=== PATIENT | female | born 1965 | race Caucasian/White ===

== ENCOUNTER 2016-03-10 06:50 | Day surgery (SDC) | payer BC, OTHER ==
[2016-03-02 10:46] VITALS: BMI 58.0
--- NOTE | 2016-03-02 11:37 | PAT Medication Instructions ---
Service Date Mar 02, 2016. Current Home Medication List Amoxicillin (Amoxil), 500 MG PO TID Aspirin (Aspirin Ec), 81 MG PO QAM Atorvastatin (Lipitor), 20 MG PO HS Cetirizine (Zyrtec), 10 MG PO QPM Clopidogrel (Plavix), 75 MG PO QAM Furosemide (Lasix), 80 MG PO BID Insulin Glargine (Lantus), 13 UNITS SC QPM Metoprolol Succinate (Toprol Xl), 25 MG PO HS Medication Instructions For Your Scheduled Surgery Amoxicillin (Amoxil), 500 MG PO TID (to be completed prior to surgery) - Check with surgeon/PCP for instructions: Aspirin (Aspirin Ec), 81 MG PO QAM Clopidogrel (Plavix), 75 MG PO QAM - Hold the following medications the morning of surgery: Furosemide (Lasix), 80 MG PO BID - Take the following medications as scheduled the night before surgery: Metoprolol Succinate (Toprol Xl), 25 MG PO HS Insulin Glargine (Lantus), 13 UNITS SC QPM Furosemide (Lasix), 80 MG PO BID Cetirizine (Zyrtec), 10 MG PO QPM Atorvastatin (Lipitor), 20 MG PO HS If you have any questions please call us at [phone] (Lynda Kothari PA-C) or [phone] or [phone]
[2016-03-02 12:46] LABS: BASO % 0.6 %; BASO ABS # 0.09 K/uL (0-0.2); COMPLETE YES; EOS % 3.3 %; HEMATOCRIT 38.7 % (37-47); IG% 1.2 %; LYMPH % 20.9 %; LYMPH ABS # 3.32 K/uL (1.2-3.4); MEAN CELL VOLUME 94.9 fL (80-100); MEAN CORPUSCULAR HEMOGLOBIN 30.4 pg (25-34); MEAN PLATELET VOLUME 11.3 fL (7.4-10.4); MONO % 3.6 %; NEUT % 70.4 %; PLATELET COUNT 308 K/uL (130-400); RED BLOOD COUNT 4.08 M/uL (4.2-5.4)
[2016-03-02 12:56] LABS: PROTHROMBIN TIME (PATIENT) 10.4 SECONDS (9.0-12.0)
[2016-03-02 13:17] LABS: CREATININE 2.9 mg/dl (0.60-1.20)
[2016-03-02 13:18] LABS: BUN/CREATININE RATIO 13.3 (10-20); CALCIUM 9.2 mg/dl (8.5-10.1); POTASSIUM 4.4 mmol/L (3.5-5.1)
[2016-03-02 13:34] LABS: BETA-HYDROXYBUTYRATE 0.96 mg/dL (0.2-2.81)
[~2016-03-10] VITALS: Ht 160 cm; Wt 150.1 kg
--- NOTE | 2016-03-10 06:16 | History and Physical ---
History & Physical CC: End stage renal disease HPI: Mrs. López states that she recently began dialysis due to some worsening of her renal function although her nephrologists are still undecided as to whether she will need it permanently or only on a temporary basis. The patient states that she does have some concerns regarding fistula creation due to the appearance of patient's arms after being on dialysis. She denies any other real complaints at this time including headaches, fevers, chills, dizziness, chest pain, shortness of breath, abdominal pain, nausea, vomiting, diarrhea, constipation, dysuria, hematuria, rest pain, claudication, nonhealing wounds or ulcers or other complaints. ALLERGIES: No known allergies. HOME MEDICATIONS: Reconciled in the chart and include the following: Aspirin, furosemide, lactulose, Lantus, Lipitor, metoprolol succinate, Nephrocaps, NovoLog, FlexPen, and Plavix. IMAGING: The patient had an ultrasound performed prior today's appointment, which demonstrates the usable cephalic vein in her left upper arm. The patient is right-handed. PAST MEDICAL HISTORY: Positive for anxiety, depression, diabetes, end-stage renal disease on dialysis, headaches, hypertension, neuropathy, and peripheral arterial disease. PAST SURGICAL HISTORY: Her surgical history is positive for tumor removal, hysterectomy, cholecystectomy, section, and left leg angiography with stent placement back [place] [address] Oneil Dumont. SOCIAL HISTORY: Positive for a past history of tobacco use. The patient states that she quit in 2016. FAMILY HISTORY: Positive for hypertension, diabetes. REVIEW OF SYSTEMS: Positive for fatigue. Negative for fevers, sweats, abnormal moles or rashes, vision changes or photophobia, ear pain, sinus problems or sore throat, cough, shortness of breath, hemoptysis or wheezing, chest pain, palpitations, syncope. She does have some edema of her bilateral lower extremities which is significantly improved compared to predialysis. The patient denies abdominal pain, nausea, vomiting, diarrhea, constipation, dysuria , hematuria, muscle weakness, headaches, dizziness, or seizures. PHYSICAL EXAMINATION: Her vital signs today are as follows: Blood pressure 120 /84 in the right arm, 138/84 in the left, heart rate 81, oxygen 97% on room air. The patient is 160 cm tall and weighs 148 kilograms. Constitutional: In general, patient is a morbidly obese, chronically ill-appearing middle-aged female in no acute distress. She is ambulatory with a walker. Her head is normocephalic, atraumatic. Eyes are EOMI. Her ENMT exam demonstrates no hearing loss, rhinorrhea or pharyngeal erythema. Her neck is supple, nontender with midline trachea without masses or crepitus. Lung exam demonstrates no dyspnea. They are decreased throughout but clear bilaterally. His cardiovascular exam demonstrates nondisplaced apical impulse with a regular rate and rhythm without murmurs, lifts, heaves, thrills or gallops. Her peripheral pulses are full and equal in all extremities unless otherwise noted, specifically they are normal in her carotid, brachial, radial and femoral pulses. Her bilateral lower extremities distal pulses are +2 in the left and + 1 on the right. She has brisk capillary refill and no sign of distal ischemia. The patient demonstrates no bruits in her carotid, abdominal or femoral area. Abdomen is soft, nontender with normoactive bowel sounds in all 4 quadrants without guarding or rebound. There is no flank or CVA tenderness. I am unable to appreciate any pulsatile masses due to body habitus. Her musculoskeletal exam demonstrates normal tone and strength for age. Bilateral upper extremities demonstrate no cyanosis, edema, clubbing, varicosities or ulcers. Bilateral lower extremities demonstrate +2 edema with dry scaly skin. No overt ulcers are noted. There is no gangrene or cyanosis. Neurologically, patient has grossly intact cranial nerves and grossly intact sensation. ASSESSMENT AND PLAN: End-stage renal disease on hemodialysis. Plan: Patient is admitted for a left antecubital cephalic vein fistula creation. I have discussed the risks options and benefits of the procedure with the patient. The patient understands the risks options and benefits and agrees to the procedure.
[~2016-03-10 06:50] MED LIST: AMOX500C3 PO; ASPI81TA28 PO; ATOR-22 PO; CEFAZOLIN 3000 MG/65 ML D5W IV SCH; CETI10TA84 PO; CLOP1TAB15 PO; FURO80TA63 PO; INSDGI SC; METO25TA3 PO; SODIUM CHLORIDE 0.9% 1000ML 1,000 ML IV SCH
[2016-03-10 07:19] VITALS: BMI 58.0
--- NOTE | 2016-03-10 07:22 | History & Physical Bridge Note ---
H&P Re-Evaluation Bridge Note: I have examined the patient, reviewed the History & Physical and in the interval since the performance of the History & Physical I have noted the following changes of clinical significance: No changes noted
[2016-03-10 07:27] VITALS: BP 150/74; PULSE 85; TEMP 37; O2SAT 98; Ht 160 cm; Wt 150.1 kg
[2016-03-10] MEDS ORDERED: ATROPINE SULFATE 0.1 MG/ML 5ML SYR IV PRN (07:30)
[2016-03-10] MEDS ORDERED: EpHEDrine SULFATE INJ 50 MG/ML AMP IV PRN (07:30)
[2016-03-10] MEDS ORDERED: FENTANYL CITRATE INJ 50 MCG/1 ML 2 ML VIAL IV PRN (07:30)
[2016-03-10] MEDS ORDERED: ONDANSETRON INJ 2 MG/ML 2 ML VIAL IV PRN (07:30)
[2016-03-10] MEDS ORDERED: NovoLIN-R INSULIN PER UNIT CHARGE ONE (07:38)
[2016-03-10] MEDS ORDERED: INSULIN HUMAN REGULAR PER UNIT 10 UNITS in SYRINGE 0 ML IV STA (07:39)
[2016-03-10 08:01] LABS: BUN/CREATININE RATIO 16.4 (10-20); CALCIUM 9.3 mg/dl (8.5-10.1); POTASSIUM 4.8 mmol/L (3.5-5.1)
[2016-03-10] MEDS ORDERED: MIDAZOLAM HCL 1 MG/ML 2ML VIAL ONE ×3 (08:04→09:57)
[2016-03-10] MEDS ORDERED: FENTANYL CITRATE INJ 50 MCG/1 ML 2 ML VIAL ONE ×2 (08:04→10:30)
[2016-03-10] MEDS ORDERED: PROPOFOL IV EMULSION 10 MG/ML 20 ML VIAL IV ONE (08:04)
[2016-03-10 08:17] LABS: BETA-HYDROXYBUTYRATE 1.06 mg/dL (0.2-2.81)
[2016-03-10] MEDS ORDERED: HEPARIN SOD (PORCINE) 1000 UNIT/ML 10 ML VIAL FLUSH ONE (10:36)
[2016-03-10] MEDS ORDERED: MIX: 0.5% BUPIVACAINE W/EPI 1:200,000+1%LIDO 50:50 INJ ONE (10:36)
--- NOTE | 2016-03-10 10:36 | [facility] Post Operative Brief Note ---
Immediate Operative Summary Operative Date Mar 10, 2016. Pre-Operative Diagnosis End-Stage Renal Disease, on Hemodialysis Post-Operative Diagnosis Same as preoperative Procedure(s) Performed Left Antecubital Cephalic Vein Arteriovenous Fistula Creation Surgeon Dr. Michel Autocutter Surgeon(s) Lynne Jensen PA-C Estimated Blood Loss 10ml Findings good thrill Specimens None per surgeon Anesthesia MAC Complication(s) None Disposition Recovery Room / PACU
[2016-03-10] MEDS ORDERED: TRAM-10 PO (10:39)
--- NOTE | 2016-03-10 10:40 | Discharge Instructions ---
Discharge Instructions Visit Reason for Visit: End Stage Renal Disease -No Hemodialysis Discharge Discharge Diagnosis / Problem: End stage renal disease on hemodialysis Discharge Goals Goal(s): Therapeutic intervention Activity Recommendations Activity Limitations: per Instructions/Follow-up section Anesthesia . Post Anesthesia Instructions: If you have had General Anesthesia or IV Sedation: * Do not drive today. * Resume driving when surgeon permits. * Do not make important decisions or sign legal documents today. * Call surgeon for: 1. Temperature elevations greater than 101 degrees F. 2. Uncontrollable pain. 3. Excessive bleeding. 4. Persistent nausea and vomiting. 5. Medication intolerance (nausea, vomiting or rash). * For nausea and vomiting use only clear liquids such as: tea, soda, bouillon until nausea subsides, then gradually increase diet as tolerated. * If you have any concerns or questions, call your surgeon's office. If physician is unavailable and it is an emergency, call 911 or go to the nearest emergency room. . Instructions / Follow-Up Instructions / Follow-Up Call [phone] to schedule a follow up appointment if one not already scheduled. ACTIVITY RECOMMENDATIONS: See Above SPECIAL CARE INSTRUCTIONS: Call your doctor if: * Temperature above 101 degrees * Pain not relieved by pain medicine ordered * There is increased drainage or redness from any incision * You have any unanswered questions or concerns. Diet Recommendations Recommended Home Diet: resume previous diet Procedures Procedures Performed: Left Antecubital Cephalic Vein Arteriovenous Fistula Creation Pending Studies Studies pending at discharge: no Medical Emergencies . Who to Call and When: Medical Emergencies: If at any time you feel your situation is an emergency, please call 911 immediately. . Non-Emergent Contact Non-Emergency issues call your: Surgeon . . "Provider Documentation" section prepared by Giuseppe Michel.
[2016-03-10 11:20] VITALS: BP 146/71; PULSE 79; TEMP 36.4; O2SAT 98
--- NOTE | 2016-03-10 11:29 | Anesthesiology Progress Note ---
Anesthesia Post Op Note Date & Time Mar 10, 2016 at 11:27 Vital Signs Pain Intensity: 0 Vital Signs Past 12 Hours Date Time Temp Pulse Resp B/P Pulse Ox O2 Delivery O2 Flow Rate FiO2 03/10/16 11:16 36.7 80 16 146/76 99 Room Air 03/10/16 11:06 36.7 80 16 148/80 99 Room Air 03/10/16 10:56 36.7 83 16 123/64 98 Room Air 03/10/16 07:27 37 85 20 150/74 98 Room Air Notes Mental Status: alert / awake / arousable, participated in evaluation Pt Amnestic to Procedure: Yes Nausea / Vomiting: adequately controlled Pain: adequately controlled Airway Patency, RR, SpO2: stable & adequate BP & HR: stable & adequate Hydration State: stable & adequate Anesthetic Complications: no major complications apparent
[2016-03-10 11:50] VITALS: BP 142/74; PULSE 80; TEMP 36.7; O2SAT 100
--- NOTE | 2016-03-10 12:08 | OPERATIVE REPORT ---
DATE OF OPERATION: 03/10/2016 PREOPERATIVE DIAGNOSIS: Endstage renal disease. POSTOPERATIVE DIAGNOSIS: Same. PROCEDURE: Left antecubital cephalic vein AV fistula creation. SURGEON: Dr. Michel. DOUGH MOLDER HAND: Lynne Martinez PA-C. ANESTHETIC: MAC. PROCEDURE INDICATIONS: The patient is a 50-year-old female with end-stage renal disease on dialysis. Fistula was recommended. She understood the risks, options and benefits and agreed to have this procedure. OPERATION AND FINDINGS: The patient was taken to the operating room and placed in supine position. After the left arm was prepped and draped in a sterile manner, local anesthetic was administered. A transverse incision was made just below the antecubital crease. This was carried down to where the cephalic vein was identified joining with the median cubital vein. This was isolated. Dissection was carried downward. The bleed of the brachial bifurcation was slightly higher in the artery that we exposed, most likely was the radial. It was a fairly good size to be used for a fistula. It was then clamped proximally and distally. Longitudinal arteriotomy was then made. The median cubital vein was divided after being ligated distally. The side branches of the proximal cephalic vein were ligated and divided also. The cephalic vein was then beveled in the appropriate fashion and end-to-side anastomosis was accomplished using a 7-0 Prolene suture in the usual vascular fashion. Prior to completing the closure, backbleeding and forward bleeding was allowed to occur and final few sutures were placed and securely tied. Clamps were removed, excellent flow was seen in the fistula, there was a palpable thrill in the fistula at the end of the procedure. Adequate hemostasis was then noted of the wound. The wound was then closed in the usual fashion using running 3-0 Vicryl for the subcutaneous layer and a 4-0 subcuticular Vicryl suture for the skin level and Dermabond for a dressing. The patient left the operating room in good condition having tolerated the procedure well. Lynne Martinez assisted due to lack of resident availability. I attest to the content of the Intraoperative Record and any orders documented therein. Any exceptio ns are noted below.
--- NOTE | 2016-03-10 15:33 | Progress Note ---
Progress Note I assisted Dr Michel with Barb López's Left Antecubital Cephalic Vein Arteriovenous Fistula Creation on 03/10/16, d/t lack of resident availability.
[2016-03-11] MEDS ORDERED: CEFAZOLIN 1000MG/55 ML D5W IV SCH (06:00)
[2016-03-11] MEDS ORDERED: CLINDAMYCIN 600 MG/54 ML D5W IV SCH (06:00)
[2016-03-11] MEDS ORDERED: CIPROFLOXACIN / D5W 400 MG IV SCH (06:00)
[2016-03-11] MEDS ORDERED: LEVOFLOXACIN / D5W 500 MG IV SCH (06:00)
[2016-03-11] MEDS ORDERED: CEFAZOLIN 2000 MG/60 ML D5W IV SCH (06:00)
[2016-03-11] MEDS ORDERED: LEVOFLOXACIN / D5W 750 MG IV SCH (06:00)
[2016-03-11] MEDS ORDERED: VANCOMYCIN 1GM/270ML NSS IV SCH (06:00)
[2016-04-23] MEDS ORDERED: AZITTAB PO (11:19)
[2016-04-23] MEDS ORDERED: DOCU100T7 PO (11:20)
[2016-08-10] MEDS ORDERED: lantus SQ (06:38)
== END 2016-03-10 12:15 | disposition home or self-care (01) ==
LOC: C.ACU 06:50
PROVIDERS: ATTEND Surgery Vascular Surgery
DX: N18.6 End stage renal disease (principal); I12.0 Hypertensive chronic kidney disease with stage 5 chronic kidney disease or end stage renal disease; Z99.2 Dependence on renal dialysis; E11.9 Type 2 diabetes mellitus without complications; Z87.891 Personal history of nicotine dependence; F41.9 Anxiety disorder, unspecified; F32.9 Major depressive disorder, single episode, unspecified; I73.9 Peripheral vascular disease, unspecified; Z98.890 Other specified postprocedural states; Z90.710 Acquired absence of both cervix and uterus; Z82.49 Family history of ischemic heart disease and other diseases of the circulatory system; Z83.3 Family history of diabetes mellitus

== ENCOUNTER 2016-05-05 06:33 | Day surgery (SDC) | payer OTHER ==
[2016-04-23 11:31] VITALS: BMI 58.0
[~2016-05-05] VITALS: Ht 160 cm; Wt 150.0 kg
--- NOTE | 2016-05-05 06:16 | History and Physical ---
History & Physical Date of Service May 05, 2016. History & Physical CC: End stage renal disease HPI: Mrs. López states that she recently began dialysis due to some worsening of her renal function. She had a left upper arm cephalic vein fistula created but it is too deep to use. She is here to have it transposed so it can be useable for dialysis. She denies any other real complaints at this time including headaches, fevers, chills, dizziness, chest pain, shortness of breath, abdominal pain, nausea, vomiting, diarrhea, constipation, dysuria, hematuria, rest pain, claudication, nonhealing wounds or ulcers or other complaints. ALLERGIES: No known allergies. HOME MEDICATIONS: Reconciled in the chart and include the following: Aspirin, furosemide, lactulose, Lantus, Lipitor, metoprolol succinate, Nephrocaps, NovoLog, FlexPen, and Plavix. IMAGING: The patient had an ultrasound performed prior today's appointment, which demonstrates the usable cephalic vein in her left upper arm. The patient is right-handed. PAST MEDICAL HISTORY: Positive for anxiety, depression, diabetes, end-stage renal disease on dialysis, headaches, hypertension, neuropathy, and peripheral arterial disease. PAST SURGICAL HISTORY: Her surgical history is positive for tumor removal, hysterectomy, cholecystectomy, section, and left leg angiography with stent placement back in [address] Oneil Dumont. SOCIAL HISTORY: Positive for a past history of tobacco use. The patient states that she quit in 2016. FAMILY HISTORY: Positive for hypertension, diabetes. REVIEW OF SYSTEMS: Positive for fatigue. Negative for fevers, sweats, abnormal moles or rashes, vision changes or photophobia, ear pain, sinus problems or sore throat, cough, shortness of breath, hemoptysis or wheezing, chest pain, palpitations, syncope. She does have some edema of her bilateral lower extremities which is significantly improved compared to predialysis. The patient denies abdominal pain, nausea, vomiting, diarrhea, constipation, dysuria , hematuria, muscle weakness, headaches, dizziness, or seizures. PHYSICAL EXAMINATION: Her vital signs today are as follows: Blood pressure 120 /84 in the right arm, 138/84 in the left, heart rate 81, oxygen 97% on room air. The patient is 160 cm tall and weighs 148 kilograms. Constitutional: In general, patient is a morbidly obese, chronically ill-appearing middle-aged female in no acute distress. She is ambulatory with a walker. Her head is normocephalic, atraumatic. Eyes are EOMI. Her ENMT exam demonstrates no hearing loss, rhinorrhea or pharyngeal erythema. Her neck is supple, nontender with midline trachea without masses or crepitus. Lung exam demonstrates no dyspnea. They are decreased throughout but clear bilaterally. His cardiovascular exam demonstrates nondisplaced apical impulse with a regular rate and rhythm without murmurs, lifts, heaves, thrills or gallops. Her peripheral pulses are full and equal in all extremities unless otherwise noted, specifically they are normal in her carotid, brachial, radial and femoral pulses. Her bilateral lower extremities distal pulses are +2 in the left and + 1 on the right. She has brisk capillary refill and no sign of distal ischemia. The patient demonstrates no bruits in her carotid, abdominal or femoral area. Abdomen is soft, nontender with normoactive bowel sounds in all 4 quadrants without guarding or rebound. There is no flank or CVA tenderness. I am unable to appreciate any pulsatile masses due to body habitus. Her musculoskeletal exam demonstrates normal tone and strength for age. Bilateral upper extremities demonstrate no cyanosis, edema, clubbing, varicosities or ulcers. Bilateral lower extremities demonstrate +2 edema with dry scaly skin. No overt ulcers are noted. There is no gangrene or cyanosis. Neurologically, patient has grossly intact cranial nerves and grossly intact sensation. ASSESSMENT AND PLAN: End-stage renal disease on hemodialysis. Post left upper arm cephalic vein fistula creation. Plan: Patient is admitted for transposition of her left upper arm cephalic vein fistula. I have discussed the risks options and benefits of the procedure with the patient. The patient understands the risks options and benefits and agrees to the procedure.
[~2016-05-05 06:33] MED LIST changes: -AMOX500C3 PO; +AZITTAB PO; +CEFAZOLIN 3000 MG/65 ML D5W 65 ML IV SCH; -CEFAZOLIN 3000 MG/65 ML D5W IV SCH; -CETI10TA84 PO; +DOCU100T7 PO; +NSS 1000ML IV SCH
[2016-05-05] MEDS ORDERED: NVLRB (07:03)
[2016-05-05 07:12] VITALS: BP 187/59; PULSE 65; TEMP 36.7; O2SAT 97; Ht 160 cm; Wt 150.0 kg
[2016-05-05] MEDS ORDERED: NURSING VERBAL MED ORDER ONE (07:30)
[2016-05-05] MEDS ORDERED: INSULIN HUMAN REGULAR SC ONE ×2 (07:30→10:30)
[2016-05-05] MEDS ORDERED: NovoLIN-R INSULIN PER UNIT CHARGE ONE ×2 (07:33→10:17)
[2016-05-05] MEDS ORDERED: PROPOFOL IV EMULSION 10 MG/ML 20 ML VIAL IV ONE (07:46)
[2016-05-05] MEDS ORDERED: ONDANSETRON INJ 2 MG/ML 2 ML VIAL ONE (07:46)
[2016-05-05] MEDS ORDERED: SODIUM CHLORIDE 0.9% INJ 10 ML VIAL ONE (07:46)
[2016-05-05] MEDS ORDERED: MIDAZOLAM HCL 1 MG/ML 2ML VIAL ONE (07:46)
[2016-05-05] MEDS ORDERED: LIDOCAINE HCL 2% 2 ML VIAL (20MG/ML) ONE (07:46)
[2016-05-05] MEDS ORDERED: KETAMINE HCL INJ 50 MG/ML 10 ML VIAL ONE (07:46)
[2016-05-05] MEDS ORDERED: FENTANYL CITRATE INJ 50 MCG/1 ML 2 ML VIAL ONE ×2 (07:46→09:10)
[2016-05-05 07:51] LABS: BUN/CREATININE RATIO 16.2 (10-20); CALCIUM 9.3 mg/dl (8.5-10.1); CREATININE 2.7 mg/dl (0.60-1.20); POTASSIUM 4.2 mmol/L (3.5-5.1)
[2016-05-05] MEDS ORDERED: LIDOCAINE HCL 1% 20 ML VIAL ONE ×2 (07:59→09:08)
[2016-05-05] MEDS ORDERED: BUPIVACAINE/EPINEPHRINE 0.5% MPF 1:200,000 30 ML VIAL ONE ×2 (07:59→09:08)
[2016-05-05] MEDS ORDERED: CEFAZOLIN SOD 1 GM VIAL ONE (08:00)
[2016-05-05] MEDS ORDERED: HEPARIN SOD (PORCINE) 1000 UNIT/ML 10 ML VIAL ONE (08:00)
[2016-05-05 08:01] LABS: BETA-HYDROXYBUTYRATE 1.36 mg/dL (0.2-2.81)
[2016-05-05] MEDS ORDERED: GELATIN SPONGE 12-7MM ONE (08:01)
[2016-05-05] MEDS ORDERED: THROMBIN 5000 UNITS KIT ONE (08:01)
[2016-05-05] MEDS ORDERED: SODIUM CHLORIDE 0.9% 1000ML 1,000 ML IV PRN (08:07)
[2016-05-05] MEDS ORDERED: ONDANSETRON INJ 2 MG/ML 2 ML VIAL IV PRN (08:15)
[2016-05-05] MEDS ORDERED: FENTANYL CITRATE INJ 50 MCG/1 ML 2 ML VIAL IV PRN (08:15)
--- NOTE | 2016-05-05 09:44 | [facility] Post Operative Brief Note ---
Immediate Operative Summary Operative Date May 05, 2016. Pre-Operative Diagnosis End Stage Renal Disease. Post-Operative Diagnosis Same as preoperative. Procedure(s) Performed Left Upper Extremity Cephalic Vein Arterio-venous Transposition Surgeon Thermodynamics Teacher Surgeon(s) Lynne Martinez PA-C Estimated Blood Loss 20ML Findings good thrill Specimens None per surgeon Anesthesia MAC Complication(s) None Disposition Recovery Room / PACU
[2016-05-05] MEDS ORDERED: OXYC-57 PO (09:45)
--- NOTE | 2016-05-05 09:47 | Discharge Instructions ---
Discharge Instructions Visit Reason for Visit: End Stage Renal Disease -On Hemodialysis Discharge Discharge Diagnosis / Problem: Malfunctioning av fistula Discharge Goals Goal(s): Therapeutic intervention Activity Recommendations Activity Limitations: per Instructions/Follow-up section Anesthesia . Post Anesthesia Instructions: If you have had General Anesthesia or IV Sedation: * Do not drive today. * Resume driving when surgeon permits. * Do not make important decisions or sign legal documents today. * Call surgeon for: 1. Temperature elevations greater than 101 degrees F. 2. Uncontrollable pain. 3. Excessive bleeding. 4. Persistent nausea and vomiting. 5. Medication intolerance (nausea, vomiting or rash). * For nausea and vomiting use only clear liquids such as: tea, soda, bouillon until nausea subsides, then gradually increase diet as tolerated. * If you have any concerns or questions, call your surgeon's office. If physician is unavailable and it is an emergency, call 911 or go to the nearest emergency room. . Instructions / Follow-Up Instructions / Follow-Up Call [phone] to schedule a follow up appointment if one not already scheduled. ACTIVITY RECOMMENDATIONS: See Above SPECIAL CARE INSTRUCTIONS: Call your doctor if: * Temperature above 101 degrees * Pain not relieved by pain medicine ordered * There is increased drainage or redness from any incision * You have any unanswered questions or concerns. Diet Recommendations Recommended Home Diet: resume previous diet Procedures Procedures Performed: Left Upper Extremity Cephalic Vein Arterio-venous Transposition Pending Studies Studies pending at discharge: no Medical Emergencies . Who to Call and When: Medical Emergencies: If at any time you feel your situation is an emergency, please call 911 immediately. . Non-Emergent Contact Non-Emergency issues call your: Surgeon . . "Provider Documentation" section prepared by Giuseppe Michel.
[2016-05-05 10:35] VITALS: BP 161/65; PULSE 75; TEMP 36.8; O2SAT 95
--- NOTE | 2016-05-05 10:35 | OPERATIVE REPORT ---
DATE OF OPERATION: 05/05/2016 PREOPERATIVE DIAGNOSIS: Malfunctioning left upper arm cephalic vein AV fistula. POSTOPERATIVE DIAGNOSIS: Same. PROCEDURE: Left upper extremity cephalic vein arteriovenous fistula transposition. SURGEON: Dr. Michel. SWITCHGEAR REPAIRER: Lynne Martinez PA-C. ANESTHETIC: MAC. PROCEDURE INDICATIONS: The patient is a 50-year-old female with left upper arm cephalic vein fistula which is not working well; however, it is too deep to access with the needles due to her body habitus. A transposition was recommended. She understood the risks, options, benefits and agreed to go ahead with this procedure. The patient was taken to the operating room and placed in a supine position. After her left arm was prepped and draped in a sterile manner, local anesthetic was administered. An incision was made over the cephalic vein from its arterial anastomosis at the antecubital fossa up to the shoulder joint. It was unroofed in its entirety. All side branches were divided after being ligated with silk sutures. The vein itself was fairly large and ranged anywhere from 6-8 mm in size. Once the vein was completely freed up, it was brought up closer to the skin. Subcutaneous tissue was sutured beneath it to raise it up closer to the skin surface. It ranged from 5-8 mm from the skin in its entire length until it got up to the upper arm near the shoulder at which point it dove back down into the axillary vein. It could be easily felt throughout. After this was moved up another 3-0 Vicryl was used to close the layer of subcutaneous tissue over the fistula. The skin was then stapled using the stapling device. Sterile dressings were applied to the wound. The patient left the operating room in satisfactory condition and tolerated the procedure well. There was a good thrill in the fistula at the end of the procedure and it was more easily felt at least [address] the arm. Lynne Martinez assisted due to lack of resident availability. I attest to the content of the Intraoperative Record and any orders documented therein. Any exceptio ns are noted below.
--- NOTE | 2016-05-05 10:38 | Anesthesiology Progress Note ---
Anesthesia Post Op Note Date & Time May 05, 2016 at 10:37 Vital Signs Pain Intensity: 0 Vital Signs Past 12 Hours Date Time Temp Pulse Resp B/P Pulse Ox O2 Delivery O2 Flow Rate FiO2 05/05/16 10:26 76 13 94 05/05/16 10:26 36.8 76 13 05/05/16 10:24 129/68 05/05/16 10:21 77 15 05/05/16 10:21 77 15 94 05/05/16 10:19 156/73 05/05/16 10:16 77 15 05/05/16 10:16 77 15 93 05/05/16 10:14 156/73 05/05/16 10:11 74 12 95 05/05/16 10:11 75 12 05/05/16 10:09 156/70 05/05/16 10:06 76 15 05/05/16 10:06 76 15 95 05/05/16 10:04 165/74 05/05/16 10:01 77 11 05/05/16 10:01 77 11 98 05/05/16 09:59 149/81 05/05/16 09:56 77 16 100 05/05/16 09:56 36.4 80 16 168/74 100 Mask 10 05/05/16 09:56 78 16 05/05/16 07:12 36.7 65 20 187/59 97 Room Air Notes Mental Status: alert / awake / arousable, participated in evaluation Pt Amnestic to Procedure: Yes Nausea / Vomiting: adequately controlled Pain: adequately controlled Airway Patency, RR, SpO2: stable & adequate BP & HR: stable & adequate Hydration State: stable & adequate Anesthetic Complications: no major complications apparent Pt looks well. Glucose 435 on arrival. Gave 10 units regular insulin SQ. 412 an hour later immediately pre-op, 377 in PACU. Gave another 10 units SQ, check in an hour, resume normal outpt regimen, f/u w/ PCP.
[2016-05-05 11:15] VITALS: BP 127/43; PULSE 75; O2SAT 95
[2016-05-05] MEDS ORDERED: TRAM-10 PO (11:26)
--- NOTE | 2016-05-05 14:04 | Progress Note ---
Progress Note Date of Service May 05, 2016. Progress Note I assisted Dr Michel with Barb López's Left Upper Extremity Cephalic Vein Arterio-venous Transposition on , d/t lack of resident availability.
[2016-08-10] MEDS ORDERED: lantus SQ (06:38)
== END 2016-05-05 11:35 | disposition home or self-care (01) ==
LOC: C.ACU 06:33
PROVIDERS: ATTEND Surgery Vascular Surgery
DX: T82.898A Other specified complication of vascular prosthetic devices, implants and grafts, initial encounter (principal); Y84.8 Other medical procedures as the cause of abnormal reaction of the patient, or of later complication, without mention of misadventure at the time of the procedure; N18.9 Chronic kidney disease, unspecified; I12.9 Hypertensive chronic kidney disease with stage 1 through stage 4 chronic kidney disease, or unspecified chronic kidney disease; E11.22 Type 2 diabetes mellitus with diabetic chronic kidney disease; I73.9 Peripheral vascular disease, unspecified; G47.33 Obstructive sleep apnea (adult) (pediatric); Z86.73 Personal history of transient ischemic attack (TIA), and cerebral infarction without residual deficits; Z87.891 Personal history of nicotine dependence; Z68.43 Body mass index [BMI] 50.0-59.9, adult; E66.01 Morbid (severe) obesity due to excess calories; Z98.890 Other specified postprocedural states; Z82.49 Family history of ischemic heart disease and other diseases of the circulatory system; Z83.3 Family history of diabetes mellitus

== ENCOUNTER → 2016-08-10 | Day surgery (SDC) | payer OTHER ==
[~2016-08-10] VITALS: Ht 160 cm; Wt 147.8 kg
[~2016-08-10] MED LIST changes: +ARISTA ABSORBABLE HEMOSTAT 3GM TOP ONE; -AZITTAB PO; -CEFAZOLIN 3000 MG/65 ML D5W 65 ML IV SCH; +LIDOCAINE HCL 1% 20 ML VIAL ONE; +LIDOCAINE HCL 1% 20 ML VIAL SQ ONE; -NSS 1000ML IV SCH; +NURSING VERBAL MED ORDER ONE; +NVLRB; +NovoLIN-R INSULIN PER UNIT CHARGE ONE; -SODIUM CHLORIDE 0.9% 1000ML 1,000 ML IV SCH; +TRAM-10 PO; +lantus SQ
[2016-08-10 06:41] VITALS: BP 144/65; PULSE 93; TEMP 37.4; O2SAT 97; Ht 160 cm; Wt 147.8 kg
--- NOTE | 2016-08-10 07:54 | History and Physical ---
History & Physical Date of Service Aug 10, 2016. History & Physical CC: End stage renal disease, functioning fistula HPI: Mrs. López states that she recently began dialysis due to some worsening of her renal function. She had a left upper arm cephalic vein fistula created but it is too deep to use. She then had it transposed so it can be useable for dialysis. the fistula is now working well. She denies any other real complaints at this time including headaches, fevers, chills, dizziness, chest pain, shortness of breath, abdominal pain, nausea, vomiting, diarrhea, constipation, dysuria, hematuria, rest pain, claudication, nonhealing wounds or ulcers or other complaints. ALLERGIES: No known allergies. HOME MEDICATIONS: Reconciled in the chart and include the following: Aspirin, furosemide, lactulose, Lantus, Lipitor, metoprolol succinate, Nephrocaps, NovoLog, FlexPen, and Plavix. IMAGING: The patient had an ultrasound performed prior today's appointment, which demonstrates the usable cephalic vein in her left upper arm. The patient is right-handed. PAST MEDICAL HISTORY: Positive for anxiety, depression, diabetes, end-stage renal disease on dialysis, headaches, hypertension, neuropathy, and peripheral arterial disease. PAST SURGICAL HISTORY: Her surgical history is positive for tumor removal, hysterectomy, cholecystectomy, section, and left leg angiography with stent placement back in [address] Oneil Dumont. SOCIAL HISTORY: Positive for a past history of tobacco use. The patient states that she quit in 2016. FAMILY HISTORY: Positive for hypertension, diabetes. REVIEW OF SYSTEMS: Positive for fatigue. Negative for fevers, sweats, abnormal moles or rashes, vision changes or photophobia, ear pain, sinus problems or sore throat, cough, shortness of breath, hemoptysis or wheezing, chest pain, palpitations, syncope. She does have some edema of her bilateral lower extremities which is significantly improved compared to predialysis. The patient denies abdominal pain, nausea, vomiting, diarrhea, constipation, dysuria , hematuria, muscle weakness, headaches, dizziness, or seizures. PHYSICAL EXAMINATION: Her vital signs today are as follows: Blood pressure 120 /84 in the right arm, 138/84 in the left, heart rate 81, oxygen 97% on room air. The patient is 160 cm tall and weighs 148 kilograms. Constitutional: In general, patient is a morbidly obese, chronically ill-appearing middle-aged female in no acute distress. She is ambulatory with a walker. Her head is normocephalic, atraumatic. Eyes are EOMI. Her ENMT exam demonstrates no hearing loss, rhinorrhea or pharyngeal erythema. Her neck is supple, nontender with midline trachea without masses or crepitus. Lung exam demonstrates no dyspnea. They are decreased throughout but clear bilaterally. His cardiovascular exam demonstrates nondisplaced apical impulse with a regular rate and rhythm without murmurs, lifts, heaves, thrills or gallops. Her peripheral pulses are full and equal in all extremities unless otherwise noted, specifically they are normal in her carotid, brachial, radial and femoral pulses. Her bilateral lower extremities distal pulses are +2 in the left and + 1 on the right. She has brisk capillary refill and no sign of distal ischemia. The patient demonstrates no bruits in her carotid, abdominal or femoral area. Abdomen is soft, nontender with normoactive bowel sounds in all 4 quadrants without guarding or rebound. There is no flank or CVA tenderness. I am unable to appreciate any pulsatile masses due to body habitus. Her musculoskeletal exam demonstrates normal tone and strength for age. Bilateral upper extremities demonstrate no cyanosis, edema, clubbing, varicosities or ulcers. Good thrill in left arm fistula, Bilateral lower extremities demonstrate +2 edema with dry scaly skin. No overt ulcers are noted. There is no gangrene or cyanosis. Neurologically, patient has grossly intact cranial nerves and grossly intact sensation. ASSESSMENT AND PLAN: End-stage renal disease on hemodialysis. functioning left upper arm cephalic vein fistula Plan: Patient is admitted for removal of her permcath. I have discussed the risks options and benefits of the procedure with the patient. The patient understands the risks options and benefits and agrees to the procedure.
--- NOTE | 2016-08-10 08:43 | [facility] Post Operative Brief Note ---
Immediate Operative Summary Operative Date Aug 10, 2016. Pre-Operative Diagnosis Functioning Fistula Post-Operative Diagnosis Same Procedure(s) Performed Removal of Perm Catheter Surgeon Dr. Michel Safety Grooving Machine Operator Surgeon(s) Dr. Maya Wilder Estimated Blood Loss 3 Findings catheter and cuff removed Specimens A: Explant Permcatheter Anesthesia Local Complication(s) None Disposition
--- NOTE | 2016-08-10 08:45 | Discharge Instructions ---
Discharge Instructions Date of Service Aug 10, 2016. Visit Reason for Visit: End Stage Renal Disease, Functioning Fistula Discharge Discharge Diagnosis / Problem: Functioning fistula Discharge Goals Goal(s): Therapeutic intervention Activity Recommendations Activity Limitations: resume your previous activity Shower/Bathe: tomorrow Anesthesia . Post Anesthesia Instructions: If you have had General Anesthesia or IV Sedation: * Do not drive today. * Resume driving when surgeon permits. * Do not make important decisions or sign legal documents today. * Call surgeon for: 1. Temperature elevations greater than 101 degrees F. 2. Uncontrollable pain. 3. Excessive bleeding. 4. Persistent nausea and vomiting. 5. Medication intolerance (nausea, vomiting or rash). * For nausea and vomiting use only clear liquids such as: tea, soda, bouillon until nausea subsides, then gradually increase diet as tolerated. * If you have any concerns or questions, call your surgeon's office. If physician is unavailable and it is an emergency, call 911 or go to the nearest emergency room. . Instructions / Follow-Up Instructions / Follow-Up Call [phone] with any questions or concerns. May shower tomorrow SPECIAL CARE INSTRUCTIONS: Medications: * Continue to take your medications as directed. If you have been given a prescription for Plavix, please fill it immediately and take as directed. Incision Care: * Your puncture site may have some bruising and minor swelling for about one week. * You will have a small dressing covering your puncture site. You may remove the dressing after 24 hours and shower. You may let the warm soapy water run over it, but be sure to dry the puncture site well and keep it dry. * DO NOT IMMERSE THE INCISION IN A TUB/POOL/etc. UNTIL HEALED. * Puncture sites should be kept covered with a band-aid until it begins to heal. Restrictions: * Depending on whether you leg or arm was punctured to access the arteries, you will be required to lay flat, hold your arm still, or both, for about 4 hours after the procedure to prevent bleeding. * Limit your activity for the first 48 hours. You may walk and go up and down steps. Avoid excessive bending or movement at the puncture site. Possible Complications: * Excessive Swelling - after blood flow is improved you may notice increased swelling in the lower legs. This is a normal response. This usually depends on the amount of blockages in the leg, how long they have been there prior to your procedure and how much blood flow was restored. Elevating your legs will help to improve this. Please notify our office ([phone] ) if the swelling does not go away after lying in bed overnight. * Infection/Drainage/Bleeding - Drainage or bleeding from the puncture site should be minimal. If you have excessive bleeding or drainage, call our office ([phone]) right away. * Pain - You may experience some mild pain or soreness at your puncture site. If your pain does not improve, please contact our office ([phone]). Call your doctor and seek emergent treatment if you develop: * Temperature above 101 degrees * Any fever or chills * Any redness or purulent drainage from the puncture site * Any new dusky/blue colored toes or feet with coolness or sharp or aching pain. SKIN IRRITATION: * You may experience some redness and/or swelling in the area where radiation was administered. If any skin irritation occurs, please contact your family physician. FOLLOW UP VISIT: Keep any scheduled doctor appointments. Diet Recommendations Recommended Home Diet: resume previous diet Procedures Procedures Performed: Removal of Perm Catheter Pending Studies Studies pending at discharge: no Medical Emergencies . Who to Call and When: Medical Emergencies: If at any time you feel your situation is an emergency, please call 911 immediately. . Non-Emergent Contact Non-Emergency issues call your: Surgeon . . "Provider Documentation" section prepared by Giuseppe Michel. .
[2016-08-10 09:05] VITALS: BP 133/63; PULSE 82; TEMP 37.2; O2SAT 97
--- NOTE | 2016-08-10 09:34 | DIAGNOSTIC IMAGING REPORT ---
DATE OF PROCEDURE: 08/10/2016 PREOPERATIVE DIAGNOSIS: End-stage renal disease with functioning fistula, no longer requiring right IJ tunneled Perm-A-Cath. POSTOPERATIVE DIAGNOSIS: End-stage renal disease with functioning fistula, no longer requiring right IJ tunneled Perm-A-Cath. PROCEDURE: Removal of right IJ tunneled Perm-A-Cath. SURGEON: Dr. Giuseppe Michel. OVEN UNLOADER: Dr. Maya Wilder. ANESTHESIA: Local. ESTIMATED BLOOD LOSS: 3 mL. CONDITION: Stable. COMPLICATIONS: None. INDICATIONS: Mrs. Barb López is a 50-year-old woman with end-stage renal disease, on hemodialysis through a left arm AV fistula which is functioning well. She had a right tunneled IJ PermCath placed previously and it is no longer required. For this reason, she was recommended to undergo PermCath removal. The risks, benefits and alternatives were discussed with the patient and she consented to the procedure. DESCRIPTION OF PROCEDURE: The patient was taken to the OR and placed in the supine position. Her right neck and chest were prepped and draped in the usual sterile fashion. A safety timeout was performed and the patient and procedure correctly identified. Local anesthesia was used to anesthetize the skin surrounding the catheter tunnel. The previously placed Prolene sutures were removed. Blunt dissection was used to free up the catheter along its tract. The cuff was fairly deep and so a longitudinal incision was made with an 11 blade scalpel along the tract of the tunnel beginning at its skin insertion site and extending approximately 2 cm. Blunt dissection was again used to free up the fibrous connective tissue surrounding the catheter and the cuff was identified. The fibrous sheath surrounding the catheter was incised with a long blade scalpel. The catheter was then removed without difficulty and manual pressure was held for approximately 5 minutes with good hemostasis. Vicryl suture was used to reapproximate the skin incision. A sterile dressing was applied. The patient tolerated the procedure well and there were no immediate complications. Dr. Giuseppe Michel was present for the entire procedure. I, Dr. Michel was present and scrubed for the entire procedure. [facility]
[2016-08-10 09:35] VITALS: BP 150/61; PULSE 87; TEMP 37; O2SAT 99
== END | disposition home or self-care (01) ==
LOC: C.ACU 06:11
PROVIDERS: ATTEND Surgery Vascular Surgery
DX: Z45.2 Encounter for adjustment and management of vascular access device (principal); I12.0 Hypertensive chronic kidney disease with stage 5 chronic kidney disease or end stage renal disease; N18.6 End stage renal disease; E11.9 Type 2 diabetes mellitus without complications; F32.9 Major depressive disorder, single episode, unspecified; Z99.2 Dependence on renal dialysis; Z79.82 Long term (current) use of aspirin; Z87.891 Personal history of nicotine dependence; Z82.49 Family history of ischemic heart disease and other diseases of the circulatory system

== ENCOUNTER 2016-09-22 11:13 | Day surgery (SDC) | payer OTHER ==
[~2016-09-22] VITALS: Ht 160 cm; Wt 136.1 kg
--- NOTE | 2016-09-22 08:41 | History and Physical ---
History & Physical Date of Service Sep 22, 2016. History & Physical CC: End stage renal disease, malfunctioning fistula HPI: Mrs. López states that she recently began dialysis due to some worsening of her renal function. She had a left upper arm cephalic vein fistula created but it is too deep to use. She then had it transposed so it can be useable for dialysis. the fistula was working well. She now has had problems with flows. She denies any other real complaints at this time including headaches, fevers, chills, dizziness, chest pain, shortness of breath , abdominal pain, nausea, vomiting, diarrhea, constipation, dysuria, hematuria, rest pain, claudication, nonhealing wounds or ulcers or other complaints. ALLERGIES: No known allergies. HOME MEDICATIONS: Reconciled in the chart and include the following: Aspirin, furosemide, lactulose, Lantus, Lipitor, metoprolol succinate, Nephrocaps, NovoLog, FlexPen, and Plavix. IMAGING: The patient had an ultrasound performed prior today's appointment, which demonstrates the usable cephalic vein in her left upper arm. The patient is right-handed. PAST MEDICAL HISTORY: Positive for anxiety, depression, diabetes, end-stage renal disease on dialysis, headaches, hypertension, neuropathy, and peripheral arterial disease. PAST SURGICAL HISTORY: Her surgical history is positive for tumor removal, hysterectomy, cholecystectomy, section, and left leg angiography with stent placement back in [address] Oneil Dumont. SOCIAL HISTORY: Positive for a past history of tobacco use. The patient states that she quit in 2016. FAMILY HISTORY: Positive for hypertension, diabetes. REVIEW OF SYSTEMS: Positive for fatigue. Negative for fevers, sweats, abnormal moles or rashes, vision changes or photophobia, ear pain, sinus problems or sore throat, cough, shortness of breath, hemoptysis or wheezing, chest pain, palpitations, syncope. She does have some edema of her bilateral lower extremities which is significantly improved compared to predialysis. The patient denies abdominal pain, nausea, vomiting, diarrhea, constipation, dysuria , hematuria, muscle weakness, headaches, dizziness, or seizures. PHYSICAL EXAMINATION: Her vital signs today are as follows: Blood pressure 120 /84 in the right arm, 138/84 in the left, heart rate 81, oxygen 97% on room air. The patient is 160 cm tall and weighs 148 kilograms. Constitutional: In general, patient is a morbidly obese, chronically ill-appearing middle-aged female in no acute distress. She is ambulatory with a walker. Her head is normocephalic, atraumatic. Eyes are EOMI. Her ENKS exam demonstrates no hearing loss, rhinorrhea or pharyngeal erythema. Her neck is supple, nontender with midline trachea without masses or crepitus. Lung exam demonstrates no dyspnea. They are decreased throughout but clear bilaterally. His cardiovascular exam demonstrates nondisplaced apical impulse with a regular rate and rhythm without murmurs, lifts, heaves, thrills or gallops. Her peripheral pulses are full and equal in all extremities unless otherwise noted, specifically they are normal in her carotid, brachial, radial and femoral pulses. Her bilateral lower extremities distal pulses are +2 in the left and + 1 on the right. She has brisk capillary refill and no sign of distal ischemia. The patient demonstrates no bruits in her carotid, abdominal or femoral area. Abdomen is soft, nontender with normoactive bowel sounds in all 4 quadrants without guarding or rebound. There is no flank or CVA tenderness. I am unable to appreciate any pulsatile masses due to body habitus. Her musculoskeletal exam demonstrates normal tone and strength for age. Bilateral upper extremities demonstrate no cyanosis, edema, clubbing, varicosities or ulcers. Good thrill in left arm fistula, Bilateral lower extremities demonstrate +2 edema with dry scaly skin. No overt ulcers are noted. There is no gangrene or cyanosis. Neurologically, patient has grossly intact cranial nerves and grossly intact sensation. ASSESSMENT AND PLAN: End-stage renal disease on hemodialysis. Malfunctioning left upper arm cephalic vein fistula Plan: Patient is admitted for fistulogram with possible intervention. I have discussed the risks options and benefits of the procedure with the patient. The patient understands the risks options and benefits and agrees to the procedure.
[~2016-09-22 11:13] MED LIST changes: -ARISTA ABSORBABLE HEMOSTAT 3GM TOP ONE; +CEFAZOLIN 1000MG/55 ML D5W IV SCH; +CEFAZOLIN 3000 MG/65 ML D5W 65 ML IV SCH; +D5W AND 1/4NSS 1,000 ML IV SCH; -LIDOCAINE HCL 1% 20 ML VIAL ONE; -LIDOCAINE HCL 1% 20 ML VIAL SQ ONE; -NURSING VERBAL MED ORDER ONE; -NVLRB; -NovoLIN-R INSULIN PER UNIT CHARGE ONE
[2016-09-22 11:42] VITALS: BP 163/66; PULSE 82; TEMP 36.8; O2SAT 97; Ht 160 cm; Wt 136.1 kg
[2016-09-22] MEDS ORDERED: NURSING VERBAL MED ORDER ONE (12:00)
[2016-09-22] MEDS ORDERED: NovoLIN-R INSULIN PER UNIT CHARGE ONE ×2 (12:01→12:07)
--- NOTE | 2016-09-22 13:06 | Procedure Note ---
Pre-Mod Sedation Assessment General Date of Moderate Sedation: Sep 22, 2016. Vital Signs: Vital Signs Past 12 Hours Date Time Temp Pulse Resp B/P (MAP) Pulse Ox O2 Delivery O2 Flow Rate FiO2 09/22/16 11:42 36.8 82 20 163/66 (98) 97 Room Air Pre-Sedation Airway Assessment Oral Cavity: WNL Hx of Sleep Apnea: No Smoking Status: Former Smoker Mallampati Classification: Class II ASA Classification: Class III Notes The planned sedation has been discussed with the patient and consent obtained. I have identified the patient, determined the appropriateness of sedation and have assessed the patient immediately prior to the procedure. All medicine(s) and interventions are by my order.
[2016-09-22] MEDS ORDERED: FENTANYL CITRATE INJ 50 MCG/1 ML 2 ML VIAL ONE (13:11)
[2016-09-22] MEDS ORDERED: MIDAZOLAM HCL 1 MG/ML 2ML VIAL ONE (13:11)
--- NOTE | 2016-09-22 13:47 | Procedure Note ---
Post-Moderate Sedation Plan General Date of Moderate Sedation Sep 22, 2016. Vital Signs: Vital Signs Past 12 Hours Date Time Temp Pulse Resp B/P (MAP) Pulse Ox O2 Delivery O2 Flow Rate FiO2 09/22/16 13:45 73 16 168/85 100 Room Air 09/22/16 11:42 36.8 82 20 163/66 (98) 97 Room Air Review - Discharge Plan Post Moderate Sedation Plan: On clinical assessment, the patient appears to have tolerated the conscious sedation without complications. Patient is recovering as anticipated. Patient will continue to be monitored by nursing and may be discharged when conscious sedation discharge criteria are met.
--- NOTE | 2016-09-22 13:48 | [facility] Post Operative Brief Note ---
Immediate Operative Summary Operative Date Sep 22, 2016. Pre-Operative Diagnosis Malfunctioning Fistula Post-Operative Diagnosis Same Procedure(s) Performed Fistulogram, Percutaneous Transluminal Angioplasty Venous, Moderate Sedation from 1336 - 1344. Surgeon Dr. Michel Well Cleaner Surgeon(s) None Estimated Blood Loss 5 Findings improved thrill Specimens None Anesthesia Local with sedation Complication(s) None Disposition
--- NOTE | 2016-09-22 13:49 | Discharge Instructions ---
Discharge Instructions Date of Service Sep 22, 2016. Visit Reason for Visit: End Stage Renal Disease, Malfunctioning Fistula Discharge Discharge Diagnosis / Problem: Malfunctioning fistula Discharge Goals Goal(s): Therapeutic intervention Activity Recommendations Activity Limitations: resume your previous activity Anesthesia . Post Anesthesia Instructions: If you have had General Anesthesia or IV Sedation: * Do not drive today. * Resume driving when surgeon permits. * Do not make important decisions or sign legal documents today. * Call surgeon for: 1. Temperature elevations greater than 101 degrees F. 2. Uncontrollable pain. 3. Excessive bleeding. 4. Persistent nausea and vomiting. 5. Medication intolerance (nausea, vomiting or rash). * For nausea and vomiting use only clear liquids such as: tea, soda, bouillon until nausea subsides, then gradually increase diet as tolerated. * If you have any concerns or questions, call your surgeon's office. If physician is unavailable and it is an emergency, call 911 or go to the nearest emergency room. . Instructions / Follow-Up Instructions / Follow-Up Call [phone] with any questions or concerns. SPECIAL CARE INSTRUCTIONS: Medications: * Continue to take your medications as directed. If you have been given a prescription for Plavix, please fill it immediately and take as directed. Incision Care: * Your puncture site may have some bruising and minor swelling for about one week. * You will have a small dressing covering your puncture site. You may remove the dressing after 24 hours and shower. You may let the warm soapy water run over it, but be sure to dry the puncture site well and keep it dry. * DO NOT IMMERSE THE INCISION IN A TUB/POOL/etc. UNTIL HEALED. * Puncture sites should be kept covered with a band-aid until it begins to heal. Restrictions: * Depending on whether you leg or arm was punctured to access the arteries, you will be required to lay flat, hold your arm still, or both, for about 4 hours after the procedure to prevent bleeding. * Limit your activity for the first 48 hours. You may walk and go up and down steps. Avoid excessive bending or movement at the puncture site. Possible Complications: * Excessive Swelling - after blood flow is improved you may notice increased swelling in the lower legs. This is a normal response. This usually depends on the amount of blockages in the leg, how long they have been there prior to your procedure and how much blood flow was restored. Elevating your legs will help to improve this. Please notify our office ([phone] ) if the swelling does not go away after lying in bed overnight. * Infection/Drainage/Bleeding - Drainage or bleeding from the puncture site should be minimal. If you have excessive bleeding or drainage, call our office ([phone]) right away. * Pain - You may experience some mild pain or soreness at your puncture site. If your pain does not improve, please contact our office ([phone]). Call your doctor and seek emergent treatment if you develop: * Temperature above 101 degrees * Any fever or chills * Any redness or purulent drainage from the puncture site * Any new dusky/blue colored toes or feet with coolness or sharp or aching pain. SKIN IRRITATION: * You may experience some redness and/or swelling in the area where radiation was administered. If any skin irritation occurs, please contact your family physician. FOLLOW UP VISIT: Keep any scheduled doctor appointments. Diet Recommendations Recommended Home Diet: resume previous diet Procedures Procedures Performed: Fistulogram, Percutaneous Transluminal Angioplasty Venous, Moderate Sedation from 1336 - 1344. Pending Studies Studies pending at discharge: no Medical Emergencies . Who to Call and When: Medical Emergencies: If at any time you feel your situation is an emergency, please call 911 immediately. . Non-Emergent Contact Non-Emergency issues call your: Surgeon . . "Provider Documentation" section prepared by Giuseppe Michel. .
--- NOTE | 2016-09-22 13:59 | [facility] Operative Report ---
Operative Report Operative Date Sep 22, 2016. Pre-Operative Diagnosis Malfunctioning Fistula Post-Operative Diagnosis Same Procedure(s) Performed Fistulogram, Percutaneous Transluminal Angioplasty Venous, Moderate Sedation from 1336 - 1344. Surgeon Dr. Michel Instrument Repairer Helper Surgeon(s) None Estimated Blood Loss 5 Findings improved thrill Specimens None Anesthesia Local with sedation Complication(s) None Disposition Indications This is a 50-year-old female with end-stage renal disease and a left upper arm basilic vein transposition fistula in place. She was having trouble at dialysis with flows. A fistulogram was recommended with possible intervention. She understood the risks options and benefits and agreed to go ahead with this procedure. Description of Procedure Patient was taken to the angiogram suite and placed in the supine position. After the left arm fistula was prepped and draped in a sterile manner local anesthetic was administered. A percutaneous puncture was made of the proximal portion the left upper arm AV fistula using micropuncture technique. The micropuncture wire and sheath were inserted. A fistulogram was then performed which showed the fistula be widely patent except for the mid upper arm where there was a weblike obstruction. There was a narrowing seen at the distal cephalic vein prior to its junction with the axillary vein. It was decided to balloon these areas. The wire was reinserted and the sheath was exchanged to a 6 Italian sheath. The 035 Glidewire was then passed up through the lesions. An 8x 4 balloon was then used and both areas were dilated. The first dilated area was the mid upper arm which had excellent results and no residual stenosis. We then dilated the 2 areas near the cephalic junction. This also went well with no residual stenosis. There was a much better thrill. There is much better flow in the fistula post dilatation. There is a better palpable thrill. At that point it was decided to pull the sheath. The sheath was pulled and pressure was applied, Hemostasis was obtained. Once hemostasis was noted, a sterile dressing was applied to the wound and the patient left the Angio suite in good condition and tolerated the procedure well. I attest to the content of the Intraoperative Record and any orders documented therein. Any exceptions are noted below.
[2016-09-22 14:05] VITALS: BP 128/74; PULSE 79; TEMP 36.5; O2SAT 96
[2016-09-22 14:35] VITALS: BP 131/56; PULSE 79; TEMP 36.5; O2SAT 95
== END 2016-09-22 14:50 | disposition home or self-care (01) ==
LOC: C.ACU 11:13
PROVIDERS: ATTEND Surgery Vascular Surgery
DX: T82.590A Other mechanical complication of surgically created arteriovenous fistula, initial encounter (principal); E11.22 Type 2 diabetes mellitus with diabetic chronic kidney disease; I12.0 Hypertensive chronic kidney disease with stage 5 chronic kidney disease or end stage renal disease; N18.6 End stage renal disease; Z99.2 Dependence on renal dialysis; E11.40 Type 2 diabetes mellitus with diabetic neuropathy, unspecified; E11.51 Type 2 diabetes mellitus with diabetic peripheral angiopathy without gangrene; F32.9 Major depressive disorder, single episode, unspecified; F41.9 Anxiety disorder, unspecified; Z87.891 Personal history of nicotine dependence; Z79.82 Long term (current) use of aspirin; Z79.4 Long term (current) use of insulin; Z79.899 Other long term (current) drug therapy; Z79.02 Long term (current) use of antithrombotics/antiplatelets; X58.XXXA Exposure to other specified factors, initial encounter

== ENCOUNTER 2017-05-23 07:26 | Day surgery (SDC) | payer OTHER ==
[~2017-05-23] VITALS: Ht 160 cm; Wt 148.5 kg
[~2017-05-23 07:26] MED LIST changes: +CEFAZOLIN 1000MG IV PUSH 7.5 ML IV SCH; -CEFAZOLIN 1000MG/55 ML D5W IV SCH; -CEFAZOLIN 3000 MG/65 ML D5W 65 ML IV SCH; +CEFAZOLIN 3000MG IV PUSH 22.5 ML IV SCH; -D5W AND 1/4NSS 1,000 ML IV SCH; -METO25TA3 PO; +METO25TA4 PO; -TRAM-10 PO
--- NOTE | 2017-05-23 07:49 | History and Physical ---
History & Physical Date of Service May 23, 2017. History & Physical CC: End stage renal disease, malfunctioning fistula HPI: Mrs. López states that she recently began dialysis due to some worsening of her renal function. She had a left upper arm cephalic vein fistula created but it is too deep to use. She then had it transposed so it can be useable for dialysis. the fistula was working well. She now has had problems with flows. She denies any other real complaints at this time including headaches, fevers, chills, dizziness, chest pain, shortness of breath , abdominal pain, nausea, vomiting, diarrhea, constipation, dysuria, hematuria, rest pain, claudication, nonhealing wounds or ulcers or other complaints. ALLERGIES: No known allergies. HOME MEDICATIONS: Reconciled in the chart and include the following: Aspirin, furosemide, lactulose, Lantus, Lipitor, metoprolol succinate, Nephrocaps, NovoLog, FlexPen, and Plavix. IMAGING: The patient had an ultrasound performed prior today's appointment, which demonstrates the usable cephalic vein in her left upper arm. The patient is right-handed. PAST MEDICAL HISTORY: Positive for anxiety, depression, diabetes, end-stage renal disease on dialysis, headaches, hypertension, neuropathy, and peripheral arterial disease. PAST SURGICAL HISTORY: Her surgical history is positive for tumor removal, hysterectomy, cholecystectomy, section, and left leg angiography with stent placement back in [address] Oneil Dumont. SOCIAL HISTORY: Positive for a past history of tobacco use. The patient states that she quit in 2016. FAMILY HISTORY: Positive for hypertension, diabetes. REVIEW OF SYSTEMS: Positive for fatigue. Negative for fevers, sweats, abnormal moles or rashes, vision changes or photophobia, ear pain, sinus problems or sore throat, cough, shortness of breath, hemoptysis or wheezing, chest pain, palpitations, syncope. She does have some edema of her bilateral lower extremities which is significantly improved compared to predialysis. The patient denies abdominal pain, nausea, vomiting, diarrhea, constipation, dysuria , hematuria, muscle weakness, headaches, dizziness, or seizures. PHYSICAL EXAMINATION: Her vital signs today are as follows: Blood pressure 120 /84 in the right arm, 138/84 in the left, heart rate 81, oxygen 97% on room air. The patient is 160 cm tall and weighs 148 kilograms. Constitutional: In general, patient is a morbidly obese, chronically ill-appearing middle-aged female in no acute distress. She is ambulatory with a walker. Her head is normocephalic, atraumatic. Eyes are EOMI. Her ENNV exam demonstrates no hearing loss, rhinorrhea or pharyngeal erythema. Her neck is supple, nontender with midline trachea without masses or crepitus. Lung exam demonstrates no dyspnea. They are decreased throughout but clear bilaterally. His cardiovascular exam demonstrates nondisplaced apical impulse with a regular rate and rhythm without murmurs, lifts, heaves, thrills or gallops. Her peripheral pulses are full and equal in all extremities unless otherwise noted, specifically they are normal in her carotid, brachial, radial and femoral pulses. Her bilateral lower extremities distal pulses are +2 in the left and + 1 on the right. She has brisk capillary refill and no sign of distal ischemia. The patient demonstrates no bruits in her carotid, abdominal or femoral area. Abdomen is soft, nontender with normoactive bowel sounds in all 4 quadrants without guarding or rebound. There is no flank or CVA tenderness. I am unable to appreciate any pulsatile masses due to body habitus. Her musculoskeletal exam demonstrates normal tone and strength for age. Bilateral upper extremities demonstrate no cyanosis, edema, clubbing, varicosities or ulcers. Good thrill in left arm fistula, Bilateral lower extremities demonstrate +2 edema with dry scaly skin. No overt ulcers are noted. There is no gangrene or cyanosis. Neurologically, patient has grossly intact cranial nerves and grossly intact sensation. ASSESSMENT AND PLAN: End-stage renal disease on hemodialysis. Malfunctioning left upper arm cephalic vein fistula Plan: Patient is admitted for fistulogram with possible intervention. I have discussed the risks options and benefits of the procedure with the patient. The patient understands the risks options and benefits and agrees to the procedure.
[2017-05-23] MEDS ORDERED: novolog (08:18)
[2017-05-23 08:34] VITALS: BP 144/49; PULSE 81; TEMP 36.8; O2SAT 96; Ht 160 cm; Wt 148.5 kg
[2017-05-23] MEDS ORDERED: NURSING VERBAL MED ORDER ONE (09:15)
[2017-05-23] MEDS ORDERED: NovoLIN-R INSULIN PER UNIT CHARGE ONE (09:18)
[2017-05-23] MEDS ORDERED: FENTANYL CITRATE INJ 50 MCG/1 ML 2 ML VIAL ONE (09:35)
[2017-05-23] MEDS ORDERED: MIDAZOLAM HCL 1 MG/ML 2ML VIAL ONE (09:35)
--- NOTE | 2017-05-23 09:57 | Pre Sedation Assessment ---
Pre Sedation Assessment General Date of Sedation: May 23, 2017. Vital Signs Past 12 Hours Date Time Temp Pulse Resp B/P (MAP) Pulse Ox O2 Delivery O2 Flow Rate FiO2 05/23/17 08:34 36.8 81 18 144/49 (80) 96 Room Air Review Cardiovascular: regular rate, rhythm Lungs: lungs clear Pre-Sedation Airway Assessment Smoking Status: Former Smoker Hx of Sleep Apnea: No Short Thick Neck: Yes Thyro-mental Distance: > 3 Finger Breadths Oral Cavity: WNL Mallampati Classification: Class III ASA Classification: Class III NPO Status Date of Last Intake of Fluids: May 22, 2017 Time of Last Intake of Fluids: 1999 Date of Last Intake of Solids: May 22, 2017 Time of Last Intake of Solids: 1999 Procedure Planning Contraindications for Sedation: None Current Medications Reviewed: Yes Notes The planned sedation has been discussed with the patient. Informed Consent was obtained. I have identified the patient, determined the appropriateness of sedation and have assessed the patient immediately prior to the procedure. All medicine(s) and interventions are by my order.
[2017-05-23] MEDS ORDERED: LIDOCAINE HCL 1% 20 ML VIAL INJ ONE (10:23)
[2017-05-23] MEDS ORDERED: MIDAZOLAM HCL 1 MG/ML 2ML VIAL IV ONE (10:23)
[2017-05-23] MEDS ORDERED: FENTANYL CITRATE INJ 50 MCG/1 ML 2 ML VIAL IV ONE (10:23)
[2017-05-23] MEDS ORDERED: OPTIRAY 300 IV ONE (10:49)
--- NOTE | 2017-05-23 10:50 | [facility] Post Operative Brief Note ---
Immediate Operative Summary Operative Date May 23, 2017. Pre-Operative Diagnosis malfunctioning fistula Post-Operative Diagnosis malfunctioning fistula Procedure(s) Performed Fistulogram Left Arm, Percutaneous Transluminal Angioplasty Peripheral Axillary Vein, Moderate Concious Sedation [address] Michel Technical Stenographer Surgeon(s) Rosalina Mccrary MD Estimated Blood Loss 5 ml Findings Consistent with Post-Op Diagnosis Specimens none Drains None Anesthesia Type IV Sedat Cons RN Only Complication(s) none Disposition Accompanied Pt To Recover: no Disposition:
--- NOTE | 2017-05-23 10:51 | Discharge Instructions ---
Discharge Instructions Date of Service May 23, 2017. Visit Reason for Visit: End Stage Renal Disease Discharge Discharge Diagnosis / Problem: Venous stenosis of fistula Discharge Goals Goal(s): Therapeutic intervention Activity Recommendations Activity Limitations: per Instructions/Follow-up section Anesthesia . Post Anesthesia Instructions: If you have had General Anesthesia or IV Sedation: * Do not drive today. * Resume driving when surgeon permits. * Do not make important decisions or sign legal documents today. * Call surgeon for: 1. Temperature elevations greater than 101 degrees F. 2. Uncontrollable pain. 3. Excessive bleeding. 4. Persistent nausea and vomiting. 5. Medication intolerance (nausea, vomiting or rash). * For nausea and vomiting use only clear liquids such as: tea, soda, bouillon until nausea subsides, then gradually increase diet as tolerated. * If you have any concerns or questions, call your surgeon's office. If physician is unavailable and it is an emergency, call 911 or go to the nearest emergency room. . Instructions / Follow-Up Instructions / Follow-Up Call [phone] with any questions or concerns. SPECIAL CARE INSTRUCTIONS: Medications: * Continue to take your medications as directed. If you have been given a prescription for Plavix, please fill it immediately and take as directed. Incision Care: * Your puncture site may have some bruising and minor swelling for about one week. * You will have a small dressing covering your puncture site. You may remove the dressing after 24 hours and shower. You may let the warm soapy water run over it, but be sure to dry the puncture site well and keep it dry. * DO NOT IMMERSE THE INCISION IN A TUB/POOL/etc. UNTIL HEALED. * Puncture sites should be kept covered with a band-aid until it begins to heal. Restrictions: * Depending on whether you leg or arm was punctured to access the arteries, you will be required to lay flat, hold your arm still, or both, for about 4 hours after the procedure to prevent bleeding. * Limit your activity for the first 48 hours. You may walk and go up and down steps. Avoid excessive bending or movement at the puncture site. Possible Complications: * Excessive Swelling - after blood flow is improved you may notice increased swelling in the lower legs. This is a normal response. This usually depends on the amount of blockages in the leg, how long they have been there prior to your procedure and how much blood flow was restored. Elevating your legs will help to improve this. Please notify our office ([phone] ) if the swelling does not go away after lying in bed overnight. * Infection/Drainage/Bleeding - Drainage or bleeding from the puncture site should be minimal. If you have excessive bleeding or drainage, call our office ([phone]) right away. * Pain - You may experience some mild pain or soreness at your puncture site. If your pain does not improve, please contact our office ([phone]). Call your doctor and seek emergent treatment if you develop: * Temperature above 101 degrees * Any fever or chills * Any redness or purulent drainage from the puncture site * Any new dusky/blue colored toes or feet with coolness or sharp or aching pain. SKIN IRRITATION: * You may experience some redness and/or swelling in the area where radiation was administered. If any skin irritation occurs, please contact your family physician. FOLLOW UP VISIT: Keep any scheduled doctor appointments. Diet Recommendations Recommended Home Diet: resume previous diet Procedures Procedures Performed: Fistulogram Left Arm, Percutaneous Transluminal Angioplasty Peripheral Axillary Vein, Moderate Concious Sedation 1023 to Pending Studies Studies pending at discharge: no Medical Emergencies . Who to Call and When: Medical Emergencies: If at any time you feel your situation is an emergency, please call 911 immediately. . Non-Emergent Contact Non-Emergency issues call your: Surgeon . . "Provider Documentation" section prepared by Giuseppe Michel. .
--- NOTE | 2017-05-23 10:55 | Post Sedation Assessment ---
Post Sedation Assessment General Date of Sedation May 23, 2017. Vital Signs: Vital Signs Past 12 Hours Date Time Temp Pulse Resp B/P (MAP) Pulse Ox O2 Delivery O2 Flow Rate FiO2 05/23/17 10:45 18 137/58 99 Nasal Cannula 4 05/23/17 10:40 Nasal Cannula 4 05/23/17 10:35 Nasal Cannula 4 05/23/17 10:30 Nasal Cannula 4 05/23/17 10:25 Nasal Cannula 4 05/23/17 10:20 Nasal Cannula 4 05/23/17 10:15 Nasal Cannula 4 05/23/17 08:34 36.8 81 18 144/49 (80) 96 Room Air Post Procedure Recovery Score Activity: (2) Moves 4 extremities * Respiration: (2) Deep breath/cough Circulation: (2) +/-20% PreAnes Value Consciousness: (2) Fully Awake Oxygen Saturation: (1) O2 needed for >90% Post Anesthesia Score: 9 Discharge Sedation Level of Care: Fast Track Phase II Post Sedation Plan On clinical assessment, the patient appears to have tolerated the sedation without complications. Patient is recovering as anticipated. Patient will continue to be monitored by nursing and may be discharged when sedation discharge criteria are met per below protocol. Upon Completions of procedure and additional 15 minutes continue every 5 minute vital signs and the P.A.R. score; then discharge to a Phase I or Fast Track to Phase II per the following guidelines: * Discharge Patient to appropriate Phase II area if PAR is 8 or greater or return to pre- procedure baseline. The post - procedure orders will be as directed. * If PAR score is less than 8 or not return to pre-procedure baseline then patient will follow Phase I monitoring till PAR is reached for Phase II. The Phase I may be done in procedure room or may call to secure a Phase I area. * If naloxone or flumazenil are used for reversal, hold in Phase I for an additional 60 -120 minutes before discharge to Phase II. Please call the Sedation Physician to re-evaluate and complete post-note for discharge to Phase II area. Do NOT discharge from procedure sedation or Phase 1 until post- sedation evaluation note is complete by procedure /sedation MD Sedation Discharge Instructions to be given to the patient at discharge to home.
[2017-05-23 11:00] VITALS: BP 138/59; PULSE 81; TEMP 36.8; O2SAT 95
--- NOTE | 2017-05-23 11:07 | DIAGNOSTIC IMAGING REPORT ---
DATE OF PROCEDURE: 05/23/2017 PREOPERATIVE DIAGNOSIS: Malfunctioning left brachiocephalic fistula. POSTOPERATIVE DIAGNOSIS: Same. PROCEDURE: 1. Left brachiocephalic fistulogram. 2. Angioplasty of the distal cephalic arch and subclavian vein with an 8 x 60 mm balloon and an 8 x 40 Conquest high pressure balloon. SURGEON: Dr. Giuseppe Michel. CONVEYOR LINE BAKERY WORKER: Cheryl Mccrary M.D. ESTIMATED BLOOD LOSS: 5. ANESTHESIA: Local plus conscious sedation. URINE OUTPUT: Not recorded. COMPLICATIONS: None apparent. CONDITION: Stable to PACU. INDICATIONS: Ms. López is a 51-year-old female with end-stage renal disease on hemodialysis who has a left brachiocephalic fistula who previously had an 8 mm Viabahn stent placed in her distal cephalic arch. She returned to the office after having a prolonged bleeding high pressures on hemodialysis, was found to have a stenosis ____ She was advised of the risks and benefits of undergoing a fistulogram and agreed to undergo this procedure. DESCRIPTION OF PROCEDURE: The patient was brought into the operative suite. She was prepped and draped in usual fashion. Timeout occurred. Local was instilled over her fistula and a micropuncture needle was used to gain access to her proximal fistula. A micropuncture needle was then passed through and a micropuncture sheath was placed. A fistulogram was obtained to this which showed stenosis just distal to the previously placed cephalic arch stent, just as it led into the subclavian vein. The sheath was then upsized to a 6-Nepali sheath. An angled Glidewire was passed into the fistula and into the subclavian vein. An 8 x 60 mm balloon was then used to angioplasty the distal stent, both going antegrade into the subclavian vein and a retrograde going into the axillary vein. There was still some residual stenosis, so this was exchanged for an 8 x 40 mm Conquest high pressure balloon. After completion of this, there was resolution of stenosis and resolution of back flow and collaterals. There was good thrill in the fistula. Retrograde shot was obtained which is ____ proximal stenosis. At this point, the procedure was terminated and all sheaths and wires were removed. Pressure was held and hemostasis was obtained. The patient was then transferred to the PACU in stable condition. Dr. Giuseppe Michel was present for the entirety of this case.
[2017-05-23 11:30] VITALS: BP 138/63; PULSE 79; TEMP 36.6; O2SAT 98
== END 2017-05-23 11:50 | disposition home or self-care (01) ==
LOC: C.ACU 07:26
PROVIDERS: ATTEND Surgery Vascular Surgery
DX: T82.858A Stenosis of other vascular prosthetic devices, implants and grafts, initial encounter (principal); Y83.2 Surgical operation with anastomosis, bypass or graft as the cause of abnormal reaction of the patient, or of later complication, without mention of misadventure at the time of the procedure; N18.6 End stage renal disease; E11.22 Type 2 diabetes mellitus with diabetic chronic kidney disease; Z99.2 Dependence on renal dialysis; E11.40 Type 2 diabetes mellitus with diabetic neuropathy, unspecified; E11.51 Type 2 diabetes mellitus with diabetic peripheral angiopathy without gangrene; F32.9 Major depressive disorder, single episode, unspecified; F41.9 Anxiety disorder, unspecified; Z87.891 Personal history of nicotine dependence; Z79.82 Long term (current) use of aspirin; Z79.4 Long term (current) use of insulin; Z79.899 Other long term (current) drug therapy; Z79.02 Long term (current) use of antithrombotics/antiplatelets; Z98.890 Other specified postprocedural states; Z90.710 Acquired absence of both cervix and uterus; Z95.5 Presence of coronary angioplasty implant and graft

== ENCOUNTER 2018-11-14 08:11 | Inpatient (IN) ==
--- NOTE | 2018-11-13 10:15 | Anesthesiology Consultation ---
Date of Service November 13, 2018 Assessment & Plan Chart Review Chart Review: Acceptable Risk for Surgery (Pending CXR which is planned for day of surgery.) Consults Requested none History Surgery Operation Date: 11/14/18 13:40 Proposed Procedures p Left Upper Arm Fistulogram with Percutaneous Transluminal Angioplasty and Stent Placement; Open Thrombectomy - Giuseppe Michel MD Height/Weight Height: 5 ft 3 in Weight: 133.81 kg Allergies Allergy/AdvReac Type Severity Reaction Status Date / Time No Known Allergies Allergy Verified 11/13/18 09:33 Medications Home Medications Medication Instructions Recorded Confirmed Last Taken Lantus U-100 Insulin 20 - 40 units SUBCUT BID 06/05/18 11/13/18 06/06/18 05:15 Novolog U-100 Insulin aspart 12 unit SUBCUT TID 06/05/18 11/13/18 06/06/18 05:15 aspirin 81 mg PO DAILY 06/05/18 11/13/18 06/06/18 05:15 atorvastatin [Lipitor] 20 mg PO HS 06/05/18 11/13/18 06/05/18 20:30 clopidogrel [Plavix] 75 mg PO DAILY 06/05/18 11/13/18 06/06/18 05:15 docusate sodium 100 mg PO BID 06/05/18 11/13/18 06/05/18 20:30 furosemide [Lasix] 80 mg PO BID 06/05/18 11/13/18 06/05/18 20:30 metoprolol succinate 25 mg PO HS 06/05/18 11/13/18 06/06/18 05:15 Social History Smoking Status: Former smoker tobacco type: cigarettes Do You Dip or Chew Tobacco: No Smoking End Date: JULY 2015 Hx Alcohol Use: No Hx Substance Use: No substance use type: does not use Testing Laboratory Results 11/06/18: WBC 17.4 Hgb 11.9 Plts 342 Na 140 K 4.4 BUN 41 Cr 3.29 Electrocardiogram Date: 01/17/18 Findings: + NSR @ (83/min)
--- NOTE | 2018-11-13 16:30 | History & Physical Report ---
Date of Service November 13, 2018 Assessment & Plan (1) Hemodialysis AV fistula thrombosis: Patient is admitted for a thrombectomy of her left arm av fistula with possible intervention of the fistula circuit. I have discussed the risks options and benefits of the procedure with the patient. The patient understands the risks options and benefits and agrees to the procedure. History of Present Illness Chief Complaint: Thrombosed left arm fistula Primary Care Provider: Vishal Baptiste DO Mrs. López is a 52 yo female who has problems with flows during dialysis. She was scheduled for a fistulogram later this week. She was seen in dialysis today with no thrill or bruit in her fistula. She denies any other real complaints at this time including headaches, fevers, chills, dizziness, chest pain, shortness of breath, abdominal pain, nausea, vomiting, diarrhea, constipation, dysuria, hematuria, rest pain, claudication, nonhealing wounds or ulcers or other complaints. Allergies Allergy/AdvReac Type Severity Reaction Status Date / Time No Known Allergies Allergy Verified 11/13/18 09:33 Home Medications Home Medications Medication Instructions Recorded Confirmed Type Lantus U-100 Insulin 20 - 40 units SUBCUT BID 06/05/18 11/13/18 History Novolog U-100 Insulin aspart 12 unit SUBCUT TID 06/05/18 11/13/18 History aspirin 81 mg PO DAILY 06/05/18 11/13/18 History atorvastatin [Lipitor] 20 mg PO HS 06/05/18 11/13/18 History clopidogrel [Plavix] 75 mg PO DAILY 06/05/18 11/13/18 History docusate sodium 100 mg PO BID 06/05/18 11/13/18 History furosemide [Lasix] 80 mg PO BID 06/05/18 11/13/18 History metoprolol succinate 25 mg PO HS 06/05/18 11/13/18 History Past Med/Surg History Medical History Congestive heart failure (Acute) Diabetes mellitus, type 2 (Acute) Hemodialysis patient (Acute) MON[place]YS AND FRIDA[facility] AT [facility] IN [place] Hyperlipidemia (Acute) Hypertension (Acute) Transient ischemic attack (TIA) (Acute) X 14 (LAST EVENT 2015) AV fistula LEFT ARM Difficult intravenous access Surgical History History of appendectomy (Acute) History of section (Acute) X1 History of cholecystectomy (Acute) History of colonoscopy (Acute) History of hysterectomy (Acute) History of cardiac cath X 2 (NO STENTS) History of dilatation and curettage X 3 History of surgery HX OF LEFT UPPER ARM FISTULOGRAM (CLOT IN AV FISTULA) X 9 TIMES History of tooth extraction Family History Other No significant family history Social History Preferred Language: Ukrainian Communication Ability: Effective Mail Clerk Bills Required: No Beliefs That Will Affect Care: None Current Living Situation: Spouse Other Information That Helps Us Care for You: No Feels Safe at Home: Yes Safety Concerns: Feels Safe At This Time Smoking Status: Former smoker Tobacco Type: cigarettes ; Do You Dip or Chew Tobacco: No ; Smoking End Date: JULY 2015 ; Second Hand Exposure: Yes ("SOMETIMES ") ; Tobacco Cessation Education Requested by Patient: No Hx Alcohol Use: No Hx Substance Use: No Review of Systems All systems reviewed & are unremarkable except as noted in HPI & below Physical Exam Physical Exam: Constitutional: In general, patient is a morbidly obese, chronically ill-appearing middle-aged female in no acute distress. She is ambulatory with a walker. Her head is normocephalic, atraumatic. Eyes are EOMI. Her ENMT exam demonstrates no hearing loss, rhinorrhea or pharyngeal erythema. Her neck is supple, nontender with midline trachea without masses or crepitus. Lung exam demonstrates no dyspnea. They are decreased throughout but clear bilaterally. His cardiovascular exam demonstrates nondisplaced apical impulse with a regular rate and rhythm without murmurs, lifts, heaves, thrills or gallops. Her peripheral pulses are full and equal in all extremities unless otherwise noted, specifically they are normal in her carotid, brachial, radial and femoral pulses. Her bilateral lower extremities distal pulses are +2 in the left and +1 on the right. She has brisk capillary refill and no sign of distal ischemia. The patient demonstrates no bruits in her carotid, abdominal or femoral area. Abdomen is soft, nontender with normoactive bowel sounds in all 4 quadrants without guarding or rebound. There is no flank or CVA tenderne ss. I am unable to appreciate any pulsatile masses due to body habitus. Her musculoskeletal exam demonstrates normal tone and strength for age. Bilateral upper extremities demonstrate no cyanosis, edema, clubbing, varicosities or ulcers. There is no thrill in left arm fistula, Bilateral lower extremities demonstrate +2 edema with dry scaly skin. No overt ulcers are noted. There is no gangrene or cyanosis. Neurologically, patient has grossly intact cranial nerves and grossly intact sensation.
[~2018-11-14 08:11] MED LIST changes: -ASPI81TA28 PO; -ATOR-22 PO; -CEFAZOLIN 1000MG IV PUSH 7.5 ML IV SCH; -CEFAZOLIN 3000MG IV PUSH 22.5 ML IV SCH; +CLINDAMYCIN 600 MG/54 ML BAG IV SCH; -CLOP1TAB15 PO; +D5W AND 1/4NSS 1,000 ML IV SCH; -DOCU100T7 PO; -FURO80TA63 PO; -INSDGI SC; -METO25TA4 PO; -lantus SQ
--- NOTE | 2018-11-14 08:42 | XRay Report ---
TWO VIEW CHEST CLINICAL HISTORY: Preoperative examination.. FINDINGS: PA and lateral chest radiographs are obtained. No prior studies are available for compariso n at the time of dictation. The heart is enlarged and there is atherosclerotic calcification of the thoracic aorta. The pulmonary vasculature is noncongested. There is diffuse nonspecific interstitial thickening. No airspace consolidation or pleural effusion is identified. There are small calcified g ranulomas. There is no pneumothorax. The skeletal structures are osteopenic. The bony thorax appears intact. A vascular stent is noted in the left axilla. IMPRESSION: Cardiomegaly with no acute cardiopulmonary abnormality. Electronically signed by: Dmitriy Carter M.D. 11/14/2018 8:41 AM
[2018-11-14] MEDS ORDERED: ONDANSETRON INJ 2 MG/ML 2 ML VIAL IV PRN ×2 (10:33→16:49)
[2018-11-14] MEDS ORDERED: ePHEDrine sulfate 50 MG/ML AMP IV PRN (10:33)
[2018-11-14] MEDS ORDERED: ATROPINE SULFATE 0.1 MG/ML 10ML SYR IV PRN (10:33)
[2018-11-14] MEDS ORDERED: HEPARIN (PORCINE) 1000 UNIT/ML 10 ML (CATH LAB USE ONLY) ONE ×2 (11:50→12:37)
[2018-11-14] MEDS ORDERED: THROMBIN FOR SOLN 20000 UNIT KIT ONE (11:51)
[2018-11-14] MEDS ORDERED: GELATIN SPONGE 12-7MM ONE (11:51)
[2018-11-14] MEDS ORDERED: LIDOCAINE HCL 1% 20 ML VIAL ONE (11:51)
[2018-11-14] MEDS ORDERED: BUPIVACAINE/EPINEPHRINE 0.5% MPF 1:200,000 30 ML VIAL ONE (11:51)
--- NOTE | 2018-11-14 11:56 | History & Physical Bridge Note ---
Date of Service November 14, 2018 History & Physical Bridge Note I have examined the patient, reviewed the History & Physical and in the interval since the performance of the History & Physical I have noted the following changes of clinical significance: no changes noted
[2018-11-14] MEDS ORDERED: PROPOFOL IV EMULSION 10 MG/ML 20 ML VIAL IV ONE ×2 (12:02→14:46)
[2018-11-14] MEDS ORDERED: fentaNYL citrate 100 MCG/2 ML VIAL ONE ×4 (12:02→17:04)
[2018-11-14] MEDS ORDERED: LIDOCAINE HCL 2% 2 ML VIAL/AMP(20MG/ML) INFIL ONE (12:02)
[2018-11-14] MEDS ORDERED: MIDAZOLAM HCL 1 MG/ML 2ML VIAL ONE ×2 (12:02)
[2018-11-14] MEDS ORDERED: GELATIN SPONGE SZ 100 ONE (12:11)
[2018-11-14] MEDS ORDERED: HEPARIN SOD (PORCINE) 5,000 UNITS/ML VIAL ONE (12:57)
[2018-11-14] MEDS ORDERED: IODIXANOL (VISIPAQUE) 270 MG/ML 50ML ONE (13:01)
[2018-11-14] MEDS ORDERED: HEPARIN SOD (PORCINE) 1000 UNIT/ML 10 ML VIAL ONE ×2 (14:46→14:53)
[2018-11-14] MEDS ORDERED: SUCCINYLCHOLINE CHLORIDE 20 MG/ML 10 ML VIAL ONE (14:46)
[2018-11-14 16:03] LABS: Basophils # (auto) 0.04 K/uL (0-0.2); Basophils % (auto) 0.2 %; Eosinophils # (auto) 0.31 K/uL (0-0.5); Eosinophils % (auto) 1.5 %; Hematocrit (blood only) 34.5 % (37-47); Immature Granulocytes # (auto) 0.34 K/uL (0.00-0.02); Immature Granulocytes % (auto) 1.7 %; Lymphocytes # (auto) 2.72 K/uL (1.2-3.4); Lymphocytes % (auto) 13.4 %; Mean Platelet Volume 10.5 fL (7.4-10.4); Monocytes # (auto) 1.23 K/uL (0.11-0.59); Neutrophils # (auto) 15.72 K/uL (1.4-6.5); Neutrophils % (auto) 77.2 %; Platelet Count 301 K/uL (130-400); RDW Coefficient of Variation 14.8 % (11.5-14.5); Red Blood Count 3.71 M/uL (4.2-5.4); White Blood Count 20.36 K/uL (4.8-10.8)
[2018-11-14 16:36] LABS: Mean Corpuscular Hgb Conc 31.9 g/dL (32-36)
--- NOTE | 2018-11-14 16:47 | Post Operative Brief Note ---
Immediate Post Op Note v1 Date of Surgery November 14, 2018 Pre & Post Diagnosis Operation Date: 11/14/18 10:20 Pre-Op Diagnosis: Thrombosed left arm fistula Post-Op Diagnosis: Thrombosed left arm fistula Procedure Operation Date: 11/14/18 10:20 Actual Procedures p Left Upper Arm Fistulogram with Balloon Angioplasty Peripheral Venous and Mechanical Thrombectomy of Left AV Fistula; Open Thrombectomy with revison fistula, Percutaneous transluminal angioplasty and stenting peripheral vein.(Left) - Giuseppe Michel MD Surgeon Giuseppe Michel MD Spar Cap Beveler MD Stepan Estimated Blood Loss 200 Findings Consistent with Post-Op Diagnosis Anesthesia Type General Complications none Disposition Accompanied Patient To Recovery: No Disposition: Recovery Room
--- NOTE | 2018-11-14 16:48 | Procedure Note ---
Angiogram Post Procedure Fluoroscopy Time (minutes): 37.1 Radiation (mGy): 481 Contrast: 130 Post Operative Report Pre & Post Diagnosis Operation Date: 11/14/18 10:20 Pre-Op Diagnosis: Thrombosed left arm fistula Post-Op Diagnosis: Thrombosed left arm fistula Procedure Operation Date: 11/14/18 10:20 Actual Procedures p Left Upper Arm Fistulogram with Balloon Angioplasty Peripheral Venous and Mechanical Thrombectomy of Left AV Fistula; Open Thrombectomy, revison fistula, Percutaneous transluminal angioplasty stenting peripheral vein.(Left) - Giuseppe Michel MD Surgeon Giuseppe Michel MD Wire Bender Hand Jose Mccann MD Estimated Blood Loss 200 Findings Consistent with Post-Op Diagnosis Specimens None Disposition Disposition: Recovery Room Indications Barb López is a 52-year-old woman with end-stage renal disease he was to stop and he had a left brachiocephalic fistula. There is undergone multiple interventions in the past and recently was noted to have low flows on duplex ultrasound, she was scheduled for elective fistulogram. However prior to presenting for this her fistula clotted off now requires thrombectomy. The risks and benefits of this procedure were presented to the patient, she agreed to proceed with concerns for the operation. Prior to proceeding to the operating room the left side was marked. Description of Procedure The patient was brought to the angiogram suite and positioned supine on the table with her left arm out. Patient was prepped and draped in the standard fashion leaving her left brachium to antecubital fossa exposed. Sedation was initiated with 2 cc of local anesthetic was used anesthetize the skin over the puncture site. The patient was identified and a timeout performed. The micropuncture needle was used to access the fistula and the micropuncture sheath was inserted in Seldinger technique. A 0.035 guidewire was then advanced under fluoroscopy to the level of the previously placed stent. Sheath was upsized to a 5 Lithuanian sheath and a single catheter was advanced over the wire and used to assist in placing her guidewire across the prior stent. We then shot a fistulogram through the catheter which demonstrated narrowing of the previously placed stent along with clot throughout the fistula cephalic vein. This time we elected to use the [employer] AngioJet to perform a thrombectomy. We then upsized our sheath to a 6 Lithuanian size and placed the AngioJet Proxi over the wire to just proximal to level of the previously placed stent. We then activated the AngioJet slowly withdrew it is slow rate. Once we reached the level of our sheath the AngioJet was withdrawn we performed a fistulogram. This demonstrated residual clot, and we elected to perform another pass with the AngioJet. Following this the fistulogram was performed which demonstrated decrease clot burden but continued poor flows in the distal fistula. We next placed a 8 x 60mm Brookneal balloon over a wire and perform serial balloon angioplasty down the length of cephalic vein. 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 The posterior procedure and allowed our anesthesia colleagues to induce general anesthesia and perform endotracheal intubation. Next a 10 cm incision was carefully created overlying the distal distal AV fistula. Dissection was used to isolate and expose the venous aneurysm. Was isolated proximally distally with Vessel loops. Two angled DeBakey vascular clamps were then used to obtain and proximal distal control. A venotomy was created using #11 scalpel and extended proximally and distally with angled Eduardo scissors. A large clot completely filling the lumen of the aneurysm was evacuated. Next a #3 Amanda catheter was passed proximally with return of a small amount of thrombus. There was still no adequate backbleeding present and placed the 6 Lithuanian sheath into the venotomy. A 0.035 was then advanced under fluoroscopy to level beyond the proximal cephalic stent. A [id number] Amanda was then passed and slowly withdrawn and the venotomy. This did obtain a large amount of thrombus, however after replacing her sheath for subsequent fistulogram continue to show poor flows. The 0.35 guidewire was readvanced under fluoroscopy however we did encounter some difficulty in the mid cephalic vein during which appeared the wire became extraluminal. This was confirmed by fistulogram which showed a area of contrast extravasation in the mid cephalic vein which appeared to be from previous needle punctures where the graft had infiltrated. We were able to pass a guidewire over this area and into the SVC. We positioned a [facility] Viabahn 10 x 50 mm covered stent across the area of extravasation and successfully deployed it. Following this was continued extravasation on the fistulogram. An Icast 9 x 59 mm covered stent was selected and deployed across the distal aspect of extravasation so that it arrived to the previously placed Viabahn stent. On the next fistulogram there was a decreased amount of extravasation, but it continue to show leak from the proximal landing zone of the first stent. To address this we selected a 10 x 100mm [facility] Viabahn covered stent point this across the proximal area of extravasation distally with the previously placed stents. There is still small amount of contrast extravasation present proximally after this. We then used a Protege 12 x 40mm covered stent, which was deployed to overlap with the proximal portion of the Viabahn 10x 100mm stent. A Brookneal 10 x 60 mm balloon to fully expand the stented area. On the next fistulogram on there was no evidence of contrast extravasation. We then turned our attention to the proximal cephalic vein where there was evidence of stenosis distal to the previously placed stent. We then passed a 0.035 guidewire centrally into the SVC. Over this we position the Absolute Pro 9 x 40 mm stent so that it overlapped with the distal aspect of the previously placed stent. There remained a small unstented portion of the cephalic vein between her stented sections with trivial flow suggestive of residual thrombus. We then elected to bridge the stented area with a 10 x 40mm Absolute Pro covered stent. A fistulogram was performed showed widely patent cephalic vein from our venotomy to the most proximal stented area. There remains some element of stenosis present just proximal to the stented region. A Conquest 40 8 x 40 mm balloon was positioned over a wire across this narrowing and inflated to 40mmHg. We then proceeded to serially balloon angioplasty the proximal cephalic vein with the Conquest balloon. Some residual narrowing remained and we deployed a Absolute Pro 9 x 30mm covered stent over this area in the proximal cephalic vein. After removing our wire we preformed a fistulogram. At this point he cephalic vein was widely patent from our venotomy to the subclavian vein. We re moved our sheath from the the venotomy and flushed the vein with heparinized saline. After a final pass with a #3 Amanda catheter there was excellent backbleeding. We clamped proximally and then removed our distal clamp, there were brisk arterial bleeding and a small amount of clot was removed. After reclamping the vein we proceeded to close the venotomy with 5-0 Prolene longitudinally in a running fashion. We then obtained hemostasis with judicious use of electrocautery. The subcutaneous tissue were then closed over the fistula using 3-0 Vicryl in a running fashion. The skin was closed with 4-0 Vicryl in a running subcuticular layer. Dermabond was then applied. At the end of the procedure there was a excellent thrill in the fistula. The patient was awoken from general anesthesia and safely extubated. The patient left the operation room in satisfactory condition and tolerated the procedure well. All needle and sponge counts were correct at the end of the procedure. Dr. Michel was present and scrubbed for the duration of the procedure. I attest to the content of the Intraoperative Record and any orders documented therein. Any exceptions are noted below.
[2018-11-14 16:57] LABS: BUN Creatinine Ratio 18.4 (10-20); Calcium 8.4 mg/dl (8.5-10.1); Creatinine Clr Calc Pharmacy 25.9 ml/min; Est GFR (Non-African American) 14.6
[2018-11-14] MEDS ORDERED: SODIUM CHLORIDE 0.9% 500 ML IV SCH (17:00)
[2018-11-14] MEDS: fentaNYL citrate 100 MCG/2 ML VIAL IV PRN ×4 (17:06→17:21)
[2018-11-14] MEDS ORDERED: ONDANSETRON INJ 2 MG/ML 2 ML VIAL ONE (17:10)
[2018-11-14] MEDS ORDERED: PHENYLEPHRINE HCL 10 MG/ML VIAL ONE (17:10)
[2018-11-14 17:39] LABS: Potassium 3.8 mmol/L (3.5-5.1)
--- NOTE | 2018-11-14 17:58 | Anesthesiology Progress Note ---
Date of Service November 14, 2018 Anesthesia Post Procedure Vital Signs Vital Signs: Temp Pulse Pulse Resp BP Pulse Ox 11/14/18 17:30 36.9 C 97 H 18 158/84 H 100 11/14/18 17:20 98 H 18 150/82 H 100 11/14/18 17:10 100 H 18 100 11/14/18 17:00 96 H 18 100 11/14/18 16:54 37.4 C 93 H 18 154/69 H 99 11/14/18 08:50 37.3 C 88 20 162/74 H 99 Transfer of Care Handoff Completed per policy Notes Mental Status: alert / awake / arousable and participated in evaluation Patient Amnestic to Procedure: Yes Nausea / Vomiting: adequately controlled Pain: adequately controlled Airway Patency, RR, SpO2: stable & adequate BP & HR: stable & adequate Hydration State: stable & adequate Anesthetic Complications: no major complications apparent
[2018-11-14] MEDS ORDERED: GLUCOSE 40% GEL 15 GM TUBE PO PRN (18:00)
[2018-11-14] MEDS ORDERED: GLUCOSE 10 TABS/TUBE PO PRN (18:00)
[2018-11-14] MEDS ORDERED: CARBOHYDRATES FOR HYPOGLYCEMIA PO PRN (18:00)
[2018-11-14] MEDS ORDERED: GLUCAGON FOR INJ 1 MG VIAL IM PRN (18:00)
[2018-11-14] MEDS ORDERED: DEXTROSE 50% 50 ML SYRINGE IV PRN (18:00)
[2018-11-14] MEDS: INSULIN ASPART 100 UNITS/ML 3 ML PEN SQ SCH (19:23)
[2018-11-14] MEDS ORDERED: ATORVASTATIN 20 MG TAB PO SCH (21:00)
[2018-11-14] MEDS ORDERED: METOPROLOL SUCC 25MG EXT REL TAB PO SCH (21:00)
[2018-11-14] MEDS: OXYCODONE/ACETAMINOPHEN 5mg/325mg TAB PO PRN (21:08)
[2018-11-14] MEDS: DOCUSATE SODIUM 100 MG CAP PO SCH (21:09)
[2018-11-14] MEDS: FUROSEMIDE 80 MG TAB PO SCH (21:10)
[2018-11-14] MEDS: INSULIN GLARGINE SOLOSTAR 100 UNITS/ML 3 ML PEN SQ SCH (21:33)
[2018-11-15] MEDS: OXYCODONE/ACETAMINOPHEN 5mg/325mg TAB PO PRN ×2 (02:40→12:22)
[2018-11-15 06:59] LABS: Basophils # (auto) 0.05 K/uL (0-0.2); Basophils % (auto) 0.2 %; Eosinophils # (auto) 0.23 K/uL (0-0.5); Hematocrit (blood only) 32.3 % (37-47); Immature Granulocytes # (auto) 0.43 K/uL (0.00-0.02); Immature Granulocytes % (auto) 1.9 %; Lymphocytes # (auto) 2.53 K/uL (1.2-3.4); Mean Corpuscular Volume 95.3 fL (80-100); Mean Platelet Volume 10.1 fL (7.4-10.4); Monocytes # (auto) 1.95 K/uL (0.11-0.59); Monocytes % (auto) 8.5 %; Neutrophils # (auto) 17.71 K/uL (1.4-6.5); Neutrophils % (auto) 77.4 %; Platelet Count 289 K/uL (130-400); RDW Coefficient of Variation 15.2 % (11.5-14.5); RDW Standard Deviation 52.7 fL (36.4-46.3); Red Blood Count 3.39 M/uL (4.2-5.4)
[2018-11-15 07:33] LABS: BUN Creatinine Ratio 17.2 (10-20); Calcium 8.2 mg/dl (8.5-10.1); Creatinine Clr Calc Pharmacy 22.1 ml/min; Est GFR (Non-African American) 12.1; Potassium 4.2 mmol/L (3.5-5.1)
[2018-11-15] MEDS: DOCUSATE SODIUM 100 MG CAP PO SCH (08:37)
[2018-11-15] MEDS: INSULIN ASPART 100 UNITS/ML 3 ML PEN SQ SCH ×2 (08:40→12:51)
[2018-11-15] MEDS: INSULIN GLARGINE SOLOSTAR 100 UNITS/ML 3 ML PEN SQ SCH (08:41)
[2018-11-15] MEDS ORDERED: LACTOBACILLUS ACIDOPHILUS (FLORANEX) TAB PO SCH (09:00)
[2018-11-15] MEDS ORDERED: CLOPIDOGREL BISULFATE 75 MG TAB PO SCH (09:00)
[2018-11-15] MEDS ORDERED: ASPIRIN 81 MG ECTAB PO SCH (09:00)
[2018-11-15] MEDS ORDERED: SODIUM CHLORIDE 0.9% 1000ML 1,000 ML IV PRN (09:24)
--- NOTE | 2018-11-15 09:56 | Nephrology Consultation ---
Date of Consultation November 15, 2018 Assessment & Plan (1) ESRD (end stage renal disease) on dialysis: Orders for HD today have been entered into the EMR and communicated to the HD nurse. Will provide 3.5 HR treatment with Qb as tolerated (goal 300 ml/min). UF goal 2-3 L as tolerated. 3K. Electrolytes are acceptable. Medications are appropriate for kidney function. BP is acceptable. (2) Hemodialysis AV fistula thrombosis: POD # 1 s/p fistulogram open thrombectomy with of revision fistula and angioplasty stenting peripheral vein History of Present Illness Attending Physician: Giuseppe Michel MD History of Present Illness Mrs. Barb López is a 52-year-old female with ESRD. The patient is POD #1 s/p left BC AVF fistulogram with balloon angioplasty and open thrombectomy with revision fistula and stenting peripheral vein. Barb has been on HD since 2017. She dialyzes on Mondays and Fridays at [facility] in [place] under the care of Dr. Sheth. Medical history is notable for obesity, DMII, hypertension, hypothyroidism, PAD, and a history of TIA. AVF infiltrated on Tuesday. She describes significant clotting during hemodialysis. Treatment was not completed. She missed her scheduled treatment on Tuesday. She is >3 kg above EDW. Barb reports some pain following her procedure but states that she otherwise feels well. She hopes to be discharged home today. Allergies Allergy/AdvReac Type Severity Reaction Status Date / Time No Known Allergies Allergy Verified 11/14/18 08:47 Home Medications Home Medications Medication Instructions Recorded Confirmed Type Lantus U-100 Insulin 20 - 40 units SUBCUT BID 06/05/18 11/14/18 History Novolog U-100 Insulin aspart 12 unit SUBCUT TID 06/05/18 11/14/18 History aspirin 81 mg PO DAILY 06/05/18 11/14/18 History atorvastatin [Lipitor] 20 mg PO HS 06/05/18 11/14/18 History clopidogrel [Plavix] 75 mg PO DAILY 06/05/18 11/14/18 History docusate sodium 100 mg PO BID 06/05/18 11/14/18 History furosemide [Lasix] 80 mg PO BID 06/05/18 11/14/18 History metoprolol succinate 25 mg PO HS 04/01/19 09/10/19 History Lactobacillus rhamnosus GG 1 cap PO DAILY 11/14/18 11/14/18 History [Culturelle] Patient History Medical History AV fistula LEFT ARM Difficult intravenous access Congestive heart failure (Acute) Diabetes mellitus, type 2 (Acute) Hemodialysis patient (Acute) MONDAYS AND FRIDAYS AT [facility] IN [place] Hyperlipidemia (Acute) Hypertension (Acute) Transient ischemic attack (TIA) (Acute) X 14 (LAST EVENT 2015) Surgical History History of cardiac cath X 2 (NO STENTS) History of dilatation and curettage X 3 History of surgery HX OF LEFT UPPER ARM FISTULOGRAM (CLOT IN AV FISTULA) X 9 TIMES History of tooth extraction History of appendectomy (Acute) History of section (Acute) X1 History of cholecystectomy (Acute) History of colonoscopy (Acute) History of hysterectomy (Acute) Family History Other No significant family history Social History Preferred Language: Senegalese Communication Ability: Effective Technical Administrator Required: No Beliefs That Will Affect Care: None Current Living Situation: Spouse Other Information That Helps Us Care for You: No Feels Safe at Home: Yes Safety Concerns: Feels Safe At This Time Smoking Status: Former smoker Tobacco Type: cigarettes ; Do You Dip or Chew Tobacco: No ; Smoking End Date: JULY 2015 ; Second Hand Exposure: Yes ("SOMETIMES") ; Tobacco Cessation Education Requested by Patient: No Hx Alcohol Use: No Hx Substance Use: No Review of Systems Review of Systems: All systems reviewed & are unremarkable except as noted in HPI & below Physical Exam Constitutional: well developed; no acute distress Eyes: no scleral abnormality and no corneal abnormality ENMT: Mouth: no oral mucosal abnormality and oral mucous membranes not dry Neck: normal visual inspection and trachea midline Respiratory: normal respiratory effort Auscultation: lungs clear to auscultation bilaterally and + rales (few basilar) Cardiovascular: Rate/Rhythm: regular rate and regular rhythm Heart Sounds: normal S1, normal S2 and + murmur Vessels: no JVD Extremities: + edema and + AV fistula (incision CDI, good thrill and bruit) Gastrointestinal (Abdomen): Percussion/Palpation: abdomen soft; abdomen nontender Musculoskeletal: Extremities: no cyanosis and no clubbing Skin: normal turgor; no rashes Neurologic: Motor/Sensory: no tremor and no asterixis Psychiatric: Orientation: alert and oriented x 3 Results & Data Vital Signs (Past 12 Hours) Vital Signs Temp Pulse Pulse Resp BP Pulse Ox 11/15/18 08:01 36.7 C 80 18 128/56 L 94 11/15/18 02:57 36.5 C 96 H 17 133/67 95 11/14/18 23:53 37 C 105 H 20 139/77 95 Laboratory Results Laboratory Results - last 24 hr 11/14/18 11/14/18 11/14/18 08:52 15:40 15:40 WBC 20.36 H RBC 3.71 L Hgb 11.0 L Hct 34.5 L MCV 93.0 MCH 29.6 MCHC 31.9 L RDW Std Deviation 50.0 H RDW Coeff of Maria D 14.8 H Plt Count 301 MPV 10.5 H Immature Gran % (Auto) 1.7 Neut % (Auto) 77.2 Lymph % (Auto) 13.4 Scott % (Auto) 6.0 Eos % (Auto) 1.5 Baso % (Auto) 0.2 Immature Gran # (Auto) 0.34 H Neut # (Auto) 15.72 H Lymph # (Auto) 2.72 Scott # (Auto) 1.23 H Eos # (Auto) 0.31 Baso # (Auto) 0.04 Sodium 138 Potassium Chloride 107 Carbon Dioxide 20 L Anion Gap 11.0 BUN 62 H Creatinine 3.38 H Est Cr Clr Drug Dosing 25.9 Est GFR ( Amer) 17.0 Est GFR (Non-Af Amer) 14.6 BUN/Creatinine Ratio 18.4 Glucose 139 H POC Glucose 168 H Calcium 8.4 L Specimen Hemolysis Nasal Screen MRSA (PCR) 11/14/18 11/14/18 11/14/18 16:55 17:07 18:23 WBC RBC Hgb Hct MCV MCH MCHC RDW Std Deviation RDW Coeff of Maria D Plt Count MPV Immature Gran % (Auto) Neut % (Auto) Lymph % (Auto) Scott % (Auto) Eos % (Auto) Baso % (Auto) Immature Gran # (Auto) Neut # (Auto) Lymph # (Auto) Scott # (Auto) Eos # (Auto) Baso # (Auto) Sodium Potassium 3.8 Chloride Carbon Dioxide Anion Gap BUN Creatinine Est Cr Clr Drug Dosing Est GFR ( Amer) Est GFR (Non-Af Amer) BUN/Creatinine Ratio Glucose POC Glucose 125 H 175 H Calcium Specimen Hemolysis Nasal Screen MRSA (PCR) 11/14/18 11/14/18 11/15/18 20:36 21:40 06:42 WBC 22.90 H RBC 3.39 L Hgb 10.0 L Hct 32.3 L MCV 95.3 MCH 29.5 MCHC 31.0 L RDW Std Deviation 52.7 H RDW Coeff of Maria D 15.2 H Plt Count 289 MPV 10.1 Immature Gran % (Auto) 1.9 Neut % (Auto) 77.4 Lymph % (Auto) 11.0 Scott % (Auto) 8.5 Eos % (Auto) 1.0 Baso % (Auto) 0.2 Immature Gran # (Auto) 0.43 H Neut # (Auto) 17.71 H Lymph # (Auto) 2.53 Scott # (Auto) 1.95 H Eos # (Auto) 0.23 Baso # (Auto) 0.05 Sodium Potassium Chloride Carbon Dioxide Anion Gap BUN Creatinine Est Cr Clr Drug Dosing Est GFR ( Amer) Est GFR (Non-Af Amer) BUN/Creatinine Ratio Glucose POC Glucose 247 H Calcium Specimen Hemolysis Nasal Screen MRSA (PCR) Negative 11/15/18 11/15/18 06:42 08:02 WBC RBC Hgb Hct MCV MCH MCHC RDW Std Deviation RDW Coeff of Maria D Plt Count MPV Immature Gran % (Auto) Neut % (Auto) Lymph % (Auto) Scott % (Auto) Eos % (Auto) Baso % (Auto) Immature Gran # (Auto) Neut # (Auto) Lymph # (Auto) Scott # (Auto) Eos # (Auto) Baso # (Auto) Sodium 136 Potassium 4.2 Chloride 105 Carbon Dioxide 21 Anion Gap 10.0 BUN 68 H Creatinine 3.96 H D Est Cr Clr Drug Dosing 22.1 Est GFR ( Amer) 14.0 Est GFR (Non-Af Amer) 12.1 BUN/Creatinine Ratio 17.2 Glucose 186 H POC Glucose 190 H Calcium 8.2 L Specimen Hemolysis Nasal Screen MRSA (PCR) PG Care Time/CCT Total # of Minutes Spent Total Time Spent with Patient: Total time spent is greater than 50% in coordination of care (as documented) at patient's floor/unit and/or counseling patient:
[2018-11-15] MEDS: FUROSEMIDE 80 MG TAB PO SCH (10:10)
--- NOTE | 2018-11-15 12:38 | Anesthesiology Progress Note ---
Date of Service November 15, 2018 Anesthesia Post Procedure Vital Signs Vital Signs: Temp Pulse Pulse Resp BP Pulse Ox 11/15/18 12:00 36.4 C L 84 18 128/78 97 11/15/18 08:01 36.7 C 80 18 128/56 L 94 11/15/18 02:57 36.5 C 96 H 17 133/67 95 11/14/18 23:53 37 C 105 H 20 139/77 95 11/14/18 20:45 37.4 C 106 H 16 128/54 L 91 11/14/18 19:43 37.4 C 104 H 18 147/78 H 95 11/14/18 18:27 36.9 C 99 H 18 145/70 H 92 11/14/18 17:30 36.9 C 97 H 18 158/84 H 100 11/14/18 17:20 98 H 18 150/82 H 100 11/14/18 17:10 100 H 18 100 11/14/18 17:00 96 H 18 100 11/14/18 16:54 37.4 C 93 H 18 154/69 H 99 11/14/18 15:50 37.5 C 99 H 20 121/64 98 Notes Mental Status: alert / awake / arousable and participated in evaluation Nausea / Vomiting: adequately controlled Pain: adequately controlled Airway Patency, RR, SpO2: stable & adequate BP & HR: stable & adequate Hydration State: stable & adequate
--- NOTE | 2018-11-15 14:36 | Surgery Progress Note ---
Date of Service November 15, 2018 Assessment & Plan (1) ESRD (end stage renal disease) on dialysis: Pt now s/p LUE AVF revision with YARD MANAGER/stents. Doing well. Labs acceptable. Pt planning on outpt HD tomorrow morning. Ok with nephrology. Discussed with Dr Michel, pt ok for d/c home today. Present on Admission?: Yes Subjective 52 yo f with multiple medical problems, POD #1 after revision of LUE AVF and YARD MANAGER/stenting of venous, seenin f/u today. Pt admits burning pain in LUE at incision. Admits tenderness and edema as well. Denies pain, numbness, weakness, discoloration of L hand or fingers. Denies any other new complaints. Review of Systems Review of Systems: All systems reviewed & are unremarkable except as noted in HPI & below Physical Exam Constitutional: WD/WN, vitals as above + morbidly obese Respiratory: normal respiratory effort, lungs clear to auscultation Cardiovascular: RRR, no murmur, no edema Extremities: + AV fistula (LUE with + thrill/bruit throughout. + local tenderness/edema.incisionC/D/I) Gastrointestinal (Abdomen): normal bowel sounds, soft, nontender, no hepatosplenomegaly Neurologic: moves all extremities; no focal motor deficits Psychiatric: A+Ox3, euthymic affect Results & Data Vital Signs (Past 12 Hours) Vital Signs Temp Pulse Pulse Resp BP Pulse Ox 11/15/18 12:00 36.4 C L 84 18 128/78 97 11/15/18 08:01 36.7 C 80 18 128/56 L 94 11/15/18 02:57 36.5 C 96 H 17 133/67 95
--- NOTE | 2018-11-15 15:25 | Discharge Summary ---
Date of Service November 15, 2018 Admission HPI Per Admitting Provider Mrs. López is a 52 yo female who has problems with flows during dialysis. She was scheduled for a fistulogram later this week. She was seen in dialysis today with no thrill or bruit in her fistula. She denies any other real complaints at this time including headaches, fevers, chills, dizziness, chest pain, shortness of breath, abdominal pain, nausea, vomiting, diarrhea, constipation, dysuria, hematuria, rest pain, claudication, nonhealing wounds or ulcers or other complaints. She was admitted for thrombectomy of LUE AVF. Admission Exam Per Admitting Provider Physical Exam: Constitutional: In general, patient is a morbidly obese, chronically ill-appearing middle-aged female in no acute distress. She is ambulatory with a walker. Her head is normocephalic, atraumatic. Eyes are EOMI. Her ENMT exam demonstrates no hearing loss, rhinorrhea or pharyngeal erythema. Her neck is supple, nontender with midline trachea without masses or crepitus. Lung exam demonstrates no dyspnea. They are decreased throughout but clear bilaterally. His cardiovascular exam demonstrates nondisplaced apical impulse with a regular rate and rhythm without murmurs, lifts, heaves, thrills or gallops. Her peripheral pulses are full and equal in all extremities unless otherwise noted, specifically they are normal in her carotid, brachial, radial and femoral pulses. Her bilateral lower extremities distal pulses are +2 in the left and +1 on the right. She has brisk capillary refill and no sign of distal ischemia. The patient demonstrates no bruits in her carotid, abdominal or femoral area. Abdomen is soft, nontender with normoactive bowel sounds in all 4 quadrants without guarding or rebound. There is no flank or CVA ten derness. I am unable to appreciate any pulsatile masses due to body habitus. Her musculoskeletal exam demonstrates normal tone and strength for age. Bilateral upper extremities demonstrate no cyanosis, edema, clubbing, varicosities or ulcers. There is no thrill in left arm fistula, Bilateral lower extremities demonstrate +2 edema with dry scaly skin. No overt ulcers are noted. There is no gangrene or cyanosis. Neurologically, patient has grossly intact cranial nerves and grossly intact sensation. Principal Diagnosis 1. s/p LUE AVF thrombectomy, revision, and fistulagram with [employer] SK[employer] TE[employer]ER/stenting 2. Thrombosed LUE AVF 3. ESRD on HD Discharge Exam Constitutional WD/WN, vitals as above + morbidly obese Respiratory normal respiratory effort, lungs clear to auscultation Cardiovascular RRR, no murmur, no edema Extremities: + AV fistula (LUE with + thrill/bruit throughout. + local tenderness/edema.incisionC/D/I) Gastrointestinal (Abdomen) normal bowel sounds, soft, nontender, no hepatosplenomegaly Neurologic moves all extremities; no focal motor deficits Psychiatric A+Ox3, euthymic affect Discharge Data Allergies Allergy/AdvReac Type Severity Reaction Status Date / Time No Known Allergies Allergy Verified 11/14/18 08:47 Consultations 11/14/18 17:54 Consult Nephrology Routine Procedures Performed Operation Date: 11/14/18 10:20 Actual Procedures p Left Upper Arm Fistulogram with Balloon Angioplasty Peripheral Venous and Mechanical Thrombectomy of Left AV Fistula; Open Thrombectomy, revison fistula, Percutaneous transluminal angioplasty stenting peripheral vein.(Left) - Giuseppe Michel MD Ordered Studies 11/14/18 12:08 EV angio arteriovenous shunt Routine Hospital Course (1) ESRD (end stage renal disease) on dialysis: Pt now s/p LUE AVF thrombectomy and revision with [employer] SK[employer] TE[employer]ER/stents. Doing well. Labs acceptable. Pt planning on outpt HD tomorrow morning. Ok with nephrology. Discussed with Dr Michel, pt ok for d/c home today. Total Time Total Time Spent Total Time Spent (In Minutes): 10 minutes Total Time Includes: Examination of the Patient, Discharge Planning, Medication Reconciliation and Communication With Other Providers Discharge Plan Discharge Items Patient Disposition: Home - Self-Care Reason For Visit: Stenosis Venous Outflow Discharge Diagnosis: 1. s/p LUE AV fistula revision with venorrhaphy, fistulagram with [employer] TE[employer]ER/stent peripheral venous 2. LUE AVF stenosis 3. ESRD on Hemodialysis Condition on Discharge: Good Activity: Per Instructions section Non-emergency contact: Primary Care Provider and Surgeon Call non-emergency contact if: you have any medication questions, your pain is worsening, your temperature is above 101, your wound has increased redness and your wound has increased drainage Follow-up/Referrals: Lynne Martinez PA-C [Physician Gaming Cage Worker] - (Needs follow up appt with Dr Michel or Lynne Martinez PA-C, in 2 weeks. ) Oliva,Vishal A., DO [Primary Care Provider] - Diet: Carb Consistent or DM2, Dialysis Renal and Heart Healthy Addtl Attending Provider Instructions: 1. May shower and dry surgical area gently. NO SOAKING IN WATER 2. No lifting more than 5 lbs x 2 weeks 3. May use LUE AVF for HD above incision. 4. DO NOT USE TOURNIQUET WHEN ACCESSING AVF. Pending Studies at Discharge: No Stand-Alone Forms: My [facility] [address] Medications and DC Order Prescriptions: New oxycodone-acetaminophen [Percocet] 5-325 mg Tablet 1 - 2 tab PO Q4H PRN (Reason: Pain) Qty: 30 RF: 0 Continued atorvastatin [Lipitor] 20 mg Tablet 20 mg PO HS RF: 0 Lantus U-100 Insulin 100 unit/mL Solution 20 - 40 units subcut BID RF: 0 clopidogrel [Plavix] 75 mg Tablet 75 mg PO DAILY RF: 0 furosemide [Lasix] 80 mg Tablet 80 mg PO BID RF: 0 Novolog U-100 Insulin aspart 100 unit/mL Solution 12 unit SUBCUT TID RF: 0 docusate sodium 100 mg Capsule 100 mg PO BID RF: 0 aspirin 81 mg Tablet,Chewable 81 mg PO DAILY RF: 0 metoprolol succinate 25 mg Capsule,Sprinkle,Er 24hr 25 mg PO HS RF: 0 Culturelle 10 billion cell Capsule 1 cap PO DAILY RF: 0 Discharge Orders: Discharge Order (Routine); Ordered 11/15/18 Ordered By: Lynne Almaguer/Other Patient Handouts: Dialysis Arteriovenous Fistula, Pain Management Admission Data Admit Date/Time: 11/14/18 16:49 Attending Provider: Giuseppe Michel Admit Provider: Giuseppe Michel Primary Care Provider: Vishal Baptiste Other Providers: Travis Garcia ; Rah Castellanos ; Gladys Bhatti ; Lakia Henderson ; Denis Chicas Other Interventions: Discharge Summary Assessment (RN) Last Done: 11/15/18 15:05
== END 2018-11-15 15:28 | disposition home or self-care (01) | DRG 252 ==
LOC: ASU 08:11 → 3W 16:49

== ENCOUNTER 2021-01-27 12:12 | Inpatient (IN) ==
--- NOTE | 2021-01-27 12:42 | Emergency Department Note ---
Impression & Plan GI bleed, ESRD (end stage renal disease) on dialysis ED Provider Note NAME: AKUA DOMINGUEZ AGE: 55 SEX: F : 1965 ARRIVES VIA: Walk-In INFORMANT: Patient, ED PROVIDER(S): Bienvenido De Oliveira MD Chief Complaint: Rectal bleeding, low hemoglobin HPI: Patient was seen due to concern for rectal bleeding and low hemoglobin with a reported hemoglobin less than 7 today. The patient was recently seen due to concern for stump issues. Patient did return to [facility] but noticed some bloody stools within the last 48 hours. The patient does have a known history of bleeding hemorrhoid. The patient denies any prior history of colon cancer or IBD. No family history of colon cancer. Patient denies any fevers or chills. The patient states she is actively being treated for UTI. Patient did have her [id number] amputation completed in early December. Patient denies any bleeding from the wound. The bleeding has been persistent with no remitting or exacerbating factors. The patient does take aspirin and Plavix but does not take any other anticoagulant medications. ROS: See HPI for pertinent positives and negatives. A total of 10 systems were reviewed and otherwise negative. Past medical history: See below Surgical history: See below Social history: See below Physical Exam: GENERAL: NAD, wearing a mask, non-toxic. EYE EXAM: Normal conjunctiva. PERRL, no anisocoria and EOM's grossly intact w/o pain. NECK: Supple, no nuchal rigidity, no adenopathy, non-tender. No signs of meningismus. Chest: Right chest permacath. LUNGS: Clear to auscultation. Normal chest wall mechanics. HEART: NSR, no MRG. ABDOMEN: Abdomen soft, non-tender, normo-active bowel sounds, no masses, no rebound or guarding. BACK: No CVA TTP. SKIN: No rashes and no bruising. UPPER EXTREMITIES: Upper extremities are grossly normal. LOWER EXTREMITIES: Left lower extremity with bandage on the posterior portion of the right stump, AKA noted, pain noted to the end of the stump but without any obvious bleeding bruising crepitus or redness. No fluctuance or active drainage. NEURO EXAM: A&O x3, cranial nerves II-XII grossly intact, normal speech, moves all 4 extremities on command w/o issue. Differential diagnoses: Diverticulosis, AVM, coagulopathy, colitis, inflammatory bowel disease, malignancy, Bronwyn-Soni tear, esophagitis, peptic ulcer disease, variceal bleed, gastritis, epistaxis, fissure, hemorrhoids, as well as other pathologies. Course: Patient was seen and evaluated the bedside. Full history physical exam was performed. EKG interpreted by me Normal sinus rhythm, rate of 84, normal intervals, normal axis, T inversion in V2. Imaging Studies: See Below Cardiac monitoring: An order was placed for continuous cardiac monitoring. The monitor shows a rate of 88 with sinus rhythm. MDM: The patient did have blood work completed which showed a white count 12 with a hemoglobin of 6. Platelet count of 406. The patient's kidney function is at virtual baseline the patient does receive dialysis Tuesday last receiving dialysis yesterday. Covid negative. The patient was consented for blood and 2 units were ordered. Patient was started on Protonix. I did speak the on-call hospitalist Charlotte Mayers and patient was admitted by Dr. Almendarez. Critical Care: I have personally spent 55 minutes of critical care time in direct management of this patient. This includes bedside care, interpretation of diagnostic studies, and testing, discussion with consultants, patient, and family members, and other require inpatient management activities. This 55 minutes is in excess of all separately billable procedures. Past Med/Surg History Medical History AV fistula LEFT ARM Congestive heart failure Diabetes mellitus, type 2 Difficult intravenous access Hemodialysis patient MONDAYS AND [place] AT [facility] [place] Hyperlipidemia Hypertension Morbid obesity Obstructive sleep apnea Peripheral vascular disease Right heart failure Transient ischemic attack (TIA) X 14 (LAST EVENT 2015) Surgical History History of appendectomy History of cardiac cath X 2 (NO STENTS) History of section X1 History of cholecystectomy History of colonoscopy History of dilatation and curettage X 3 History of hysterectomy History of surgery HX OF LEFT UPPER ARM FISTULOGRAM (CLOT IN AV FISTULA) X 9 TIMES History of tooth extraction Family History Other No significant family history Social History Smoking Status: Former smoker Tobacco Type: Cigarettes Second Hand Exposure: No; Hx Alcohol Use: No Hx Substance Use: No Preferred Language: Hungarian Communication Ability: Effective Chicken Stuffer Required: No Beliefs That Will Affect Care: None Current Living Situation: Family Other Information That Helps Us Care for You: No Feels Safe at Home: Yes Assistive Devices: Wheelchair Allergies Allergies Allergy/AdvReac Type Severity Reaction Status Date / Time No Known Allergies Allergy Verified 01/24/21 20:53 Home Meds Home Medications Medication Instructions Recorded Confirmed atorvastatin 20 mg tablet (Lipitor) 20 mg PO DAILY 06/05/18 01/27/21 clopidogrel 75 mg tablet (Plavix) 75 mg PO DAILY 06/05/18 01/27/21 docusate sodium 100 mg capsule 100 mg PO BID 06/05/18 01/27/21 insulin glargine 100 unit/mL 10 units SUBCUT HS 06/05/18 01/27/21 subcutaneous solution (Lantus U-100 Insulin) Saccharomyces boulardii 250 mg 250 mg PO BIDM 01/24/21 01/27/21 capsule acetaminophen 325 mg tablet 650 mg PO Q4 PRN 01/24/21 01/27/21 aspirin 81 mg tablet,delayed 81 mg PO DAILY 01/24/21 01/27/21 release (Aspirin Low Dose) bisacodyl 10 mg rectal suppository 10 mg NC DAILY PRN 01/24/21 01/27/21 cholecalciferol (vitamin D3) 125 125 mcg PO DAILY 01/24/21 01/27/21 mcg (5,000 unit) capsule collagenase clostridium histo. 250 1 applic TOPICAL DAILY 01/24/21 01/27/21 unit/gram topical ointment (Santyl) darbepoetin sheri in polysorbat 100 100 mcg SUBCUT UD 01/24/21 01/27/21 mcg/0.5 mL in polysorbate injection syringe dextrose 40 % oral gel 15 g PO ONCE PRN 01/24/21 01/27/21 gentamicin 0.1 % topical ointment 1 applic TOPICAL DAILY 01/24/21 01/27/21 heparin (porcine) 5,000 unit/mL 5,000 unit SUBCUT Q12H 01/24/21 01/27/21 injection solution iron sucrose 100 mg iron/5 mL 100 mg IV UD PRN 01/24/21 01/27/21 intravenous solution (Venofer) magnesium hydroxide 400 mg/5 mL 30 ml PO DAILY PRN 01/24/21 01/27/21 oral suspension (Milk of Magnesia) meclizine 12.5 mg tablet 25 mg PO TID PRN 01/24/21 01/27/21 midodrine 5 mg tablet 5 mg PO TID 01/24/21 01/27/21 ondansetron 4 mg disintegrating 4 mg PO Q6H PRN 01/24/21 01/27/21 tablet pantoprazole 40 mg tablet,delayed 40 mg PO HS 01/24/21 01/27/21 release polyethylene glycol 3350 17 gram 17 g PO QDL PRN 01/24/21 01/27/21 oral powder packet (Miralax) sennosides 8.6 mg-docusate sodium 1 tab-cap PO QDL PRN 01/24/21 01/27/21 50 mg tablet (Senokot-S) tramadol 50 mg tablet 50 mg PO Q6H PRN 01/24/21 01/27/21 cocoa butter-shark liver oil 1 supp NC BID 01/27/21 01/27/21 rectal suppository hydrocortisone 2.5 % topical cream 1 applic TOPICAL BID 01/27/21 01/27/21 insulin regular human 100 unit/mL 1 sliding scale dose SUBCUT 01/27/21 01/27/21 injection solution (Humulin R USEASDIRECTD Regular U-100 Insulin) Previous Rx's Medication Instructions Recorded doxycycline hyclate 100 mg capsule 100 mg PO BID 14 Days #28 cap 01/25/21 Results & Data (ED) Vital Signs Vital Signs - 24 hr 01/27/21 12:30 01/27/21 12:54 01/27/21 15:17 Temperature 36.3 C L Temperature Source Temporal Artery Scan Pulse Rate 86 82 Pulse Rate [Apical] Pulse Rate from SpO2 Sensor 83 Pulse Rhythm Pulse Strength Respiratory Rate 22 19 Respiratory Effort / Characteristics Non-Labored Spontaneous Respiratory Depth Normal Respiratory Pattern Regular Blood Pressure 107/47 L Blood Pressure [Left Arm] Blood Pressure Mean 67 Blood Pressure Mean [Left Arm] Blood Pressure Position [Left Arm] Pulse Oximetry 97 94 Oxygen Delivery Method Room Air Room Air Sepsis Recent Fever Within 48 Hours No Sepsis New/Unexplained Change in Mental Status N/A Sepsis Action Taken by Nursing No Action Required 01/27/21 15:30 01/27/21 16:00 01/27/21 16:30 Temperature Temperature Source Pulse Rate 81 84 85 Pulse Rate [Apical] Pulse Rate from SpO2 Sensor 81 84 84 Pulse Rhythm Pulse Strength Respiratory Rate 14 17 16 Respiratory Effort / Characteristics Respiratory Depth Respiratory Pattern Blood Pressure 165/73 H 112/48 L Blood Pressure [Left Arm] Blood Pressure Mean 103 69 Blood Pressure Mean [Left Arm] Blood Pressure Position [Left Arm] Pulse Oximetry 95 95 98 Oxygen Delivery Method Sepsis Recent Fever Within 48 Hours Sepsis New/Unexplained Change in Mental Status Sepsis Action Taken by Nursing 01/27/21 16:57 01/27/21 17:00 01/27/21 17:16 Temperature 36.6 C Temperature Source Oral Pulse Rate 82 82 Pulse Rate [Apical] 83 Pulse Rate from SpO2 Sensor 83 Pulse Rhythm Regular Pulse Strength Normal Respiratory Rate 20 20 16 Respiratory Effort / Characteristics Non-Labored Respiratory Depth Normal Respiratory Pattern Blood Pressure 138/80 Blood Pressure [Left Arm] 122/46 L Blood Pressure Mean 99 Blood Pressure Mean [Left Arm] 71 Blood Pressure Position [Left Arm] Lying Pulse Oximetry 98 97 95 Oxygen Delivery Method Room Air Sepsis Recent Fever Within 48 Hours Sepsis New/Unexplained Change in Mental Status Sepsis Action Taken by Nursing 01/27/21 17:30 01/27/21 18:00 01/27/21 18:30 Temperature Temperature Source Pulse Rate 79 80 82 Pulse Rate [Apical] Pulse Rate from SpO2 Sensor Pulse Rhythm Pulse Strength Respiratory Rate 31 H 15 19 Respiratory Effort / Characteristics Respiratory Depth Respiratory Pattern Blood Pressure 100/45 L Blood Pressure [Left Arm] Blood Pressure Mean 63 Blood Pressure Mean [Left Arm] Blood Pressure Position [Left Arm] Pulse Oximetry 98 Oxygen Delivery Method Sepsis Recent Fever Within 48 Hours Sepsis New/Unexplained Change in Mental Status Sepsis Action Taken by Nursing 01/27/21 19:00 Temperature Temperature Source Pulse Rate 80 Pulse Rate [Apical] Pulse Rate from SpO2 Sensor Pulse Rhythm Pulse Strength Respiratory Rate 15 Respiratory Effort / Characteristics Respiratory Depth Respiratory Pattern Blood Pressure Blood Pressure [Left Arm] Blood Pressure Mean Blood Pressure Mean [Left Arm] Blood Pressure Position [Left Arm] Pulse Oximetry Oxygen Delivery Method Sepsis Recent Fever Within 48 Hours Sepsis New/Unexplained Change in Mental Status Sepsis Action Taken by Usp Medications Current Medication List: was personally reviewed by me Laboratory Data Attestation: I reviewed the patient's lab results. Result diagrams: 01/28/21 06:02 01/28/21 07:36 Lab Results 01/27/21 01/27/21 01/27/21 Range/Units 12:54 13:10 13:10 WBC 12.55 H (4.8-10.8) K/uL RBC 2.21 L (4.2-5.4) M/uL Hgb 6.5 L* (12.0-16.0) g/dL Hct 21.5 L (37-47) % MCV 97.3 (80-100) fL MCH 29.4 (25-34) pg MCHC 30.2 L (32-36) g/dL RDW Std Deviation 59.6 H (36.4-46.3) fL RDW Coeff of Maria D 17.0 H (11.5-14.5) % Plt Count 406 H (130-400) K/uL MPV 9.3 (7.4-10.4) fL Immature Gran % (Auto) 1.3 % Neut % (Auto) 63.3 % Lymph % (Auto) 18.2 % Crisp % (Auto) 9.4 % Eos % (Auto) 7.4 % Baso % (Auto) 0.4 % Neut # (Auto) 7.94 H (1.4-6.5) K/uL Lymph # (Auto) 2.29 (1.2-3.4) K/uL Crisp # (Auto) 1.18 H (0.11-0.59) K/uL Eos # (Auto) 0.93 H (0-0.5) K/uL Baso # (Auto) 0.05 (0-0.2) K/uL Immature Gran # (Auto) 0.16 H (0.00-0.02) K/uL Hypochromasia Present PT INR APTT PTT Ratio Sodium (136-145) mmol/L Potassium (3.5-5.1) mmol/L Chloride (98-107) mmol/L Carbon Dioxide (21-32) mmol/L Anion Gap (3-11) BUN (7-18) mg/dl Creatinine (0.6-1.2) mg/dl Est Cr Clr Drug Dosing ml/min Est GFR ( Amer) ml/min Est GFR (Non-Af Amer) ml/min BUN/Creatinine Ratio (10-20) Glucose (70-99) mg/dl Calcium (8.5-10.1) mg/dl Total Bilirubin (0.2-1) mg/dl AST (15-37) U/L ALT (12-78) U/L Alkaline Phosphatase (45-117) U/L Total Protein (6.4-8.2) gm/dl Albumin (3.4-5.0) gm/dl Globulin (2.5-4.0) gm/dl Albumin/Globulin Ratio (0.9-2) POC Stool Occult Blood Positive A (Negative) SARS-CoV-2, RNA, NAAT (NEGATIVE) Blood Type O Positive Blood Type Recheck Antibody Screen NEGATIVE Crossmatch See Detail 01/27/21 01/27/21 01/27/21 Range/Units 13:10 13:10 15:05 WBC (4.8-10.8) K/uL RBC (4.2-5.4) M/uL Hgb (12.0-16.0) g/dL Hct (37-47) % MCV (80-100) fL MCH (25-34) pg MCHC (32-36) g/dL RDW Std Deviation (36.4-46.3) fL RDW Coeff of Maria D (11.5-14.5) % Plt Count (130-400) K/uL MPV (7.4-10.4) fL Immature Gran % (Auto) % Neut % (Auto) % Lymph % (Auto) % Crisp % (Auto) % Eos % (Auto) % Baso % (Auto) % Neut # (Auto) (1.4-6.5) K/uL Lymph # (Auto) (1.2-3.4) K/uL Crisp # (Auto) (0.11-0.59) K/uL Eos # (Auto) (0-0.5) K/uL Baso # (Auto) (0-0.2) K/uL Immature Gran # (Auto) (0.00-0.02) K/uL Hypochromasia PT Cancelled INR Cancelled APTT Cancelled PTT Ratio Cancelled Sodium 136 (136-145) mmol/L Potassium 3.8 (3.5-5.1) mmol/L Chloride 106 (98-107) mmol/L Carbon Dioxide 23 (21-32) mmol/L Anion Gap 7.0 (3-11) BUN 27 H (7-18) mg/dl Creatinine 3.89 H (0.6-1.2) mg/dl Est Cr Clr Drug Dosing 19.6 ml/min Est GFR ( Amer) 14.0 ml/min Est GFR (Non-Af Amer) 12.1 ml/min BUN/Creatinine Ratio 6.9 L (10-20) Glucose 72 (70-99) mg/dl Calcium 10.5 H (8.5-10.1) mg/dl Total Bilirubin 0.3 (0.2-1) mg/dl AST 15 (15-37) U/L ALT 6 L (12-78) U/L Alkaline Phosphatase 132 H (45-117) U/L Total Protein 6.5 (6.4-8.2) gm/dl Albumin 2.1 L (3.4-5.0) gm/dl Globulin 4.4 H (2.5-4.0) gm/dl Albumin/Globulin Ratio 0.5 L (0.9-2) POC Stool Occult Blood (Negative) SARS-CoV-2, RNA, NAAT (NEGATIVE) Blood Type Blood Type Recheck O Positive Antibody Screen Crossmatch 01/27/21 01/27/21 Range/Units 15:05 15:41 WBC (4.8-10.8) K/uL RBC (4.2-5.4) M/uL Hgb (12.0-16.0) g/dL Hct (37-47) % MCV (80-100) fL MCH (25-34) pg MCHC (32-36) g/dL RDW Std Deviation (36.4-46.3) fL RDW Coeff of Maria D (11.5-14.5) % Plt Count (130-400) K/uL MPV (7.4-10.4) fL Immature Gran % (Auto) % Neut % (Auto) % Lymph % (Auto) % Crisp % (Auto) % Eos % (Auto) % Baso % (Auto) % Neut # (Auto) (1.4-6.5) K/uL Lymph # (Auto) (1.2-3.4) K/uL Crisp # (Auto) (0.11-0.59) K/uL Eos # (Auto) (0-0.5) K/uL Baso # (Auto) (0-0.2) K/uL Immature Gran # (Auto) (0.00-0.02) K/uL Hypochromasia PT 10.4 INR 1.0 APTT 23.2 PTT Ratio 0.9 Sodium (136-145) mmol/L Potassium (3.5-5.1) mmol/L Chloride (98-107) mmol/L Carbon Dioxide (21-32) mmol/L Anion Gap (3-11) BUN (7-18) mg/dl Creatinine (0.6-1.2) mg/dl Est Cr Clr Drug Dosing ml/min Est GFR ( Amer) ml/min Est GFR (Non-Af Amer) ml/min BUN/Creatinine Ratio (10-20) Glucose (70-99) mg/dl Calcium (8.5-10.1) mg/dl Total Bilirubin (0.2-1) mg/dl AST (15-37) U/L ALT (12-78) U/L Alkaline Phosphatase (45-117) U/L Total Protein (6.4-8.2) gm/dl Albumin (3.4-5.0) gm/dl Globulin (2.5-4.0) gm/dl Albumin/Globulin Ratio (0.9-2) POC Stool Occult Blood (Negative) SARS-CoV-2, RNA, NAAT NEGATIVE (NEGATIVE) Blood Type Blood Type Recheck Antibody Screen Crossmatch Administered Medications Atorvastatin Calcium (Atorvastatin 20 Mg Tab) 20 mg PO DAILY GABY Stop: 02/27/21 08:59 Last Admin: 01/28/21 08:40 Dose: 20 mg Documented by: [id number] Collagenase (Collagenase Oint 30 Gm Tube) 1 appln TOP DAILY GABY Stop: 02/27/21 08:59 Last Admin: 01/28/21 08:41 Dose: 1 appln Documented by: [id number] Docusate Sodium (Docusate Sodium 100 Mg Cap) 100 mg PO BID GABY Stop: 02/26/21 20:59 Last Admin: 01/28/21 08:40 Dose: 100 mg Documented by: [id number] Admin: 01/27/21 22:02 Dose: 100 mg Documented by: [id number] Doxycycline Hyclate (Doxycycline Hyclate 100 Mg Cap) 100 mg PO BID [facility] Stop: 02/03/21 20:59 Last Admin: 01/28/21 08:40 Dose: 100 mg Documented by: [id number] Admin: 01/27/21 22:02 Dose: 100 mg Documented by: [id number] Pantoprazole Sodium 40 mg/ (Dextrose) 100 mls @ 20 mls/hr IV Q5H GABY Stop: 02/26/21 14:14 Last Admin: 01/28/21 06:06 Dose: 8 mg/hr, 20 mls/hr Documented by: [id number] Infusion: 01/28/21 06:06 Dose: 8 mg/hr, 20 mls/hr Documented by: [id number] Admin: 01/28/21 01:16 Dose: 8 mg/hr, 20 mls/hr Documented by: [id number] Infusion: 01/28/21 00:25 Dose: 8 mg/hr, 20 mls/hr Documented by: [id number] Admin: 01/27/21 19:25 Dose: 8 mg/hr, 20 mls/hr Documented by: [id number] Infusion: 01/27/21 19:25 Dose: 8 mg/hr, 20 mls/hr Documented by: [id number] Admin: 01/27/21 15:00 Dose: 8 mg/hr, 20 mls/hr Documented by: [id number] Promethazine HCl 12.5 mg/ (Sodium Chloride) 50.5 mls @ 202 mls/hr IV Q6H PRN PRN Reason: Nausea And Vomiting Stop: 02/27/21 00:51 Last Infusion: 01/28/21 02:00 Dose: 0 mls/hr Documented by: [id number] Admin: 01/28/21 01:39 Dose: 202 mls/hr Documented by: [id number] Insulin Aspart (Insulin Aspart 100 Units/Ml 3 Ml Pen) 0 units SC Q6 GABY Stop: 02/27/21 00:00 Last Admin: 01/28/21 06:06 Dose: Not Given Documented by: [id number] Admin: 01/28/21 01:16 Dose: Not Given Documented by: [id number] Midodrine (Midodrine Hcl 2.5 Mg Tab) 5 mg PO TID@0700,1200,1800 [facility] Stop: 02/27/21 06:59 Last Admin: 01/28/21 08:39 Dose: 5 mg Documented by: [id number] Miscellaneous (Darbepoetin- Order Awaiting Action) 1 ea N/A QS GABY Stop: 02/27/21 00:00 Last Admin: 01/28/21 00:37 Dose: Not Given Documented by: [id number] Vitamin D (Cholecalciferol 1,000 Units 25 Mcg Tab) 5,000 units PO DAILY GABY Stop: 02/27/21 08:59 Last Admin: 01/28/21 08:41 Dose: 5,000 units Documented by: [id number] Discontinued Medications Pantoprazole Sodium (Protonix Bolus/Drip) 0 mls @ 1 mls/hr IV ONE STA Stop: 01/27/21 13:48 Last Admin: 01/27/21 15:55 Dose: Not Given Documented by: [id number] Pantoprazole Sodium 80 mg/ (Dextrose) 120 mls @ 400 mls/hr IV NOW ONE Stop: 01/27/21 14:04 Last Infusion: 01/27/21 14:50 Dose: 0 mls/hr, 0 mls/hr Documented by: [id number] Admin: 01/27/21 14:32 Dose: 400 mls/hr, 400 mls/hr Documented by: [id number] Tramadol HCl (Tramadol Hcl 50 Mg Tablet) 50 mg PO Q6H PRN PRN Reason: Pain Stop: 02/26/21 19:23 Last Admin: 01/28/21 01:16 Dose: 50 mg Documented by: [id number] Tramadol HCl (Tramadol Hcl 50 Mg Tablet) 50 mg PO NOW STA Stop: 01/28/21 05:01 Last Admin: 01/28/21 05:15 Dose: 50 mg Documented by: [id number] Tramadol HCl (Tramadol Hcl 50 Mg Tablet) Confirm Administered Dose 50 mg .ROUTE .STK-MED ONE Stop: 01/28/21 05:14 Last Admin: 01/28/21 08:33 Dose: Not Given Documented by: [id number] Discharge Plan Visit Data Chief Complaint: Abnormal Labs/Diagnostic Testing Stated Complaint: POSSIBLE NEED OF BLOOD TRANSFUSION ED Provider: Bienvenido De Oliveira Discharge Problem: GI bleed, ESRD (end stage renal disease) on dialysis Patient Disposition: Admitted As Inpatient Discharge Instructions Interventions: ED Discharge Assessment Last Done: 01/27/21 21:37
[2021-01-27 13:39] LABS: Hematocrit (blood only) 21.5 % (37-47); Hemoglobin 6.5 g/dL (12.0-16.0); Mean Corpuscular Hemoglobin 29.4 pg (25-34); Mean Corpuscular Hgb Conc 30.2 g/dL (32-36); Mean Corpuscular Volume 97.3 fL (80-100); Mean Platelet Volume 9.3 fL (7.4-10.4); Platelet Count 406 K/uL (130-400); RDW Standard Deviation 59.6 fL (36.4-46.3); Red Blood Count 2.21 M/uL (4.2-5.4); White Blood Count 12.55 K/uL (4.8-10.8)
[2021-01-27] MEDS ORDERED: SODIUM CHLORIDE 0.9% 250 ML IV PRN (13:45)
[2021-01-27] MEDS ORDERED: PANTOprazole 80 MG in DEXTROSE 5% 100 ML IV ONE (13:47)
[2021-01-27] MEDS ORDERED: PANTOPRAZOLE BOLUS/DRIP 1 EA IV STA (13:47)
[2021-01-27 13:57] LABS: Albumin Level 2.1 gm/dl (3.4-5.0); BUN Creatinine Ratio 6.9 (10-20); Calcium 10.5 mg/dl (8.5-10.1); Creatinine Clr Calc Pharmacy 19.6 ml/min; Est GFR (Non-African American) 12.1 ml/min; Potassium 3.8 mmol/L (3.5-5.1)
[2021-01-27 13:59] LABS: Basophils # (auto) 0.05 K/uL (0-0.2); Basophils % (auto) 0.4 %; Eosinophils # (auto) 0.93 K/uL (0-0.5); Eosinophils % (auto) 7.4 %; Hypochromasia Present; Immature Granulocytes # (auto) 0.16 K/uL (0.00-0.02); Immature Granulocytes % (auto) 1.3 %; Lymphocytes # (auto) 2.29 K/uL (1.2-3.4); Lymphocytes % (auto) 18.2 %; Monocytes # (auto) 1.18 K/uL (0.11-0.59); Monocytes % (auto) 9.4 %; Neutrophils # (auto) 7.94 K/uL (1.4-6.5); Neutrophils % (auto) 63.3 %
[2021-01-27 14:00] LABS: Albumin Globulin Ratio 0.5 (0.9-2); Bilirubin,Total 0.3 mg/dl (0.2-1); Globulin 4.4 gm/dl (2.5-4.0); Total Protein 6.5 gm/dl (6.4-8.2)
[2021-01-27] MEDS: PANTOprazole 40 MG in DEXTROSE 5% 100 ML IV SCH ×2 (15:00→19:25)
[2021-01-27 15:29] LABS: Partial Thromboplastin Ratio 0.9; Partial Thromboplastin Time 23.2 Seconds (21.0-31.0); Prothrombin Time 10.4 Seconds (9.0-12.0)
--- NOTE | 2021-01-27 15:59 | History & Physical Report ---
Date of Service January 27, 2021 Assessment & Plan (1) GI bleed: Plan: Unclear source although pt reports bleeding seems to be slowing - 3 g drop in Hgb over past 3 days - Admit to med/surg tele - Transfused 2 units in ED - additional transfusion PRN - H&H Q8 hrs x 3 - Received PPI bolus in the ED, continue gtt - Consult GI for additional recommendations (2) Postoperative wound infection: Plan: - Continue doxycycline as started in ED three days ago - Consult wound care nurse (3) ESRD (end stage renal disease) on dialysis: Plan: - Consult nephrology - pt on HD M/W/F (4) Diabetes mellitus, type 2: Plan: - Accuchecks Q6 H - Insulin sliding scale (5) Hypertension: Plan: - Continue home meds as appropriate (6) Hyperlipidemia: Plan: - Holding statin while NPO (7) Ulcer of right heel: Plan: - Wound care consult (8) Peripheral vascular disease: (9) Obstructive sleep apnea: Plan: Non-compliant with CPAP Plan: Pt seen and reviewed with collaborating physician, Dr. Muñiz. Plan of care discussed and as outlined above. Code Status: Full code Holding antiplatelets, subQ heparin due to possible active GI bleed. Octavio Mayers PA-C History of Present Illness Chief Complaint: Rectal bleeding Primary Care Provider: Vishal Baptiste DO This is a 55 y/o female with a PMH of ESRD on HD (M/W/F at [facility]), DM2, RAHEEM (not compliant with CPAP), HTN, dyslipidemia, obesity, former tobacco use, and recent left heel ulcer presented to the ED today from [facility] with rectal bleeding and associated 3 g drop in Hgb in three days. Pt was admitted to [facility] 11/28-12/05/20 with a left heel ulcer and underwent a bone biopsy. Followed up with wound care outpatient but wound ultimately turned necrotic and gangrenous so pt was referred for amputation, which was done at [place] on 01/05/21. Transferred to [facility] at discharge for rehab. Seen in the ED on 01/24/21 for possible infection of the surgical wound - CT was negative for fluid collection and pt was discharged back to [facility] on doxycycline. Over the past three days, her hemoglobin dropped 3 g. Pt reports rectal bleeding with bowel movements for the past two weeks. She also reports a ruptured hemorrhoid when a nurse was giving her a suppository a couple of days ago and thinks that the rectal bleeding may have slowed since that happened. Blood is bright red and variable quantity. She does note nausea but this has been for seven weeks and is no worse than usual. Feeling more fatigued with malaise today. Denies increased SOB. Allergies Allergy/AdvReac Type Severity Reaction Status Date / Time No Known Allergies Allergy Verified 01/24/21 20:53 Home Medications Medication Instructions Recorded Confirmed Type atorvastatin 20 mg tablet (Lipitor) 20 mg PO DAILY 06/05/18 01/27/21 History clopidogrel 75 mg tablet (Plavix) 75 mg PO DAILY 06/05/18 01/27/21 History docusate sodium 100 mg capsule 100 mg PO BID 06/05/18 01/27/21 History insulin glargine 100 unit/mL 10 units SUBCUT HS 06/05/18 01/27/21 History subcutaneous solution (Lantus U-100 Insulin) Saccharomyces boulardii 250 mg 250 mg PO BIDM 01/24/21 01/27/21 History capsule acetaminophen 325 mg tablet 650 mg PO Q4 PRN 01/24/21 01/27/21 History aspirin 81 mg tablet,delayed 81 mg PO DAILY 01/24/21 01/27/21 History release (Aspirin Low Dose) bisacodyl 10 mg rectal suppository 10 mg [place] DAILY PRN 01/24/21 01/27/21 History cholecalciferol (vitamin D3) 125 125 mcg PO DAILY 01/24/21 01/27/21 History mcg (5,000 unit) capsule collagenase clostridium histo. 250 1 applic TOPICAL DAILY 01/24/21 01/27/21 History unit/gram topical ointment (Santyl) darbepoetin sheri in polysorbat 100 100 mcg SUBCUT UD 01/24/21 01/27/21 History mcg/0.5 mL in polysorbate injection syringe dextrose 40 % oral gel 15 g PO ONCE PRN 01/24/21 01/27/21 History gentamicin 0.1 % topical ointment 1 applic TOPICAL DAILY 01/24/21 01/27/21 History heparin (porcine) 5,000 unit/mL 5,000 unit SUBCUT Q12H 01/24/21 01/27/21 History injection solution iron sucrose 100 mg iron/5 mL 100 mg IV UD PRN 01/24/21 01/27/21 History intravenous solution (Venofer) magnesium hydroxide 400 mg/5 mL 30 ml PO DAILY PRN 01/24/21 01/27/21 History oral suspension (Milk of Magnesia) meclizine 12.5 mg tablet 25 mg PO TID PRN 01/24/21 01/27/21 History midodrine 5 mg tablet 5 mg PO TID 01/24/21 01/27/21 History ondansetron 4 mg disintegrating 4 mg PO Q6H PRN 01/24/21 01/27/21 History tablet pantoprazole 40 mg tablet,delayed 40 mg PO HS 01/24/21 01/27/21 History release polyethylene glycol 3350 17 gram 17 g PO QDL PRN 01/24/21 01/27/21 History oral powder packet (Miralax) sennosides 8.6 mg-docusate sodium 1 tab-cap PO QDL PRN 01/24/21 01/27/21 History 50 mg tablet (Senokot-S) tramadol 50 mg tablet 50 mg PO Q6H PRN 01/24/21 01/27/21 History doxycycline hyclate 100 mg capsule 100 mg PO BID 14 Days #28 cap 01/25/21 01/27/21 Rx cocoa butter-shark liver oil 1 supp [place] BID 01/27/21 01/27/21 History rectal suppository hydrocortisone 2.5 % topical cream 1 applic TOPICAL BID 01/27/21 01/27/21 History insulin regular human 100 unit/mL 1 sliding scale dose SUBCUT 01/27/21 01/27/21 History injection solution (Humulin R USEASDIRECTD Regular U-100 Insulin) Past Med/Surg History Medical History (Updated 01/27/21 @ 19:16 by Catherine Mayers PA-C) AV fistula LEFT ARM Congestive heart failure Diabetes mellitus, type 2 Difficult intravenous access Hemodialysis patient MONDAYS AND FRIDAYS AT [facility] [place] Hyperlipidemia Hypertension Morbid obesity Obstructive sleep apnea Peripheral vascular disease Right heart failure Transient ischemic attack (TIA) X 14 (LAST EVENT 2015) Surgical History History of appendectomy History of cardiac cath X 2 (NO STENTS) History of section X1 History of cholecystectomy History of colonoscopy History of dilatation and curettage X 3 History of hysterectomy History of surgery HX OF LEFT UPPER ARM FISTULOGRAM (CLOT IN AV FISTULA) X 9 TIMES History of tooth extraction Family History Other No significant family history Social History Smoking Status: Former smoker Tobacco Type: Cigarettes Second Hand Exposure: No; Hx Alcohol Use: No Hx Substance Use: No Preferred Language: Divehi Communication Ability: Effective Asset Liability Analyst Required: No Beliefs That Will Affect Care: None Current Living Situation: Spouse Feels Safe at Home: Yes Assistive Devices: Walker Review of Systems Review of Systems: All systems reviewed & are unremarkable except as noted in HPI & below Constitutional: + fatigue and + malaise; no fever, no chills and no sweats Eyes: no diplopia Ear, Nose, Mouth, Throat: no nasal congestion, no nasal discharge and no sore throat Respiratory: no cough, no dyspnea and no wheezing Cardiovascular: no chest pain, no palpitations and no syncope Gastrointestinal: as per Subjective / HPI Musculoskeletal: + problem reported (pain left LE at surgical site (since surgery)) Integumentary: + skin ulcer (right heel wound) Neurologic: + generalized weakness; no headache(s) and no confusion Psychiatric: + depression and + anxiety Physical Exam Constitutional: + obese; no acute distress Eyes: + anicteric sclerae Neck: trachea midline Respiratory: no respiratory distress and no labored breathing Auscultation: + diminished lung sounds; no rales, no rhonchi and no wheezes Cardiovascular: Rate/Rhythm: regular rate and regular rhythm Vessels: radial pulses present Extremities: + edema (trace to 1+ RLE edema) Gastrointestinal (Abdomen): Inspection/Auscultation: normal bowel sounds; abdomen not distended Percussion/Palpation: abdomen soft; abdomen nontender and no guarding Musculoskeletal: Head/Neck/Chest: normocephalic, head atraumatic and neck supple left mid-thigh amputation Skin: right heel with ulcer with black eschar, left amputation surgical site with sutures intact, crusted serosanguineous drainage, mild erythema but no significant warmth Neurologic: moves all extremities; no focal motor deficits Psychiatric: Mood: + anxious mood and + irritable mood Results & Data Results & Data ([facility]) Vital Signs (Past 12 Hours) Vital Signs Temp Pulse Resp BP Pulse Ox 01/27/21 12:30 36.3 C L 86 22 107/47 L 97 Laboratory Results Laboratory Results - last 24 hr 01/27/21 01/27/21 01/27/21 13:10 13:10 13:10 WBC 12.55 H RBC 2.21 L Hgb 6.5 L* Hct 21.5 L MCV 97.3 MCH 29.4 MCHC 30.2 L RDW Std Deviation 59.6 H RDW Coeff of Maria D 17.0 H Plt Count 406 H MPV 9.3 Immature Gran % (Auto) 1.3 Neut % (Auto) 63.3 Lymph % (Auto) 18.2 [place] % (Auto) 9.4 Eos % (Auto) 7.4 Baso % (Auto) 0.4 Neut # (Auto) 7.94 H Lymph # (Auto) 2.29 [place] # (Auto) 1.18 H Eos # (Auto) 0.93 H Baso # (Auto) 0.05 Immature Gran # (Auto) 0.16 H Hypochromasia Present PT Cancelled INR Cancelled APTT Cancelled PTT Ratio Cancelled Sodium Potassium Chloride Carbon Dioxide Anion Gap BUN Creatinine Est Cr Clr Drug Dosing Est GFR ( Amer) Est GFR (Non-Af Amer) BUN/Creatinine Ratio Glucose Calcium Total Bilirubin AST ALT Alkaline Phosphatase Total Protein Albumin Globulin Albumin/Globulin Ratio SARS-CoV-2, RNA, NAAT Blood Type O Positive Blood Type Recheck Antibody Screen NEGATIVE Crossmatch See Detail 01/27/21 01/27/21 01/27/21 13:10 15:05 15:05 WBC RBC Hgb Hct MCV MCH MCHC RDW Std Deviation RDW Coeff of [place] Plt Count MPV Immature Gran % (Auto) Neut % (Auto) Lymph % (Auto) [place] % (Auto) Eos % (Auto) Baso % (Auto) Neut # (Auto) Lymph # (Auto) [place] # (Auto) Eos # (Auto) Baso # (Auto) Immature Gran # (Auto) Hypochromasia PT 10.4 INR 1.0 APTT 23.2 PTT Ratio 0.9 Sodium 136 Potassium 3.8 Chloride 106 Carbon Dioxide 23 Anion Gap 7.0 BUN 27 H Creatinine 3.89 H Est Cr Clr Drug Dosing 19.6 Est GFR ( Amer) 14.0 Est GFR (Non-Af Amer) 12.1 BUN/Creatinine Ratio 6.9 L Glucose 72 Calcium 10.5 H Total Bilirubin 0.3 AST 15 ALT 6 L Alkaline Phosphatase 132 H Total Protein 6.5 Albumin 2.1 L Globulin 4.4 H Albumin/Globulin Ratio 0.5 L SARS-CoV-2, RNA, NAAT Blood Type Blood Type Recheck Pending Antibody Screen Crossmatch 01/27/21 15:41 WBC RBC Hgb Hct MCV MCH MCHC RDW Std Deviation RDW Coeff of Maria D Plt Count MPV Immature Gran % (Auto) Neut % (Auto) Lymph % (Auto) [place] % (Auto) Eos % (Auto) Baso % (Auto) Neut # (Auto) Lymph # (Auto) [place] # (Auto) Eos # (Auto) Baso # (Auto) Immature Gran # (Auto) Hypochromasia PT INR APTT PTT Ratio Sodium Potassium Chloride Carbon Dioxide Anion Gap BUN Creatinine Est Cr Clr Drug Dosing Est GFR ( Amer) Est GFR (Non-Af Amer) BUN/Creatinine Ratio Glucose Calcium Total Bilirubin AST ALT Alkaline Phosphatase Total Protein Albumin Globulin Albumin/Globulin Ratio SARS-CoV-2, RNA, NAAT Pending Blood Type Blood Type Recheck Antibody Screen Crossmatch Medications Administered Pantoprazole Sodium 40 mg/ (Dextrose) 100 mls @ 20 mls/hr IV Q5H GABY Stop: 02/26/21 14:14 Last Admin: 01/27/21 15:00 Dose: 8 mg/hr, 20 mls/hr Documented by: [id number] Discontinued Medications Pantoprazole Sodium 80 mg/ (Dextrose) 120 mls @ 400 mls/hr IV NOW ONE Stop: 01/27/21 14:04 Last Admin: 01/27/21 14:32 Dose: 400 mls/hr, 400 mls/hr Documented by: [id number] Supervising Physician Co-Signing Physician Notes Pt is a 55 y/o F with hx of ESRD (HD on M,W,F), Chronic Anemia, PAD, with recent hx of L AKA (@ [facility] on 01/05/21, DMII, RAHEEM, Hypotension on midodrine with prior hx of HTN, HLD brought in from [facility] for BRBPR with decrease in hgb. Exam: NAD Cardiac: Normal S1/S2, no murmur Lungs: CTA, no wheezing Abd: obese abd, NT, Soft L AKA: incision is healing well, still have the suture in place, dried serosanginous drainage R heel: 4x4 cm area of possible necrotic skin Psych: AAOx3, normal Affect A/P: Lower GI bleed: -not suspecting Upper GI bleed ---- pt was on Plavix, aspirin and ppx heparin -will start the pt on protonix gtt -NPO for now -pt is s/p 2 units PRBC -GI consult -trend CBC L AKA and R heel necrotic skin lesion: -Had CT of L femur: no acute fracture or osteo -currently on doxy for possible skin infection near the stump -will get wound care consult for both lesion ---- will consider imaging of R heel depending on the recommendation. ESRD on M,W,F HD: -nephro consult Agree with A/P by Catherine Mayers PA-C
[2021-01-27] MEDS ORDERED: MECLIZINE HCL 25 MG TAB PO PRN (19:24)
[2021-01-27] MEDS ORDERED: traMADol HCL 50 MG TABLET PO PRN (19:24)
[2021-01-27] MEDS: DOCUSATE SODIUM 100 MG CAP PO SCH (22:02)
[2021-01-27] MEDS: DOXYCYCLINE HYCLATE 100 MG CAP PO SCH (22:02)
[2021-01-27] MEDS ORDERED: CARBOHYDRATES FOR HYPOGLYCEMIA PO PRN (22:41)
[2021-01-27] MEDS ORDERED: GLUCOSE 40% GEL 15 GM TUBE PO PRN (22:41)
[2021-01-27] MEDS ORDERED: GLUCAGON FOR INJ 1 MG VIAL SQ PRN (22:41)
[2021-01-27] MEDS ORDERED: DEXTROSE 50% 50 ML SYRINGE IV PRN (22:41)
[2021-01-27] MEDS ORDERED: GLUCOSE 10 TABS/TUBE PO PRN (22:41)
[2021-01-28 00:27] LABS: Hematocrit (blood only) 29.6 % (37-47); Hemoglobin 9.1 g/dL (12.0-16.0)
[2021-01-28] MEDS: PANTOprazole 40 MG in DEXTROSE 5% 100 ML IV SCH ×4 (01:16→21:31)
[2021-01-28] MEDS: INSULIN ASPART 100 UNITS/ML 3 ML PEN SC SCH ×4 (01:16→18:09)
[2021-01-28] MEDS: PROMETHAZINE HCL 12.5 MG in SODIUM CHLORIDE 0.9% 50 ML IV PRN (01:39)
[2021-01-28] MEDS ORDERED: traMADol HCL 50 MG TABLET PO STA (05:00)
[2021-01-28] MEDS ORDERED: traMADol HCL 50 MG TABLET ONE (05:13)
[2021-01-28 06:24] LABS: Basophils # (auto) 0.05 K/uL (0-0.2); Basophils % (auto) 0.4 %; Eosinophils # (auto) 0.63 K/uL (0-0.5); Eosinophils % (auto) 5.3 %; Hemoglobin 9.2 g/dL (12.0-16.0); Immature Granulocytes # (auto) 0.16 K/uL (0.00-0.02); Immature Granulocytes % (auto) 1.3 %; Lymphocytes % (auto) 16.8 %; Mean Corpuscular Hemoglobin 29.9 pg (25-34); Mean Corpuscular Hgb Conc 31.7 g/dL (32-36); Mean Corpuscular Volume 94.2 fL (80-100); Mean Platelet Volume 9.4 fL (7.4-10.4); Monocytes # (auto) 1.22 K/uL (0.11-0.59); Monocytes % (auto) 10.2 %; Neutrophils # (auto) 7.88 K/uL (1.4-6.5); Platelet Count 358 K/uL (130-400); RDW Coefficient of Variation 16.9 % (11.5-14.5); RDW Standard Deviation 57.7 fL (36.4-46.3); Red Blood Count 3.08 M/uL (4.2-5.4); White Blood Count 11.94 K/uL (4.8-10.8)
[2021-01-28 07:08] LABS: BUN Creatinine Ratio 6.9 (10-20); Calcium 9.9 mg/dl (8.5-10.1); Creatinine Clr Calc Pharmacy 17.1 ml/min; Est GFR (African American) 11.9 ml/min; Est GFR (Non-African American) 10.3 ml/min
[2021-01-28 07:21] LABS: Estimated Average Glucose 88 mg/dl; Hemoglobin A1C 4.7 % (4.5-5.6)
[2021-01-28] MEDS ORDERED: SODIUM CHLORIDE 0.9% 1000ML 1,000 ML IV PRN ×3 (07:34→14:56)
[2021-01-28] MEDS ORDERED: EPOETIN ALFA 10,000 UNITS/ML VIAL IV SCH (08:00)
[2021-01-28 08:37] LABS: Potassium 3.9 mmol/L (3.5-5.1)
[2021-01-28] MEDS: MIDODRINE HCL 2.5 MG TAB PO SCH ×3 (08:39→17:08)
[2021-01-28] MEDS: DOCUSATE SODIUM 100 MG CAP PO SCH ×2 (08:40→21:31)
[2021-01-28] MEDS: ATORVASTATIN 20 MG TAB PO SCH (08:40)
[2021-01-28] MEDS: DOXYCYCLINE HYCLATE 100 MG CAP PO SCH ×2 (08:40→21:43)
[2021-01-28] MEDS: CHOLECALCIFEROL 1,000 UNITS 25 MCG TAB PO SCH (08:41)
[2021-01-28] MEDS: COLLAGENASE OINT 30 GM TUBE TOP SCH (08:41)
--- NOTE | 2021-01-28 09:41 | Gastrointestinal Consultation ---
Date of Consultation January 28, 2021 Assessment & Plan (1) GI bleed: (2) Acute blood loss anemia: DDX: PUD vs AVM vs malignancy vs other. 1. NPO for now. 2. Transfuse to maintain hemoglobin >8. 3. EGD for further evaluation of symptoms. 4. Continue PPI ggt at 8 mg/hr. 5. Discussed with Dr. Garcia. Procedure to occur prior to HD today. 6. Further recommendations pending results of testing. Thank you for allowing us to participating in the care of this pleasant patient. If you have any questions or concerns, please do not hesitate to contact us. Supervising Physician Co-Signing Physician Notes I personally evaluated the patient and agree with the findings as documented by MENG Donovan Exam: abd: soft, nt, nd Proceed with EGD. 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 With her chronic anemia, she has a baseline hemoglobin of ~9. She was noted to have a H&H of 6.5/21.5 on arrival. She is now back up to 9.2/29.0 after blood transfusion. Has been made NPO (although she states she has not eaten since Tuesday) and started on a PPI ggt. She denies any abdominal pain or vomiting but endorses chronic anemia. States she has never been diagnosed with gastroparesis. She did have a colonoscopy by Dr. Hayes in 2019 which was unremarkable per her report. No prior upper endoscopy. She is due to have dialysis today. She takes aspirin and Plavix as an outpatient. No ibuprofen. Denies any current tobacco or alcohol use. No family history of GI malignancy. Allergies Allergy/AdvReac Type Severity Reaction Status Date / Time No Known Allergies Allergy Verified 01/24/21 20:53 Home Medications Medication Instructions Recorded Confirmed Type atorvastatin 20 mg tablet (Lipitor) 20 mg PO DAILY 06/05/18 01/27/21 History clopidogrel 75 mg tablet (Plavix) 75 mg PO DAILY 06/05/18 01/27/21 History docusate sodium 100 mg capsule 100 mg PO BID 06/05/18 01/27/21 History insulin glargine 100 unit/mL 10 units SUBCUT HS 06/05/18 01/27/21 History subcutaneous solution (Lantus U-100 Insulin) Saccharomyces boulardii 250 mg 250 mg PO BIDM 01/24/21 01/27/21 History capsule acetaminophen 325 mg tablet 650 mg PO Q4 PRN 01/24/21 01/27/21 History aspirin 81 mg tablet,delayed 81 mg PO DAILY 01/24/21 01/27/21 History release (Aspirin Low Dose) bisacodyl 10 mg rectal suppository 10 mg [place] DAILY PRN 01/24/21 01/27/21 History cholecalciferol (vitamin D3) 125 125 mcg PO DAILY 01/24/21 01/27/21 History mcg (5,000 unit) capsule collagenase clostridium histo. 250 1 applic TOPICAL DAILY 01/24/21 01/27/21 History unit/gram topical ointment (Santyl) darbepoetin sheri in polysorbat 100 100 mcg SUBCUT UD 01/24/21 01/27/21 History mcg/0.5 mL in polysorbate injection syringe dextrose 40 % oral gel 15 g PO ONCE PRN 01/24/21 01/27/21 History gentamicin 0.1 % topical ointment 1 applic TOPICAL DAILY 01/24/21 01/27/21 History heparin (porcine) 5,000 unit/mL 5,000 unit SUBCUT Q12H 01/24/21 01/27/21 History injection solution iron sucrose 100 mg iron/5 mL 100 mg IV UD PRN 01/24/21 01/27/21 History intravenous solution (Venofer) magnesium hydroxide 400 mg/5 mL 30 ml PO DAILY PRN 01/24/21 01/27/21 History oral suspension (Milk of Magnesia) meclizine 12.5 mg tablet 25 mg PO TID PRN 01/24/21 01/27/21 History midodrine 5 mg tablet 5 mg PO TID 01/24/21 01/27/21 History ondansetron 4 mg disintegrating 4 mg PO Q6H PRN 01/24/21 01/27/21 History tablet pantoprazole 40 mg tablet,delayed 40 mg PO HS 01/24/21 01/27/21 History release polyethylene glycol 3350 17 gram 17 g PO QDL PRN 01/24/21 01/27/21 History oral powder packet (Miralax) sennosides 8.6 mg-docusate sodium 1 tab-cap PO QDL PRN 01/24/21 01/27/21 History 50 mg tablet (Senokot-S) tramadol 50 mg tablet 50 mg PO Q6H PRN 01/24/21 01/27/21 History doxycycline hyclate 100 mg capsule 100 mg PO BID 14 Days #28 cap 01/25/21 01/27/21 Rx cocoa butter-shark liver oil 1 supp [place] BID 01/27/21 01/27/21 History rectal suppository hydrocortisone 2.5 % topical cream 1 applic TOPICAL BID 01/27/21 01/27/21 History insulin regular human 100 unit/mL 1 sliding scale dose SUBCUT 01/27/21 01/27/21 History injection solution (Humulin R USEASDIRECTD Regular U-100 Insulin) Patient History Medical History AV fistula LEFT ARM Congestive heart failure Diabetes mellitus, type 2 Difficult intravenous access Hemodialysis patient MONDAYS AND FRIDAYS AT [facility] [place] Hyperlipidemia Hypertension Morbid obesity Obstructive sleep apnea Peripheral vascular disease Right heart failure Transient ischemic attack (TIA) X 14 (LAST EVENT 2015) Surgical History History of appendectomy History of cardiac cath X 2 (NO STENTS) History of section X1 History of cholecystectomy History of colonoscopy History of dilatation and curettage X 3 History of hysterectomy History of surgery HX OF LEFT UPPER ARM FISTULOGRAM (CLOT IN AV FISTULA) X 9 TIMES History of tooth extraction Family History Other No significant family history Social History Smoking Status: Former smoker Tobacco Type: Cigarettes Second Hand Exposure: No; Hx Alcohol Use: No Hx Substance Use: No Preferred Language: Swedish Communication Ability: Effective 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 Beliefs That Will Affect Care: None Current Living Situation: Family Other Information That Helps Us Care for You: No Feels Safe at Home: Yes Assistive Devices: Wheelchair Review of Systems Constitutional: + fatigue Respiratory: no cough, no dyspnea and no dyspnea on exertion Cardiovascular: no chest pain and no palpitations Gastrointestinal: as per Subjective / HPI; no constipation and no diarrhea/loose stools Musculoskeletal: + problem reported (pain from foot ulcer) Physical Exam Constitutional: + morbidly obese; no acute distress Eyes: + anicteric sclerae and EOM intact bilaterally Neck: normal visual inspection Respiratory: normal respiratory effort; no respiratory distress and no cough Auscultation: lungs clear to auscultation bilaterally Cardiovascular: RRR, no murmur, no edema Gastrointestinal (Abdomen): Inspection/Auscultation: normal bowel sounds and + significant pannus Percussion/Palpation: abdomen soft; abdomen nontender Skin: + pallor Psychiatric: A+Ox3, euthymic affect Results & Data ([facility]) Vital Signs (Past 12 Hours) Vital Signs Temp Pulse Pulse Resp BP BP Pulse Ox 01/28/21 04:00 36.5 C 77 14 159/75 H 96 01/27/21 22:41 36.4 C L 80 16 108/78 96 01/27/21 21:37 82 16 133/73 98 Pulse Ox 01/28/21 04:00 01/27/21 22:41 96 01/27/21 21:37 Laboratory Results Laboratory Results WBC 11.94 K/uL (4.8-10.8) H 01/28/21 06:02 RBC 3.08 M/uL (4.2-5.4) L 01/28/21 06:02 Hgb 9.2 g/dL (12.0-16.0) L 01/28/21 06:02 Hct 29.0 % (37-47) L 01/28/21 06:02 MCV 94.2 fL (80-100) 01/28/21 06:02 MCH 29.9 pg (25-34) 01/28/21 06:02 MCHC 31.7 g/dL (32-36) L 01/28/21 06:02 RDW Std Deviation 57.7 fL (36.4-46.3) H 01/28/21 06:02 RDW Coeff of Maria D 16.9 % (11.5-14.5) H 01/28/21 06:02 Plt Count 358 K/uL (130-400) 01/28/21 06:02 MPV 9.4 fL (7.4-10.4) 01/28/21 06:02 Immature Gran % (Auto) 1.3 % 01/28/21 06:02 Neut % (Auto) 66.0 % 01/28/21 06:02 Lymph % (Auto) 16.8 % 01/28/21 06:02 [place] % (Auto) 10.2 % 01/28/21 06:02 Eos % (Auto) 5.3 % 01/28/21 06:02 Baso % (Auto) 0.4 % 01/28/21 06:02 Neut # (Auto) 7.88 K/uL (1.4-6.5) H 01/28/21 06:02 Lymph # (Auto) 2.00 K/uL (1.2-3.4) 01/28/21 06:02 [place] # (Auto) 1.22 K/uL (0.11-0.59) H 01/28/21 06:02 Eos # (Auto) 0.63 K/uL (0-0.5) H 01/28/21 06:02 Baso # (Auto) 0.05 K/uL (0-0.2) 01/28/21 06:02 Immature Gran # (Auto) 0.16 K/uL (0.00-0.02) H 01/28/21 06:02 Hypochromasia Present 01/27/21 13:10 PT 10.4 Seconds (9.0-12.0) 01/27/21 15:05 INR 1.0 (0.9-1.1) 01/27/21 15:05 APTT 23.2 Seconds (21.0-31.0) 01/27/21 15:05 PTT Ratio 0.9 01/27/21 15:05 Sodium 137 mmol/L (136-145) 01/28/21 06:02 Potassium 3.9 mmol/L (3.5-5.1) 01/28/21 07:36 Chloride 106 mmol/L (98-107) 01/28/21 06:02 Carbon Dioxide 20 mmol/L (21-32) L 01/28/21 06:02 Anion Gap 11.0 (3-11) 01/28/21 06:02 BUN 31 mg/dl (7-18) H 01/28/21 06:02 Creatinine 4.46 mg/dl (0.6-1.2) H D 01/28/21 06:02 Est Cr Clr Drug Dosing 17.1 ml/min 01/28/21 06:02 Est GFR ( Amer) 11.9 ml/min 01/28/21 06:02 Est GFR (Non-Af Amer) 10.3 ml/min 01/28/21 06:02 BUN/Creatinine Ratio 6.9 (10-20) L 01/28/21 06:02 Glucose 69 mg/dl (70-99) L 01/28/21 06:02 POC Glucose 76 mg/dl (70-99) 01/28/21 06:04 Estimat Average Glucose 88 mg/dl 01/28/21 06:02 Hemoglobin A1c 4.7 % (4.5-5.6) 01/28/21 06:02 Calcium 9.9 mg/dl (8.5-10.1) 01/28/21 06:02 Total Bilirubin 0.3 mg/dl (0.2-1) 01/27/21 13:10 AST 15 U/L (15-37) 01/27/21 13:10 ALT 6 U/L (12-78) L 01/27/21 13:10 Alkaline Phosphatase 132 U/L (45-117) H 01/27/21 13:10 Total Protein 6.5 gm/dl (6.4-8.2) 01/27/21 13:10 Albumin 2.1 gm/dl (3.4-5.0) L 01/27/21 13:10 Globulin 4.4 gm/dl (2.5-4.0) H 01/27/21 13:10 Albumin/Globulin Ratio 0.5 (0.9-2) L 01/27/21 13:10 Specimen Hemolysis 01/28/21 07:36 POC Stool Occult Blood Positive (Negative) A 01/27/21 12:54 SARS-CoV-2, RNA, NAAT NEGATIVE (NEGATIVE) 01/27/21 15:41 Blood Type O Positive 01/27/21 13:10 Blood Type Recheck O Positive 01/27/21 15:05 Antibody Screen NEGATIVE 01/27/21 13:10 Crossmatch See Detail 01/27/21 13:10 PG Care Time/CCT Total # of Minutes Spent Total Time Spent with Patient: Total time spent is greater than 50% in coordination of care (as documented) at patient's floor/unit and/or counseling patient: Coding Level of Care Code 54777 Initial Inpt Care Lvl 3 Diagnoses GI bleed K92.2 GI bleed type/associated pathology: unspecified gastrointestinal hemorrhage type Acute blood loss anemia D62 (1) GI bleed GI bleed type/associated pathology: unspecified gastrointestinal hemorrhage type Qualified Code(s): K92.2 - Gastrointestinal hemorrhage, unspecified
--- NOTE | 2021-01-28 10:30 | Anesthesiology Consultation ---
Date of Service January 28, 2021 History Surgery Operation Date: 01/28/21 15:30 Proposed Procedures p Esophagogastroduodenoscopy Dr. Matthew Castro MD Height/Weight Height: 5 ft 3 in Weight: 116 kg Allergies Allergy/AdvReac Type Severity Reaction Status Date / Time No Known Allergies Allergy Verified 01/24/21 20:53 Medications Home Medications Medication Instructions Recorded Confirmed Last Taken atorvastatin 20 mg tablet (Lipitor) 20 mg PO DAILY 06/05/18 01/27/21 11/16/18 20:30 clopidogrel 75 mg tablet (Plavix) 75 mg PO DAILY 06/05/18 01/27/21 11/17/18 04:30 docusate sodium 100 mg capsule 100 mg PO BID 06/05/18 01/27/21 11/17/18 04:30 insulin glargine 100 unit/mL 10 units SUBCUT HS 06/05/18 01/27/21 11/17/18 04:30 subcutaneous solution (Lantus 20 units U-100 Insulin) Saccharomyces boulardii 250 mg 250 mg PO BIDM 01/24/21 01/27/21 Unknown capsule acetaminophen 325 mg tablet 650 mg PO Q4 PRN 01/24/21 01/27/21 Unknown aspirin 81 mg tablet,delayed 81 mg PO DAILY 01/24/21 01/27/21 Unknown release (Aspirin Low Dose) bisacodyl 10 mg rectal suppository 10 mg [place] DAILY PRN 01/24/21 01/27/21 Unknown cholecalciferol (vitamin D3) 125 125 mcg PO DAILY 01/24/21 01/27/21 Unknown mcg (5,000 unit) capsule collagenase clostridium histo. 250 1 applic TOPICAL DAILY 01/24/21 01/27/21 Unk nown unit/gram topical ointment (Santyl) darbepoetin sheri in polysorbat 100 100 mcg SUBCUT UD 01/24/21 01/27/21 Unknown mcg/0.5 mL in polysorbate injection syringe dextrose 40 % oral gel 15 g PO ONCE PRN 01/24/21 01/27/21 Unknown gentamicin 0.1 % topical ointment 1 applic TOPICAL DAILY 01/24/21 01/27/21 Unknown heparin (porcine) 5,000 unit/mL 5,000 unit SUBCUT Q12H 01/24/21 01/27/21 Unknown injection solution iron sucrose 100 mg iron/5 mL 100 mg IV UD PRN 01/24/21 01/27/21 Unknown intravenous solution (Venofer) magnesium hydroxide 400 mg/5 mL 30 ml PO DAILY PRN 01/24/21 01/27/21 Unknown oral suspension (Milk of Magnesia) meclizine 12.5 mg tablet 25 mg PO TID PRN 01/24/21 01/27/21 Unknown midodrine 5 mg tablet 5 mg PO TID 01/24/21 01/27/21 Unknown ondansetron 4 mg disintegrating 4 mg PO Q6H PRN 01/24/21 01/27/21 Unknown tablet pantoprazole 40 mg tablet,delayed 40 mg PO HS 01/24/21 01/27/21 Unknown release polyethylene glycol 3350 17 gram 17 g PO QDL PRN 01/24/21 01/27/21 Unknown oral powder packet (Miralax) sennosides 8.6 mg-docusate sodium 1 tab-cap PO QDL PRN 01/24/21 01/27/21 Unknown 50 mg tablet (Senokot-S) tramadol 50 mg tablet 50 mg PO Q6H PRN 01/24/21 01/27/21 Unknown doxycycline hyclate 100 mg capsule 100 mg PO BID 14 Days #28 cap 01/25/21 01/27/21 Unknown cocoa butter-shark liver oil 1 supp [place] BID 01/27/21 01/27/21 Unknown rectal suppository hydrocortisone 2.5 % topical cream 1 applic TOPICAL BID 01/27/21 01/27/21 Unknown insulin regular human 100 unit/mL 1 sliding scale dose SUBCUT 01/27/21 01/27/21 Unknown injection solution (Humulin R USEASDIRECTD Regular U-100 Insulin) Active Medications Generic Name Dose Route Start Last Admin Trade Name Freq PRN Reason Stop Dose Admin Atorvastatin Calcium 20 mg 01/28/21 09:00 01/28/21 08:40 Atorvastatin 20 Mg Tab PO 02/27/21 08:59 20 mg DAILY GABY Administration Collagenase 1 appln 01/28/21 09:00 01/28/21 08:41 Collagenase Oint 30 Gm Tube TOP 02/27/21 08:59 1 appln DAILY GABY Administration Docusate Sodium 100 mg 01/27/21 21:00 01/28/21 08:40 Docusate Sodium 100 Mg Cap PO 02/26/21 20:59 100 mg BID GABY Administration Doxycycline Hyclate 100 mg 01/27/21 21:00 01/28/21 08:40 Doxycycline Hyclate 100 Mg Cap PO 02/03/21 20:59 100 mg BID GABY Administration Pantoprazole Sodium 40 mg/ 100 mls @ 20 mls/hr 01/27/21 14:15 01/28/21 06:06 Dextrose IV 02/26/21 14:14 8 mg/hr Q5H GABY 20 mls/hr Administration 8 MG/HR Promethazine HCl 12.5 mg/ 50.5 mls @ 202 mls/hr 01/28/21 00:52 01/28/21 02:00 Sodium Chloride IV 02/27/21 00:51 Infused Q6H PRN Infusion Nausea And Vomiting Insulin Aspart 0 units 01/28/21 00:00 01/28/21 06:06 Insulin Aspart 100 Units/Ml 3 Ml Pen SC 02/27/21 00:00 Not Given Q6 GABY Midodrine 5 mg 01/28/21 07:00 01/28/21 08:39 Midodrine Hcl 2.5 Mg Tab PO 02/27/21 06:59 5 mg TID@0700,1200,1800 GABY Administration Miscellaneous 1 ea 01/28/21 00:00 01/28/21 00:37 Darbepoetin- Order Awaiting Action N/A 02/27/21 00:00 Not Given QS GABY Vitamin D 5,000 units 01/28/21 09:00 01/28/21 08:41 Cholecalciferol 1,000 Units 25 Mcg Tab PO 02/27/21 08:59 5,000 units DAILY GABY Administration Past Medical History Medical History AV fistula LEFT ARM Congestive heart failure Diabetes mellitus, type 2 Difficult intravenous access Hemodialysis patient MONDAYS AND FRIDAYS AT [facility] IN [place] Hyperlipidemia Hypertension Morbid obesity Obstructive sleep apnea Peripheral vascular disease Right heart failure Transient ischemic attack (TIA) X 14 (LAST EVENT 2015) Past Family History Family History Other No significant family history Past Surgical History Surgical History History of appendectomy History of cardiac cath X 2 (NO STENTS) History of section X1 History of cholecystectomy History of colonoscopy History of dilatation and curettage X 3 History of hysterectomy History of surgery HX OF LEFT UPPER ARM FISTULOGRAM (CLOT IN AV FISTULA) X 9 TIMES History of tooth extraction Social History Smoking Status: Former smoker tobacco type: cigarettes Hx Alcohol Use: No Hx Substance Use: No substance use type: does not use Physical Exam Vital Signs Last Vital Signs Temp 36.5 C 01/28/21 04:00 Pulse 77 01/28/21 04:00 Resp 14 01/28/21 04:00 BP 159/75 H 01/28/21 04:00 Pulse Ox 96 01/28/21 04:00 Testing Laboratory Results 01/28/21 06:02 01/28/21 07:36 PT 10.4 Seconds (9.0-12.0) 01/27/21 15:05 INR 1.0 (0.9-1.1) 01/27/21 15:05 APTT 23.2 Seconds (21.0-31.0) 01/27/21 15:05 Hemoglobin A1c 4.7 % (4.5-5.6) 01/28/21 06:02 Blood Type O Positive 01/27/21 13:10 Antibody Screen NEGATIVE 01/27/21 13:10 01/28/21 01/28/21 06:04 01:14 POC Glucose 76 85 Electrocardiogram Date: 01/27/21 Normal sinus rhythm Low voltage QRS Cannot rule out Anterior infarct , age undetermined Abnormal ECG When compared with ECG of 24-JAN-2021 19:56, Nonspecific T wave abnormality, worse in Inferior leads Nonspecific T wave abnormality, worse in Anterolateral lead Chest X-Ray Date: 01/24/21 IMPRESSION: Moderate pulmonary edema.
[2021-01-28] MEDS ORDERED: KETAMINE 50 MG/5 ML SYRINGE ONE (10:57)
[2021-01-28] MEDS ORDERED: fentaNYL citrate 100 MCG/2 ML VIAL ONE (11:14)
--- NOTE | 2021-01-28 11:34 | GI REPORT ---
Patient Name: Barb López Procedure Date: 01/28/2021 11:09 AM Date of : 1965 Admit Type: Inpatient Age: 55 Gender: Female Attending MD: Javi Castro MD Procedure: Upper GI endoscopy Providers: Javi Castro MD Referring MD: Referred Self Indications: Hematochezia Medicines: Monitored Anesthesia Care Complications: No immediate complications. Estimated blood loss: None. Estimated Blood Loss: Estimated blood loss: none. Procedure: Pre-Anesthesia Assessment: - Prior Anticoagulants: The patient has taken no previous anticoagulant or antiplatelet agents. - ASA Grade Assessment: II - A patient with mild systemic disease. After obtaining informed consent, the endoscope was passed under direct vision. Throughout the procedure, the patient's blood pressure, pulse, and oxygen saturations were monitored continuously. The Endoscope was introduced through the mouth, and advanced to the second part of duodenum. The upper GI endoscopy was accomplished without difficulty. The patient tolerated the procedure well. Findings: The examined esophagus was normal. One non-bleeding cratered gastric ulcer with no stigmata of bleeding was found in the gastric antrum. Biopsies were taken with a cold forceps for Helicobacter pylori testing. Estimated blood loss: none. Diffuse moderate inflammation characterized by erythema was found in the stomach. The duodenal bulb and second portion of the duodenum were normal. Impression: - Normal esophagus. - Non-bleeding gastric ulcer with no stigmata of bleeding. Biopsied. - Gastritis. - Normal duodenal bulb and second portion of the duodenum. Recommendation: - Resume previous diet today. - Await pathology results. - [facility] patient to [facility] for [facility] care. -start protonix 40 mg BID Javi Castro MD 01/28/2021 11:34:41 AM This report has been signed electronically. Note Initiated On: 01/28/2021 11:09 AM Number of Addenda: 0 I attest to the content of the Intraoperative Record and orders documented therein, exceptions below {[id number]}
[2021-01-28] MEDS ORDERED: BENZOCAINE/TETRACAIN/BUTAM 50 APPLN/5 GM CAN EXT ONE (11:51)
[2021-01-28] MEDS ORDERED: PROPOFOL IV EMULSION 10 MG/ML 20 ML VIAL IV ONE (11:51)
[2021-01-28] MEDS ORDERED: LIDOCAINE 2% 2 ML VIAL/AMP(20MG/ML) INFIL ONE (11:51)
[2021-01-28] MEDS ORDERED: ONDANSETRON INJ 2 MG/ML 2 ML VIAL ONE (11:51)
--- NOTE | 2021-01-28 12:25 | Nephrology Consultation ---
Date of Consultation January 28, 2021 Assessment & Plan (1) ESRD (end stage renal disease) on dialysis: * Last HD was 01/26. Will plan short treatment today and keep patient on MWF schedule during hospitalization * Orders for heparin free HD placed in EMR and HD RN notified * Recheck PRP in am (2) Hemodialysis AV fistula thrombosis: * Will pursue new AVF as outpatient (3) GI bleed: * Await endoscopy results History of Present Illness Reason for Consultation: ESRD Attending Physician: Darrion Rowan MD History of Present Illness Ms. López is a 55 year old white female who is seen at the request of the [facility] hospital[facility] service to provide inpatient HD and assist w/ medical management. Medical records in the EMR were reviewed today and are summarized as follows: Ms. López has ESRD due to DKD. She dialyzes at [facility] MWF (3hr 30 min 2K 2Ca F-180NR EDW 127kg access is THC). Her medical history is also significant for AODM, RAHEEM (not compliant with CPAP), HTN, dyslipidemia, obesity, and former tobacco use. She previously lived alone and did not have a healthcare applications analyst. 01/25 Ms. López was admitted to [facility] for evaluation of a L heel ulcer. She was found to have osteomyelitis and underwent L AKA. She was then transferred to [facility] for physical therapy. Recently Ms. López developed hematochezia. She reports a h/o hemorrhoids. Laboratory studies at [facility] revealed a progressive drop in Hgb. She is now admitted to [facility] for endoscopy and ongoing medical management. Allergies Allergy/AdvReac Type Severity Reaction Status Date / Time No Known Allergies Allergy Verified 01/24/21 20:53 Home Medications Medication Instructions Recorded Confirmed Type atorvastatin 20 mg tablet (Lipitor) 20 mg PO DAILY 06/05/18 01/27/21 History clopidogrel 75 mg tablet (Plavix) 75 mg PO DAILY 06/05/18 01/27/21 History docusate sodium 100 mg capsule 100 mg PO BID 06/05/18 01/27/21 History insulin glargine 100 unit/mL 10 units SUBCUT HS 06/05/18 01/27/21 History subcutaneous solution (Lantus U-100 Insulin) Saccharomyces boulardii 250 mg 250 mg PO BIDM 01/24/21 01/27/21 History capsule acetaminophen 325 mg tablet 650 mg PO Q4 PRN 01/24/21 01/27/21 History aspirin 81 mg tablet,delayed 81 mg PO DAILY 01/24/21 01/27/21 History release (Aspirin Low Dose) bisacodyl 10 mg rectal suppository 10 mg [place] DAILY PRN 01/24/21 01/27/21 History cholecalciferol (vitamin D3) 125 125 mcg PO DAILY 01/24/21 01/27/21 History mcg (5,000 unit) capsule collagenase clostridium histo. 250 1 applic TOPICAL DAILY 01/24/21 01/27/21 History unit/gram topical ointment (Santyl) darbepoetin sheri in polysorbat 100 100 mcg SUBCUT UD 01/24/21 01/27/21 History mcg/0.5 mL in polysorbate injection syringe dextrose 40 % oral gel 15 g PO ONCE PRN 01/24/21 01/27/21 History gentamicin 0.1 % topical ointment 1 applic TOPICAL DAILY 01/24/21 01/27/21 History heparin (porcine) 5,000 unit/mL 5,000 unit SUBCUT Q12H 01/24/21 01/27/21 History injection solution iron sucrose 100 mg iron/5 mL 100 mg IV UD PRN 01/24/21 01/27/21 History intravenous solution (Venofer) magnesium hydroxide 400 mg/5 mL 30 ml PO DAILY PRN 01/24/21 01/27/21 History oral suspension (Milk of Magnesia) meclizine 12.5 mg tablet 25 mg PO TID PRN 01/24/21 01/27/21 History midodrine 5 mg tablet 5 mg PO TID 01/24/21 01/27/21 History ondansetron 4 mg disintegrating 4 mg PO Q6H PRN 01/24/21 01/27/21 History tablet pantoprazole 40 mg tablet,delayed 40 mg PO HS 01/24/21 01/27/21 History release polyethylene glycol 3350 17 gram 17 g PO QDL PRN 01/24/21 01/27/21 History oral powder packet (Miralax) sennosides 8.6 mg-docusate sodium 1 tab-cap PO QDL PRN 01/24/21 01/27/21 History 50 mg tablet (Senokot-S) tramadol 50 mg tablet 50 mg PO Q6H PRN 01/24/21 01/27/21 History doxycycline hyclate 100 mg capsule 100 mg PO BID 14 Days #28 cap 01/25/21 01/27/21 Rx cocoa butter-shark liver oil 1 supp [place] BID 01/27/21 01/27/21 History rectal suppository hydrocortisone 2.5 % topical cream 1 applic TOPICAL BID 01/27/21 01/27/21 History insulin regular human 100 unit/mL 1 sliding scale dose SUBCUT 01/27/21 01/27/21 History injection solution (Humulin R USEASDIRECTD Regular U-100 Insulin) Patient History Medical History AV fistula LEFT ARM Congestive heart failure Diabetes mellitus, type 2 Difficult intravenous access Hemodialysis patient MONDAYS AND FRIDAYS AT [facility] IN [place] Hyperlipidemia Hypertension Morbid obesity Obstructive sleep apnea Peripheral vascular disease Right heart failure Transient ischemic attack (TIA) X 14 (LAST EVENT 2015) Surgical History History of appendectomy History of cardiac cath X 2 (NO STENTS) History of section X1 History of cholecystectomy History of colonoscopy History of dilatation and curettage X 3 History of hysterectomy History of surgery HX OF LEFT UPPER ARM FISTULOGRAM (CLOT IN AV FISTULA) X 9 TIMES History of tooth extraction Family History Other No significant family history Social History Smoking Status: Former smoker Tobacco Type: Cigarettes Second Hand Exposure: No; Hx Alcohol Use: No Hx Substance Use: No Preferred Language: Romanian Communication Ability: Effective Ship'S Pilot Required: No Beliefs That Will Affect Care: None Current Living Situation: Family Other Information That Helps Us Care for You: No Feels Safe at Home: Yes Assistive Devices: Wheelchair Review of Systems Constitutional: + weakness; no fever Eyes: no problem reported Ear, Nose, Mouth, Throat: no problem reported Respiratory: no cough and no dyspnea Cardiovascular: no chest pain, no palpitations and no edema Gastrointestinal: + blood in stools; no abdominal pain Musculoskeletal: no back pain Integumentary: no rash Neurologic: no confusion Physical Exam Constitutional: + ill appearing and + overweight; not in distress Eyes: PERRL, conjunctivae normal, anicteric sclerae ENMT: external ear and nose normal, oropharynx normal Neck: trachea midline, no thyromegaly Respiratory: normal respiratory effort, lungs clear to auscultation Cardiovascular: Rate/Rhythm: regular rate and regular rhythm Extremities: + AV fistula (thrombosed) L AKA Gastrointestinal (Abdomen): normal bowel sounds, soft, nontender, no hepatosplenomegaly Skin: no rashes, warm and dry Neurologic: awake; not confused Results & Data ([place]) Vital Signs (Past 12 Hours) Vital Signs Temp Pulse Resp BP Pulse Ox 01/28/21 12:16 78 16 104/58 L 96 01/28/21 11:59 80 16 101/63 96 01/28/21 11:47 82 16 108/53 L 98 01/28/21 10:44 36.3 C L 81 18 154/66 H 96 01/28/21 04:00 36.5 C 77 14 159/75 H 96 Laboratory Results Laboratory Tests 01/28/21 01/28/21 01/28/21 06:02 06:02 07:36 WBC 11.94 H Hgb 9.2 L Hct 29.0 L Plt Count 358 Sodium 137 Potassium 3.9 Chloride 106 Carbon Dioxide 20 L BUN 31 H Creatinine 4.46 H D Glucose 69 L Calcium 9.9 PG Care Time/CCT Total # of Minutes Spent Total Time Spent with Patient: Total time spent is greater than 50% in coordination of care (as documented) at patient's floor/unit and/or counseling patient: Coding Level of Care Code 04536 Inpt Consult Level 5 Diagnoses ESRD (end stage renal disease) on dialysis N18.6; Z99.2 Hemodialysis AV fistula thrombosis T82.868A GI bleed K92.2 GI bleed type/associated pathology: unspecified gastrointestinal hemorrhage type (1) GI bleed GI bleed type/associated pathology: unspecified gastrointestinal hemorrhage type Qualified Code(s): K92.2 - Gastrointestinal hemorrhage, unspecified
--- NOTE | 2021-01-28 13:42 | Anesthesiology Progress Note ---
Date of Service January 28, 2021 Anesthesia Post Procedure Vital Signs Vital Signs: Temp Pulse Pulse Resp BP BP Pulse Ox 01/28/21 12:16 78 16 104/58 L 96 01/28/21 11:59 80 16 101/63 96 01/28/21 11:47 82 16 108/53 L 98 01/28/21 10:44 36.3 C L 81 18 154/66 H 96 01/28/21 04:00 36.5 C 77 14 159/75 H 96 01/27/21 22:41 36.4 C L 80 16 108/78 96 01/27/21 21:37 82 16 133/73 98 01/27/21 20:30 81 16 142/68 H 98 01/27/21 20:00 81 18 01/27/21 19:37 36.5 C 79 16 146/64 H 98 01/27/21 19:30 80 18 94 01/27/21 19:21 36.9 C 81 17 109/62 97 01/27/21 19:11 36.5 C 80 16 109/82 98 01/27/21 19:00 80 15 01/27/21 18:30 82 19 01/27/21 18:00 80 15 100/45 L 98 01/27/21 17:30 79 31 H 01/27/21 17:16 83 16 122/46 L 95 01/27/21 17:00 82 20 97 01/27/21 16:57 36.6 C 82 20 138/80 98 01/27/21 16:30 85 16 98 01/27/21 16:00 84 17 112/48 L 95 01/27/21 15:30 81 14 165/73 H 95 01/27/21 15:17 82 19 94 Pulse Ox 01/28/21 12:16 01/28/21 11:59 01/28/21 11:47 01/28/21 10:44 01/28/21 04:00 01/27/21 22:41 96 01/27/21 21:37 01/27/21 20:30 01/27/21 20:00 01/27/21 19:37 01/27/21 19:30 01/27/21 19:21 01/27/21 19:11 01/27/21 19:00 01/27/21 18:30 01/27/21 18:00 01/27/21 17:30 01/27/21 17:16 01/27/21 17:00 01/27/21 16:57 01/27/21 16:30 01/27/21 16:00 01/27/21 15:30 01/27/21 15:17 Pain Intensity Left Knee: Pain Intensity: 6 Transfer of Care Handoff Completed per policy Notes Mental Status: alert / awake / arousable and participated in evaluation Patient Amnestic to Procedure: Yes Nausea / Vomiting: adequately controlled Pain: adequately controlled Airway Patency, RR, SpO2: stable & adequate BP & HR: stable & adequate Hydration State: stable & adequate Anesthetic Complications: no major complications apparent and Pt Satisfied with anesthetic care Notes: The patient's blood sugary was 64 on arrival to endoscopy holding. She was given 12.5 grams of Dextrose 50% IV and a 5% Dextrose IV drip was started. The patient's blood sugar improved to 119 prior to the procedure and was 114 after the procedure. A full report was given to Dr. Rowan who is following the patient on the floor. He would like us to continue the Dextrose infusion and will see her when she arrives on the floor.
[2021-01-28 15:11] LABS: Hematocrit (blood only) 31.8 % (37-47); Hemoglobin 9.8 g/dL (12.0-16.0)
[2021-01-28] MEDS: traMADol HCL 50 MG TABLET PO PRN ×2 (17:08→21:32)
--- NOTE | 2021-01-28 20:12 | Communication Note ---
Date of Service: January 28, 2021 chart reviewed seen and examined at bedside states she feels ok overall no abdominal pain , nausea, recurrence of GI bleed no chest pain, dyspnea, palpitations, dizziness VS reviewed General- oriented x 3, not in distress, speaks in sentences with no effort or accessory muscle use Eyes- anicteric Neck- no JVD Lungs- clear breath sounds bilaterally, no rales/wheezes Heart- normal rate, regular rhythm; no murmurs Abdomen- normal bowel sounds, nondistended, soft, nontender Extremities- no pretibial edema, no calf tenderness Neuro- alert, oriented x 3; no gross focal neurologic deficits Skin- warm & dry a/p> GI bleed secondary to Gastric Ulcer s/p EGD Protonix BID clear liquids L AKA stump infection Ortho consulted Unasyn and Doxycycline started ESRD on HD other Dx and plan of care per Dr. Qiu's notes
[2021-01-28] MEDS: AMPICILLIN/SULBACTAM SOD 3,000 MG in 0.9 % SODIUM CHLORIDE 100 ML IV SCH (21:32)
--- NOTE | 2021-01-28 22:56 | Electrocardiogram Report ---
Test Reason : Blood Pressure : / mmHG Vent. Rate : 084 BPM Atrial Rate : 084 BPM P-R Int : 166 ms QRS Dur : 072 ms QT Int : 356 ms P-R-T Axes : 027 021 073 degrees QTc Int : 420 ms Normal sinus rhythm Low voltage QRS Cannot rule out Anterior infarct , age undetermined Nonspecific T wave abnormality Abnormal ECG When compared with ECG of 24-JAN-2021 19:56, Nonspecific T wave abnormality, worse in Inferior leads Nonspecific T wave abnormality, worse in Anterolateral leads Confirmed by Christiano Lee ([id number]) on 01/28/2021 10:55:45 PM Referred By: Confirmed By:Christiano Lee
[2021-01-28] MEDS ORDERED: Nursing to Pharmacy Communication SCH (23:45)
[2021-01-29] MEDS: INSULIN ASPART 100 UNITS/ML 3 ML PEN SC SCH ×5 (01:34→20:35)
[2021-01-29] MEDS: PANTOprazole 40 MG in DEXTROSE 5% 100 ML IV SCH ×3 (02:02→08:02)
[2021-01-29] MEDS: traMADol HCL 50 MG TABLET PO PRN ×5 (04:19→21:22)
[2021-01-29] MEDS: AMPICILLIN/SULBACTAM SOD 3,000 MG in 0.9 % SODIUM CHLORIDE 100 ML IV SCH ×3 (05:20→21:23)
[2021-01-29] MEDS: MIDODRINE HCL 2.5 MG TAB PO SCH ×3 (06:09→17:39)
[2021-01-29 07:00] LABS: Basophils # (auto) 0.05 K/uL (0-0.2); Basophils % (auto) 0.4 %; Eosinophils # (auto) 0.47 K/uL (0-0.5); Eosinophils % (auto) 4.1 %; Hematocrit (blood only) 30.6 % (37-47); Hemoglobin 9.4 g/dL (12.0-16.0); Immature Granulocytes # (auto) 0.22 K/uL (0.00-0.02); Immature Granulocytes % (auto) 1.9 %; Lymphocytes # (auto) 2.09 K/uL (1.2-3.4); Lymphocytes % (auto) 18.2 %; Mean Corpuscular Hemoglobin 29.3 pg (25-34); Mean Corpuscular Hgb Conc 30.7 g/dL (32-36); Mean Corpuscular Volume 95.3 fL (80-100); Mean Platelet Volume 9.4 fL (7.4-10.4); Monocytes % (auto) 8.7 %; Neutrophils # (auto) 7.68 K/uL (1.4-6.5); Neutrophils % (auto) 66.7 %; Platelet Count 312 K/uL (130-400); RDW Coefficient of Variation 17.4 % (11.5-14.5); RDW Standard Deviation 58.9 fL (36.4-46.3); Red Blood Count 3.21 M/uL (4.2-5.4); White Blood Count 11.51 K/uL (4.8-10.8)
[2021-01-29 07:39] LABS: Calcium 9.8 mg/dl (8.5-10.1); Est GFR (African American) 14.3 ml/min; Est GFR (Non-African American) 12.4 ml/min; Potassium 3.6 mmol/L (3.5-5.1)
[2021-01-29] MEDS: COLLAGENASE OINT 30 GM TUBE TOP SCH (08:23)
[2021-01-29] MEDS: CHOLECALCIFEROL 1,000 UNITS 25 MCG TAB PO SCH (08:23)
[2021-01-29] MEDS: ATORVASTATIN 20 MG TAB PO SCH (08:23)
[2021-01-29] MEDS: DOCUSATE SODIUM 100 MG CAP PO SCH ×2 (08:25→21:22)
[2021-01-29] MEDS: DOXYCYCLINE HYCLATE 100 MG CAP PO SCH ×2 (09:43→21:22)
--- NOTE | 2021-01-29 11:26 | Gastroenterology Progress Note ---
Date of Service January 29, 2021 Assessment & Plan (1) Acute blood loss anemia: (2) GI bleed: (3) Gastric ulcer: Plan: OK to switch to Protonix 40 mg PO BID Diet as tolerated Will need EGD as outpatient in 6-8 weeks to ensure ulcer healing. Will Sign off at present, please do not hesitate to contact me with any further questions. Admission and Anticipated Discharge Date Admission Date: January 27, 2021 Subjective Feeling better today. Tolerating PO intake. No evidence of overt GI bleeding overnight. She denies any fevers, chills, nausea, vomiting, abdominal pain, hematemesis, melena or hematochezia. She has no further complaints. Review of Systems Constitutional: as per Subjective / HPI Eyes: as per Subjective / HPI Ear, Nose, Mouth, Throat: as per Subjective / HPI Respiratory: as per Subjective / HPI Cardiovascular: as per Subjective / HPI Gastrointestinal: as per Subjective / HPI Musculoskeletal: as per Subjective / HPI Integumentary: as per Subjective / HPI Neurologic: as per Subjective / HPI Psychiatric: as per Subjective / HPI Endocrine: as per Subjective / HPI Hematologic / Lymphatic: as per Subjective / HPI Allergy / Immunological: as per Subjective / HPI Physical Exam Constitutional: + ill appearing (Chronically) and + obese; no acute distress Eyes: + anicteric sclerae ENMT: external ear and nose normal, oropharynx normal Neck: trachea midline, no thyromegaly Respiratory: normal respiratory effort, lungs clear to auscultation Cardiovascular: RRR, no murmur, no edema Gastrointestinal (Abdomen): normal bowel sounds, soft, nontender, no hepatosplenomegaly Psychiatric: A+Ox3, euthymic affect Results & Data Results & Data ([facility]) Vital Signs (Past 12 Hours) Vital Signs Temp Pulse Pulse Resp BP Pulse Ox 01/29/21 08:00 36.3 C L 80 20 133/69 97 01/29/21 07:29 80 01/29/21 02:58 36.7 C 84 18 110/67 97 PG Care Time/CCT Total # of Minutes Spent Total Time Spent with Patient: Total time spent is greater than 50% in coordination of care (as documented) at patient's floor/unit and/or counseling patient: Coding Level of Care Code 23188 Subseq Hosp Care Lvl 3 Diagnoses Acute blood loss anemia D62 GI bleed K92.2 GI bleed type/associated pathology: unspecified gastrointestinal hemorrhage type Gastric ulcer K25.9 (1) GI bleed GI bleed type/associated pathology: unspecified gastrointestinal hemorrhage type Qualified Code(s): K92.2 - Gastrointestinal hemorrhage, unspecified
--- NOTE | 2021-01-29 11:32 | Nephrology Progress Note ---
Date of Service January 29, 2021 Assessment & Plan (1) ESRD (end stage renal disease) on dialysis: (2) Hypertension: (3) Diabetes mellitus, type 2: (4) Hyperlipidemia: (5) Acute blood loss anemia: Plan: ESRD on hemodialysis admitted with GI bleeding, hemoglobin less than 6.9, received 2 unit of blood transfusion. EGD showed gastritis and currently on Protonix 40 b.i.d.. Blood pressure, volume status electrolyte acceptable. -- Plan for dialysis tomorrow via right IJ tunneled dialysis catheter. -- dose meds for gfr <10 will follow Admission and Anticipated Discharge Date Admission Date: January 27, 2021 Gayle Day was seen and examined this morning, she was very emotional and tearful but denied any shortness of breath has been p.o. hemoglobin stable at 9.4, EGD showed gastritis, on a Protonix b.i.d.. Six had dialysis on Tuesday. Currently volume status and electrolyte acceptable. She continues to have significant pain in left AKA stump. Review of Systems Review of Systems: detailed review of system was otherwise unremarkable. Physical Exam Constitutional: WD/WN, vitals as above + ill appearing and + morbidly obese; no acute distress Eyes: + anicteric sclerae ENMT: Ears: no hearing impairment and no external ear abnormality Nose: nasal mucous membranes not dry Neck: normal visual inspection Respiratory: normal respiratory effort; no respiratory distress Auscultation: lungs clear to auscultation bilaterally Cardiovascular: Rate/Rhythm: regular rate and regular rhythm Heart Sounds: normal S1 and normal S2 Extremities: no edema Musculoskeletal: left AKA Skin: normal turgor; no rashes Neurologic: no focal motor deficits and not confused Psychiatric: Orientation: alert and oriented x 3 Results & Data ([facility]) Vital Signs (Past 12 Hours) Vital Signs Temp Pulse Pulse Resp BP Pulse Ox 01/29/21 08:00 36.3 C L 80 20 133/69 97 01/29/21 07:29 80 01/29/21 02:58 36.7 C 84 18 110/67 97 PG Care Time/CCT Total # of Minutes Spent Total Time Spent with Patient: Total time spent is greater than 50% in coordination of care (as documented) at patient's floor/unit and/or counseling patient: Coding Level of Care Code 20818 Subseq Hosp Care Lvl 2 Diagnoses ESRD (end stage renal disease) on dialysis N18.6; Z99.2 Hypertension I10 Diabetes mellitus, type 2 E11.9 Hyperlipidemia E78.5 Acute blood loss anemia D62
--- NOTE | 2021-01-29 12:22 | Orthopedic Consultation ---
Date of Consultation January 29, 2021 Assessment & Plan (1) S/P above knee amputation: Patient was evaluated in room 259. She was seen in conjunction with Dr. Mac, who also evaluated the patient. Thorough records review was performed, both in the [facility] and [place] systems. Postsurgical wound at the left thigh has no purulence and looks reasonably well for 3 weeks postop. There is some erythema around the wound edges, which may be cellulitic, but likely due to inflammatory response to her sutures. We will try removing these piecemeal over the weekend to avoid wound dehiscence. Patient does tend to drive the thigh, and particularly the wound, into the bed when attempting to adjust positions. She will need to carefully avoid this to promote healing. She has only been on oral antibiotics to this point. She will receive an IV dose of Unasyn 3 g as a loading antibiotic dose. Continue the doxycycline. Patient states she was supposed to have been seen at [place] for follow-up, but has had her appointment canceled 4 times. She is not sure why. Ultimately she will need to follow-up with vascular for reassessment. In regard to her heel ulcer, we will continue to follow this as well. She does not require a urgent treatment at this point. Continue the waffle boots and decubitus precautions. I did remind her to position her leg so as to avoid the external rotation, and avoid constant pressure on the area. Nutritional status will need to be optimized. I did speak with Dr. Michel regarding this patient. He will be out of town over the holiday , and as such we will provide any urgent surgical intervention if needed. Dr. Michel will assume care if the patient is still in house Tuesday. We will continue to follow her while admitted. Thank you kindly for this consultation. I, Dr. Mac, saw and examined the patient and discussed the management with my PA. I reviewed my PAs note and agree with the documented findings and the plan of care I developed. Present on Admission?: Yes (2) Ulcer of right heel: As above. History of Present Illness Reason for Consultation: Possible stump infection Attending Physician: Darrion Rowan MD History of Present Illness This 55-year-old female was seen in her room, for evaluation of her left leg. Patient has a known history of obstructive sleep apnea, peripheral vascular disease, heel ulcer with gangrene, elevated lipids, hypertension, insulin- dependent diabetes, end-stage renal disease on dialysis, morbid obesity, and recent GI bleed. She previously had a left leg above-knee amputation done by [facility] in [place] 22 days ago. She had been at [facility] and there was concern about possible stump infection. She was seen in the ED on [address] scan imaging revealed no abscess. Possibility of cellulitis was noted. She was placed on doxycycline twice daily. Patient returned to [facility]. She again presented to the ED, but this time with complaints of GI bleed. There is also concern for her stump. Patient states her leg pain has remained constant since the amputation. She states the left leg began with a necrotic ulcer on the heel, very similar to her current right leg presentation. She has seen Dr. Michel in the past. Allergies Allergy/AdvReac Type Severity Reaction Status Date / Time No Known Allergies Allergy Verified 01/24/21 20:53 Home Medications Medication Instructions Recorded Confirmed Type atorvastatin 20 mg tablet (Lipitor) 20 mg PO DAILY 06/05/18 01/27/21 History clopidogrel 75 mg tablet (Plavix) 75 mg PO DAILY 06/05/18 01/27/21 History docusate sodium 100 mg capsule 100 mg PO BID 06/05/18 01/27/21 History insulin glargine 100 unit/mL 10 units SUBCUT HS 06/05/18 01/27/21 History subcutaneous solution (Lantus U-100 Insulin) Saccharomyces boulardii 250 mg 250 mg PO BIDM 01/24/21 01/27/21 History capsule acetaminophen 325 mg tablet 650 mg PO Q4 PRN 01/24/21 01/27/21 History aspirin 81 mg tablet,delayed 81 mg PO DAILY 01/24/21 01/27/21 History release (Aspirin Low Dose) bisacodyl 10 mg rectal suppository 10 mg WV DAILY PRN 01/24/21 01/27/21 History cholecalciferol (vitamin D3) 125 125 mcg PO DAILY 01/24/21 01/27/21 History mcg (5,000 unit) capsule collagenase clostridium histo. 250 1 applic TOPICAL DAILY 01/24/21 01/27/21 History unit/gram topical ointment (Santyl) darbepoetin sheri in polysorbat 100 100 mcg SUBCUT UD 01/24/21 01/27/21 History mcg/0.5 mL in polysorbate injection syringe dextrose 40 % oral gel 15 g PO ONCE PRN 01/24/21 01/27/21 History gentamicin 0.1 % topical ointment 1 applic TOPICAL DAILY 01/24/21 01/27/21 History heparin (porcine) 5,000 unit/mL 5,000 unit SUBCUT Q12H 01/24/21 01/27/21 History injection solution iron sucrose 100 mg iron/5 mL 100 mg IV UD PRN 01/24/21 01/27/21 History intravenous solution (Venofer) magnesium hydroxide 400 mg/5 mL 30 ml PO DAILY PRN 01/24/21 01/27/21 History oral suspension (Milk of Magnesia) meclizine 12.5 mg tablet 25 mg PO TID PRN 01/24/21 01/27/21 History midodrine 5 mg tablet 5 mg PO TID 01/24/21 01/27/21 History ondansetron 4 mg disintegrating 4 mg PO Q6H PRN 01/24/21 01/27/21 History tablet pantoprazole 40 mg tablet,delayed 40 mg PO HS 01/24/21 01/27/21 History release polyethylene glycol 3350 17 gram 17 g PO QDL PRN 01/24/21 01/27/21 History oral powder packet (Miralax) sennosides 8.6 mg-docusate sodium 1 tab-cap PO QDL PRN 01/24/21 01/27/21 History 50 mg tablet (Senokot-S) tramadol 50 mg tablet 50 mg PO Q6H PRN 01/24/21 01/27/21 History doxycycline hyclate 100 mg capsule 100 mg PO BID 14 Days #28 cap 01/25/21 01/27/21 Rx cocoa butter-shark liver oil 1 supp WV BID 01/27/21 01/27/21 History rectal suppository hydrocortisone 2.5 % topical cream 1 applic TOPICAL BID 01/27/21 01/27/21 History insulin regular human 100 unit/mL 1 sliding scale dose SUBCUT 01/27/21 01/27/21 History injection solution (Humulin R USEASDIRECTD Regular U-100 Insulin) Patient History Medical History AV fistula LEFT ARM Congestive heart failure Diabetes mellitus, type 2 Difficult intravenous access Hemodialysis patient MONDAYS AND FRIDAYS AT [facility] IN [place] Hyperlipidemia Hypertension Morbid obesity Obstructive sleep apnea Peripheral vascular disease Right heart failure Transient ischemic attack (TIA) X 14 (LAST EVENT 2015) Surgical History History of appendectomy History of cardiac cath X 2 (NO STENTS) History of section X1 History of cholecystectomy History of colonoscopy History of dilatation and curettage X 3 History of hysterectomy History of surgery HX OF LEFT UPPER ARM FISTULOGRAM (CLOT IN AV FISTULA) X 9 TIMES History of tooth extraction Family History Other No significant family history Social History Smoking Status: Former smoker Tobacco Type: Cigarettes Second Hand Exposure: No; Hx Alcohol Use: No Hx Substance Use: No Preferred Language: German Communication Ability: Effective Groover Runner Required: No Beliefs That Will Affect Care: None Current Living Situation: Family How many Children do You have: 1 Other Information That Helps Us Care for You: No Feels Safe at Home: Yes Assistive Devices: Wheelchair Review of Systems Review of Systems: All systems reviewed & are unremarkable except as noted in HPI & below Physical Exam Physical Exam: General: Well-developed, well-nourished, middle-aged white female, in no acute distress. Laying in bed. Alert and oriented. Conversive. Exhibits signs of discomfort. LLE: Stump skin warm and dry with good turgor. No rashes. Dressing is in place on her left stump. Patient does have a healing surgical incision on her above- knee amputation. Large retention sutures are in place. There is erythema around her sutures. Minor bloody serous drainage on her dressings. There is nothing expressible at this point. There is a larger necrotic area in the central portion of the wound. It appears stable. Incision edges are quite painful to touch. Moderate edema. Overall, no signs of overt infection. No purulent drainage. Gross sensation is intact across her left thigh RLE: 3 cm necrotic area on the right lateral calcaneus. Tissue is currently stable. There is no drainage. Area is tender to touch. No appreciable warmth. Intact motor function to her hips, right knee, and right ankle. Tender to palpation over the right calcaneus. No pain with palpation over the rest of the right leg. Gross sensation is intact right leg. She has intact sensation to her right foot through the forefoot and toes. Peripheral pulses are 1+ on the right leg. Results & Data ([facility]) Vital Signs (Past 12 Hours) Vital Signs Temp Pulse Pulse Resp BP Pulse Ox 01/29/21 08:00 36.3 C L 80 20 133/69 97 01/29/21 07:29 80 01/29/21 02:58 36.7 C 84 18 110/67 97 Laboratory Results Overall WBCs have been trending down. January 24 they were 13.65, yesterday 12.55, and today 11.94. H&H are reasonable after transfusion, at 9.2 and [address] Findings [address] imaging of the left thigh obtained 4 days ago shows no evidence of osteomyelitis. There is subcutaneous edema and skin thickening at the amputation stump, possibly representing cellulitis. Additionally there is a phlegmon versus hematoma measuring over 7 cm. No definite abscess identified.
--- NOTE | 2021-01-29 13:46 | Hospitalist Progress Note ---
Date of Service January 29, 2021 Assessment & Plan (1) GI bleed: Plan: secondary to Gastric Ulcer s/p EGD: (+) gastric ulcer 2 units pRBC given Hg stable at 9 diet advanced Protonix drip given, transitioned to BID monitor Hg (2) Postoperative wound infection: Plan: L AKA stump cellulitis - Ortho consulted - Unasyn started - for suture removal this weekend per ortho R Heel Wound - drying per RN - continue Doxy (3) ESRD (end stage renal disease) on dialysis: Plan: - Consult nephrology - pt on HD M/W/F (4) Diabetes mellitus, type 2: Plan: - Accuchecks Q6 H - Insulin sliding scale (5) Hypertension: Plan: - Continue home meds as appropriate (6) Hyperlipidemia: Plan: - Holding statin while NPO (7) Ulcer of right heel: Plan: - Wound care consult (8) Peripheral vascular disease: (9) Obstructive sleep apnea: Plan: Non-compliant with CPAP Admission and Anticipated Discharge Date Admission Date: January 27, 2021 Subjective ff up for GI bleed, etc seen resting in bed, comfortable states she feels fine overall no abdominal pain ,nausea, recurrence of hematochezia/melena no chest pain, dyspnea, palpitations, dizziness no pain on the AKA stump and R heel no other symptoms Review of Systems Review of Systems: all noted and negative except for above Physical Exam Physical Exam: General- oriented x 3, not in distress, speaks in sentences with no effort or accessory muscle use Eyes- anicteric Neck- no JVD Lungs- clear breath sounds bilaterally, no rales/wheezes Heart- normal rate, regular rhythm; no murmurs Abdomen- normal bowel sounds, nondistended, soft, nontender Extremities- L AKA stump: dressing in place, no bleeding/discharge, surrounding erythema R foot: Boot in place patient declined exam today, prefers to defer til next day Neuro- alert, oriented x 3; no gross focal neurologic deficits Skin- warm & dry Results & Data Results & Data ([facility]) Vital Signs (Past 12 Hours) Vital Signs Temp Pulse Pulse Pulse Resp BP Pulse Ox 01/29/21 12:00 36.5 C 76 20 112/66 96 01/29/21 08:00 36.3 C L 80 20 133/69 97 01/29/21 07:29 80 01/29/21 02:58 36.7 C 84 18 110/67 97 all noted and reviewed including below (1) GI bleed GI bleed type/associated pathology: unspecified gastrointestinal hemorrhage type Qualified Code(s): K92.2 - Gastrointestinal hemorrhage, unspecified
[2021-01-29] MEDS: PANTOprazole 40 MG TAB PO SCH (21:22)
[2021-01-30] MEDS: traMADol HCL 50 MG TABLET PO PRN ×2 (06:20→21:13)
[2021-01-30] MEDS: MIDODRINE HCL 2.5 MG TAB PO SCH ×3 (06:21→18:02)
[2021-01-30 08:07] LABS: Basophils # (auto) 0.07 K/uL (0-0.2); Basophils % (auto) 0.5 %; Eosinophils # (auto) 1.05 K/uL (0-0.5); Eosinophils % (auto) 7.2 %; Hematocrit (blood only) 31.5 % (37-47); Hemoglobin 9.6 g/dL (12.0-16.0); Immature Granulocytes % (auto) 1.4 %; Lymphocytes # (auto) 2.05 K/uL (1.2-3.4); Mean Corpuscular Hemoglobin 29.4 pg (25-34); Mean Corpuscular Hgb Conc 30.5 g/dL (32-36); Mean Corpuscular Volume 96.6 fL (80-100); Mean Platelet Volume 9.9 fL (7.4-10.4); Monocytes # (auto) 1.75 K/uL (0.11-0.59); Monocytes % (auto) 11.9 %; Neutrophils # (auto) 9.53 K/uL (1.4-6.5); Platelet Count 298 K/uL (130-400); RDW Coefficient of Variation 17.6 % (11.5-14.5); RDW Standard Deviation 61.8 fL (36.4-46.3); Red Blood Count 3.26 M/uL (4.2-5.4); White Blood Count 14.65 K/uL (4.8-10.8)
[2021-01-30] MEDS: ATORVASTATIN 20 MG TAB PO SCH (08:15)
[2021-01-30] MEDS: DOCUSATE SODIUM 100 MG CAP PO SCH ×2 (08:15→21:12)
[2021-01-30] MEDS: CHOLECALCIFEROL 1,000 UNITS 25 MCG TAB PO SCH (08:15)
[2021-01-30] MEDS: PANTOprazole 40 MG TAB PO SCH ×2 (08:15→21:12)
[2021-01-30] MEDS: COLLAGENASE OINT 30 GM TUBE TOP SCH (08:15)
[2021-01-30] MEDS: DOXYCYCLINE HYCLATE 100 MG CAP PO SCH ×2 (08:15→21:12)
[2021-01-30] MEDS: INSULIN ASPART 100 UNITS/ML 3 ML PEN SC SCH ×4 (08:20→21:12)
[2021-01-30 09:15] LABS: BUN Creatinine Ratio 6.5 (10-20); Calcium 9.7 mg/dl (8.5-10.1); Creatinine Clr Calc Pharmacy 13.3 ml/min; Est GFR (African American) 9.7 ml/min; Est GFR (Non-African American) 8.3 ml/min; Potassium 4.2 mmol/L (3.5-5.1)
--- NOTE | 2021-01-30 11:28 | Nephrology Progress Note ---
Date of Service January 30, 2021 Assessment & Plan (1) ESRD (end stage renal disease) on dialysis: (2) Hypertension: (3) Diabetes mellitus, type 2: (4) Hyperlipidemia: (5) Acute blood loss anemia: Plan: ESRD on hemodialysis admitted with GI bleeding, hemoglobin less than 6.9, received 2 unit of blood transfusion. EGD showed gastritis and currently on Protonix 40 b.i.d.. Blood pressure, volume status electrolyte acceptable. Dialyzes via right IJ tunneled dialysis catheter. stopped HD after <1 h as she was not feeling well. -- as she was not able to have the HD today, will evaluate again for dialysis tomorrow. -- dose meds for gfr <10 will follow Admission and Anticipated Discharge Date Admission Date: January 27, 2021 Gayle Day was seen and examined during dialysis this morning, she was feeling poorly with nausea and requested to get off dialysis after <1 h HD. BP, volume status acceptable. Review of Systems Review of Systems: detailed review of system was otherwise unremarkable. Physical Exam Constitutional: WD/WN, vitals as above + ill appearing and + morbidly obese; no acute distress Eyes: + anicteric sclerae ENMT: Ears: no hearing impairment and no external ear abnormality Nose: nasal mucous membranes not dry Neck: normal visual inspection Respiratory: normal respiratory effort; no respiratory distress Auscultation: lungs clear to auscultation bilaterally Cardiovascular: Rate/Rhythm: regular rate and regular rhythm Heart Sounds: normal S1 and normal S2 Extremities: no edema Skin: normal turgor; no rashes Neurologic: no focal motor deficits and not confused Psychiatric: Orientation: alert and oriented x 3 Results & Data ([facility]) Vital Signs (Past 12 Hours) Vital Signs Temp Pulse Pulse Resp BP Pulse Ox 01/30/21 08:00 37 C 82 18 120/74 91 01/30/21 07:26 80 01/30/21 04:00 75 01/30/21 02:54 36.8 C 81 16 138/73 91 01/30/21 00:48 37.3 C 81 16 140/74 94 PG Care Time/CCT Total # of Minutes Spent Total Time Spent with Patient: Total time spent is greater than 50% in coordination of care (as documented) at patient's floor/unit and/or counseling patient: Coding Level of Care Code 15130 Subseq Hosp Care Lvl 2 Diagnoses ESRD (end stage renal disease) on dialysis N18.6; Z99.2 Hypertension I10 Diabetes mellitus, type 2 E11.9 Hyperlipidemia E78.5 Acute blood loss anemia D62
[2021-01-30] MEDS: AMPICILLIN/SULBACTAM SOD 3,000 MG in 0.9 % SODIUM CHLORIDE 100 ML IV SCH ×2 (11:58→21:11)
--- NOTE | 2021-01-30 14:32 | Orthopedic Progress Note ---
Date of Service January 30, 2021 Assessment & Plan (1) S/P above knee amputation: Plan: Postsurgical wound at the left thigh has no purulence and looks reasonably well for 3 weeks postop. There is some erythema around the wound edges, which may be cellulitic, but likely due to inflammatory response to her sutures. Removed 2/3 of sutures today and will attempt to remove the rest over the weekend, no signs of wound dehiscence. Continue antibiotics per primary service. Continue pain control per primary service. May trial Lidoderm patches to LLE. Right heel ulcer does not require a urgent treatment at this point. Continue the waffle boots and decubitus precautions. Continue care wound care per Wound care nurse. Nutritional status will need to be optimized. Dr. Michel is out of town over the holiday weekend and will assume care if the patient is still in house Tuesday. Ultimately she will need to follow-up with vascular for reassessment. Continue care per primary service. We will continue to follow her over the weekend. (2) Ulcer of right heel: Plan: As above. Admission and Anticipated Discharge Date Admission Date: January 27, 2021 Subjective Left stump pain Review of Systems Review of Systems: All systems reviewed & are unremarkable except as noted in HPI & below Physical Exam Physical Exam: LLE: Stump skin warm and dry with good turgor. No rashes. Dressing is in place on her left stump. Healing surgical incision on her above- knee amputation. Large retention sutures are in place. There is erythema around her sutures. No drainage on her dressings. No expressible fluid. There is a larger necrotic area in the central-lateral portion of the wound. It appears stable. Limb is quite painful to touch. No signs of infection. No purulent drainage. Gross sensation is intact across her left thigh. Has difficulty lifting LLE. Results & Data ([facility]) Vital Signs (Past 12 Hours) Vital Signs Temp Pulse Pulse Resp BP Pulse Ox 01/30/21 12:00 36.9 C 88 18 123/72 90 01/30/21 08:00 37 C 82 18 120/74 91 01/30/21 07:26 80 01/30/21 04:00 75 01/30/21 02:54 36.8 C 81 16 138/73 91 Laboratory Results 01/30/21 01/30/21 01/30/21 Range/Units 11:37 07:45 07:45 WBC 14.65 H (4.8-10.8) K/uL RBC 3.26 L (4.2-5.4) M/uL Hgb 9.6 L (12.0-16.0) g/dL Hct 31.5 L (37-47) % MCV 96.6 (80-100) fL MCH 29.4 (25-34) pg MCHC 30.5 L (32-36) g/dL RDW Std Deviation 61.8 H (36.4-46.3) fL RDW Coeff of Maria D 17.6 H (11.5-14.5) % Plt Count 298 (130-400) K/uL MPV 9.9 (7.4-10.4) fL Immature Gran % (Auto) 1.4 % Neut % (Auto) 65.0 % Lymph % (Auto) 14.0 % [place] % (Auto) 11.9 % Eos % (Auto) 7.2 % Baso % (Auto) 0.5 % Neut # (Auto) 9.53 H (1.4-6.5) K/uL Lymph # (Auto) 2.05 (1.2-3.4) K/uL [place] # (Auto) 1.75 H (0.11-0.59) K/uL Eos # (Auto) 1.05 H (0-0.5) K/uL Baso # (Auto) 0.07 (0-0.2) K/uL Immature Gran # (Auto) 0.20 H (0.00-0.02) K/uL Sodium 138 (136-145) mmol/L Potassium 4.2 D (3.5-5.1) mmol/L Chloride 106 (98-107) mmol/L Carbon Dioxide 20 L (21-32) mmol/L Anion Gap 12.0 H (3-11) BUN 34 H (7-18) mg/dl Creatinine 5.29 H* D (0.6-1.2) mg/dl Est Cr Clr Drug Dosing 13.3 ml/min Est GFR ( Amer) 9.7 ml/min Est GFR (Non-Af Amer) 8.3 ml/min BUN/Creatinine Ratio 6.5 L (10-20) Glucose 97 (70-99) mg/dl POC Glucose 101 H (70-99) mg/dl Calcium 9.7 (8.5-10.1) mg/dl 01/30/21 01/29/21 01/29/21 Range/Units 07:40 20:16 17:02 WBC (4.8-10.8) K/uL RBC (4.2-5.4) M/uL Hgb (12.0-16.0) g/dL Hct (37-47) % MCV (80-100) fL MCH (25-34) pg MCHC (32-36) g/dL RDW Std Deviation (36.4-46.3) fL RDW Coeff of Maria D (11.5-14.5) % Plt Count (130-400) K/uL MPV (7.4-10.4) fL Immature Gran % (Auto) % Neut % (Auto) % Lymph % (Auto) % [place] % (Auto) % Eos % (Auto) % Baso % (Auto) % Neut # (Auto) (1.4-6.5) K/uL Lymph # (Auto) (1.2-3.4) K/uL [place] # (Auto) (0.11-0.59) K/uL Eos # (Auto) (0-0.5) K/uL Baso # (Auto) (0-0.2) K/uL Immature Gran # (Auto) (0.00-0.02) K/uL Sodium (136-145) mmol/L Potassium (3.5-5.1) mmol/L Chloride (98-107) mmol/L Carbon Dioxide (21-32) mmol/L Anion Gap (3-11) BUN (7-18) mg/dl Creatinine (0.6-1.2) mg/dl Est Cr Clr Drug Dosing ml/min Est GFR ( Amer) ml/min Est GFR (Non-Af Amer) ml/min BUN/Creatinine Ratio (10-20) Glucose (70-99) mg/dl POC Glucose 99 105 H 100 H (70-99) mg/dl Calcium (8.5-10.1) mg/dl
--- NOTE | 2021-01-30 14:51 | Hospitalist Progress Note ---
Date of Service January 30, 2021 Assessment & Plan (1) GI bleed: Plan: secondary to Gastric Ulcer s/p EGD: (+) gastric ulcer 2 units pRBC given Hg stable at 9 diet advanced Protonix drip given, transitioned to BID monitor Hg (2) Postoperative wound infection: Plan: L AKA stump cellulitis - Ortho consulted - Unasyn Day 3 - for suture removal in stages- done today - will need Vascular Sx eval R Heel Wound - drying per RN - continue Doxy (3) ESRD (end stage renal disease) on dialysis: Plan: - Consult nephrology - pt on HD M/W/F (4) Diabetes mellitus, type 2: Plan: - Accuchecks Q6 H - Insulin sliding scale (5) Hypertension: Plan: - Continue home meds as appropriate (6) Hyperlipidemia: Plan: on Statin (7) Ulcer of right heel: Plan: - Wound care consult (8) Peripheral vascular disease: (9) Obstructive sleep apnea: Plan: Non-compliant with CPAP Disposition pending PT/OT eval Admission and Anticipated Discharge Date Admission Date: January 27, 2021 Subjective ff up for GI bleed, etc seen resting in bed, not in distress reports mild nausea today- happens intermittently at home (+) BM yesterday no abdominal pain, fever/chills reports pain on the AKA stump and buttock- chronic no other symptoms Review of Systems Review of Systems: all noted and negative except for above Physical Exam Physical Exam: General- oriented x 3, not in distress, speaks in sentences with no effort or accessory muscle use Eyes- anicteric Neck- no JVD Lungs- clear BS BL Heart- normal rate, regular rhythm; no murmurs Abdomen- normal bowel sounds, nondistended, soft, nontender Extremities- no pretibial edema, no calf tenderness L AKA stump- sutures in place, mild erythema on the suture borders, no bleeding/discharge, edema Neuro- alert, oriented x 3; no gross focal neurologic deficits Skin- warm & dry Results & Data Results & Data ([facility]) Vital Signs (Past 12 Hours) Vital Signs Temp Pulse Pulse Resp BP Pulse Ox 01/30/21 12:00 36.9 C 88 18 123/72 90 01/30/21 08:00 37 C 82 18 120/74 91 01/30/21 07:26 80 01/30/21 04:00 75 11/26/21 02:54 36.8 C 81 16 138/73 91 all noted and reviewed including below (1) GI bleed GI bleed type/associated pathology: unspecified gastrointestinal hemorrhage type Qualified Code(s): K92.2 - Gastrointestinal hemorrhage, unspecified
[2021-01-30] MEDS: ADVANCED PROBIOTIC 1250 MG CAPSULE PO SCH (16:02)
[2021-01-30] MEDS: HYDROmorphone INJ 0.5 MG/0.5 ML SYR IV PRN (22:40)
[2021-01-31] MEDS: traMADol HCL 50 MG TABLET PO PRN ×2 (03:53→20:18)
[2021-01-31] MEDS: CHOLECALCIFEROL 1,000 UNITS 25 MCG TAB PO SCH (07:43)
[2021-01-31] MEDS: MIDODRINE HCL 2.5 MG TAB PO SCH ×3 (07:43→17:02)
[2021-01-31] MEDS: PANTOprazole 40 MG TAB PO SCH ×2 (07:43→20:18)
[2021-01-31] MEDS: ATORVASTATIN 20 MG TAB PO SCH (07:43)
[2021-01-31] MEDS: DOXYCYCLINE HYCLATE 100 MG CAP PO SCH ×2 (07:44→20:18)
[2021-01-31] MEDS: COLLAGENASE OINT 30 GM TUBE TOP SCH (07:44)
[2021-01-31] MEDS: ADVANCED PROBIOTIC 1250 MG CAPSULE PO SCH (07:44)
[2021-01-31] MEDS: DOCUSATE SODIUM 100 MG CAP PO SCH ×2 (07:46→20:18)
[2021-01-31 08:29] LABS: Hematocrit (blood only) 31.5 % (37-47); Hemoglobin 9.6 g/dL (12.0-16.0); Mean Corpuscular Hemoglobin 29.8 pg (25-34); Mean Corpuscular Hgb Conc 30.5 g/dL (32-36); Mean Corpuscular Volume 97.8 fL (80-100); Mean Platelet Volume 9.6 fL (7.4-10.4); Platelet Count 301 K/uL (130-400); RDW Coefficient of Variation 17.8 % (11.5-14.5); RDW Standard Deviation 61.8 fL (36.4-46.3); Red Blood Count 3.22 M/uL (4.2-5.4); White Blood Count 14.57 K/uL (4.8-10.8)
[2021-01-31] MEDS: INSULIN ASPART 100 UNITS/ML 3 ML PEN SC SCH ×4 (08:30→21:02)
[2021-01-31] MEDS: AMPICILLIN/SULBACTAM SOD 3,000 MG in 0.9 % SODIUM CHLORIDE 100 ML IV SCH ×2 (08:32→21:02)
[2021-01-31 09:12] LABS: Albumin Level 1.9 gm/dl (3.4-5.0); BUN Creatinine Ratio 6.8 (10-20); Calcium 9.7 mg/dl (8.5-10.1); Creatinine Clr Calc Pharmacy 14.5 ml/min; Est GFR (African American) 10.2 ml/min; Est GFR (Non-African American) 8.8 ml/min; Phosphorus 4.7 mg/dl (2.5-4.9); Potassium 4.2 mmol/L (3.5-5.1)
--- NOTE | 2021-01-31 12:05 | Nephrology Progress Note ---
Date of Service January 31, 2021 Assessment & Plan (1) ESRD (end stage renal disease) on dialysis: (2) Hypertension: (3) Diabetes mellitus, type 2: (4) Hyperlipidemia: (5) Acute blood loss anemia: Plan: ESRD on hemodialysis admitted with GI bleeding, hemoglobin less than 6.9, received 2 unit of blood transfusion. EGD showed gastritis and currently on Protonix 40 b.i.d.. Blood pressure, volume status electrolyte acceptable. Dialyzes via right IJ tunneled dialysis catheter. Stopped HD after <1 h yesterday as she was not feeling well. Overall she is feeling better, blood pressure, electrolyte and vital signs stable. -- Continue to monitor through the weekend, check electrolytes tomorrow, will skip dialysis today and tentatively plan for dialysis Tuesday unless there is any urgency over the weekend. -- dose meds for gfr <10 will follow Admission and Anticipated Discharge Date Admission Date: January 27, 2021 Gayle Day was seen examined in her room this morning. She has been feeling much better, pain in her left AKA stump improved. Denies shortness of breath or chest pain. Appetite better. No further episode of nausea vomiting. Review of Systems Review of Systems: detailed review of system was otherwise unremarkable. Physical Exam Constitutional: WD/WN, vitals as above + ill appearing and + morbidly obese; no acute distress Eyes: + anicteric sclerae ENMT: Ears: no hearing impairment and no external ear abnormality Nose: nasal mucous membranes not dry Neck: normal visual inspection Respiratory: normal respiratory effort; no respiratory distress Auscultation: lungs clear to auscultation bilaterally Cardiovascular: Rate/Rhythm: regular rate and regular rhythm Heart Sounds: normal S1 and normal S2 Extremities: no edema Skin: normal turgor; no rashes Neurologic: no focal motor deficits and not confused Psychiatric: Orientation: alert and oriented x 3 Results & Data ([facility]) Vital Signs (Past 12 Hours) Vital Signs Temp Pulse Pulse Resp BP Pulse Ox 01/31/21 11:55 36.7 C 73 16 149/74 H 92 01/31/21 07:46 36.8 C 78 16 160/72 H 94 01/31/21 07:25 73 01/31/21 04:00 77 01/31/21 03:36 36.6 C 78 16 116/75 90 PG Care Time/CCT Total # of Minutes Spent Total Time Spent with Patient: Total time spent is greater than 50% in coordination of care (as documented) at patient's floor/unit and/or counseling patient: Coding Level of Care Code 11650 Subseq Hosp Care Lvl 2 Diagnoses ESRD (end stage renal disease) on dialysis N18.6; Z99.2 Hypertension I10 Diabetes mellitus, type 2 E11.9 Hyperlipidemia E78.5 Acute blood loss anemia D62
--- NOTE | 2021-01-31 15:09 | Orthopedic Progress Note ---
Date of Service January 31, 2021 Assessment & Plan (1) S/P above knee amputation: Plan: Postsurgical wound at the left thigh has no purulence and looks reasonably well for 3 weeks postop. Erythema much improved around where her sutures is removed. Removed 2/3 of sutures today and will attempt to remove the rest over the weekend, no signs of wound dehiscence, 01/30/21. Continue antibiotics per primary service. Continue pain control per primary service. May trial Lidoderm patches to LLE. Right heel ulcer does not require a urgent treatment at this point. Continue the waffle boots and decubitus precautions. Continue care wound care per Wound care nurse. Nutritional status will need to be optimized. Dr. Michel is out of town over the holiday weekend and will assume care if the patient is still in house Tuesday. Ultimately she will need to follow-up with vascular for reassessment. Continue care per primary service. We will continue to follow her over the weekend. Present on Admission?: Yes (2) Ulcer of right heel: Plan: As above. Admission and Anticipated Discharge Date Admission Date: January 27, 2021 Subjective Feeling better Review of Systems Review of Systems: All systems reviewed & are unremarkable except as noted in HPI & below Physical Exam Physical Exam: LLE: Stump skin warm and dry with good turgor. No rashes. Dressing is in place on her left stump. Healing surgical incision on her above- knee amputation. Large retention sutures are in place. The erythema substantially decreased around where her sutures were removed. No drainage on her dressings. No expressible fluid. There is a larger necrotic area in the central-lateral portion of the wound, stable. Limb is slightly less painful to touch. No signs of infection. No purulent drainage. Gross sensation is intact across her left thigh. Has difficulty lifting LLE. Results & Data ([facility]) Vital Signs (Past 12 Hours) Vital Signs Temp Pulse Pulse Resp BP Pulse Ox 01/31/21 14:34 36.6 C 74 18 149/52 H 94 01/31/21 11:55 36.7 C 73 16 149/74 H 92 01/31/21 07:46 36.8 C 78 16 160/72 H 94 01/31/21 07:25 73 01/31/21 04:00 77 01/31/21 03:36 36.6 C 78 16 116/75 90 Laboratory Results 01/31/21 01/31/21 01/31/21 Range/Units 11: 08:16 08:16 WBC 14.57 H (4.8-10.8) K/uL RBC 3.22 L (4.2-5.4) M/uL Hgb 9.6 L (12.0-16.0) g/dL Hct 31.5 L (37-47) % MCV 97.8 (80-100) fL MCH 29.8 (25-34) pg MCHC 30.5 L (32-36) g/dL RDW Std Deviation 61.8 H (36.4-46.3) fL RDW Coeff of Maria D 17.8 H (11.5-14.5) % Plt Count 301 (130-400) K/uL MPV 9.6 (7.4-10.4) fL Sodium 139 (136-145) mmol/L Potassium 4.2 (3.5-5.1) mmol/L Chloride 107 (98-107) mmol/L Carbon Dioxide 20 L (21-32) mmol/L Anion Gap 12.0 H (3-11) BUN 34 H (7-18) mg/dl Creatinine 5.08 H* (0.6-1.2) mg/dl Est Cr Clr Drug Dosing 14.5 ml/min Est GFR ( Amer) 10.2 ml/min Est GFR (Non-Af Amer) 8.8 ml/min BUN/Creatinine Ratio 6.8 L (10-20) Glucose 90 (70-99) mg/dl POC Glucose 97 (70-99) mg/dl Calcium 9.7 (8.5-10.1) mg/dl Phosphorus 4.7 (2.5-4.9) mg/dl Albumin 1.9 L (3.4-5.0) gm/dl 01/31/21 01/30/21 01/30/21 Range/Units 07:25 20:38 17:05 WBC (4.8-10.8) K/uL RBC (4.2-5.4) M/uL Hgb (12.0-16.0) g/dL Hct (37-47) % MCV (80-100) fL MCH (25-34) pg MCHC (32-36) g/dL RDW Std Deviation (36.4-46.3) fL RDW Coeff of Maria D (11.5-14.5) % Plt Count (130-400) K/uL MPV (7.4-10.4) fL Sodium (136-145) mmol/L Potassium (3.5-5.1) mmol/L Chloride (98-107) mmol/L Carbon Dioxide (21-32) mmol/L Anion Gap (3-11) BUN (7-18) mg/dl Creatinine (0.6-1.2) mg/dl Est Cr Clr Drug Dosing ml/min Est GFR ( Amer) ml/min Est GFR (Non-Af Amer) ml/min BUN/Creatinine Ratio (10-20) Glucose (70-99) mg/dl POC Glucose 87 98 95 (70-99) mg/dl Calcium (8.5-10.1) mg/dl Phosphorus (2.5-4.9) mg/dl Albumin (3.4-5.0) gm/dl
--- NOTE | 2021-01-31 18:24 | Hospitalist Progress Note ---
Date of Service January 31, 2021 Assessment & Plan (1) GI bleed: Plan: secondary to Gastric Ulcer s/p EGD: (+) gastric ulcer 2 units pRBC given Hg stable at 9 diet advanced Protonix drip given, transitioned to BID -- Hg remains stable ~9 no recurrence of GI bleed (2) Postoperative wound infection: Plan: L AKA stump cellulitis - Ortho consulted - Unasyn and Doxy Day 4 - for suture removal in stages- 2/3 removed - will need Vascular Sx eval R Heel Wound - drying per RN - continue Doxy (3) ESRD (end stage renal disease) on dialysis: Plan: - Consult nephrology - pt on HD M/W/F (4) Diabetes mellitus, type 2: Plan: - Accuchecks Q6 H - Insulin sliding scale (5) Hypertension: Plan: - Continue home meds as appropriate (6) Hyperlipidemia: Plan: on Statin (7) Ulcer of right heel: Plan: - Wound care consult (8) Peripheral vascular disease: (9) Obstructive sleep apnea: Plan: Non-compliant with CPAP Disposition pending PT/OT eval Admission and Anticipated Discharge Date Admission Date: January 27, 2021 Subjective ff up for GI bleed, AKA stump cellulitis, etc seen resting in bed, comfortable states she feel better today no melena/hematochezia, abdominal pain no chest pain, dyspnea, palpitations, dizziness no other symptoms Review of Systems Review of Systems: all noted and negative except for above Physical Exam Physical Exam: General- oriented x 3, not in distress, speaks in sentences with no effort or accessory muscle use Eyes- anicteric Neck- no JVD Lungs- clear BS BL Heart- normal rate, regular rhythm; no murmurs Abdomen- normal bowel sounds, nondistended, soft, nontender Extremities- L AKA stump: dressing in place, no bleeding discharge Neuro- alert, oriented x 3; no gross focal neurologic deficits Skin- warm & dry Results & Data Results & Data ([facility]) Vital Signs (Past 12 Hours) Vital Signs Temp Pulse Pulse Resp BP Pulse Ox 01/31/21 17:03 68 121/68 01/31/21 15:20 79 01/31/21 14:34 36.6 C 74 18 149/52 H 94 01/31/21 11:55 36.7 C 73 16 149/74 H 92 01/31/21 07:46 36.8 C 78 16 160/72 H 94 01/31/21 07:25 73 all noted and reviewed including below (1) GI bleed GI bleed type/associated pathology: unspecified gastrointestinal hemorrhage type Qualified Code(s): K92.2 - Gastrointestinal hemorrhage, unspecified
[2021-02-01] MEDS: diphenhydrAMINE Capsule 25 MG CAP PO PRN ×3 (03:17→18:09)
[2021-02-01] MEDS: traMADol HCL 50 MG TABLET PO PRN ×3 (03:58→18:09)
[2021-02-01] MEDS ORDERED: MICONAZOLE NITRATE POWDER 43 GM EXT PRN (05:54)
[2021-02-01] MEDS: MIDODRINE HCL 2.5 MG TAB PO SCH (06:41)
[2021-02-01] MEDS: DOXYCYCLINE HYCLATE 100 MG CAP PO SCH ×2 (08:25→21:17)
[2021-02-01] MEDS: ATORVASTATIN 20 MG TAB PO SCH (08:26)
[2021-02-01] MEDS: ADVANCED PROBIOTIC 1250 MG CAPSULE PO SCH (08:26)
[2021-02-01] MEDS: PANTOprazole 40 MG TAB PO SCH ×2 (08:26→21:17)
[2021-02-01] MEDS: CHOLECALCIFEROL 1,000 UNITS 25 MCG TAB PO SCH (08:26)
[2021-02-01] MEDS: DOCUSATE SODIUM 100 MG CAP PO SCH ×2 (08:33→21:18)
[2021-02-01] MEDS: AMPICILLIN/SULBACTAM SOD 3,000 MG in 0.9 % SODIUM CHLORIDE 100 ML IV SCH ×2 (08:34→21:17)
[2021-02-01] MEDS: INSULIN ASPART 100 UNITS/ML 3 ML PEN SC SCH ×4 (08:44→21:06)
--- NOTE | 2021-02-01 11:38 | Nephrology Progress Note ---
Date of Service February 01, 2021 Assessment & Plan (1) ESRD (end stage renal disease) on dialysis: (2) Hypertension: (3) Diabetes mellitus, type 2: (4) Hyperlipidemia: (5) Acute blood loss anemia: Plan: ESRD on hemodialysis admitted with GI bleeding, hemoglobin less than 6.9, received 2 unit of blood transfusion. EGD showed gastritis and currently on Protonix 40 b.i.d.. Blood pressure, volume status electrolyte acceptable. Dialyzes via right IJ tunneled dialysis catheter. Stopped HD after <1 h yesterday as she was not feeling well. Overall she is feeling better, blood pressure, electrolyte and vital signs stable. -- Discontinue med or drain and change to 10 milligram only prior to hemodialysis. -- plan for dialysis Tuesday -- dose meds for gfr <10 will follow Admission and Anticipated Discharge Date Admission Date: January 27, 2021 Gayle Day was seen examined in her room this morning. She has been feeling well, no pain in her left AKA stump. Denies shortness of breath or chest pain. Appetite better. No further episode of nausea vomiting. blood pressure has been elevated, on midodrine. Review of Systems Review of Systems: detailed review of system was otherwise unremarkable. Physical Exam Constitutional: WD/WN, vitals as above no acute distress Eyes: + anicteric sclerae ENMT: Ears: no hearing impairment Neck: normal visual inspection Respiratory: normal respiratory effort; no respiratory distress Auscultation: lungs clear to auscultation bilaterally Cardiovascular: Rate/Rhythm: regular rate and regular rhythm Heart Sounds: normal S1 and normal S2 Extremities: no edema Skin: normal turgor; no rashes Neurologic: no focal motor deficits and not confused Psychiatric: Orientation: alert and oriented x 3 Results & Data ([facility]) Vital Signs (Past 12 Hours) Vital Signs Temp Pulse Pulse Resp BP Pulse Ox 02/01/21 08:09 36.4 C L 74 16 181/77 H 97 02/01/21 08:04 73 02/01/21 04:02 36.6 C 75 18 139/78 98 01/31/21 23:41 36.5 C 73 18 152/78 H 95 PG Care Time/CCT Total # of Minutes Spent Total Time Spent with Patient: Total time spent is greater than 50% in coordination of care (as documented) at patient's floor/unit and/or counseling patient: Coding Level of Care Code 91171 Subseq Hosp Care Lvl 2 Diagnoses ESRD (end stage renal disease) on dialysis N18.6; Z99.2 Hypertension I10 Diabetes mellitus, type 2 E11.9 Hyperlipidemia E78.5 Acute blood loss anemia D62
--- NOTE | 2021-02-01 12:18 | Hospitalist Progress Note ---
Date of Service February 01, 2021 Assessment & Plan (1) GI bleed: Plan: secondary to Gastric Ulcer s/p EGD: (+) gastric ulcer 2 units pRBC given Hg stable at 9 diet advanced Protonix drip given, transitioned to BID -- Hg remains stable ~9 no recurrence of GI bleed --Continue Protonix (2) Postoperative wound infection: Plan: L AKA stump cellulitis - Ortho consulted - Unasyn and Doxy Day 5 - for suture removal in stages- 3/4 removed - will need Vascular Sx eval R Heel Wound - drying per RN - continue Doxy (3) ESRD (end stage renal disease) on dialysis: Plan: - Consult nephrology - pt on HD M/W/F (4) Diabetes mellitus, type 2: Plan: - Accuchecks Q6 H - Insulin sliding scale (5) Hypertension: Plan: - Continue home meds as appropriate (6) Hyperlipidemia: Plan: on Statin (7) Ulcer of right heel: Plan: - Wound care consult (8) Peripheral vascular disease: (9) Obstructive sleep apnea: Plan: Non-compliant with CPAP Disposition pending PT/OT eval Admission and Anticipated Discharge Date Admission Date: January 27, 2021 Subjective Follow-up for GI bleed, gastric ulcer, AKA stump infection Etc. Seen resting in bed, comfortable, not in distress States she feels fine, just sleepy No chest pain, shortness of breath, palpitations, dizziness abdominal pain, nausea vomiting Pain on the left AKA stump improving No recurrence of GI bleed Tolerating it well No other symptoms Review of Systems Review of Systems: all noted and negative except for above Physical Exam Physical Exam: General- oriented x 3, not in distress, speaks in sentences with no effort or accessory muscle use Eyes- anicteric Neck- no JVD Lungs- clear BS BL no rales/wheezing Heart- normal rate, regular rhythm; no murmurs Abdomen- normal bowel sounds, nondistended, soft, nontender Extremities- no pretibial edema, no calf tenderness Left AKA stump: Dressing in place no bleeding or discharge, no surrounding erythema or edema Neuro- alert, oriented x 3; no gross focal neurologic deficits Skin- warm & dry Results & Data Results & Data ([facility]) Vital Signs (Past 12 Hours) Vital Signs Temp Pulse Pulse Resp BP Pulse Ox 02/01/21 12:15 36.4 C L 76 16 152/75 H 98 02/01/21 08:09 36.4 C L 74 16 181/77 H 97 02/01/21 08:04 73 02/01/21 04:02 36.6 C 75 18 139/78 98 all noted and reviewed including below (1) GI bleed GI bleed type/associated pathology: unspecified gastrointestinal hemorrhage type Qualified Code(s): K92.2 - Gastrointestinal hemorrhage, unspecified
--- NOTE | 2021-02-01 12:46 | Orthopedic Progress Note ---
Date of Service February 01, 2021 Assessment & Plan (1) S/P above knee amputation: Plan: Postsurgical Left AKA wound has no purulence and looks reasonably well for 3 weeks postop. Erythema much improved around where her sutures have been removed. Removed 3/4 of sutures and will leave remaining sutures in place to avoid wound dehiscence. Continue antibiotics per primary service. Continue pain control per primary service. May trial Lidoderm patches to LLE. Right heel ulcer does not require a urgent treatment at this point. Continue the waffle boots and decubitus precautions. Continue wound care per Wound care nurse. Nutritional status to be optimized. Dr. Michel is out of town over the holiday weekend and will assume care if the patient is still in house Tuesday. Ultimately she will need to follow-up with vascular for reassessment. Continue care per primary service. We will continue to follow her over the weekend. Present on Admission?: Yes (2) Ulcer of right heel: Plan: As above. Admission and Anticipated Discharge Date Admission Date: January 27, 2021 Subjective Itchy Review of Systems Review of Systems: All systems reviewed & are unremarkable except as noted in HPI & below Physical Exam Physical Exam: LLE: Stump skin warm and dry with good turgor. No rashes. Dressing is in place on her left stump. Healing surgical incision from above- knee amputation. Several retention sutures remain in place. after removing a few sutures, 3 remain over the largest portion of eschar. The erythema substantially decreased around where her sutures were removed. No drainage on her dressings. No expressible fluid. The large eschar in the central-lateral portion of the wound, appears slightly smaller, inferiorly evidence of fibrinous healing. Limb is painful to touch. No signs of infection. No purulent drainag e. Gross sensation is intact across her left thigh. Is able to lift LLE stump off bed. Results & Data ([facility]) Vital Signs (Past 12 Hours) Vital Signs Temp Pulse Pulse Resp BP Pulse Ox 02/01/21 12:15 36.4 C L 76 16 152/75 H 98 02/01/21 08:09 36.4 C L 74 16 181/77 H 97 02/01/21 08:04 73 02/01/21 04:02 36.6 C 75 18 139/78 98 Laboratory Results 02/01/21 02/01/21 01/31/21 Range/Units 11:25 07:35 20:48 POC Glucose 110 H 98 116 H (70-99) mg/dl 01/31/21 Range/Units 16:20 POC Glucose 99 (70-99) mg/dl
[2021-02-01] MEDS: COLLAGENASE OINT 30 GM TUBE TOP SCH (13:02)
[2021-02-02] MEDS: MIDODRINE HCL 10 MG TAB PO SCH (08:49)
[2021-02-02] MEDS: DOXYCYCLINE HYCLATE 100 MG CAP PO SCH ×2 (08:49→19:36)
[2021-02-02] MEDS: CHOLECALCIFEROL 1,000 UNITS 25 MCG TAB PO SCH (08:50)
[2021-02-02] MEDS: ADVANCED PROBIOTIC 1250 MG CAPSULE PO SCH (08:50)
[2021-02-02] MEDS: ATORVASTATIN 20 MG TAB PO SCH (08:50)
[2021-02-02] MEDS: PANTOprazole 40 MG TAB PO SCH ×2 (08:51→19:36)
[2021-02-02] MEDS: COLLAGENASE OINT 30 GM TUBE TOP SCH (08:52)
[2021-02-02] MEDS: INSULIN ASPART 100 UNITS/ML 3 ML PEN SC SCH ×4 (09:00→21:10)
[2021-02-02] MEDS: DOCUSATE SODIUM 100 MG CAP PO SCH ×2 (09:05→19:35)
[2021-02-02] MEDS: AMPICILLIN/SULBACTAM SOD 3,000 MG in 0.9 % SODIUM CHLORIDE 100 ML IV SCH ×2 (09:05→19:35)
--- NOTE | 2021-02-02 10:39 | Consultation ---
Date of Consultation February 02, 2021 Assessment & Plan (1) S/P above knee amputation: Pt is approx 3 weeks s/p LLE AKA, now with necrosis/erythema of wound. Pt discussed with Dr Michel, recommends pt undergo surgical debridement in OR on TUESDAY. I have discussed the risks options and benefits of the procedure with the patient. The patient understands the risks options and benefits and agrees to the procedure. History of Present Illness Reason for Consultation: LLE AKA stump infection Attending Physician: Darrion Rowan MD History of Present Illness 55 yo f with multiple medical problems, including ESRD on HD, DMII, hyperlipidemia, HTN, RAHEEM, admitted with GI bleed, seen in consultation today for eval of her LLE AKA stump d/t possible infection. Pt is known to Dr Michel's vascular surgery practice for HD access in past, but has not been seen since 2018 when her LUE AVF thrombosed. Pt declined new AVF creation at the time. Pt states she underwent LLE AKA about 3 weeks ago at [facility] d/t infection in her L foot wound for last 7 months. She states it had been healing, but has been very painful for her ever since the procedure. Pt admits fatigue/malaise and also states she developed a RLE heel ulceration during her hospital stay at [facility] a few weeks ago which is also painful. States she was told her LLE had no blood flow, but her RLE blood flow is ok. Denies fever, chest pain, SOB, abd pain, N/V, rest pain, claudication, other complaints. Allergies Allergy/AdvReac Type Severity Reaction Status Date / Time No Known Allergies Allergy Verified 01/24/21 20:53 Home Medications Medication Instructions Recorded Confirmed Type atorvastatin 20 mg tablet (Lipitor) 20 mg PO DAILY 06/05/18 01/27/21 History clopidogrel 75 mg tablet (Plavix) 75 mg PO DAILY 06/05/18 01/27/21 History docusate sodium 100 mg capsule 100 mg PO BID 06/05/18 01/27/21 History insulin glargine 100 unit/mL 10 units SUBCUT HS 06/05/18 01/27/21 History subcutaneous solution (Lantus U-100 Insulin) Saccharomyces boulardii 250 mg 250 mg PO BIDM 01/24/21 01/27/21 History capsule acetaminophen 325 mg tablet 650 mg PO Q4 PRN 01/24/21 01/27/21 History aspirin 81 mg tablet,delayed 81 mg PO DAILY 01/24/21 01/27/21 History release (Aspirin Low Dose) bisacodyl 10 mg rectal suppository 10 mg OH DAILY PRN 01/24/21 01/27/21 History cholecalciferol (vitamin D3) 125 125 mcg PO DAILY 01/24/21 01/27/21 History mcg (5,000 unit) capsule collagenase clostridium histo. 250 1 applic TOPICAL DAILY 01/24/21 01/27/21 History unit/gram topical ointment (Santyl) darbepoetin sheri in polysorbat 100 100 mcg SUBCUT UD 01/24/21 01/27/21 History mcg/0.5 mL in polysorbate injection syringe dextrose 40 % oral gel 15 g PO ONCE PRN 01/24/21 01/27/21 History gentamicin 0.1 % topical ointment 1 applic TOPICAL DAILY 01/24/21 01/27/21 History heparin (porcine) 5,000 unit/mL 5,000 unit SUBCUT Q12H 01/24/21 01/27/21 History injection solution iron sucrose 100 mg iron/5 mL 100 mg IV UD PRN 01/24/21 01/27/21 History intravenous solution (Venofer) magnesium hydroxide 400 mg/5 mL 30 ml PO DAILY PRN 01/24/21 01/27/21 History oral suspension (Milk of Magnesia) meclizine 12.5 mg tablet 25 mg PO TID PRN 01/24/21 01/27/21 History midodrine 5 mg tablet 5 mg PO TID 01/24/21 01/27/21 History ondansetron 4 mg disintegrating 4 mg PO Q6H PRN 01/24/21 01/27/21 History tablet pantoprazole 40 mg tablet,delayed 40 mg PO HS 01/24/21 01/27/21 History release polyethylene glycol 3350 17 gram 17 g PO QDL PRN 01/24/21 01/27/21 History oral powder packet (Miralax) sennosides 8.6 mg-docusate sodium 1 tab-cap PO QDL PRN 01/24/21 01/27/21 History 50 mg tablet (Senokot-S) tramadol 50 mg tablet 50 mg PO Q6H PRN 01/24/21 01/27/21 History doxycycline hyclate 100 mg capsule 100 mg PO BID 14 Days #28 cap 01/25/21 01/27/21 Rx cocoa butter-shark liver oil 1 supp OH BID 01/27/21 01/27/21 History rectal suppository hydrocortisone 2.5 % topical cream 1 applic TOPICAL BID 01/27/21 01/27/21 History insulin regular human 100 unit/mL 1 sliding scale dose SUBCUT 01/27/21 01/27/21 History injection solution (Humulin R USEASDIRECTD Regular U-100 Insulin) Patient History Medical History AV fistula LEFT ARM Congestive heart failure Diabetes mellitus, type 2 Difficult intravenous access Hemodialysis patient [facility]DAYS AND FRIDAYS AT [facility] IN [place] Hyperlipidemia Hypertension Morbid obesity Obstructive sleep apnea Peripheral vascular disease Right heart failure Transient ischemic attack (TIA) X 14 (LAST EVENT 2015) Surgical History History of appendectomy History of cardiac cath X 2 (NO STENTS) History of section X1 History of cholecystectomy History of colonoscopy History of dilatation and curettage X 3 History of hysterectomy History of surgery HX OF LEFT UPPER ARM FISTULOGRAM (CLOT IN AV FISTULA) X 9 TIMES History of tooth extraction Family History Other No significant family history Social History Smoking Status: Former smoker Tobacco Type: Cigarettes Second Hand Exposure: No; Hx Alcohol Use: No Hx Substance Use: No Preferred Language: [place] Communication Ability: Effective Closet Builder Required: No Beliefs That Will Affect Care: None Current Living Situation: Family How many Children do You have: 1 Other Information That Helps Us Care for You: No Feels Safe at Home: Yes Assistive Devices: None Review of Systems Review of Systems: All systems reviewed & are unremarkable except as noted in HPI & below Physical Exam Constitutional: WD/WN, vitals as above + ill appearing, + morbidly obese and + in distress (tearful) ENMT: Ears: no hearing impairment Neck: trachea midline Respiratory: normal respiratory effort, lungs clear to auscultation Auscultation: + diminished lung sounds Cardiovascular: Rate/Rhythm: regular rate and regular rhythm Vessels: posterior tibial pulses present (RLE nonpalpable, LLE AKA) and dorsalis pedis pulses present (RLE nonpalpable, LLE AKA); + abnormal peripheral pulses Extremities: normal capillary refill (RLE only) and + vascular access device (R neck permcath); no AV fistula Gastrointestinal (Abdomen): Inspection/Auscultation: abdomen normal to inspection and normal bowel sounds; abdomen not distended Percussion/Palpation: abdomen soft; abdomen nontender Musculoskeletal: Extremities: strength 5/5 throughout and + amputation noted (LLE AKA) Skin: + erythema, + eschar and + incision (LLE AKA +erythema/warmth/eschar) Neurologic: moves all extremities and awake; no focal motor deficits and not confused Psychiatric: Orientation: alert and oriented x 3 Affect: + depressed affect, + anxious affect, + tearful affect and + irritable affect Results & Data ([facility]) Vital Signs (Past 12 Hours) Vital Signs Temp Pulse Pulse Pulse Resp BP BP 02/02/21 10:00 87 126/58 L 02/02/21 09:40 82 132/65 02/02/21 09:32 85 159/61 H 02/02/21 09:25 36.7 C 85 02/02/21 08:15 36.7 C 86 18 118/59 L 02/02/21 07:34 83 02/02/21 04:03 36.6 C 81 18 111/58 L 02/02/21 01:40 79 02/02/21 00:16 36.8 C 81 16 157/79 H Pulse Ox 02/02/21 10:00 02/02/21 09:40 02/02/21 09:32 02/02/21 09:25 02/02/21 08:15 97 02/02/21 07:34 02/02/21 04:03 97 02/02/21 01:40 02/02/21 00:16 97
--- NOTE | 2021-02-02 10:52 | Nephrology Progress Note ---
Date of Service February 02, 2021 Assessment & Plan (1) ESRD (end stage renal disease) on dialysis: (2) Hypertension: (3) Diabetes mellitus, type 2: (4) Hyperlipidemia: (5) Acute blood loss anemia: Plan: ESRD on hemodialysis admitted with GI bleeding, hemoglobin less than 6.9, received 2 unit of blood transfusion. EGD showed gastritis and currently on Protonix 40 b.i.d.. Blood pressure, volume status electrolyte acceptable. Dialyzes via right IJ tunneled dialysis catheter. Stopped HD after <1 h yesterday as she was not feeling well. Overall she is feeling better, blood pressure, electrolyte and vital signs stable. -- HD today, plan for 2 L UF, continue Midodrine 10 milligram only prior to hemodialysis. -- dose meds for gfr <10 -- epogen 19091 units with HD will follow Admission and Anticipated Discharge Date Admission Date: January 27, 2021 Gayle Day was seen examined in her room this morning. She has been having non healing ulcer in rt heel and left AKA stump. BP fair, electrolyte acceptable. Review of Systems Review of Systems: detailed review of system was otherwise unremarkable. Physical Exam Constitutional: WD/WN, vitals as above no acute distress Eyes: + anicteric sclerae ENMT: Ears: no hearing impairment Neck: normal visual inspection Respiratory: normal respiratory effort; no respiratory distress Auscultation: lungs clear to auscultation bilaterally Cardiovascular: Rate/Rhythm: regular rate and regular rhythm Heart Sounds: normal S1 and normal S2 Extremities: no edema Skin: normal turgor; no rashes Neurologic: no focal motor deficits and not confused Psychiatric: Orientation: alert and oriented x 3 Results & Data ([facility]) Vital Signs (Past 12 Hours) Vital Signs Temp Pulse Pulse Pulse Resp BP BP 02/02/21 10:00 87 126/58 L 02/02/21 09:40 82 132/65 02/02/21 09:32 85 159/61 H 02/02/21 09:25 36.7 C 85 02/02/21 08:15 36.7 C 86 18 118/59 L 02/02/21 07:34 83 02/02/21 04:03 36.6 C 81 18 111/58 L 02/02/21 01:40 79 02/02/21 00:16 36.8 C 81 16 157/79 H Pulse Ox 02/02/21 10:00 02/02/21 09:40 02/02/21 09:32 02/02/21 09:25 02/02/21 08:15 97 02/02/21 07:34 02/02/21 04:03 97 02/02/21 01:40 02/02/21 00:16 97 PG Care Time/CCT Total # of Minutes Spent Total Time Spent with Patient: Total time spent is greater than 50% in coordination of care (as documented) at patient's floor/unit and/or counseling patient: Coding Level of Care Code 25882 Subseq Hosp Care Lvl 3 Diagnoses ESRD (end stage renal disease) on dialysis N18.6; Z99.2 Hypertension I10 Diabetes mellitus, type 2 E11.9 Hyperlipidemia E78.5 Acute blood loss anemia D62
[2021-02-02] MEDS ORDERED: EPOETIN ALFA 10,000 UNITS/ML VIAL IV SCH (11:30)
[2021-02-02 13:43] LABS: Ferritin 1787.8 ng/ml (8-388)
--- NOTE | 2021-02-02 18:56 | Hospitalist Progress Note ---
Date of Service February 02, 2021 Assessment & Plan (1) GI bleed: Plan: secondary to Gastric Ulcer s/p EGD: (+) gastric ulcer 2 units pRBC given Hg stable at 9 diet advanced Protonix drip given, transitioned to BID -- Hg remains stable ~9 no recurrence of GI bleed --Continue Protonix (2) Postoperative wound infection: Plan: L AKA stump cellulitis - Ortho consulted - Unasyn and Doxy Day 6 - for suture removal in stages- 3/4 removed - will need Vascular Sx eval: recommend I&D on Tue R Heel Wound - drying per RN - continue Doxy (3) ESRD (end stage renal disease) on dialysis: Plan: - Consult nephrology - pt on HD M/W/ (4) Diabetes mellitus, type 2: Plan: - Accuchecks Q6 H - Insulin sliding scale (5) Hypertension: Plan: - Continue home meds as appropriate (6) Hyperlipidemia: Plan: on Statin (7) Ulcer of right heel: Plan: - Wound care consult (8) Peripheral vascular disease: (9) Obstructive sleep apnea: Plan: Non-compliant with CPAP Disposition pending PT/OT eval Admission and Anticipated Discharge Date Admission Date: January 27, 2021 Subjective Follow-up for GI bleed, left AKA stump infection, etc. seen resting in bed, not in distress, comfortable patient upset upon hearing the news re: plans for surgery by Vascular Sx explained to patient, reassured, she was calmer no chest pain, dyspnea, palpitations, dizziness no abdominal pain ,nausea, GI bleed symptoms pain well controlled no other symptoms Review of Systems Review of Systems: all noted and negative except for above Physical Exam Physical Exam: General- oriented x 3, not in distress, speaks in sentences with no effort or accessory muscle use Eyes- anicteric Neck- no JVD Lungs- clear BS BL Heart- normal rate, regular rhythm; no murmurs Abdomen- normal bowel sounds, nondistended, soft, nontender Extremities- no pretibial edema, no calf tenderness L AKA- dressing in place, no surrounding erythema outside of dressing, no bleeding/discharge Neuro- alert, oriented x 3; no gross focal neurologic deficits Skin- warm & dry Results & Data Results & Data ([facility]) Vital Signs (Past 12 Hours) Vital Signs Temp Pulse Pulse Pulse Resp BP BP 02/02/21 16:59 85 02/02/21 15:28 37.1 C 84 17 84/41 L 02/02/21 11:00 85 105/44 L 02/02/21 10:40 82 102/35 L 02/02/21 10:20 85 110/54 L 02/02/21 10:00 87 126/58 L 02/02/21 09:40 82 132/65 02/02/21 09:32 85 159/61 H 02/02/21 09:25 36.7 C 85 02/02/21 08:15 36.7 C 86 18 118/59 L 02/02/21 07:34 83 Pulse Ox 02/02/21 16:59 02/02/21 15:28 100 02/02/21 11:00 02/02/21 10:40 02/02/21 10:20 02/02/21 10:00 02/02/21 09:40 02/02/21 09:32 02/02/21 09:25 02/02/21 08:15 97 02/02/21 07:34 all noted and reviewed including below (1) GI bleed GI bleed type/associated pathology: unspecified gastrointestinal hemorrhage type Qualified Code(s): K92.2 - Gastrointestinal hemorrhage, unspecified
[2021-02-02] MEDS: ACETAMINOPHEN 325 MG TAB PO PRN (22:56)
[2021-02-02] MEDS: diphenhydrAMINE Capsule 25 MG CAP PO PRN (22:56)
[2021-02-03] MEDS: DOXYCYCLINE HYCLATE 100 MG CAP PO SCH (08:26)
[2021-02-03] MEDS: CHOLECALCIFEROL 1,000 UNITS 25 MCG TAB PO SCH (08:26)
[2021-02-03] MEDS: PANTOprazole 40 MG TAB PO SCH ×2 (08:26→19:32)
[2021-02-03] MEDS: ADVANCED PROBIOTIC 1250 MG CAPSULE PO SCH (08:26)
[2021-02-03] MEDS: ATORVASTATIN 20 MG TAB PO SCH (08:26)
[2021-02-03] MEDS: AMPICILLIN/SULBACTAM SOD 3,000 MG in 0.9 % SODIUM CHLORIDE 100 ML IV SCH ×2 (08:28→19:31)
[2021-02-03] MEDS: INSULIN ASPART 100 UNITS/ML 3 ML PEN SC SCH ×4 (08:29→21:15)
--- NOTE | 2021-02-03 09:37 | Surgery Progress Note ---
Date of Service February 03, 2021 Assessment & Plan (1) S/P above knee amputation: Plan: Pt is approx 3 weeks s/p LLE AKA, now with necrosis/erythema of wound. Pt also seen by Dr Michel, recommends pt undergo surgical debridement with possible wound vac placement in OR tomorrow. Procedure, risks, benefits, and alternatives discussed with pt by Dr Michel, pt expresses understanding and agreement. Admission and Anticipated Discharge Date Admission Date: January 27, 2021 Subjective 55 yo f with multiple medical problems, admitted with GI bleed and noted to have infected LLE AKA stump, seen for same today. Pt states no changes, continues to have pain in L stump. Review of Systems Review of Systems: All systems reviewed & are unremarkable except as noted in HPI & below Physical Exam Constitutional: WD/WN, vitals as above + morbidly obese Skin: + erythema, + eschar and + incision (LLE AKA +erythema/warmth/eschar) RLE heel with dry black eschar noted, no significant periwound erythema or draiange. Neurologic: moves all extremities and awake Psychiatric: Orientation: alert and oriented x 3 Affect: + anxious affect Results & Data ([facility]) Vital Signs (Past 12 Hours) Vital Signs Temp Pulse Pulse Resp BP Pulse Ox 02/03/21 07:37 88 02/03/21 07:34 36.6 C 85 18 117/51 L 98 02/03/21 03:21 36.5 C 87 18 129/57 L 95 02/02/21 23:56 89 02/02/21 23:10 36.4 C L 91 H 20 124/53 L 93
[2021-02-03] MEDS: DOCUSATE SODIUM 100 MG CAP PO SCH ×2 (09:59→19:32)
[2021-02-03] MEDS: COLLAGENASE OINT 30 GM TUBE TOP SCH (10:01)
--- NOTE | 2021-02-03 10:26 | Nephrology Progress Note ---
Date of Service February 03, 2021 Assessment & Plan (1) ESRD (end stage renal disease) on dialysis: (2) Hypertension: (3) Diabetes mellitus, type 2: (4) Hyperlipidemia: (5) Acute blood loss anemia: Plan: ESRD on hemodialysis admitted with GI bleeding, hemoglobin less than 6.9, received 2 unit of blood transfusion. EGD showed gastritis and currently on Protonix 40 b.i.d.. Blood pressure, volume status electrolyte acceptable. Dialyzes via right IJ tunneled dialysis catheter. Stopped HD after <1 h yesterday as she was not feeling well. Overall she is feeling better, blood pressure, electrolyte and vital signs stable. She is scheduled for debridement of left AK stump nonhealing ulcer -- will plan for hemodialysis tomorrow afternoon after she has debridement the morning. -- dose meds for gfr <10 -- epogen 61885 units with HD given on 02/02/21 will follow Admission and Anticipated Discharge Date Admission Date: January 27, 2021 Gayle Day was seen examined in her room this morning. She has been having pain at left AKA stump. BP fair, electrolyte acceptable. Had HD yesterday but she signed off after 2.5 h as she felt sick. Review of Systems Review of Systems: detailed review of system was otherwise unremarkable. Physical Exam Constitutional: WD/WN, vitals as above no acute distress Eyes: + anicteric sclerae ENMT: Ears: no hearing impairment Neck: normal visual inspection Respiratory: normal respiratory effort; no respiratory distress Auscultation: lungs clear to auscultation bilaterally Cardiovascular: Rate/Rhythm: regular rate and regular rhythm Heart Sounds: normal S1 and normal S2 Extremities: no edema Skin: normal turgor; no rashes Neurologic: no focal motor deficits and not confused Psychiatric: Orientation: alert and oriented x 3 Results & Data ([facility]) Vital Signs (Past 12 Hours) Vital Signs Temp Pulse Pulse Resp BP Pulse Ox 02/03/21 07:37 88 02/03/21 07:34 36.6 C 85 18 117/51 L 98 02/03/21 03:21 36.5 C 87 18 129/57 L 95 02/02/21 23:56 89 02/02/21 23:10 36.4 C L 91 H 20 124/53 L 93 PG Care Time/CCT Total # of Minutes Spent Total Time Spent with Patient: Total time spent is greater than 50% in coordination of care (as documented) at patient's floor/unit and/or counseling patient: Coding Level of Care Code 16003 Subseq Hosp Care Lvl 2 Diagnoses ESRD (end stage renal disease) on dialysis N18.6; Z99.2 Hypertension I10 Diabetes mellitus, type 2 E11.9 Hyperlipidemia E78.5 Acute blood loss anemia D62
--- NOTE | 2021-02-03 16:48 | Anesthesiology Consultation ---
Date of Service February 03, 2021 The patient required IV dextrose for hypoglycemia prior to her EGD on 01/28/21. Assessment & Plan Chart Review Chart Review: Acceptable Risk for Surgery (necessary procedure) and Patient NOT seen in Pre Admission Testing Consults Requested none ASA ASA4 History Surgery Operation Date: 01/28/21 15:30 Proposed Procedures p Esophagogastroduodenoscopy Dr. Castro - Javi Castro MD Operation Date: 02/04/21 11:40 Proposed Procedures p Debridement Left Above Knee Amputation Stump, Possible Application of Wound Vac - Giuseppe Michel MD Height/Weight Height: 5 ft 3 in Weight: 110.1 kg Allergies Allergy/AdvReac Type Severity Reaction Status Date / Time No Known Allergies Allergy Verified 01/24/21 20:53 Medications Home Medications Medication Instructions Recorded Confirmed Last Taken atorvastatin 20 mg tablet (Lipitor) 20 mg PO DAILY 06/05/18 01/27/21 11/16/18 20:30 clopidogrel 75 mg tablet (Plavix) 75 mg PO DAILY 06/05/18 01/27/21 11/17/18 04:30 docusate sodium 100 mg capsule 100 mg PO BID 06/05/18 01/27/21 11/17/18 04:30 insulin glargine 100 unit/mL 10 units SUBCUT HS 06/05/18 01/27/21 11/17/18 04:30 subcutaneous solution (Lantus 20 units U-100 Insulin) Saccharomyces boulardii 250 mg 250 mg PO BIDM 01/24/21 01/27/21 Unknown capsule acetaminophen 325 mg tablet 650 mg PO Q4 PRN 01/24/21 01/27/21 Unknown aspirin 81 mg tablet,delayed 81 mg PO DAILY 01/24/21 01/27/21 Unknown release (Aspirin Low Dose) bisacodyl 10 mg rectal suppository 10 mg [place] DAILY PRN 01/24/21 01/27/21 Unknown cholecalciferol (vitamin D3) 125 125 mcg PO DAILY 01/24/21 01/27/21 Unknown mcg (5,000 unit) capsule collagenase clostridium histo. 250 1 applic TOPICAL DAILY 01/24/21 01/27/21 Unknown unit/gram topical ointment (Santyl) darbepoetin sheri in polysorbat 100 100 mcg SUBCUT UD 01/24/21 01/27/21 Unknown mcg/0.5 mL in polysorbate injection syringe dextrose 40 % oral gel 15 g PO ONCE PRN 01/24/21 01/27/21 Unknown gentamicin 0.1 % topical ointment 1 applic TOPICAL DAILY 01/24/21 01/27/21 Unknown heparin (porcine) 5,000 unit/mL 5,000 unit SUBCUT Q12H 01/24/21 01/27/21 Unknown injection solution iron sucrose 100 mg iron/5 mL 100 mg IV UD PRN 01/24/21 01/27/21 Unknown intravenous solution (Venofer) magnesium hydroxide 400 mg/5 mL 30 ml PO DAILY PRN 01/24/21 01/27/21 Unknown oral suspension (Milk of Magnesia) meclizine 12.5 mg tablet 25 mg PO TID PRN 01/24/21 01/27/21 Unknown midodrine 5 mg tablet 5 mg PO TID 01/24/21 01/27/21 Unknown ondansetron 4 mg disintegrating 4 mg PO Q6H PRN 01/24/21 01/27/21 Unknown tablet pantoprazole 40 mg tablet,delayed 40 mg PO HS 01/24/21 01/27/21 Unknown release polyethylene glycol 3350 17 gram 17 g PO QDL PRN 01/24/21 01/27/21 Unknown oral powder packet (Miralax) sennosides 8.6 mg-docusate sodium 1 tab-cap PO QDL PRN 01/24/21 01/27/21 Unknown 50 mg tablet (Senokot-S) tramadol 50 mg tablet 50 mg PO Q6H PRN 01/24/21 01/27/21 Unknown doxycycline hyclate 100 mg capsule 100 mg PO BID 14 Days #28 cap 01/25/21 01/27/21 Unknown cocoa butter-shark liver oil 1 supp NH BID 01/27/21 01/27/21 Unknown rectal suppository hydrocortisone 2.5 % topical cream 1 applic TOPICAL BID 01/27/21 01/27/21 Unknown insulin regular human 100 unit/mL 1 sliding scale dose SUBCUT 01/27/21 01/27/21 Unknown injection solution (Humulin R USEASDIRECTD Regular U-100 Insulin) Active Medications Generic Name Dose Route Start Last Admin Trade Name Freq PRN Reason Stop Dose Admin Acetaminophen 650 mg 01/28/21 04:59 02/02/21 22:56 Acetaminophen 325 Mg Tab PO 02/27/21 04:58 650 mg Q6H PRN Administration Fever/pain Atorvastatin Calcium 20 mg 01/28/21 09:00 02/03/21 08:26 Atorvastatin 20 Mg Tab PO 02/27/21 08:59 20 mg DAILY GABY Administration Dextrose 25 - 50 ml 01/27/21 22:41 01/28/21 10:53 Dextrose 50% 50 Ml Syringe IV 02/26/21 22:40 25 ml UD PRN Administration Hypoglycemia Protocol Protocol Diphenhydramine HCl 25 mg 02/01/21 00:54 02/02/21 22:56 Diphenhydramine Capsule 25 Mg Cap PO 03/03/21 00:53 25 mg TID PRN Administration Itching Docusate Sodium 100 mg 01/27/21 21:00 02/03/21 09:59 Docusate Sodium 100 Mg Cap PO 02/26/21 20:59 Not Given BID GABY Doxycycline Hyclate 100 mg 01/27/21 21:00 02/03/21 08:26 Doxycycline Hyclate 100 Mg Cap PO 02/03/21 20:59 100 mg BID GABY Administration Hydromorphone HCl 0.5 mg 01/30/21 21:57 01/30/21 22:40 Hydromorphone Inj 0.5 Mg/0.5 Ml Syr IV 02/13/21 21:56 0.5 mg Q6H PRN Administration Pain Promethazine HCl 12.5 mg/ 50.5 mls @ 202 mls/hr 01/28/21 00:52 01/28/21 02:00 Sodium Chloride IV 02/27/21 00:51 Infused Q6H PRN Infusion Nausea And Vomiting Ampicillin Sodium/Sulbactam 108 mls @ 200 mls/hr 01/29/21 21:00 02/03/21 09:01 Sodium 3,000 mg/ Sodium IV 02/04/21 17:59 Infused Chloride Q12H GABY Infusion Protocol Insulin Aspart 0 units 01/29/21 07:30 02/03/21 12:38 Insulin Aspart 100 Units/Ml 3 Ml Pen SC 02/28/21 07:29 Not Given ACHS GABY Lactobacillus Acidoph/Casei/Rhamnos 2 cap 01/30/21 15:00 02/03/21 08:26 Advanced Probiotic 1250 Mg Capsule PO 03/01/21 14:59 2 cap DAILY GABY Administration Midodrine 10 mg 02/02/21 08:00 02/02/21 08:49 Midodrine Hcl 10 Mg Tab PO 03/04/21 07:59 10 mg [id number] GABY Administration Pantoprazole Sodium 40 mg 01/29/21 21:00 02/03/21 08:26 Pantoprazole 40 Mg Tab PO 02/28/21 20:59 40 mg BID GABY Administration Tramadol HCl 50 mg 01/28/21 05:00 02/01/21 18:09 Tramadol Hcl 50 Mg Tablet PO 02/26/21 19:23 50 mg Q4H PRN Administration Pain Vitamin D 5,000 units 01/28/21 09:00 02/03/21 08:26 Cholecalciferol 1,000 Units 25 Mcg Tab PO 02/27/21 08:59 5,000 units DAILY GABY Administration NPO Date Last Intake of Fluids: 01/28/21 Time Last Intake of Fluids: 08:30 Last Intake of Fluids Comment: Water with meds Date Last Intake of Solids: 01/27/21 Time Last Intake of Solids: 08:00 Past Medical History Medical History (Updated 02/03/21 @ 16:49 by Jeffrey Wong MD) Anemia AV fistula LEFT ARM Congestive heart failure Diabetes mellitus, type 2 Difficult intravenous access Hemodialysis patient [facility] Hyperlipidemia Hypertension Morbid obesity Obstructive sleep apnea Peripheral vascular disease Right heart failure Transient ischemic attack (TIA) X 14 (LAST EVENT 2015) Past Family History Family History Other No significant family history Past Surgical History Surgical History History of appendectomy History of cardiac cath X 2 (NO STENTS) History of section X1 History of cholecystectomy History of colonoscopy History of dilatation and curettage X 3 History of hysterectomy History of surgery HX OF LEFT UPPER ARM FISTULOGRAM (CLOT IN AV FISTULA) X 9 TIMES History of tooth extraction Social History Smoking Status: Former smoker tobacco type: cigarettes Hx Alcohol Use: No Hx Substance Use: No substance use type: does not use Physical Exam Vital Signs Last Vital Signs Temp 37.2 C 02/03/21 15:11 Pulse 90 11/30/21 16:26 Resp 20 02/03/21 15:11 BP 125/77 02/03/21 15:11 Pulse Ox 98 02/03/21 15:11 Testing Laboratory Results 01/31/21 08:16 01/31/21 08:16 PT 10.4 Seconds (9.0-12.0) 01/27/21 15:05 INR 1.0 (0.9-1.1) 01/27/21 15:05 APTT 23.2 Seconds (21.0-31.0) 01/27/21 15:05 Hemoglobin A1c 4.7 % (4.5-5.6) 01/28/21 06:02 Blood Type O Positive 01/27/21 13:10 Antibody Screen NEGATIVE 01/27/21 13:10 02/03/21 02/03/21 02/03/21 16:23 11:21 07:16 POC Glucose 216 H 125 H 117 H Electrocardiogram Date: 01/27/21 Normal sinus rhythm Low voltage QRS Cannot rule out Anterior infarct , age undetermined Abnormal ECG When compared with ECG of 24-JAN-2021 19:56, Nonspecific T wave abnormality, worse in Inferior leads Nonspecific T wave abnormality, worse in Anterolateral lead Chest X-Ray Date: 01/24/21 IMPRESSION: Moderate pulmonary edema.
--- NOTE | 2021-02-03 18:12 | Hospitalist Progress Note ---
Date of Service February 03, 2021 Assessment & Plan (1) GI bleed: Plan: secondary to Gastric Ulcer s/p EGD: (+) gastric ulcer 2 units pRBC given Hg stable at 9 diet advanced Protonix drip given, transitioned to BID -- Hg remains stable ~9 no recurrence of GI bleed -- Continue Protonix (2) Postoperative wound infection: Plan: L AKA stump cellulitis - Ortho consulted - Unasyn and Doxy Day 7 - s/p suture removal by Ortho - Vascular Sx eval: I&D tomorrow R Heel Wound - drying per RN - continue Doxy (3) ESRD (end stage renal disease) on dialysis: Plan: - Consult nephrology - pt on HD M/W/F (4) Diabetes mellitus, type 2: Plan: - Accuchecks Q6 H - Insulin sliding scale (5) Hypertension: Plan: - Continue home meds as appropriate (6) Hyperlipidemia: Plan: on Statin (7) Ulcer of right heel: Plan: - Wound care consult (8) Peripheral vascular disease: (9) Obstructive sleep apnea: Plan: Non-compliant with CPAP Disposition pending PT/OT eval plan of care discussed with patient and her daughter Dariela in detail and at length all questions answered they are understanding, agreeable, comfortable with the plan of care had questions re: procedure requested Dr. Michel to call patient's daughter Admission and Anticipated Discharge Date Admission Date: January 27, 2021 Subjective ff up for GI bleed, L AKA stump cellulitis, etc seen resting in bed, comfortable oriented, answers questions appropriately states she feels fine overall pain well controlled no fever/chills no abdominal pain, nausea no other symptoms Review of Systems Review of Systems: all noted and negative except for above Physical Exam Physical Exam: General- oriented x 3, not in distress, speaks in sentences with no effort or accessory muscle use Eyes- anicteric Neck- no JVD Lungs- clear BS BL no rales/wheezing Heart- normal rate, regular rhythm; no murmurs Abdomen- normal bowel sounds, nondistended, soft, nontender Extremities- no pretibial edema, no calf tenderness L AKA stump- incision dry, no bleeding/discharge, minimal surrounding erythema/warmth R heel wound- dry, no signs of infection Neuro- alert, oriented x 3; no gross focal neurologic deficits Skin- warm & dry Results & Data Results & Data ([facility]) Vital Signs (Past 12 Hours) Vital Signs Temp Pulse Pulse Resp BP Pulse Ox 02/03/21 16:26 90 02/03/21 15:11 37.2 C 90 20 125/77 98 02/03/21 11:15 36.5 C 86 20 116/65 98 02/03/21 07:37 88 02/03/21 07:34 36.6 C 85 18 117/51 L 98 all noted and reviewed including below (1) GI bleed GI bleed type/associated pathology: unspecified gastrointestinal hemorrhage type Qualified Code(s): K92.2 - Gastrointestinal hemorrhage, unspecified
[2021-02-03] MEDS ORDERED: PANTOPRAZOLE BOLUS/DRIP 1 EA IV STA (19:19)
[2021-02-03] MEDS ORDERED: PANTOprazole 80 MG in DEXTROSE 5% 100 ML IV ONE (19:30)
[2021-02-03] MEDS: diphenhydrAMINE Capsule 25 MG CAP PO PRN (19:31)
[2021-02-03] MEDS: ACETAMINOPHEN 325 MG TAB PO PRN (19:31)
[2021-02-03 20:09] LABS: Basophils # (auto) 0.05 K/uL (0-0.2); Basophils % (auto) 0.3 %; Eosinophils # (auto) 0.47 K/uL (0-0.5); Eosinophils % (auto) 2.8 %; Hematocrit (blood only) 31.5 % (37-47); Hemoglobin 9.5 g/dL (12.0-16.0); Immature Granulocytes # (auto) 0.08 K/uL (0.00-0.02); Immature Granulocytes % (auto) 0.5 %; Lymphocytes # (auto) 1.82 K/uL (1.2-3.4); Mean Corpuscular Hemoglobin 28.9 pg (25-34); Mean Corpuscular Hgb Conc 30.2 g/dL (32-36); Mean Corpuscular Volume 95.7 fL (80-100); Mean Platelet Volume 10.6 fL (7.4-10.4); Monocytes # (auto) 1.18 K/uL (0.11-0.59); Monocytes % (auto) 7.1 %; Neutrophils # (auto) 12.93 K/uL (1.4-6.5); Neutrophils % (auto) 78.3 %; Platelet Count 248 K/uL (130-400); RDW Coefficient of Variation 17.3 % (11.5-14.5); RDW Standard Deviation 60.5 fL (36.4-46.3); Red Blood Count 3.29 M/uL (4.2-5.4); White Blood Count 16.53 K/uL (4.8-10.8)
[2021-02-03] MEDS: PANTOprazole 40 MG in DEXTROSE 5% 100 ML IV SCH (20:18)
[2021-02-04] MEDS: PANTOprazole 40 MG in DEXTROSE 5% 100 ML IV SCH ×5 (00:36→22:00)
[2021-02-04] MEDS: PROMETHAZINE HCL 12.5 MG in SODIUM CHLORIDE 0.9% 50 ML IV PRN (01:08)
[2021-02-04 01:38] LABS: Hematocrit (blood only) 28.5 % (37-47); Hemoglobin 8.7 g/dL (12.0-16.0)
[2021-02-04] MEDS ORDERED: SODIUM CHLORIDE 0.9% 250 ML IV PRN (01:51)
[2021-02-04] MEDS ORDERED: ONDANSETRON INJ 2 MG/ML 2 ML VIAL IV STA (04:11)
[2021-02-04] MEDS ORDERED: SODIUM CHLORIDE 0.9% 500 ML IV SCH (04:30)
[2021-02-04] MEDS: SODIUM CHLORIDE 0.9% 1000ML 1,000 ML IV SCH (05:22)
[2021-02-04 05:25] LABS: Basophils # (auto) 0.03 K/uL (0-0.2); Basophils % (auto) 0.2 %; Eosinophils # (auto) 0.31 K/uL (0-0.5); Eosinophils % (auto) 1.8 %; Hematocrit (blood only) 27.1 % (37-47); Hemoglobin 8.2 g/dL (12.0-16.0); Immature Granulocytes # (auto) 0.13 K/uL (0.00-0.02); Immature Granulocytes % (auto) 0.7 %; Lymphocytes # (auto) 1.97 K/uL (1.2-3.4); Lymphocytes % (auto) 11.2 %; Mean Corpuscular Hemoglobin 29.2 pg (25-34); Mean Corpuscular Volume 96.4 fL (80-100); Mean Platelet Volume 10.8 fL (7.4-10.4); Monocytes # (auto) 0.68 K/uL (0.11-0.59); Monocytes % (auto) 3.9 %; Neutrophils % (auto) 82.2 %; Platelet Count 253 K/uL (130-400); RDW Coefficient of Variation 17.3 % (11.5-14.5); RDW Standard Deviation 61.1 fL (36.4-46.3); Red Blood Count 2.81 M/uL (4.2-5.4); White Blood Count 17.52 K/uL (4.8-10.8)
[2021-02-04 05:53] LABS: BUN Creatinine Ratio 6.7 (10-20); Calcium 10.4 mg/dl (8.5-10.1); Creatinine Clr Calc Pharmacy 11.8 ml/min; Est GFR (African American) 7.9 ml/min; Est GFR (Non-African American) 6.8 ml/min; Magnesium 2.2 mg/dl (1.8-2.4); Potassium 3.8 mmol/L (3.5-5.1)
[2021-02-04 05:55] LABS: Mean Corpuscular Hgb Conc 30.3 g/dL (32-36)
[2021-02-04] MEDS: INSULIN ASPART 100 UNITS/ML 3 ML PEN SC SCH ×4 (08:06→20:30)
[2021-02-04] MEDS: AMPICILLIN/SULBACTAM SOD 3,000 MG in 0.9 % SODIUM CHLORIDE 100 ML IV SCH (08:07)
[2021-02-04] MEDS: HYDROmorphone INJ 0.5 MG/0.5 ML SYR IV PRN ×2 (08:08→19:51)
--- NOTE | 2021-02-04 09:13 | Communication Note ---
Date of Service: February 04, 2021 Patient is a 55 yo female who underwent an EGD on 01/28/21 during which time she was found to have a gastric ulcer. She was transitioned to BID PPI therapy. Was notified by on-call physician that patient developed an episode of bright red and dark red blood per rectum. Current H/H 8.2/27.1. At the present time, I would advise continuation of the Protonix drip and serial H/H evaluations. Pending labs and continued bleeding, could consider repeat endoscopic evaluation. We will continue to monitor at this time.
--- NOTE | 2021-02-04 10:18 | Nephrology Progress Note ---
Date of Service February 04, 2021 Assessment & Plan (1) ESRD (end stage renal disease) on dialysis: (2) Hypertension: (3) Diabetes mellitus, type 2: (4) Hyperlipidemia: (5) Acute blood loss anemia: Plan: ESRD on hemodialysis admitted with GI bleeding, hemoglobin less than 6.9, received 2 unit of blood transfusion. EGD showed gastritis and currently on Protonix 40 b.i.d.. Blood pressure, volume status electrolyte acceptable. Dialyzes via right IJ tunneled dialysis catheter. Overnight transfer to ICU as she developed acute GI bleeding, last hemoglobin 8.2. -- will plan for hemodialysis this afternoon. She has being coming off of treatment without finishing dialysis for last 2-3 treatment however volume status and blood pressure staying relatively stable. -- dose meds for gfr <10 -- epogen 37260 units with HD given on 02/02/21 will follow Admission and Anticipated Discharge Date Admission Date: January 27, 2021 Gayle Day was seen this morning. She has been complaining of pain in her buttock and left AKA stump. Overnight she was transferred to ICU after she developed acute GI bleeding. Hemoglobin dropped to 8.2. Electrolyte has been acceptable. Blood pressure stable. Review of Systems Review of Systems: detailed review of system was otherwise unremarkable. Physical Exam Constitutional: WD/WN, vitals as above + ill appearing; no acute distress Eyes: + anicteric sclerae ENMT: Ears: no hearing impairment Neck: normal visual inspection Respiratory: normal respiratory effort; no respiratory distress Auscultation: lungs clear to auscultation bilaterally Cardiovascular: Rate/Rhythm: regular rate and regular rhythm Heart Sounds: normal S1 and normal S2 Extremities: no edema Skin: normal turgor; no rashes Neurologic: no focal motor deficits and not confused Psychiatric: Orientation: alert and oriented x 3 Affect: + anxious affect and + tearful affect Results & Data ([facility]) Vital Signs (Past 12 Hours) Vital Signs Temp Pulse Pulse Pulse Resp BP Pulse Ox 02/04/21 08:00 97 H 02/04/21 07:56 36.4 C L 93 H 14 123/57 L 97 02/04/21 06:00 36.5 C 91 H 14 115/55 L 96 02/04/21 05:27 95/59 L 02/04/21 04:14 89/59 L 02/04/21 03:47 36.5 C 99 H 16 85/57 L 100 02/04/21 01:47 84 02/03/21 22:35 36.9 C 84 20 105/63 99 PG Care Time/CCT Total # of Minutes Spent Total Time Spent with Patient: Total time spent is greater than 50% in coordination of care (as documented) at patient's floor/unit and/or counseling patient: Coding Level of Care Code 25727 Subseq Hosp Care Lvl 2 Diagnoses ESRD (end stage renal disease) on dialysis N18.6; Z99.2 Hypertension I10 Diabetes mellitus, type 2 E11.9 Hyperlipidemia E78.5 Acute blood loss anemia D62
--- NOTE | 2021-02-04 11:29 | Gastroenterology Progress Note ---
Date of Service February 04, 2021 Assessment & Plan (1) BRBPR (bright red blood per rectum): Plan: Given hypotension and rectal bleeding overnight, would suspect ischemic colitis. Patient continues on IV antibiotics at this time. Would favor monitoring H/H and for further episodes of rectal bleeding. If symptoms return, can obtain a CT scan of the abdomen/pelvis, however patient has normal blood pressures at present and is planned for OR today for revision of wound necrosis at the site of her amputation. We will continue to monitor. The case was discussed with nursing staff as well. Admission and Anticipated Discharge Date Admission Date: January 27, 2021 Supervising Physician Co-Signing Physician Notes Agree with CAROLINE Marie as above Abd: Soft, NT, ND, +BS Continue current therapy and supportive care Discussed case with nursing, no BM's today No plans for repeat endoscopic evaluation at this time. Subjective I evaluated Barb at the bedside this morning due to reports of rectal bleeding overnight. Patient has significant vascular issues and had a recent amputation of her left leg. She is on dialysis. Current BUN/Cr 42/6.27. It appears that she did develop hypotension overnight. Patient reports a significant amount of bright red blood per rectum. She notes some lingering tenderness when pressed in the LLQ but denies abdominal pain otherwise. She had an EGD last week that indicated a gastric ulcer. Out of an abundance of caution, she was placed back on a PPI drip. She is awaiting a revision for her amputation given necrosis of the wound. She is slated for surgical debridement with possible wound vac placement today. Rectal bleeding has not reoccurred. She is presently on IV Unasyn. Review of Systems Constitutional: no fever and no chills Cardiovascular: no chest pain Gastrointestinal: + abdominal pain (LLQ pain when palpated per patient) and + blood in stools Physical Exam Constitutional: no acute distress Respiratory: normal respiratory effort Cardiovascular: Rate/Rhythm: regular rate Gastrointestinal (Abdomen): Inspection/Auscultation: abdomen normal to inspection Percussion/Palpation: + abdomen tender (LLQ) Psychiatric: Orientation: alert and oriented x 3 Results & Data Results & Data ([facility]) Vital Signs (Past 12 Hours) Vital Signs Temp Pulse Pulse Pulse Resp BP Pulse Ox 02/04/21 08:00 97 H 02/04/21 07:56 36.4 C L 93 H 14 123/57 L 97 02/04/21 06:00 36.5 C 91 H 14 115/55 L 96 02/04/21 05:27 95/59 L 02/04/21 04:14 89/59 L 02/04/21 03:47 36.5 C 99 H 16 85/57 L 100 02/04/21 01:47 84 PG Care Time/CCT Total # of Minutes Spent Total Time Spent with Patient: Total time spent is greater than 50% in coordination of care (as documented) at patient's floor/unit and/or counseling patient: Coding Level of Care Code 88397 Subseq Hosp Care Lvl 2 Diagnoses BRBPR (bright red blood per rectum) K62.5
[2021-02-04] MEDS: MIDODRINE HCL 10 MG TAB PO SCH (12:29)
[2021-02-04] MEDS: ATORVASTATIN 20 MG TAB PO SCH (12:29)
[2021-02-04] MEDS: ADVANCED PROBIOTIC 1250 MG CAPSULE PO SCH (12:29)
[2021-02-04] MEDS: CHOLECALCIFEROL 1,000 UNITS 25 MCG TAB PO SCH (12:29)
[2021-02-04] MEDS: DOCUSATE SODIUM 100 MG CAP PO SCH (12:29)
--- NOTE | 2021-02-04 12:52 | Communication Note ---
Date of Service: February 04, 2021 Surgery cancelled for today. Apparently she had a lower GI bleed last pm. GI is considering ischemic colitis. No medicine note on the chart for this episode of bleeding or the plans. Will reschedule for tuesday if GI and medicine is done with her GI bleed workup.
[2021-02-04] MEDS: traMADol HCL 50 MG TABLET PO PRN (13:28)
[2021-02-04 14:25] LABS: Basophils # (auto) 0.08 K/uL (0-0.2); Basophils % (auto) 0.4 %; Echinocytes 1+; Eosinophils # (auto) 0.24 K/uL (0-0.5); Eosinophils % (auto) 1.3 %; Hematocrit (blood only) 27.3 % (37-47); Hemoglobin 8.4 g/dL (12.0-16.0); Immature Granulocytes # (auto) 0.21 K/uL (0.00-0.02); Immature Granulocytes % (auto) 1.1 %; Lymphocytes # (auto) 2.45 K/uL (1.2-3.4); Mean Corpuscular Hemoglobin 29.1 pg (25-34); Mean Corpuscular Hgb Conc 30.8 g/dL (32-36); Mean Corpuscular Volume 94.5 fL (80-100); Mean Platelet Volume 11.4 fL (7.4-10.4); Monocytes # (auto) 1.55 K/uL (0.11-0.59); Monocytes % (auto) 8.2 %; Neutrophils # (auto) 14.31 K/uL (1.4-6.5); Platelet Count 216 K/uL (130-400); Platelet Estimate Normal (Normal); RDW Coefficient of Variation 17.1 % (11.5-14.5); RDW Standard Deviation 59.3 fL (36.4-46.3); Red Blood Count 2.89 M/uL (4.2-5.4); White Blood Count 18.84 K/uL (4.8-10.8)
--- NOTE | 2021-02-04 19:24 | Hospitalist Progress Note ---
Date of Service February 04, 2021 Assessment & Plan (1) GI bleed: Plan: Likely multifactorial Gastric Ulcer Bright red blood per rectum: Suspect ischemic colitis S/P EGD: gastric ulcer S/P 2 units PRBC H/O hemarrhoids as per patient Continue Protonix drip Clear liquid diet follow Appreciate GI input Continue H&H and transfuse PRBCs as needed Continue IV antibiotics Consider CT abdomen if needed (2) Postoperative wound infection: Plan: Left AKA stump cellulitis Stage 3 Pressure ulcer of right heel, POA --Blood Cx: Negative to date Empirically received Unasyn for 7 days Also completed 7 days of doxycycline Worsening leukocytosis Transition Unasyn to Zosyn Appreciate orthopedics, vascular surgery input Needs debridement of left above-knee amputation stump and possible need for wound VAC Continue wound care (3) ESRD (end stage renal disease) on dialysis: Plan: - Consult nephrology - pt on HD M/W/F (4) Diabetes mellitus, type 2: Plan: - Accuchecks Q6 H - Insulin sliding scale (5) Hypertension: Plan: Monitor BP Continue current medications (6) Hyperlipidemia: Plan: on Statin (7) Ulcer of right heel: Plan: - Wound care consult (8) Peripheral vascular disease: (9) Obstructive sleep apnea: Plan: Non-compliant with CPAP CODE STATUS Full code DVT Px: SCDs Re: GI bleeding Admission and Anticipated Discharge Date Admission Date: January 27, 2021 Subjective Patient is seen and examined bedside Patient had rectal bleeding overnight. This morning States having significant Stump Pain Patient is planned for debridement but later canceled Updated patient's daughter over the phone Also states having nausea next Denies chest pain, shortness of breath, dizziness Offers no other complaints Review of Systems Review of Systems: All systems reviewed & are unremarkable except as noted in Subjective Physical Exam Physical Exam: Physical Exam: Vitals signs as noted above General Appearance:Morbidly Obese, chronic ill appearing Head: normocephalic, Atraumatic Eyes: normal inspection, EOMI Neck: supple, Trachea midline Respiratory/Chest: Normal breath sounds, CTA, No accessory muscle use Cardiovascular: S1, S2, No murmur Abdomen/GI:Soft, Non tender, Bowel sounds present Extremities/Musculoskeletal:normal inspection, 1+ pedal edema, Left AKA, mild erythema Neurologic/Psych:AAOX3, grossly no focal neurological deficits Skin: normal color, warm, right heel wound Results & Data Results & Data ([facility]) Vital Signs (Past 12 Hours) Vital Signs Temp Pulse Pulse Pulse Resp BP BP 02/04/21 18:00 88 102/40 L 02/04/21 17:45 86 90/49 L 02/04/21 17:30 85 83/42 L 02/04/21 17:15 85 114/48 L 02/04/21 17:00 87 80/43 L 02/04/21 16:45 94 H 81/39 L 02/04/21 16:35 85/49 L 02/04/21 16:30 92 H 76/44 L 02/04/21 16:15 90 76/49 L 02/04/21 16:12 88 02/04/21 16:00 88 79/54 L 02/04/21 15:45 92 H 81/53 L 02/04/21 15:30 90 75/40 L 02/04/21 15:20 95/52 L 02/04/21 15:15 93 H 71/45 L 02/04/21 15:00 93 H 81/50 L 02/04/21 14:57 36.6 C 93 H 11 L 85/55 L 02/04/21 14:45 90 92/57 L 02/04/21 14:25 36.8 C 96 H 02/04/21 12:39 36.6 C 87 16 108/62 02/04/21 08:00 97 H 02/04/21 07:56 36.4 C L 93 H 14 123/57 L Pulse Ox 02/04/21 18:00 02/04/21 17:45 02/04/21 17:30 02/04/21 17:15 02/04/21 17:00 02/04/21 16:45 02/04/21 16:35 02/04/21 16:30 02/04/21 16:15 02/04/21 16:12 02/04/21 16:00 02/04/21 15:45 02/04/21 15:30 02/04/21 15:20 02/04/21 15:15 02/04/21 15:00 02/04/21 14:57 100 02/04/21 14:45 02/04/21 14:25 02/04/21 12:39 100 02/04/21 08:00 02/04/21 07:56 97 Laboratory Results Short CBC 02/03/21 02/04/21 02/04/21 Range/Units 19:57 01:23 04:40 WBC 16.53 H 17.52 H (4.8-10.8) K/uL Hgb 9.5 L 8.7 L 8.2 L (12.0-16.0) g/dL Hct 31.5 L 28.5 L 27.1 L (37-47) % Plt Count 248 253 (130-400) K/uL 02/04/21 Range/Units 13:07 WBC 18.84 H (4.8-10.8) K/uL Hgb 8.4 L (12.0-16.0) g/dL Hct 27.3 L (37-47) % Plt Count 216 (130-400) K/uL BMP 02/04/21 04:40 Sodium 136 Potassium 3.8 Chloride 104 Carbon Dioxide 22 BUN 42 H Creatinine 6.27 H* Glucose 154 H Calcium 10.4 H (1) GI bleed GI bleed type/associated pathology: unspecified gastrointestinal hemorrhage type Qualified Code(s): K92.2 - Gastrointestinal hemorrhage, unspecified
[2021-02-04] MEDS ORDERED: PIPERACILL/TAZOBAC CONSULT ACTIVE PRN (19:36)
[2021-02-04] MEDS ORDERED: PIPERACILLIN/TAZOBACTAM 3.375 GM in DEXTROSE 5% 100 ML IV ONE (19:45)
[2021-02-04 22:45] LABS: Hematocrit (blood only) 23.2 % (37-47); Hemoglobin 7.2 g/dL (12.0-16.0)
[2021-02-05] MEDS: DOCUSATE SODIUM 100 MG CAP PO SCH ×3 (01:34→20:11)
[2021-02-05] MEDS: traMADol HCL 50 MG TABLET PO PRN ×3 (01:41→18:23)
[2021-02-05] MEDS: SODIUM CHLORIDE 0.9% 1000ML 1,000 ML IV SCH ×2 (01:47→08:08)
[2021-02-05] MEDS ORDERED: PIPERACILLIN/TAZOBACTAM 3.375 GM in DEXTROSE 5% 100 ML IV SCH (04:00)
[2021-02-05] MEDS: PANTOprazole 40 MG in DEXTROSE 5% 100 ML IV SCH ×5 (04:45→21:41)
[2021-02-05 05:50] LABS: Hematocrit (blood only) 24.6 % (37-47); Hemoglobin 7.5 g/dL (12.0-16.0); Mean Corpuscular Hemoglobin 29.3 pg (25-34); Mean Corpuscular Hgb Conc 30.5 g/dL (32-36); Mean Corpuscular Volume 96.1 fL (80-100); Mean Platelet Volume 10.9 fL (7.4-10.4); Platelet Count 207 K/uL (130-400); RDW Coefficient of Variation 17.3 % (11.5-14.5); RDW Standard Deviation 60.8 fL (36.4-46.3); Red Blood Count 2.56 M/uL (4.2-5.4); White Blood Count 14.19 K/uL (4.8-10.8)
[2021-02-05 06:27] LABS: Calcium 9.6 mg/dl (8.5-10.1); Creatinine Clr Calc Pharmacy 23.7 ml/min; Est GFR (African American) 18.7 ml/min; Est GFR (Non-African American) 16.2 ml/min; Potassium 2.9 mmol/L (3.5-5.1)
[2021-02-05] MEDS: INSULIN ASPART 100 UNITS/ML 3 ML PEN SC SCH ×4 (08:09→21:40)
[2021-02-05] MEDS: ADVANCED PROBIOTIC 1250 MG CAPSULE PO SCH (08:09)
[2021-02-05] MEDS: ATORVASTATIN 20 MG TAB PO SCH (08:09)
[2021-02-05] MEDS: CHOLECALCIFEROL 1,000 UNITS 25 MCG TAB PO SCH (08:10)
[2021-02-05] MEDS ORDERED: POTASSIUM CHLORIDE 20 MEQ/15 ML UDC PO STA (08:10)
[2021-02-05] MEDS: MIDODRINE HCL 10 MG TAB PO SCH (08:10)
[2021-02-05] MEDS: POTASSIUM CHLORIDE / WTR 10 MEQ/100 ML PLCT IV SCH ×4 (10:13→17:10)
--- NOTE | 2021-02-05 11:01 | Nephrology Progress Note ---
Date of Service February 05, 2021 Assessment & Plan (1) ESRD (end stage renal disease) on dialysis: (2) Hypertension: (3) Diabetes mellitus, type 2: (4) Hyperlipidemia: (5) Acute blood loss anemia: Plan: ESRD on hemodialysis admitted with GI bleeding, hemoglobin less than 6.9, received 2 unit of blood transfusion. EGD showed gastritis and currently on Protonix 40 b.i.d.. Blood pressure, volume status electrolyte acceptable. Dialyzes via right IJ tunneled dialysis catheter. Has non healing ulcer on left AKA stump and rt heel. Plan for debridement on 02/06/21. Again had active GIB and HB dropped to 7.5, on PPI infusion. -- will plan for hemodialysis tomorrow afternoon as she will be going to OR for debridement. -- KCL 40 meq IV -- dose meds for gfr <10 -- epogen 07269 units with HD given on 02/02/21. Will give another dose with HD on 02/06/21 will follow Admission and Anticipated Discharge Date Admission Date: January 27, 2021 Gayle Day was seen this morning. She had HD yesterday, BP, volume status acceptable. Hb dropped again to 7.5 but no active GIB now, on IV PPI.She was really emotional and crying as she feels her family/daughter is trying to get her to hospice against her will. Review of Systems Review of Systems: detailed review of system was otherwise unremarkable. Physical Exam Constitutional: WD/WN, vitals as above + ill appearing; no acute distress Respiratory: normal respiratory effort; no respiratory distress Auscultation: lungs clear to auscultation bilaterally Cardiovascular: Rate/Rhythm: regular rate and regular rhythm Heart Sounds: normal S1 and normal S2 Extremities: no edema Musculoskeletal: left AKA Skin: normal turgor; no rashes Neurologic: no focal motor deficits and not confused Psychiatric: Orientation: alert and oriented x 3 Affect: + anxious affect and + tearful affect Results & Data ([facility]) Vital Signs (Past 12 Hours) Vital Signs Temp Pulse Resp BP Pulse Ox 02/05/21 07:23 37.0 C 87 18 128/59 L 95 02/05/21 04:00 84 13 104/41 L 98 PG Care Time/CCT Total # of Minutes Spent Total Time Spent with Patient: Total time spent is greater than 50% in coordination of care (as documented) at patient's floor/unit and/or counseling patient: Coding Level of Care Code 13619 Subseq Hosp Care Lvl 3 Diagnoses ESRD (end stage renal disease) on dialysis N18.6; Z99.2 Hypertension I10 Diabetes mellitus, type 2 E11.9 Hyperlipidemia E78.5 Acute blood loss anemia D62
[2021-02-05] MEDS ORDERED: OPTIRAY 320 100ml IV ONE (13:41)
[2021-02-05 14:30] LABS: Hematocrit (blood only) 26.7 % (37-47)
--- NOTE | 2021-02-05 15:08 | CT Scan Report ---
CT abd pelvis oral and IV con CLINICAL HISTORY: Rectal bleeding and hypotension. Evaluate for ischemic colitis. COMPARISON STUDY: No previous studies for comparison. CT DOSE: 1238.67 mGycm TECHNIQUE: Standard CT of the Abdomen and Pelvis was performed with IV contrast. A dose lowering berto hnique was utilized adhering to the principles of ALARA. Contrast Volume: Optiray 320, 94 ml. The patient received oral contrast. FINDINGS: Lung base: The lung bases are clear. However, there is a partially calcified pleural-based nodular de nsity within the lateral lingular segment of the left upper lobe measuring approximately 2.0 x 1.9 cm . This is not well seen radiographically is most characteristic of a benign finding. Follow-up CT dan[address] in 3 months would be helpful for further evaluation. Heart size is within normal limits with coron jenny artery and mitral annular calcification. Abdominal cavity: There is no evidence for abdominal mass, adenopathy or ascites. Liver: There is homogeneous attenuation of the liver parenchyma. There is no evidence for enhancing m ass lesion. Spleen: There is homogeneous attenuation of the splenic parenchyma. There is no enhancing mass lesion . Pancreas: There is homogeneous attenuation of the pancreatic parenchyma. There is no evidence for mas s lesion or peripancreatic fluid collection. Gall Bladder: The gallbladder is absent. Adrenal glands: The adrenal glands are normal in size and attenuation. There is no evidence for enhan cing mass lesion. Kidneys: There is homogeneous attenuation of the renal parenchyma bilaterally. There is no evidence f or renal calculus or hydronephrosis. There is no evidence for enhancing mass. Bowel: Oral contrast is seen within the stomach, throughout the small bowel and within the colon to t he level of the rectum. The bowel loops are normally placed within the abdomen and pelvis without rema dence for dilatation or obstruction. There is an essentially normal mucosal pattern of the small and large bowel with no evidence for mucosal thickening, edema or ischemic change. However, there is a fi lling defect present within the rectum and the presence of a rectal mass cannot be excluded. This meggan sures approximately 5.1 x 3.0 cm. Direct visualization is recommended. There are no inflammatory llamas ges present. There is no evidence for free air. Bladder: The bladder is distended with no evidence for focal mass, calculus or diverticulum. : There is no evidence for pelvic mass or adenopathy. There is no evidence for pelvic ascites. Vasculature: There is no evidence for aneurysmal dilatation of the abdominal aorta. Atherosclerotic c alcification is present. Osseous structures: There is no acute osseous pathology. Mild degenerative changes are present. IMPRESSION: 1. No CT evidence for ischemic bowel. 2. However, there is a masslike filling defect within the rectum suspicious for a neoplastic process. Direct visualization is recommended. 3. Partially calcified pleural nodular density within the lingula with follow-up CT of the chest in 3 months recommended. 4. Additional nonacute findings are delineated above. ACT 112: Negative or not required by law. Electronically signed by: Carlton Vaughn M.D. 02/05/2021 3:06 PM
[2021-02-05] MEDS ORDERED: bisacodyL 5 MG TABEC PO ONE (16:09)
--- NOTE | 2021-02-05 16:19 | Communication Note ---
Date of Service: February 05, 2021 Due to continued rectal bleeding, obtained a CT scan of the abdomen/pelvis. There was question of a rectal abnormality. Will prep tonight with Miralax/Ga torade/Dulcolax. Will plan to give 2 fleet enemas tomorrow AM. Flex sig planned to occur before noon tomorrow. Monitor H/H.
--- NOTE | 2021-02-05 16:49 | Hospitalist Progress Note ---
Date of Service February 05, 2021 Assessment & Plan (1) GI bleed: Plan: Likely multifactorial Gastric Ulcer Bright red blood per rectum: Suspect ischemic colitis S/P EGD: gastric ulcer S/P 2 units PRBC H/O hemarrhoids as per patient --CT ABD:No CT evidence for ischemic bowel. However, there is a masslike filling defect within the rectum suspicious for a neoplastic process. Direct visualization is recommended. Continue Protonix drip Clear liquid diet Appreciate GI input Continue IV antibiotics for now Continue H&H and transfuse PRBCs as needed N.p.o. after midnight for flexible sigmoidoscopy tomorrow (2) Postoperative wound infection: Plan: Left AKA stump cellulitis Stage 3 Pressure ulcer of right heel, POA --Blood Cx: Negative to date Empirically received Unasyn for 7 days Also completed 7 days of doxycycline Worsening leukocytosis Transition Unasyn to Zosyn Appreciate orthopedics, vascular surgery input Needs debridement of left above-knee amputation stump and possible need for wound VAC Continue wound care Leukocytosis trending down (3) ESRD (end stage renal disease) on dialysis: Plan: - Consult nephrology - pt on HD M/W/F Plan for hemodialysis tomorrow Hypokalemia Replace electrolytes as needed (4) Diabetes mellitus, type 2: Plan: - Accuchecks Q6 H - Insulin sliding scale (5) Hypertension: Plan: Monitor BP Continue current medications (6) Hyperlipidemia: Plan: on Statin (7) Ulcer of right heel: Plan: - Wound care consult (8) Peripheral vascular disease: (9) Obstructive sleep apnea: Plan: Non-compliant with CPAP CODE STATUS Full code DVT Px: SCDs Re: GI bleeding Admission and Anticipated Discharge Date Admission Date: January 27, 2021 Subjective Patient is seen and examined bedside Back pain, left lower extremity stump pain better today Continues to have intermittent rectal bleeding Discussed with GI today Also reports nausea but no vomiting Denies any chest pain, shortness of breath, dizziness, abdominal pain Review of Systems Review of Systems: All systems reviewed & are unremarkable except as noted in Subjective Physical Exam Physical Exam: Physical Exam: Vitals signs as noted above General Appearance:Morbidly Obese, chronic ill appearing Head: normocephalic, Atraumatic Eyes: normal inspection, EOMI Neck: supple, Trachea midline Respiratory/Chest: Normal breath sounds, CTA, No accessory muscle use Cardiovascular: S1, S2, No murmur Abdomen/GI:Soft, Non tender, Bowel sounds present Extremities/Musculoskeletal:normal inspection, 1+ pedal edema, Left AKA, mild erythema Neurologic/Psych:AAOX3, grossly no focal neurological deficits Skin: normal color, warm, right heel wound Results & Data Results & Data ([facility]) Vital Signs (Past 12 Hours) Vital Signs Temp Pulse Pulse Pulse Resp BP Pulse Ox 02/05/21 14:30 87 02/05/21 13:00 36.8 C 80 12 84/60 L 98 02/05/21 07:23 37.0 C 87 18 128/59 L 95 Laboratory Results Short CBC 02/04/21 02/05/21 02/05/21 Range/Units 22:25 05:24 14:02 WBC 14.19 H (4.8-10.8) K/uL Hgb 7.2 L 7.5 L 8.0 L (12.0-16.0) g/dL Hct 23.2 L 24.6 L 26.7 L (37-47) % Plt Count 207 (130-400) K/uL [facility] 02/05/21 05:24 Sodium 138 Potassium 2.9 L D Chloride 102 Carbon Dioxide 30 BUN 15 D Creatinine 3.06 H D Glucose 123 H Calcium 9.6 (1) GI bleed GI bleed type/associated pathology: unspecified gastrointestinal hemorrhage type Qualified Code(s): K92.2 - Gastrointestinal hemorrhage, unspecified
[2021-02-05] MEDS: PIPERACILLIN/TAZOBACTAM 4.5 GM in DEXTROSE 5% 100 ML IV SCH (17:16)
[2021-02-05] MEDS ORDERED: POLYETHYLENE (MIRALAX) 17 GM PACK PO ONE (18:00)
[2021-02-05 20:43] LABS: Hematocrit (blood only) 20.9 % (37-47); Hemoglobin 6.5 g/dL (12.0-16.0)
[2021-02-05] MEDS ORDERED: SODIUM CHLORIDE 0.9% 250 ML IV PRN (20:50)
[2021-02-05] MEDS: HYDROmorphone INJ 0.5 MG/0.5 ML SYR IV PRN (21:07)
[2021-02-05] MEDS: ACETAMINOPHEN 325 MG TAB PO PRN (21:15)
[2021-02-05] MEDS ORDERED: Nursing to Pharmacy Communication SCH (23:45)
[2021-02-06] MEDS: SODIUM CHLORIDE 0.9% 1000ML 1,000 ML IV SCH (01:49)
[2021-02-06] MEDS: PANTOprazole 40 MG in DEXTROSE 5% 100 ML IV SCH ×3 (02:47→18:30)
[2021-02-06 04:03] LABS: Hematocrit (blood only) 23.1 % (37-47); Hemoglobin 7.3 g/dL (12.0-16.0); Mean Corpuscular Hemoglobin 29.4 pg (25-34); Mean Corpuscular Hgb Conc 31.6 g/dL (32-36); Mean Corpuscular Volume 93.1 fL (80-100); Mean Platelet Volume 10.4 fL (7.4-10.4); Platelet Count 210 K/uL (130-400); RDW Coefficient of Variation 16.4 % (11.5-14.5); RDW Standard Deviation 55.4 fL (36.4-46.3); Red Blood Count 2.48 M/uL (4.2-5.4); White Blood Count 10.96 K/uL (4.8-10.8)
[2021-02-06 04:29] LABS: Calcium 9.6 mg/dl (8.5-10.1); Creatinine Clr Calc Pharmacy 18.9 ml/min; Est GFR (African American) 14.2 ml/min; Est GFR (Non-African American) 12.3 ml/min; Magnesium 1.9 mg/dl (1.8-2.4); Potassium 3.4 mmol/L (3.5-5.1)
[2021-02-06] MEDS ORDERED: SODIUM CHLORIDE 0.9% 250 ML IV PRN (04:51)
[2021-02-06] MEDS ORDERED: FUROSEMIDE 40 MG/4 ML VIAL IV ONE (05:35)
[2021-02-06] MEDS ORDERED: PANTOprazole 40 MG in SYRINGE 0 ML IV ONE (06:04)
[2021-02-06] MEDS: traMADol HCL 50 MG TABLET PO PRN ×2 (06:17→19:32)
[2021-02-06] MEDS: INSULIN ASPART 100 UNITS/ML 3 ML PEN SC SCH ×4 (06:18→20:43)
[2021-02-06] MEDS ORDERED: SOD PHOSPHATE/SOD BIPHOSPHATE ENEMA 132 ML BTL PR ONE (09:00)
[2021-02-06] MEDS: DOCUSATE SODIUM 100 MG CAP PO SCH ×2 (09:27→20:17)
[2021-02-06] MEDS: ADVANCED PROBIOTIC 1250 MG CAPSULE PO SCH (09:27)
[2021-02-06] MEDS: CHOLECALCIFEROL 1,000 UNITS 25 MCG TAB PO SCH (09:27)
[2021-02-06] MEDS: ATORVASTATIN 20 MG TAB PO SCH (09:27)
--- NOTE | 2021-02-06 10:24 | History & Physical Bridge Note ---
Date of Service February 06, 2021 History & Physical Bridge Note I have examined the patient, reviewed the History & Physical and in the interval since the performance of the History & Physical I have noted the following changes of clinical significance: no changes noted. Patient is resting at the time of my visit. She reports no rectal bleeding overnight. She is unclear how much of her bowel prep she consumed. She is scheduled to have 2 fleet enemas this AM. H/H 7.3/23.1. Keep NPO & proceed with flex sig today around 11:40 AM. Supervising Physician Co-Signing Physician Notes Agree with CAROLINE Marie as above Abd: Soft, NT, ND, +BS Proceed with colonoscopy today
[2021-02-06] MEDS: PIPERACILLIN/TAZOBACTAM 4.5 GM in DEXTROSE 5% 100 ML IV SCH ×3 (11:51→18:32)
--- NOTE | 2021-02-06 12:30 | Nephrology Progress Note ---
Date of Service February 06, 2021 Assessment & Plan (1) ESRD (end stage renal disease) on dialysis: (2) Hypertension: (3) Diabetes mellitus, type 2: (4) Hyperlipidemia: (5) Acute blood loss anemia: Plan: ESRD on hemodialysis admitted with GI bleeding, hemoglobin less than 6.9, received 2 unit of blood transfusion. EGD showed gastritis and currently on Protonix 40 b.i.d.. Blood pressure, volume status electrolyte acceptable. Dialyzes via right IJ tunneled dialysis catheter. Has non healing ulcer on left AKA stump and rt heel. Plan for debridement on 02/06/21. Again had active GIB and HB dropped to 6.5, on PPI infusion. -- will plan for hemodialysis this afternoon as she will be going to OR for debridement. -- dose meds for gfr <10 -- epogen 69748 units with HD given on 02/02/21. Will give another dose with HD Today will follow Admission and Anticipated Discharge Date Admission Date: January 27, 2021 Gayle Burnette was seen in ICU this morning. She seems comfortable, denied any specific symptom. Hemoglobin dropped again to 6.5 overnight, getting blood transfusion and plan for EGD again today. Blood pressure stable. Review of Systems Review of Systems: detailed review of system was otherwise unremarkable. Physical Exam Constitutional: WD/WN, vitals as above + ill appearing; no acute distress Respiratory: normal respiratory effort; no respiratory distress Auscultation: lungs clear to auscultation bilaterally Cardiovascular: Rate/Rhythm: regular rate and regular rhythm Heart Sounds: normal S1 and normal S2 Extremities: no edema Musculoskeletal: left AKA Skin: normal turgor; no rashes Neurologic: no focal motor deficits and not confused Psychiatric: Orientation: alert and oriented x 3 Affect: + anxious affect and + tearful affect Results & Data ([facility]) Vital Signs (Past 12 Hours) Vital Signs Temp Pulse Pulse Pulse Resp BP BP 02/06/21 11:35 35.7 C L 80 18 104/72 02/06/21 11:00 36.4 C L 82 14 134/54 L 02/06/21 08:40 76 11 L 135/66 02/06/21 07:53 77 02/06/21 07:40 72 11 L 101/51 L 02/06/21 07:10 74 12 133/48 L 02/06/21 07:00 36.6 C 84 14 121/80 02/06/21 06:55 80 10 L 121/80 02/06/21 06:51 36.4 C L 79 16 121/80 02/06/21 06:38 36.5 C 77 16 110/52 L 02/06/21 03:08 36.7 C 76 16 118/88 02/06/21 01:29 36.7 C 75 16 110/61 02/06/21 00:35 36.8 C 83 18 129/52 L Pulse Ox 02/06/21 11:35 100 02/06/21 11:00 100 02/06/21 08:40 100 02/06/21 07:53 02/06/21 07:40 100 02/06/21 07:10 100 02/06/21 07:00 100 02/06/21 06:55 100 02/06/21 06:51 100 02/06/21 06:38 100 02/06/21 03:08 100 02/06/21 01:29 100 02/06/21 00:35 100 PG Care Time/CCT Total # of Minutes Spent Total Time Spent with Patient: Total time spent is greater than 50% in coordination of care (as documented) at patient's floor/unit and/or counseling patient: Coding Level of Care Code 44049 Subseq Hosp Care Lvl 2 Diagnoses ESRD (end stage renal disease) on dialysis N18.6; Z99.2 Hypertension I10 Diabetes mellitus, type 2 E11.9 Hyperlipidemia E78.5 Acute blood loss anemia D62
[2021-02-06] MEDS ORDERED: EPOETIN ALFA 10,000 UNITS/ML VIAL IV ONE (13:00)
--- NOTE | 2021-02-06 13:29 | Anesthesiology Progress Note ---
Date of Service February 06, 2021 Anesthesia Post Procedure Vital Signs Vital Signs: Temp Pulse Pulse Pulse Resp BP BP 02/06/21 13:17 74 16 88/61 L 02/06/21 13:08 69 16 103/39 L 02/06/21 11:35 35.7 C L 80 18 104/72 02/06/21 11:00 36.4 C L 82 14 134/54 L 02/06/21 08:40 76 11 L 135/66 02/06/21 07:53 77 02/06/21 07:40 72 11 L 101/51 L 02/06/21 07:10 74 12 133/48 L 02/06/21 07:00 36.6 C 84 14 121/80 02/06/21 06:55 80 10 L 121/80 02/06/21 06:51 36.4 C L 79 16 121/80 02/06/21 06:38 36.5 C 77 16 110/52 L 02/06/21 03:08 36.7 C 76 16 118/88 02/06/21 01:29 36.7 C 75 16 110/61 02/06/21 00:35 36.8 C 83 18 129/52 L 02/05/21 23:35 36.6 C 78 20 103/58 L 02/05/21 22:35 36.8 C 82 14 108/62 02/05/21 22:05 36.6 C 84 20 116/53 L 02/05/21 21:50 37 C 89 20 107/61 02/05/21 21:31 37 C 89 20 104/60 02/05/21 19:36 36.6 C 89 18 91/47 L 02/05/21 18:29 36.8 C 90 14 116/43 L 02/05/21 14:30 87 Pulse Ox 02/06/21 13:17 100 02/06/21 13:08 100 02/06/21 11:35 100 02/06/21 11:00 100 02/06/21 08:40 100 02/06/21 07:53 02/06/21 07:40 100 02/06/21 07:10 100 02/06/21 07:00 100 02/06/21 06:55 100 02/06/21 06:51 100 02/06/21 06:38 100 02/06/21 03:08 100 02/06/21 01:29 100 02/06/21 00:35 100 02/05/21 23:35 97 02/05/21 22:35 96 02/05/21 22:05 98 02/05/21 21:50 100 02/05/21 21:31 98 02/05/21 19:36 95 02/05/21 18:29 02/05/21 14:30 Pain Intensity Left Knee: Pain Intensity: 6 Transfer of Care Handoff Completed per policy Notes Mental Status: alert / awake / arousable Patient Amnestic to Procedure: Yes Nausea / Vomiting: adequately controlled Pain: adequately controlled Airway Patency, RR, SpO2: stable & adequate BP & HR: stable & adequate Hydration State: stable & adequate Anesthetic Complications: no major complications apparent
[2021-02-06 14:12] LABS: Hematocrit (blood only) 24.9 % (37-47); Hemoglobin 7.7 g/dL (12.0-16.0)
[2021-02-06] MEDS ORDERED: Nursing to Pharmacy Communication SCH (18:30)
--- NOTE | 2021-02-06 19:04 | Hospitalist Progress Note ---
Date of Service February 06, 2021 Assessment & Plan (1) GI bleed: Plan: Likely multifactorial Gastric Ulcer Bright red blood per rectum: Suspect ischemic colitis S/P EGD: gastric ulcer S/P 2 units PRBC H/O hemarrhoids as per patient --CT ABD:No CT evidence for ischemic bowel. However, there is a masslike filling defect within the rectum suspicious for a neoplastic process. Direct visualization is recommended. -S/P Colonoscopy: Two 5 to 7 mm polyps in the cecum, removed with hot snare. Resected and retrieved. Diverticulosis in the sigmoid colon. Nonbleeding internal hemorrhoids. No findings on the exam to correlate with abnormal CT in the rectum. It was most likely stool versus shadowing. --Pathology pending Continue Protonix drip>>Transitioned to PO Appreciate GI input Continue H&H and transfuse PRBCs as needed Advance diet as tolerated (2) Postoperative wound infection: Plan: Left AKA stump cellulitis Stage 3 Pressure ulcer of right heel, POA --Blood Cx: Negative to date Empirically received Unasyn for 7 days Also completed 7 days of doxycycline Worsening leukocytosis Transition Unasyn to Zosyn Appreciate orthopedics, vascular surgery input Needs debridement of left above-knee amputation stump and possible need for wound VAC Continue wound care Leukocytosis trending down (3) ESRD (end stage renal disease) on dialysis: Plan: - Consult nephrology - pt on HD M/W/F hemodialysis as per Nephrology Received Epogen with HD Hypokalemia Replace electrolytes as needed (4) Diabetes mellitus, type 2: Plan: - Accuchecks - Insulin sliding scale (5) Hypertension: Plan: Monitor BP Continue current medications (6) Hyperlipidemia: Plan: on Statin (7) Ulcer of right heel: Plan: - Wound care consult (8) Peripheral vascular disease: (9) Obstructive sleep apnea: Plan: Non-compliant with CPAP CODE STATUS Full code DVT Px: SCDs Re: GI bleeding Admission and Anticipated Discharge Date Admission Date: January 27, 2021 Subjective Patient is seen and examined bedside Had HD and colonoscopy earlier today States having generalized pain Reports chronic nausea Denies any chest pain, shortness of breath, dizziness, abdominal pain Review of Systems Review of Systems: All systems reviewed & are unremarkable except as noted in Subjective Physical Exam Physical Exam: Physical Exam: Vitals signs as noted above General Appearance:Morbidly Obese, chronic ill appearing Head: normocephalic, Atraumatic Eyes: normal inspection, EOMI Neck: supple, Trachea midline Respiratory/Chest: Normal breath sounds, CTA, No accessory muscle use Cardiovascular: S1, S2, No murmur Abdomen/GI:Soft, Non tender, Bowel sounds present Extremities/Musculoskeletal:normal inspection, 1+ pedal edema, Left AKA, mild erythema Neurologic/Psych:AAOX3, grossly no focal neurological deficits Skin: normal color, warm, right heel wound Results & Data Results & Data ([facility]) Vital Signs (Past 12 Hours) Vital Signs Temp Pulse Pulse Pulse Resp BP BP 02/06/21 18:39 36.8 C 82 16 87/55 L 02/06/21 18:04 36.8 C 89 115/59 L 02/06/21 17:58 88 102/62 02/06/21 17:40 80 86/75 L 02/06/21 17:20 82 106/53 L 02/06/21 17:00 85 105/55 L 02/06/21 16:40 84 95/58 L 02/06/21 16:20 83 96/55 L 02/06/21 16:00 83 90/58 L 02/06/21 15:40 84 99/69 L 02/06/21 15:20 81 119/52 L 02/06/21 15:00 78 100/69 02/06/21 14:40 80 122/66 02/06/21 14:28 36.5 C 76 77 76 135/66 02/06/21 14:25 36.5 C 80 02/06/21 13:56 36.4 C L 77 17 106/45 L 02/06/21 13:34 75 16 101/56 L 02/06/21 13:17 74 16 88/61 L 02/06/21 13:08 69 16 103/39 L 02/06/21 11:35 35.7 C L 80 18 104/72 02/06/21 11:00 36.4 C L 82 14 134/54 L 02/06/21 08:40 76 11 L 135/66 02/06/21 07:53 77 02/06/21 07:40 72 11 L 101/51 L 02/06/21 07:10 74 12 133/48 L 02/06/21 07:00 36.6 C 84 14 121/80 Pulse Ox 02/06/21 18:39 98 02/06/21 18:04 02/06/21 17:58 02/06/21 17:40 02/06/21 17:20 02/06/21 17:00 02/06/21 16:40 02/06/21 16:20 02/06/21 16:00 02/06/21 15:40 02/06/21 15:20 02/06/21 15:00 02/06/21 14:40 02/06/21 14:28 02/06/21 14:25 02/06/21 13:56 98 02/06/21 13:34 96 02/06/21 13:17 100 02/06/21 13:08 100 02/06/21 11:35 100 02/06/21 11:00 100 02/06/21 08:40 100 02/06/21 07:53 02/06/21 07:40 100 02/06/21 07:10 100 02/06/21 07:00 100 Laboratory Results Short CBC 02/05/21 02/05/21 02/06/21 Range/Units 18:30 20:29 03:43 WBC 10.96 H (4.8-10.8) K/uL Hgb Cancelled 6.5 L* 7.3 L Hct Cancelled 20.9 L* 23.1 L Plt Count 210 (130-400) K/uL 02/06/21 Range/Units 13:48 WBC (4.8-10.8) K/uL Hgb 7.7 L Hct 24.9 L Plt Count (130-400) K/uL BMP 02/06/21 03:43 Sodium 134 L Potassium 3.4 L D Chloride 101 Carbon Dioxide 28 BUN 19 H Creatinine 3.84 H D Glucose 96 Calcium 9.6 (1) GI bleed GI bleed type/associated pathology: unspecified gastrointestinal hemorrhage type Qualified Code(s): K92.2 - Gastrointestinal hemorrhage, unspecified
[2021-02-06] MEDS: PANTOprazole 40 MG TAB PO SCH (20:54)
[2021-02-06 21:06] LABS: Hematocrit (blood only) 23.8 % (37-47); Hemoglobin 7.4 g/dL (12.0-16.0)
[2021-02-07] MEDS: traMADol HCL 50 MG TABLET PO PRN ×2 (01:31→18:23)
[2021-02-07] MEDS: PIPERACILLIN/TAZOBACTAM 4.5 GM in DEXTROSE 5% 100 ML IV SCH ×2 (04:50→17:01)
[2021-02-07 08:13] LABS: Hematocrit (blood only) 25.1 % (37-47); Hemoglobin 7.7 g/dL (12.0-16.0); Mean Corpuscular Hemoglobin 29.6 pg (25-34); Mean Corpuscular Hgb Conc 30.7 g/dL (32-36); Mean Corpuscular Volume 96.5 fL (80-100); Mean Platelet Volume 10.8 fL (7.4-10.4); Platelet Count 208 K/uL (130-400); RDW Coefficient of Variation 17.4 % (11.5-14.5); RDW Standard Deviation 60.9 fL (36.4-46.3); White Blood Count 9.36 K/uL (4.8-10.8)
[2021-02-07 08:31] LABS: BUN Creatinine Ratio 3.2 (10-20); Calcium 9.5 mg/dl (8.5-10.1); Creatinine Clr Calc Pharmacy 30.6 ml/min; Est GFR (African American) 24.5 ml/min; Est GFR (Non-African American) 21.1 ml/min; Potassium 3.4 mmol/L (3.5-5.1)
[2021-02-07] MEDS: CHOLECALCIFEROL 1,000 UNITS 25 MCG TAB PO SCH (09:47)
[2021-02-07] MEDS: ATORVASTATIN 20 MG TAB PO SCH (09:48)
[2021-02-07] MEDS: MIDODRINE HCL 10 MG TAB PO SCH (09:48)
[2021-02-07] MEDS: ADVANCED PROBIOTIC 1250 MG CAPSULE PO SCH (09:48)
[2021-02-07] MEDS: DOCUSATE SODIUM 100 MG CAP PO SCH ×2 (09:49→22:46)
[2021-02-07] MEDS: HYDROmorphone INJ 0.5 MG/0.5 ML SYR IV PRN (11:13)
[2021-02-07] MEDS: INSULIN ASPART 100 UNITS/ML 3 ML PEN SC SCH ×4 (11:15→22:14)
--- NOTE | 2021-02-07 14:14 | Nephrology Progress Note ---
Date of Service February 07, 2021 Assessment & Plan (1) ESRD (end stage renal disease) on dialysis: Plan: HD MWF. Clearances acceptable despite limited treatments. Electrolytes controlled. Volume status acceptable. Next anticipated HD Tuesday. TDC has been functioning well. AVF failed. Monitor metabolic profile daily while inpatient. Renal diet. Medications appropriate for kidney dysfunction. (2) Hypertension: Plan: BP controlled. Volume status euvolemic. No changes at this time. (3) Acute blood loss anemia: Plan: With anemic of CKD. Epogen 60414 units given 02/02 and 02/07 with HD. Admission and Anticipated Discharge Date Admission Date: January 27, 2021 Gayle Day was very emotional this morning. She is feeling lonely and isolated from her family. She continues to struggle with pain on her bottom. HD treatment stopped short yesterday due to pain and discomfort. She is very weak and acknowledges that she is deconditioned. Review of Systems Review of Systems: All systems reviewed & are unremarkable except as noted in HPI & below Physical Exam Constitutional: well developed and + morbidly obese; no acute distress Eyes: + anicteric sclerae; no corneal abnormality ENMT: Mouth: no oral mucosal abnormality and oral mucous membranes not dry Neck: normal visual inspection and trachea midline rIJ TDC Respiratory: normal respiratory effort Auscultation: lungs clear to auscultation bilaterally and + diminished lung sounds Cardiovascular: Rate/Rhythm: regular rate Heart Sounds: normal S1, normal S2 and + murmur Extremities: no edema Musculoskeletal: Extremities: no cyanosis and no clubbing Skin: normal turgor; no lesions Neurologic: Motor/Sensory: no tremor and no asterixis Psychiatric: Orientation: alert and oriented x 3 Results & Data ([facility]) Vital Signs (Past 12 Hours) Vital Signs Temp Pulse Pulse Resp BP Pulse Ox 02/07/21 12:13 37.3 C 89 19 106/44 L 02/07/21 08:00 36.5 C 91 H 102 H 18 90/46 L 90 02/07/21 04:36 36.9 C 86 18 119/75 96 Laboratory Results Laboratory Results - last 24 hr 02/03/21 02/06/21 02/06/21 19:57 18:24 20:40 WBC RBC Hgb Hct MCV MCH MCHC RDW Std Deviation RDW Coeff of Maria D Plt Count MPV Sodium Potassium Chloride Carbon Dioxide Anion Gap BUN Creatinine Est Cr Clr Drug Dosing Est GFR ( Amer) Est GFR (Non-Af Amer) BUN/Creatinine Ratio Glucose POC Glucose 89 120 H Calcium Crossmatch See Detail 02/06/21 02/07/21 02/07/21 20:51 07:31 07:31 WBC 9.36 RBC 2.60 L Hgb 7.4 L 7.7 L Hct 23.8 L 25.1 L MCV 96.5 MCH 29.6 MCHC 30.7 L RDW Std Deviation 60.9 H RDW Coeff of Maria D 17.4 H Plt Count 208 MPV 10.8 H Sodium 141 D Potassium 3.4 L Chloride 107 Carbon Dioxide 24 Anion Gap 10.0 BUN 8 D Creatinine 2.45 H D Est Cr Clr Drug Dosing 30.6 Est GFR ( Amer) 24.5 Est GFR (Non-Af Amer) 21.1 BUN/Creatinine Ratio 3.2 L Glucose 86 POC Glucose Calcium 9.5 Crossmatch 02/07/21 02/07/21 07:43 11:10 WBC RBC Hgb Hct MCV MCH MCHC RDW Std Deviation RDW Coeff of Maria D Plt Count MPV Sodium Potassium Chloride Carbon Dioxide Anion Gap BUN Creatinine Est Cr Clr Drug Dosing Est GFR ( Amer) Est GFR (Non-Af Amer) BUN/Creatinine Ratio Glucose POC Glucose 88 121 H Calcium Crossmatch PG Care Time/CCT Total # of Minutes Spent Total Time Spent with Patient: Total time spent is greater than 50% in coordination of care (as documented) at patient's floor/unit and/or counseling patient: Coding Level of Care Code 14519 Subseq Hosp Care Lvl 3 Diagnoses ESRD (end stage renal disease) on dialysis N18.6; Z99.2 Hypertension I10 Acute blood loss anemia D62
--- NOTE | 2021-02-07 19:55 | Hospitalist Progress Note ---
Date of Service February 07, 2021 Assessment & Plan (1) GI bleed: Plan: Likely multifactorial Gastric Ulcer Rectal bleeding likely secondary to polyps, diverticulosis and internal hemorrhoids Suspect ischemic colitis--less likely based on CT S/P EGD: gastric ulcer S/P PRBC H/O hemorrhoids as per patient --CT ABD:No CT evidence for ischemic bowel. However, there is a masslike filling defect within the rectum suspicious for a neoplastic process. Direct visualization is recommended. -S/P Colonoscopy: Two 5 to 7 mm polyps in the cecum, removed with hot snare. Resected and retrieved. Diverticulosis in the sigmoid colon. Nonbleeding internal hemorrhoids. No findings on the exam to correlate with abnormal CT in the rectum. It was most likely stool versus shadowing. --Pathology pending Continue Protonix drip>>Transitioned to PO Appreciate GI input Continue H&H and transfuse PRBCs as needed Hb stable Monitor (2) Postoperative wound infection: Plan: Left AKA stump cellulitis Stage 3 Pressure ulcer of right heel, POA --Blood Cx: Negative to date Empirically received Unasyn for 7 days Also completed 7 days of doxycycline Worsening leukocytosis Transition Unasyn to Zosyn Appreciate orthopedics, vascular surgery input Needs debridement of left above-knee amputation stump and possible need for wound VAC Continue wound care Leukocytosis normalized Needs debridement (3) ESRD (end stage renal disease) on dialysis: Plan: - Consult nephrology - pt on HD M/W/F hemodialysis as per Nephrology Received Epogen with HD Hypokalemia Replace electrolytes as needed (4) Diabetes mellitus, type 2: Plan: - Accuchecks - Insulin sliding scale (5) Hypertension: Plan: Monitor BP Continue current medications (6) Hyperlipidemia: Plan: on Statin (7) Ulcer of right heel: Plan: - Wound care consult (8) Peripheral vascular disease: (9) Obstructive sleep apnea: Plan: Non-compliant with CPAP CODE STATUS Full code DVT Px: SCDs Re: GI bleeding Admission and Anticipated Discharge Date Admission Date: January 27, 2021 Subjective Patient is seen and examined bedside Generalized pain better today States having minimal rectal bleed this morning Denies any chest pain, shortness of breath, dizziness, abdominal pain Leukocytosis normalized Hemoglobin stable Review of Systems Review of Systems: All systems reviewed & are unremarkable except as noted in Subjective Physical Exam Physical Exam: Physical Exam: Vitals signs as noted above General Appearance:Morbidly Obese, chronic ill appearing Head: normocephalic, Atraumatic Eyes: normal inspection, EOMI Neck: supple, Trachea midline Respiratory/Chest: Normal breath sounds, CTA, No accessory muscle use Cardiovascular: S1, S2, No murmur Abdomen/GI:Soft, Non tender, Bowel sounds present Extremities/Musculoskeletal:normal inspection, 1+ pedal edema, Left AKA, mild erythema Neurologic/Psych:AAOX3, grossly no focal neurological deficits Skin: normal color, warm, right heel wound Results & Data Results & Data ([facility]) Vital Signs (Past 12 Hours) Vital Signs Temp Pulse Pulse Resp BP Pulse Ox 02/07/21 15:28 37.1 C 87 19 105/63 95 02/07/21 12:13 37.3 C 89 19 106/44 L 02/07/21 08:00 36.5 C 91 H 102 H 18 90/46 L 90 Laboratory Results Short CBC 02/06/21 02/07/21 Range/Units 20:51 07:31 WBC 9.36 (4.8-10.8) K/uL Hgb 7.4 L 7.7 L (12.0-16.0) g/dL Hct 23.8 L 25.1 L (37-47) % Plt Count 208 (130-400) K/uL BMP 02/07/21 07:31 Sodium 141 D Potassium 3.4 L Chloride 107 Carbon Dioxide 24 BUN 8 D Creatinine 2.45 H D Glucose 86 Calcium 9.5 (1) GI bleed GI bleed type/associated pathology: unspecified gastrointestinal hemorrhage type Qualified Code(s): K92.2 - Gastrointestinal hemorrhage, unspecified
[2021-02-07] MEDS: HYDROCORTISONE HC 2.5% CRM 30GM TUBE EXT SCH (22:15)
[2021-02-07] MEDS: PANTOprazole 40 MG TAB PO SCH (22:16)
[2021-02-08] MEDS: PIPERACILLIN/TAZOBACTAM 4.5 GM in DEXTROSE 5% 100 ML IV SCH ×2 (03:20→16:31)
[2021-02-08] MEDS: traMADol HCL 50 MG TABLET PO PRN ×3 (03:21→21:04)
[2021-02-08] MEDS: INSULIN ASPART 100 UNITS/ML 3 ML PEN SC SCH ×4 (08:45→20:50)
[2021-02-08] MEDS: CHOLECALCIFEROL 1,000 UNITS 25 MCG TAB PO SCH (08:45)
[2021-02-08] MEDS: DOCUSATE SODIUM 100 MG CAP PO SCH ×2 (08:45→20:49)
[2021-02-08] MEDS: ATORVASTATIN 20 MG TAB PO SCH (08:46)
[2021-02-08] MEDS: ADVANCED PROBIOTIC 1250 MG CAPSULE PO SCH (08:46)
[2021-02-08] MEDS: HYDROCORTISONE HC 2.5% CRM 30GM TUBE EXT SCH ×2 (08:47→20:49)
[2021-02-08 09:27] LABS: Hematocrit (blood only) 23.3 % (37-47); Hemoglobin 7.2 g/dL (12.0-16.0)
--- NOTE | 2021-02-08 11:47 | Nephrology Progress Note ---
Date of Service February 08, 2021 Assessment & Plan (1) ESRD (end stage renal disease) on dialysis: Plan: HD MWF. Electrolytes controlled. Volume status acceptable. Next anticipated HD tomorrow. TDC has been functioning well. AVF failed. Monitor metabolic profile daily while inpatient. Renal diet. Medications appropriate for kidney dysfunction. (2) Hypertension: Plan: BP controlled. Volume status euvolemic. No changes at this time. (3) Acute blood loss anemia: Plan: With anemic of CKD. Epogen 18632 units given 02/02 and 02/07 with HD. Admission and Anticipated Discharge Date Admission Date: January 27, 2021 Subjective No acute events overnight. Rectal discomfort persists. Denies notable bleeding. No abdominal pain. No fevers. Review of Systems Review of Systems: All systems reviewed & are unremarkable except as noted in HPI & below Physical Exam Constitutional: well developed and + morbidly obese; no acute distress Eyes: + anicteric sclerae; no corneal abnormality ENMT: Mouth: no oral mucosal abnormality and oral mucous membranes not dry Neck: normal visual inspection and trachea midline Respiratory: normal respiratory effort Auscultation: lungs clear to auscultation bilaterally and + diminished lung sounds Cardiovascular: Rate/Rhythm: regular rate Heart Sounds: normal S1, normal S2 and + murmur Extremities: no edema Musculoskeletal: Extremities: no cyanosis and no clubbing L AKA Skin: normal turgor; no lesions Neurologic: Motor/Sensory: no tremor and no asterixis Psychiatric: Orientation: alert and oriented x 3 Results & Data ([facility]) Vital Signs (Past 12 Hours) Vital Signs Temp Pulse Resp BP Pulse Ox 02/08/21 07:29 37.0 C 88 94/40 L 100 02/08/21 03:17 36.7 C 96 H 18 84/45 L 96 Laboratory Results Laboratory Results - last 24 hr 02/07/21 02/07/21 02/08/21 16:04 22:14 06:59 Hgb Hct POC Glucose 126 H 85 97 02/08/21 02/08/21 09:03 11:26 Hgb 7.2 L Hct 23.3 L POC Glucose 104 H PG Care Time/CCT Total # of Minutes Spent Total Time Spent with Patient: Total time spent is greater than 50% in coordination of care (as documented) at patient's floor/unit and/or counseling patient: Coding Level of Care Code 97674 Subseq Hosp Care Lvl 3 Diagnoses ESRD (end stage renal disease) on dialysis N18.6; Z99.2 Hypertension I10 Acute blood loss anemia D62
[2021-02-08 16:09] LABS: Hematocrit (blood only) 22.5 % (37-47)
[2021-02-08] MEDS ORDERED: SODIUM CHLORIDE 0.9% 250 ML IV PRN (16:25)
--- NOTE | 2021-02-08 18:06 | Hospitalist Progress Note ---
Date of Service February 08, 2021 Assessment & Plan (1) GI bleed: Plan: Likely multifactorial Gastric Ulcer Rectal bleeding likely secondary to polyps, diverticulosis and internal hemorrhoids Suspect ischemic colitis--less likely based on CT S/P EGD: gastric ulcer S/P PRBC H/O hemorrhoids as per patient --CT ABD:No CT evidence for ischemic bowel. However, there is a masslike filling defect within the rectum suspicious for a neoplastic process. Direct visualization is recommended. -S/P Colonoscopy: Two 5 to 7 mm polyps in the cecum, removed with hot snare. Resected and retrieved. Diverticulosis in the sigmoid colon. Nonbleeding internal hemorrhoids. No findings on the exam to correlate with abnormal CT in the rectum. It was most likely stool versus shadowing. --Pathology pending Continue Protonix drip>>Transitioned to PO Appreciate GI input Continue H&H and transfuse PRBCs as needed Hb 7.0 today Continues to have intermittent scant bleeding We will give 1 unit PRBC today Monitor CBC (2) Postoperative wound infection: Plan: Left AKA stump cellulitis Stage 3 Pressure ulcer of right heel, POA --Blood Cx: Negative to date Empirically received Unasyn for 7 days Also completed 7 days of doxycycline Worsening leukocytosis Transition Unasyn to Zosyn Appreciate orthopedics, vascular surgery input Needs debridement of left above-knee amputation stump and possible need for wound VAC Continue wound care Leukocytosis normalized Needs debridement (3) ESRD (end stage renal disease) on dialysis: Plan: - Consult nephrology - pt on HD M/W/F hemodialysis as per Nephrology Received Epogen with HD Hypokalemia Replace electrolytes as needed (4) Diabetes mellitus, type 2: Plan: - Accuchecks - Insulin sliding scale (5) Hypertension: Plan: Monitor BP Continue current medications (6) Hyperlipidemia: Plan: on Statin (7) Ulcer of right heel: Plan: - Wound care consult (8) Peripheral vascular disease: (9) Obstructive sleep apnea: Plan: Non-compliant with CPAP CODE STATUS Full code DVT Px: SCDs Re: GI bleeding Admission and Anticipated Discharge Date Admission Date: January 27, 2021 Subjective Patient is seen and examined bedside Patient continues to have intermittent scant bleeding Otherwise no new complaints Hemoglobin 7.0 today Denies any chest pain, shortness of breath, dizziness, abdominal pain Review of Systems Review of Systems: All systems reviewed & are unremarkable except as noted in Subjective Physical Exam Physical Exam: Physical Exam: Vitals signs as noted above General Appearance:Morbidly Obese, chronic ill appearing Head: normocephalic, Atraumatic Eyes: normal inspection, EOMI Neck: supple, Trachea midline Respiratory/Chest: Normal breath sounds, CTA, No accessory muscle use Cardiovascular: S1, S2, No murmur Abdomen/GI:Soft, Non tender, Bowel sounds present Extremities/Musculoskeletal:normal inspection, 1+ pedal edema, Left AKA, mild erythema Neurologic/Psych:AAOX3, grossly no focal neurological deficits Skin: normal color, warm, right heel wound Results & Data Results & Data ([facility]) Vital Signs (Past 12 Hours) Vital Signs Temp Pulse Resp BP Pulse Ox 02/08/21 15:21 37.2 C 97 H 16 108/69 96 02/08/21 11:51 37.1 C 96 H 18 112/71 96 02/08/21 07:29 37.0 C 88 94/40 L 100 Laboratory Results Short CBC 02/08/21 02/08/21 Range/Units 09:03 15:50 Hgb 7.2 L 7.0 L (12.0-16.0) g/dL Hct 23.3 L 22.5 L (37-47) % (1) GI bleed GI bleed type/associated pathology: unspecified gastrointestinal hemorrhage type Qualified Code(s): K92.2 - Gastrointestinal hemorrhage, unspecified
[2021-02-08] MEDS: PANTOprazole 40 MG TAB PO SCH (20:49)
[2021-02-08] MEDS: diphenhydrAMINE Capsule 25 MG CAP PO PRN (21:04)
[2021-02-09] MEDS: traMADol HCL 50 MG TABLET PO PRN (02:35)
[2021-02-09] MEDS: PIPERACILLIN/TAZOBACTAM 4.5 GM in DEXTROSE 5% 100 ML IV SCH ×2 (04:37→16:02)
[2021-02-09] MEDS ORDERED: ALBUMIN 25% 100 mL 25 GM/100 ML VIAL IV ONE (04:43)
[2021-02-09] MEDS ORDERED: SODIUM CHLORIDE 0.9% 250 ML IV PRN ×2 (04:45→23:25)
[2021-02-09] MEDS: MIDODRINE HCL 10 MG TAB PO SCH ×2 (06:33→12:14)
[2021-02-09] MEDS ORDERED: SODIUM CHLORIDE 0.9% 1000ML 1,000 ML IV PRN (07:00)
[2021-02-09 08:29] LABS: Hematocrit (blood only) 22.3 % (37-47); Hemoglobin 6.9 g/dL (12.0-16.0); Mean Corpuscular Hgb Conc 30.9 g/dL (32-36); Mean Corpuscular Volume 93.7 fL (80-100); Mean Platelet Volume 10.6 fL (7.4-10.4); Platelet Count 202 K/uL (130-400); RDW Coefficient of Variation 19.4 % (11.5-14.5); RDW Standard Deviation 65.6 fL (36.4-46.3); Red Blood Count 2.38 M/uL (4.2-5.4); White Blood Count 12.01 K/uL (4.8-10.8)
[2021-02-09 08:33] LABS: Basophils # (auto) 0.04 K/uL (0-0.2); Basophils % (auto) 0.3 %; Eosinophils # (auto) 0.52 K/uL (0-0.5); Eosinophils % (auto) 4.3 %; Immature Granulocytes # (auto) 0.08 K/uL (0.00-0.02); Immature Granulocytes % (auto) 0.7 %; Lymphocytes # (auto) 1.96 K/uL (1.2-3.4); Lymphocytes % (auto) 16.3 %; Monocytes # (auto) 0.68 K/uL (0.11-0.59); Monocytes % (auto) 5.7 %; Neutrophils # (auto) 8.73 K/uL (1.4-6.5); Neutrophils % (auto) 72.7 %; Polychromasia 1+
[2021-02-09 08:54] LABS: Alanine Aminotransferase < 6 (12-78); Albumin Level 1.7 gm/dl (3.4-5.0); Aspartate Aminotransferase 7 U/L (15-37); Blood Urea Nitrogen 17 mg/dl (7-18); Calcium 9.1 mg/dl (8.5-10.1); Carbon Dioxide 22 mmol/L (21-32); Chloride 106 mmol/L (98-107); Creatinine Clr Calc Pharmacy 17.2 ml/min; Est GFR (African American) 12.3 ml/min; Est GFR (Non-African American) 10.7 ml/min; Glucose 127 mg/dl (70-99); Iron 26 mcg/dl (35-150); Magnesium 1.8 mg/dl (1.8-2.4); Potassium 3.2 mmol/L (3.5-5.1); Sodium 139 mmol/L (136-145)
[2021-02-09 09:01] LABS: Albumin Globulin Ratio 0.5 (0.9-2); Alkaline Phosphatase 88 U/L (45-117); Bilirubin,Total 0.4 mg/dl (0.2-1); Ferritin 1465.8 ng/ml (8-388); Globulin 3.5 gm/dl (2.5-4.0); Total Protein 5.2 gm/dl (6.4-8.2); Transferrin 77 mg/dl (200-360); Transferrin (FE) Percent Satur 24 % (15-50)
--- NOTE | 2021-02-09 10:21 | Nephrology Progress Note ---
Date of Service February 09, 2021 Assessment & Plan (1) ESRD (end stage renal disease) on dialysis: Plan: HD schedule has been MWF. Electrolytes controlled. Volume status acceptable. I discussed with Barb today. Potassium is low. She is receiving PRBC transfusion support. I will hold HD today and reschedule for tomorrow. TDC has been functioning well. AVF failed. Monitor metabolic profile daily while inpatient. Renal diet. Medications appropriate for kidney dysfunction. (2) Hypertension: Plan: BP low. Volume status euvolemic. No changes at this time. (3) Acute blood loss anemia: Plan: With anemic of CKD. Epogen 24524 units given 02/02 and 02/07 with HD. PRBC transfusion support provided today. Noted GI planning tagged RBC scan. Admission and Anticipated Discharge Date Admission Date: January 27, 2021 Subjective Feeling very despondent this AM. Bleeding started again last night. Notable rectal pain persists. PRBC transfusion support is being provided. Barb is breathing comfortably. She remains very weak. Review of Systems Review of Systems: All systems reviewed & are unremarkable except as noted in HPI & below Physical Exam Constitutional: well developed and + morbidly obese; no acute distress Eyes: + anicteric sclerae; no corneal abnormality ENMT: Mouth: no oral mucosal abnormality and oral mucous membranes not dry Neck: normal visual inspection and trachea midline Respiratory: normal respiratory effort Auscultation: lungs clear to auscultation bilaterally and + diminished lung sounds Cardiovascular: Rate/Rhythm: regular rate Heart Sounds: normal S1, normal S2 and + murmur Extremities: no edema Musculoskeletal: Extremities: no cyanosis and no clubbing Skin: normal turgor; no lesions Neurologic: Motor/Sensory: no tremor and no asterixis Psychiatric: Orientation: alert and oriented x 3 Results & Data ([facility]) Vital Signs (Past 12 Hours) Vital Signs Temp Pulse Pulse Pulse Resp BP BP 02/09/21 10:00 85 14 91/55 L 02/09/21 09:30 84 14 84/52 L 02/09/21 09:15 85 14 84/49 L 02/09/21 09:06 37.1 C 86 14 83/43 L 02/09/21 08:42 37.0 C 89 12 75/45 L 02/09/21 07:10 36.7 C 89 18 141/73 H 02/09/21 04:35 36.9 C 95 H 18 87/45 L 02/08/21 23:45 36.9 C 90 18 97/62 L 02/08/21 22:45 36.8 C 91 H 16 100/68 Pulse Ox 02/09/21 10:00 98 02/09/21 09:30 99 02/09/21 09:15 93 02/09/21 09:06 99 02/09/21 08:42 96 02/09/21 07:10 100 02/09/21 04:35 97 02/08/21 23:45 97 02/08/21 22:45 97 Laboratory Results Laboratory Results - last 24 hr 02/03/21 02/07/21 02/08/21 19:57 07:31 15:50 WBC RBC Hgb 7.0 L Hct 22.5 L MCV MCH MCHC RDW Std Deviation RDW Coeff of Maria D Plt Count MPV Immature Gran % (Auto) Neut % (Auto) Lymph % (Auto) Mcnairy % (Auto) Eos % (Auto) Baso % (Auto) Neut # (Auto) Lymph # (Auto) Mcnairy # (Auto) Eos # (Auto) Baso # (Auto) Immature Gran # (Auto) Polychromasia Sodium Potassium Chloride Carbon Dioxide Anion Gap BUN Creatinine Est Cr Clr Drug Dosing Est GFR ( Amer) Est GFR (Non-Af Amer) BUN/Creatinine Ratio Glucose POC Glucose Lactate Calcium Magnesium Iron Transferrin Transferrin % Sat Ferritin Total Bilirubin AST ALT Alkaline Phosphatase Total Protein Albumin Globulin Albumin/Globulin Ratio Stl C. diff Tox B Gene Blood Type O Positive Antibody Screen NEGATIVE Crossmatch See Detail See Detail 02/08/21 02/08/21 02/09/21 16:19 20:39 05:10 WBC RBC Hgb Hct MCV MCH MCHC RDW Std Deviation RDW Coeff of Maria D Plt Count MPV Immature Gran % (Auto) Neut % (Auto) Lymph % (Auto) Mcnairy % (Auto) Eos % (Auto) Baso % (Auto) Neut # (Auto) Lymph # (Auto) Mcnairy # (Auto) Eos # (Auto) Baso # (Auto) Immature Gran # (Auto) Polychromasia Sodium Potassium Chloride Carbon Dioxide Anion Gap BUN Creatinine Est Cr Clr Drug Dosing Est GFR ( Amer) Est GFR (Non-Af Amer) BUN/Creatinine Ratio Glucose POC Glucose 145 H 168 H Lactate Calcium Magnesium Iron Transferrin Transferrin % Sat Ferritin Total Bilirubin AST ALT Alkaline Phosphatase Total Protein Albumin Globulin Albumin/Globulin Ratio Stl C. diff Tox B Gene Negative Cdiff Gene Blood Type Antibody Screen Crossmatch 02/09/21 02/09/21 02/09/21 07:09 07:40 07:40 WBC 12.01 H RBC 2.38 L Hgb 6.9 L* Hct 22.3 L MCV 93.7 MCH 29.0 MCHC 30.9 L RDW Std Deviation 65.6 H RDW Coeff of Maria D 19.4 H Plt Count 202 MPV 10.6 H Immature Gran % (Auto) 0.7 Neut % (Auto) 72.7 Lymph % (Auto) 16.3 Mcnairy % (Auto) 5.7 Eos % (Auto) 4.3 Baso % (Auto) 0.3 Neut # (Auto) 8.73 H Lymph # (Auto) 1.96 Mcnairy # (Auto) 0.68 H Eos # (Auto) 0.52 H Baso # (Auto) 0.04 Immature Gran # (Auto) 0.08 H Polychromasia 1+ Sodium 139 Potassium 3.2 L Chloride 106 Carbon Dioxide 22 Anion Gap 11.0 BUN 17 Creatinine 4.32 H Est Cr Clr Drug Dosing 17.2 Est GFR ( Amer) 12.3 Est GFR (Non-Af Amer) 10.7 BUN/Creatinine Ratio 4.0 L Glucose 127 H POC Glucose 132 H Lactate Calcium 9.1 Magnesium 1.8 Iron 26 L Transferrin 77 L Transferrin % Sat 24 Ferritin 1465.8 H Total Bilirubin 0.4 AST 7 L ALT < 6 L Alkaline Phosphatase 88 Total Protein 5.2 L Albumin 1.7 L Globulin 3.5 Albumin/Globulin Ratio 0.5 L Stl C. diff Tox B Gene Blood Type Antibody Screen Crossmatch 02/09/21 07:48 WBC RBC Hgb Hct MCV MCH MCHC RDW Std Deviation RDW Coeff of Maria D Plt Count MPV Immature Gran % (Auto) Neut % (Auto) Lymph % (Auto) Mcnairy % (Auto) Eos % (Auto) Baso % (Auto) Neut # (Auto) Lymph # (Auto) Mcnairy # (Auto) Eos # (Auto) Baso # (Auto) Immature Gran # (Auto) Polychromasia Sodium Potassium Chloride Carbon Dioxide Anion Gap BUN Creatinine Est Cr Clr Drug Dosing Est GFR ( Amer) Est GFR (Non-Af Amer) BUN/Creatinine Ratio Glucose POC Glucose Lactate 0.8 Calcium Magnesium Iron Transferrin Transferrin % Sat Ferritin Total Bilirubin AST ALT Alkaline Phosphatase Total Protein Albumin Globulin Albumin/Globulin Ratio Stl C. diff Tox B Gene Blood Type Antibody Screen Crossmatch PG Care Time/CCT Total # of Minutes Spent Total Time Spent with Patient: Total time spent is greater than 50% in coordination of care (as documented) at patient's floor/unit and/or counseling patient: Coding Level of Care Code 84635 Subseq Hosp Care Lvl 3 Diagnoses ESRD (end stage renal disease) on dialysis N18.6; Z99.2 Hypertension I10 Acute blood loss anemia D62
--- NOTE | 2021-02-09 10:39 | Gastroenterology Progress Note ---
Date of Service February 09, 2021 Assessment & Plan (1) BRBPR (bright red blood per rectum): Plan: EGD with non-bleeding gastric ulcer. Colonoscopy without source of bleeding. -Transfusion per primary team -Tagged RBC scan for further evaluation -Continue to monitor H/H -Protonix 40 mg BID -Further recommendations pending results of scan Admission and Anticipated Discharge Date Admission Date: January 27, 2021 Supervising Physician Co-Signing Physician Notes I personally evaluated the patient and agree with the findings as documented by Dariela Butler, PAC Exam: abd: soft, nt, nd Subjective Patient is a 55 yo female with anemia & BRBPR. An EGD indicated a non-bleeding gastric ulcer and a colonoscopy was unremarkable for bleeding source. Patient continues to experience rectal bleeding (bright red). H/H this AM is 6.9/22.3. Patient reports lower abdominal cramping after each episode of bleeding. Review of Systems Constitutional: + fatigue Gastrointestinal: + abdominal pain and + blood in stools Physical Exam Constitutional: WD/WN, vitals as above Respiratory: normal respiratory effort Gastrointestinal (Abdomen): Inspection/Auscultation: abdomen normal to inspection; abdomen not distended Percussion/Palpation: abdomen soft; abdomen nontender Results & Data Results & Data ([facility]) Vital Signs (Past 12 Hours) Vital Signs Temp Pulse Pulse Pulse Resp BP BP 02/09/21 10:00 85 14 91/55 L 02/09/21 09:30 84 14 84/52 L 02/09/21 09:15 85 14 84/49 L 02/09/21 09:06 37.1 C 86 14 83/43 L 02/09/21 08:42 37.0 C 89 12 75/45 L 02/09/21 07:10 36.7 C 89 18 141/73 H 02/09/21 04:35 36.9 C 95 H 18 87/45 L 02/08/21 23:45 36.9 C 90 18 97/62 L 02/08/21 22:45 36.8 C 91 H 16 100/68 Pulse Ox 02/09/21 10:00 98 02/09/21 09:30 99 02/09/21 09:15 93 02/09/21 09:06 99 02/09/21 08:42 96 02/09/21 07:10 100 02/09/21 04:35 97 02/08/21 23:45 97 02/08/21 22:45 97 PG Care Time/CCT Total # of Minutes Spent Total Time Spent with Patient: Total time spent is greater than 50% in coordination of care (as documented) at patient's floor/unit and/or counseling patient: Coding Level of Care Code 39144 Subseq Hosp Care Lvl 3 Diagnoses BRBPR (bright red blood per rectum) K62.5
[2021-02-09] MEDS: DOCUSATE SODIUM 100 MG CAP PO SCH ×2 (12:14→20:00)
[2021-02-09] MEDS: CHOLECALCIFEROL 1,000 UNITS 25 MCG TAB PO SCH (12:14)
[2021-02-09] MEDS: INSULIN ASPART 100 UNITS/ML 3 ML PEN SC SCH ×4 (12:14→20:02)
[2021-02-09] MEDS: ATORVASTATIN 20 MG TAB PO SCH (12:14)
[2021-02-09] MEDS: ADVANCED PROBIOTIC 1250 MG CAPSULE PO SCH (12:15)
[2021-02-09] MEDS: HYDROCORTISONE HC 2.5% CRM 30GM TUBE EXT SCH ×2 (12:15→20:01)
--- NOTE | 2021-02-09 13:44 | Nuclear Medicine Report ---
NM GI bleeding CLINICAL HISTORY: Rectal bleeding, normal colonoscopy TECHNIQUE: Following the intravenous injection of 21.2 mCi of Tc-99m tagged autologous RBCs, planar i mages of the abdomen were obtained over the course of one hour. COMPARISON: None. FINDINGS: Expected radiopharmaceutical uptake is seen in the liver, spleen and blood pool. No significant pool of radiopharmaceutical activity is identified over the region of the bowel to sug gest GI blood loss. However, if patient re-bleeds within 24 hours, additional follow-up imaging may b e obtained with the current radiopharmaceutical activity. IMPRESSION: No evidence of acute gastrointestinal bleeding. ACT 112: Negative or not required by law. Electronically signed by: Shekhar Daniel M.D. 02/09/2021 1:42 PM
[2021-02-09] MEDS ORDERED: POTASSIUM CHLORIDE CRTAB 20 MEQ TABCR PO STA (15:40)
[2021-02-09 16:27] LABS: Hemoglobin 7.9 g/dL (12.0-16.0)
--- NOTE | 2021-02-09 19:10 | Hospitalist Progress Note ---
Date of Service February 09, 2021 Assessment & Plan (1) GI bleed: Plan: Likely multifactorial Gastric Ulcer Rectal bleeding likely secondary to polyps, diverticulosis and internal hemorrhoids Suspect ischemic colitis--less likely based on CT S/P EGD: gastric ulcer S/P PRBC H/O hemorrhoids as per patient --CT ABD:No CT evidence for ischemic bowel. However, there is a masslike filling defect within the rectum suspicious for a neoplastic process. Direct visualization is recommended. -S/P Colonoscopy: Two 5 to 7 mm polyps in the cecum, removed with hot snare. Resected and retrieved. Diverticulosis in the sigmoid colon. Nonbleeding internal hemorrhoids. No findings on the exam to correlate with abnormal CT in the rectum. It was most likely stool versus shadowing. --Pathology pending Continue Protonix drip>>Transitioned to PO Appreciate GI input Continue H&H and transfuse PRBCs as needed Bleeding Scan showed No evidence of acute gastrointestinal bleeding Received 1 unit PRBC today Monitor CBC Conservative management as per GI (2) Postoperative wound infection: Plan: Left AKA stump cellulitis Stage 3 Pressure ulcer of right heel, POA --Blood Cx: Negative to date Empirically received Unasyn for 7 days Also completed 7 days of doxycycline Worsening leukocytosis Transition Unasyn to Zosyn Appreciate orthopedics, vascular surgery input Needs debridement of left above-knee amputation stump and possible need for wound VAC Continue wound care Leukocytosis normalized Needs debridement as able (3) ESRD (end stage renal disease) on dialysis: Plan: - Consult nephrology - pt on HD M/W/F hemodialysis as per Nephrology Received Epogen with HD Hypokalemia Replace electrolytes as needed (4) Diabetes mellitus, type 2: Plan: - Accuchecks - Insulin sliding scale (5) Hypertension: Plan: Monitor BP Continue current medications (6) Hyperlipidemia: Plan: on Statin (7) Ulcer of right heel: Plan: - Wound care consult (8) Peripheral vascular disease: (9) Obstructive sleep apnea: Plan: Non-compliant with CPAP CODE STATUS Full code DVT Px: SCDs Re: GI bleeding Admission and Anticipated Discharge Date Admission Date: January 27, 2021 Subjective Patient is seen and examined bedside Patient continues to have blood clots States having rectal pain with bowel movement Received 1 unit PRBC today Discussed with GI today Denies any chest pain, shortness of breath, dizziness, abdominal pain Review of Systems Review of Systems: All systems reviewed & are unremarkable except as noted in Subjective Physical Exam Physical Exam: Physical Exam: Vitals signs as noted above General Appearance:Morbidly Obese, chronic ill appearing Head: normocephalic, Atraumatic Eyes: normal inspection, EOMI Neck: supple, Trachea midline Respiratory/Chest: Normal breath sounds, CTA, No accessory muscle use Cardiovascular: S1, S2, No murmur Abdomen/GI:Soft, Non tender, Bowel sounds present Extremities/Musculoskeletal:normal inspection, 1+ pedal edema, Left AKA, mild erythema Neurologic/Psych:AAOX3, grossly no focal neurological deficits Skin: normal color, warm, right heel wound Results & Data Results & Data ([facility]) Vital Signs (Past 12 Hours) Vital Signs Temp Pulse Pulse Resp BP BP Pulse Ox 02/09/21 15:59 36.9 C 93 H 18 103/68 100 02/09/21 14:06 36.9 C 87 19 88/39 L 100 02/09/21 10:48 82 14 93/47 L 97 02/09/21 10:00 85 14 91/55 L 98 02/09/21 09:30 84 14 84/52 L 99 02/09/21 09:15 85 14 84/49 L 93 02/09/21 09:06 37.1 C 86 14 83/43 L 99 02/09/21 08:42 37.0 C 89 12 75/45 L 96 02/09/21 07:10 36.7 C 89 18 141/73 H 100 Laboratory Results Short CBC 02/09/21 02/09/21 Range/Units 07:40 15:21 WBC 12.01 H (4.8-10.8) K/uL Hgb 6.9 L* 7.9 L (12.0-16.0) g/dL Hct 22.3 L 25.0 L (37-47) % Plt Count 202 (130-400) K/uL BMP 02/09/21 07:40 Sodium 139 Potassium 3.2 L Chloride 106 Carbon Dioxide 22 BUN 17 Creatinine 4.32 H Glucose 127 H Calcium 9.1 Liver Function 02/09/21 Range/Units 07:40 Total Bilirubin 0.4 (0.2-1) mg/dl AST 7 L (15-37) U/L ALT < 6 L (12-78) Alkaline Phosphatase 88 (45-117) U/L Albumin 1.7 L (3.4-5.0) gm/dl (1) GI bleed GI bleed type/associated pathology: unspecified gastrointestinal hemorrhage type Qualified Code(s): K92.2 - Gastrointestinal hemorrhage, unspecified
[2021-02-09] MEDS: PANTOprazole 40 MG TAB PO SCH (20:01)
[2021-02-10] MEDS: oxyCODONE HCL IR 5 MG TAB (IMMEDIATE RELEASE) PO PRN ×3 (00:34→19:33)
[2021-02-10] MEDS ORDERED: MIDODRINE HCL 10 MG TAB PO STA (01:46)
[2021-02-10] MEDS: PIPERACILLIN/TAZOBACTAM 4.5 GM in DEXTROSE 5% 100 ML IV SCH ×2 (05:24→16:14)
[2021-02-10 06:14] LABS: Hematocrit (blood only) 27.1 % (37-47); Hemoglobin 8.7 g/dL (12.0-16.0); Mean Corpuscular Hemoglobin 28.8 pg (25-34); Mean Corpuscular Hgb Conc 32.1 g/dL (32-36); Mean Corpuscular Volume 89.7 fL (80-100); Mean Platelet Volume 10.2 fL (7.4-10.4); Platelet Count 210 K/uL (130-400); RDW Coefficient of Variation 18.3 % (11.5-14.5); Red Blood Count 3.02 M/uL (4.2-5.4); White Blood Count 13.44 K/uL (4.8-10.8)
[2021-02-10 07:40] LABS: BUN Creatinine Ratio 4.1 (10-20); Calcium 9.3 mg/dl (8.5-10.1); Creatinine Clr Calc Pharmacy 14.5 ml/min; Est GFR (African American) 10.1 ml/min; Est GFR (Non-African American) 8.7 ml/min; Potassium 3.7 mmol/L (3.5-5.1)
[2021-02-10] MEDS: INSULIN ASPART 100 UNITS/ML 3 ML PEN SC SCH ×4 (08:37→21:08)
[2021-02-10] MEDS: PANTOprazole 40 MG TAB PO SCH ×2 (08:38→19:34)
[2021-02-10] MEDS: ATORVASTATIN 20 MG TAB PO SCH (08:38)
[2021-02-10] MEDS: CHOLECALCIFEROL 1,000 UNITS 25 MCG TAB PO SCH (08:39)
[2021-02-10] MEDS: ADVANCED PROBIOTIC 1250 MG CAPSULE PO SCH (08:39)
[2021-02-10] MEDS: DOCUSATE SODIUM 100 MG CAP PO SCH ×2 (08:39→19:34)
[2021-02-10] MEDS: HYDROCORTISONE HC 2.5% CRM 30GM TUBE EXT SCH ×2 (08:40→19:34)
--- NOTE | 2021-02-10 12:26 | Nephrology Progress Note ---
Date of Service February 10, 2021 Assessment & Plan (1) ESRD (end stage renal disease) on dialysis: Plan: HD schedule has been MWF. Orders for HD today entered into the EMR and reviewed with the dialysis nurse. TDC has been functioning well. Monitor metabolic profile daily while inpatient. Renal diet. Medications appropriate for kidney dysfunction. Hold heparin with HD due to GI bleed. (2) Hypertension: Plan: BP low. Volume status euvolemic. No changes at this time. (3) Acute blood loss anemia: Plan: With anemic of CKD. Epogen 54484 units given 02/02 and 02/07 with HD. PRBC transfusion support provided today. No source identified on tagged RBC scan. Admission and Anticipated Discharge Date Admission Date: January 27, 2021 Subjective No acute events overnight. Hgb improved with PRBC transfusion yesterday. Unfortunately bleeding persists. Barb remains very frustrated and despondent. She continues to struggle with pain. She remains weak and hopes to start working more aggressively with PT in the near future. Review of Systems Review of Systems: All systems reviewed & are unremarkable except as noted in HPI & below Physical Exam Constitutional: well developed and + morbidly obese; no acute distress Eyes: + anicteric sclerae; no corneal abnormality ENMT: Mouth: no oral mucosal abnormality and oral mucous membranes not dry Neck: normal visual inspection and trachea midline Respiratory: normal respiratory effort Auscultation: lungs clear to auscultation bilaterally and + diminished lung sounds Cardiovascular: Rate/Rhythm: regular rate Heart Sounds: normal S1, normal S2 and + murmur Extremities: no edema Musculoskeletal: Extremities: no cyanosis and no clubbing L AKA Skin: normal turgor; no lesions Neurologic: Motor/Sensory: no tremor and no asterixis Psychiatric: Orientation: alert and oriented x 3 Results & Data ([facility]) Vital Signs (Past 12 Hours) Vital Signs Temp Pulse Pulse Resp BP BP Pulse Ox 02/10/21 11:27 36.7 C 84 18 125/62 98 02/10/21 07:16 36.8 C 82 18 97/53 L 99 02/10/21 05:04 36.5 C 87 16 91/46 L 99 02/10/21 04:04 36.5 C 85 16 135/70 97 02/10/21 03:04 36.4 C L 84 17 108/66 98 02/10/21 02:04 36.5 C 79 18 96/65 L 98 02/10/21 01:59 36.5 C 79 18 96/65 L 98 02/10/21 01:34 36.7 C 85 16 84/59 L 99 02/10/21 01:33 36.7 C 83 16 84/59 L 99 02/10/21 01:19 36.6 C 84 16 102/69 100 02/10/21 01:00 36.3 C L 85 16 109/70 99 Laboratory Results Laboratory Results - last 24 hr 02/07/21 02/09/21 02/09/21 07:31 14:00 15:21 WBC RBC Hgb 7.9 L Hct 25.0 L MCV MCH MCHC RDW Std Deviation RDW Coeff of Maria D Plt Count MPV Sodium Potassium Chloride Carbon Dioxide Anion Gap BUN Creatinine Est Cr Clr Drug Dosing Est GFR ( Amer) Est GFR (Non-Af Amer) BUN/Creatinine Ratio Glucose POC Glucose 125 H Calcium Blood Type O Positive Antibody Screen NEGATIVE Crossmatch See Detail 02/09/21 02/09/21 02/09/21 16:02 19:48 21:19 WBC RBC Hgb 7.0 L Hct 22.0 L MCV MCH MCHC RDW Std Deviation RDW Coeff of Maria D Plt Count MPV Sodium Potassium Chloride Carbon Dioxide Anion Gap BUN Creatinine Est Cr Clr Drug Dosing Est GFR ( Amer) Est GFR (Non-Af Amer) BUN/Creatinine Ratio Glucose POC Glucose 133 H 129 H Calcium Blood Type Antibody Screen Crossmatch 02/10/21 02/10/21 02/10/21 05:59 05:59 07:18 WBC 13.44 H RBC 3.02 L Hgb 8.7 L Hct 27.1 L MCV 89.7 MCH 28.8 MCHC 32.1 RDW Std Deviation 58.0 H RDW Coeff of Maria D 18.3 H Plt Count 210 MPV 10.2 Sodium 138 Potassium 3.7 D Chloride 108 H Carbon Dioxide 20 L Anion Gap 10.0 BUN 21 H Creatinine 5.09 H* D Est Cr Clr Drug Dosing 14.5 Est GFR ( Amer) 10.1 Est GFR (Non-Af Amer) 8.7 BUN/Creatinine Ratio 4.1 L Glucose 94 POC Glucose 93 Calcium 9.3 Blood Type Antibody Screen Crossmatch 02/10/21 11:24 WBC RBC Hgb Hct MCV MCH MCHC RDW Std Deviation RDW Coeff of Maria D Plt Count MPV Sodium Potassium Chloride Carbon Dioxide Anion Gap BUN Creatinine Est Cr Clr Drug Dosing Est GFR ( Amer) Est GFR (Non-Af Amer) BUN/Creatinine Ratio Glucose POC Glucose 114 H Calcium Blood Type Antibody Screen Crossmatch PG Care Time/CCT Total # of Minutes Spent Total Time Spent with Patient: Total time spent is greater than 50% in coordination of care (as documented) at patient's floor/unit and/or counseling patient: Coding Level of Care Code 63297 Subseq Hosp Care Lvl 3 Diagnoses ESRD (end stage renal disease) on dialysis N18.6; Z99.2 Hypertension I10 Acute blood loss anemia D62
--- NOTE | 2021-02-10 17:55 | Hospitalist Progress Note ---
Date of Service February 10, 2021 Assessment & Plan (1) GI bleed: Plan: Likely multifactorial Gastric Ulcer Rectal bleeding likely secondary to polyps, diverticulosis and internal hemorrhoids Suspect ischemic colitis--less likely based on CT S/P EGD: gastric ulcer S/P PRBC H/O hemorrhoids as per patient --CT ABD:No CT evidence for ischemic bowel. However, there is a masslike filling defect within the rectum suspicious for a neoplastic process. Direct visualization is recommended. -S/P Colonoscopy: Two 5 to 7 mm polyps in the cecum, removed with hot snare. Resected and retrieved. Diverticulosis in the sigmoid colon. Nonbleeding internal hemorrhoids. No findings on the exam to correlate with abnormal CT in the rectum. It was most likely stool versus shadowing. --Pathology pending Continue Protonix drip>>Transitioned to PO Appreciate GI input Continue H&H and transfuse PRBCs as needed Bleeding Scan showed No evidence of acute gastrointestinal bleeding Monitor CBC Conservative management as per GI Hb 8.7 today (2) Postoperative wound infection: Plan: Left AKA stump cellulitis Stage 3 Pressure ulcer of right heel, POA --Blood Cx: Negative to date Empirically received Unasyn for 7 days Also completed 7 days of doxycycline Worsening leukocytosis Transition Unasyn to Zosyn Appreciate orthopedics, vascular surgery input Needs debridement of left above-knee amputation stump and possible need for wound VAC Continue wound care Leukocytosis normalized Needs debridement as able-- Planned for Tuesday Leukocytosis slowly worsening (3) ESRD (end stage renal disease) on dialysis: Plan: - Consult nephrology - pt on HD M/W/F hemodialysis as per Nephrology Received Epogen with HD Hypokalemia Replace electrolytes as needed (4) Diabetes mellitus, type 2: Plan: - Accuchecks - Insulin sliding scale (5) Hypertension: Plan: Monitor BP Continue current medications (6) Hyperlipidemia: Plan: on Statin (7) Ulcer of right heel: Plan: - Wound care consult (8) Peripheral vascular disease: (9) Obstructive sleep apnea: Plan: Non-compliant with CPAP CODE STATUS Full code DVT Px: SCDs Re: GI bleeding Admission and Anticipated Discharge Date Admission Date: January 27, 2021 Subjective Patient is seen and examined bedside States having minimal blood clots today Discussed with vascular surgery today No new complaints Minimal rectal pain with bowel movement Denies any chest pain, shortness of breath, dizziness, abdominal pain Hb 8.7 today Review of Systems Review of Systems: All systems reviewed & are unremarkable except as noted in Subjective Physical Exam Physical Exam: Physical Exam: Vitals signs as noted above General Appearance:Morbidly Obese, chronic ill appearing Head: normocephalic, Atraumatic Eyes: normal inspection, EOMI Neck: supple, Trachea midline Respiratory/Chest: Normal breath sounds, CTA, No accessory muscle use Cardiovascular: S1, S2, No murmur Abdomen/GI:Soft, Non tender, Bowel sounds present Extremities/Musculoskeletal:normal inspection, 1+ pedal edema, Left AKA, mild erythema Neurologic/Psych:AAOX3, grossly no focal neurological deficits Skin: normal color, warm, right heel wound Results & Data Results & Data ([facility]) Vital Signs (Past 12 Hours) Vital Signs Temp Pulse Resp BP Pulse Ox 02/10/21 15:56 36.7 C 82 18 137/84 98 02/10/21 11:27 36.7 C 84 18 125/62 98 02/10/21 07:16 36.8 C 82 18 97/53 L 99 Laboratory Results Short CBC 02/09/21 02/10/21 Range/Units 21:19 05:59 WBC 13.44 H (4.8-10.8) K/uL Hgb 7.0 L 8.7 L (12.0-16.0) g/dL Hct 22.0 L 27.1 L (37-47) % Plt Count 210 (130-400) K/uL BMP 02/10/21 05:59 Sodium 138 Potassium 3.7 D Chloride 108 H Carbon Dioxide 20 L BUN 21 H Creatinine 5.09 H* D Glucose 94 Calcium 9.3 (1) GI bleed GI bleed type/associated pathology: unspecified gastrointestinal hemorrhage type Qualified Code(s): K92.2 - Gastrointestinal hemorrhage, unspecified
[2021-02-11] MEDS: PIPERACILLIN/TAZOBACTAM 4.5 GM in DEXTROSE 5% 100 ML IV SCH ×2 (04:44→18:11)
[2021-02-11] MEDS: oxyCODONE HCL IR 5 MG TAB (IMMEDIATE RELEASE) PO PRN ×2 (04:45→18:26)
[2021-02-11 07:37] LABS: Hemoglobin 7.9 g/dL (12.0-16.0); Mean Corpuscular Hgb Conc 31.6 g/dL (32-36); Mean Corpuscular Volume 91.9 fL (80-100); Mean Platelet Volume 10.7 fL (7.4-10.4); Platelet Count 196 K/uL (130-400); RDW Coefficient of Variation 19.2 % (11.5-14.5); RDW Standard Deviation 62.4 fL (36.4-46.3); Red Blood Count 2.72 M/uL (4.2-5.4); White Blood Count 10.84 K/uL (4.8-10.8)
[2021-02-11 08:51] LABS: BUN Creatinine Ratio 3.4 (10-20); Calcium 8.6 mg/dl (8.5-10.1); Creatinine Clr Calc Pharmacy 19.5 ml/min; Est GFR (African American) 14.5 ml/min; Est GFR (Non-African American) 12.5 ml/min; Magnesium 1.8 mg/dl (1.8-2.4); Phosphorus 3.8 mg/dl (2.5-4.9); Potassium 3.6 mmol/L (3.5-5.1)
[2021-02-11] MEDS: INSULIN ASPART 100 UNITS/ML 3 ML PEN SC SCH ×4 (08:56→20:37)
[2021-02-11] MEDS: ATORVASTATIN 20 MG TAB PO SCH (08:58)
[2021-02-11] MEDS: CHOLECALCIFEROL 1,000 UNITS 25 MCG TAB PO SCH (08:58)
[2021-02-11] MEDS: MIDODRINE HCL 10 MG TAB PO SCH (08:58)
[2021-02-11] MEDS: DOCUSATE SODIUM 100 MG CAP PO SCH ×2 (08:58→20:58)
[2021-02-11] MEDS: PANTOprazole 40 MG TAB PO SCH (08:59)
[2021-02-11] MEDS: HYDROCORTISONE HC 2.5% CRM 30GM TUBE EXT SCH ×2 (08:59→20:58)
[2021-02-11] MEDS: ADVANCED PROBIOTIC 1250 MG CAPSULE PO SCH (08:59)
--- NOTE | 2021-02-11 10:09 | Nephrology Progress Note ---
Date of Service February 11, 2021 Assessment & Plan (1) ESRD (end stage renal disease) on dialysis: Plan: HD MWF. Treatment stopped early yesterday at patient's request. Due to discomfort, she has not been tolerating complete dialysis treatments. Will plan next HD tomorrow. TDC has been functioning well. Monitor metabolic profile daily while inpatient. Renal diet. Medications appropriate for kidney dysfunction. Hold heparin with HD due to GI bleed. Ongoing conversation regarding goals of care. May ultimately need to consider LTACH placement. (2) Hypertension: Plan: BP low. Volume status euvolemic. No changes at this time. (3) Acute blood loss anemia: Plan: With anemic of CKD. Epogen 15168 units given 02/02 and 02/07 with HD. PRBC transfusion support provided 02/09. No source identified on tagged RBC scan. Admission and Anticipated Discharge Date Admission Date: January 27, 2021 Subjective No acute events overnight. Barb feels very tired this morning. She is breathing comfortably. Due to discomfort, HD was stopped early yesterday. Barb continues to report persistent blood per rectum and pain. She remains very depressed. Review of Systems Review of Systems: All systems reviewed & are unremarkable except as noted in HPI & below Physical Exam Constitutional: well developed and + morbidly obese; no acute distress Eyes: + anicteric sclerae; no corneal abnormality ENMT: Mouth: no oral mucosal abnormality and oral mucous membranes not dry Neck: normal visual inspection and trachea midline Respiratory: normal respiratory effort Auscultation: lungs clear to auscultation bilaterally and + diminished lung sounds Cardiovascular: Rate/Rhythm: regular rate Heart Sounds: normal S1, normal S2 and + murmur Extremities: no edema Musculoskeletal: Extremities: no cyanosis and no clubbing L AKA Skin: normal turgor; no lesions Neurologic: Motor/Sensory: no tremor and no asterixis Psychiatric: Orientation: alert and oriented x 3 Results & Data ([facility]) Vital Signs (Past 12 Hours) Vital Signs Temp Pulse Resp BP Pulse Ox 02/11/21 08:30 75/50 L 02/11/21 08:13 36.8 C 89 18 96 02/11/21 04:35 36.8 C 88 18 96/59 L 97 02/10/21 23:13 36.5 C 90 20 91/50 L 98 Laboratory Results Laboratory Results - last 24 hr 02/10/21 02/10/21 02/11/21 11:24 21:02 06:51 WBC 10.84 H RBC 2.72 L Hgb 7.9 L Hct 25.0 L MCV 91.9 MCH 29.0 MCHC 31.6 L RDW Std Deviation 62.4 H RDW Coeff of Maria D 19.2 H Plt Count 196 MPV 10.7 H Sodium Potassium Chloride Carbon Dioxide Anion Gap BUN Creatinine Est Cr Clr Drug Dosing Est GFR ( Amer) Est GFR (Non-Af Amer) BUN/Creatinine Ratio Glucose POC Glucose 114 H 126 H Calcium Phosphorus Magnesium 02/11/21 02/11/21 06:51 07:19 WBC RBC Hgb Hct MCV MCH MCHC RDW Std Deviation RDW Coeff of Maria D Plt Count MPV Sodium 142 Potassium 3.6 Chloride 109 H Carbon Dioxide 23 Anion Gap 10.0 BUN 13 Creatinine 3.79 H D Est Cr Clr Drug Dosing 19.5 Est GFR ( Amer) 14.5 Est GFR (Non-Af Amer) 12.5 BUN/Creatinine Ratio 3.4 L Glucose 114 H POC Glucose 117 H Calcium 8.6 Phosphorus 3.8 Magnesium 1.8 PG Care Time/CCT Total # of Minutes Spent Total Time Spent with Patient: Total time spent is greater than 50% in coordination of care (as documented) at patient's floor/unit and/or counseling patient: Coding Level of Care Code 22563 Subseq Hosp Care Lvl 3 Diagnoses ESRD (end stage renal disease) on dialysis N18.6; Z99.2 Hypertension I10 Acute blood loss anemia D62
[2021-02-11] MEDS ORDERED: SODIUM CHLORIDE 0.9% 250 ML IV PRN (11:07)
--- NOTE | 2021-02-11 11:19 | Hospitalist Progress Note ---
Date of Service February 11, 2021 Assessment & Plan (1) GI bleed: Plan: Likely multifactorial Gastric Ulcer Rectal bleeding likely secondary to polyps, diverticulosis and internal hemorrhoids Suspect ischemic colitis--less likely based on CT S/P EGD: gastric ulcer S/P PRBC H/O hemorrhoids as per patient --CT ABD:No CT evidence for ischemic bowel. However, there is a masslike filling defect within the rectum suspicious for a neoplastic process. Direct visualization is recommended. -S/P Colonoscopy: Two 5 to 7 mm polyps in the cecum, removed with hot snare. Resected and retrieved. Diverticulosis in the sigmoid colon. Nonbleeding internal hemorrhoids. No findings on the exam to correlate with abnormal CT in the rectum. It was most likely stool versus shadowing. --Pathology pending Continue Protonix drip>>Transitioned to PO Appreciate GI input Continue H&H and transfuse PRBCs as needed Bleeding Scan showed No evidence of acute gastrointestinal bleeding Monitor CBC Conservative management as per GI Hb 8.7 on 02/10 02/11 - Patient again had 2 large bowel movements, per RN dark red GI, Dr. Castro contacted, plan for repeat bleeding scan, if negative, plans for small bowel enteroscopy tomorrow (02/12) (2) Postoperative wound infection: Plan: Left AKA stump cellulitis Stage 3 Pressure ulcer of right heel, POA --Blood Cx: Negative to date Empirically received Unasyn for 7 days Also completed 7 days of doxycycline Worsening leukocytosis Transitioned Unasyn to Zosyn Appreciate orthopedics, vascular surgery input Needs debridement of left above-knee amputation stump and possible need for wound VAC Continue wound care Leukocytosis normalized Needs debridement as able-- Planned for Tuesday (w/ vasc. surg.) Leukocytosis , now WBC 10.8K (02/11) (3) ESRD (end stage renal disease) on dialysis: Plan: - Consult nephrology - pt on HD M/W/F hemodialysis as per Nephrology Received Epogen with HD Hypokalemia Replace electrolytes as needed (4) Diabetes mellitus, type 2: Plan: - Accuchecks - Insulin sliding scale (5) Hypertension: Plan: Monitor BP Continue current medications (6) Hyperlipidemia: Plan: on Statin (7) Ulcer of right heel: Plan: - Wound care consult, as above (8) Peripheral vascular disease: (9) Obstructive sleep apnea: Plan: Non-compliant with CPAP CODE STATUS: Full code DVT Px: SCDs Re: GI bleeding Admission and Anticipated Discharge Date Admission Date: January 27, 2021 Subjective Patient is seen in follow-up of GI bleed, wound infection Per RN, patient had 2 large bowel movements, with dark blood Hemoglobin 7.9 today, 1 unit of PRBCs ordered GI contacted again, plan for repeat bleeding scan, if negative, plan for SB enteroscopy tomorrow Previous provider discussed with vascular surgery yesterday, plan for OR on Tuesday Patient is currently laying in bed, in no acute distress she is alert oriented answer questions appropriately Denies any chest pain, shortness of breath, dizziness, she reports on and off abdominal pain around umbilicus Review of Systems Review of Systems: All systems reviewed & are unremarkable except as noted in Subjective Physical Exam Physical Exam: General Appearance:Morbidly Obese F in NAD, chronically ill appearing Head: normocephalic, Atraumatic Eyes: normal inspection, EOMI Neck: supple, Trachea midline Respiratory/Chest: Normal breath sounds, CTA, No accessory muscle use Cardiovascular: S1, S2, No murmur Abdomen/GI:Soft, Non tender, Bowel sounds present Extremities/Musculoskeletal:normal inspection, 1+ pedal edema, Left AKA, mild erythema Neurologic/Psych:AAOX3, grossly no focal neurological deficits Skin: normal color, warm, right heel wound Results & Data Results & Data ([facility]) Vital Signs (Past 12 Hours) Vital Signs Temp Pulse Resp BP Pulse Ox 02/11/21 08:30 75/50 L 02/11/21 08:13 36.8 C 89 18 96 02/11/21 04:35 36.8 C 88 18 96/59 L 97 Laboratory Results 02/11/21 02/11/21 02/11/21 Range/Units 07:19 06:51 06:51 WBC 10.84 H (4.8-10.8) K/uL RBC 2.72 L (4.2-5.4) M/uL Hgb 7.9 L (12.0-16.0) g/dL Hct 25.0 L (37-47) % MCV 91.9 (80-100) fL MCH 29.0 (25-34) pg MCHC 31.6 L (32-36) g/dL RDW Std Deviation 62.4 H (36.4-46.3) fL RDW Coeff of Maria D 19.2 H (11.5-14.5) % Plt Count 196 (130-400) K/uL MPV 10.7 H (7.4-10.4) fL Sodium 142 (136-145) mmol/L Potassium 3.6 (3.5-5.1) mmol/L Chloride 109 H (98-107) mmol/L Carbon Dioxide 23 (21-32) mmol/L Anion Gap 10.0 (3-11) BUN 13 (7-18) mg/dl Creatinine 3.79 H D (0.6-1.2) mg/dl Est Cr Clr Drug Dosing 19.5 ml/min Est GFR ( Amer) 14.5 ml/min Est GFR (Non-Af Amer) 12.5 ml/min BUN/Creatinine Ratio 3.4 L (10-20) Glucose 114 H (70-99) mg/dl POC Glucose 117 H (70-99) mg/dl Calcium 8.6 (8.5-10.1) mg/dl Phosphorus 3.8 (2.5-4.9) mg/dl Magnesium 1.8 (1.8-2.4) mg/dl 02/10/21 02/10/21 Range/Units 21:02 11:24 WBC (4.8-10.8) K/uL RBC (4.2-5.4) M/uL Hgb (12.0-16.0) g/dL Hct (37-47) % MCV (80-100) fL MCH (25-34) pg MCHC (32-36) g/dL RDW Std Deviation (36.4-46.3) fL RDW Coeff of Maria D (11.5-14.5) % Plt Count (130-400) K/uL MPV (7.4-10.4) fL Sodium (136-145) mmol/L Potassium (3.5-5.1) mmol/L Chloride (98-107) mmol/L Carbon Dioxide (21-32) mmol/L Anion Gap (3-11) BUN (7-18) mg/dl Creatinine (0.6-1.2) mg/dl Est Cr Clr Drug Dosing ml/min Est GFR ( Amer) ml/min Est GFR (Non-Af Amer) ml/min BUN/Creatinine Ratio (10-20) Glucose (70-99) mg/dl POC Glucose 126 H 114 H (70-99) mg/dl Calcium (8.5-10.1) mg/dl Phosphorus (2.5-4.9) mg/dl Magnesium (1.8-2.4) mg/dl Medications Administered Current Inpatient Medications Acetaminophen (Acetaminophen 325 Mg Tab) 650 mg PO Q6H PRN PRN Reason: Fever/pain Stop: 02/27/21 04:58 Last Admin: 02/05/21 21:15 Dose: 650 mg Documented by: Atorvastatin Calcium (Atorvastatin 20 Mg Tab) 20 mg PO DAILY GABY Stop: 02/27/21 08:59 Last Admin: 02/11/21 08:58 Dose: 20 mg Documented by: Dextrose (Dextrose 50% 50 Ml Syringe) 25 - 50 ml IV UD PRN; Protocol PRN Reason: Hypoglycemia Protocol Stop: 02/26/21 22:40 Last Admin: 01/28/21 10:53 Dose: 25 ml Documented by: Diphenhydramine HCl (Diphenhydramine Capsule 25 Mg Cap) 25 mg PO TID PRN PRN Reason: Itching Stop: 03/03/21 00:53 Last Admin: 02/08/21 21:04 Dose: 25 mg Documented by: Docusate Sodium (Docusate Sodium 100 Mg Cap) 100 mg PO BID GABY Stop: 02/26/21 20:59 Last Admin: 02/11/21 08:58 Dose: Not Given Documented by: Glucagon (Glucagon For Inj 1 Mg Vial) 1 mg SQ UD PRN; Protocol PRN Reason: Hypoglycemia Protocol Stop: 02/26/21 22:40 Glucose (Glucose 10 Tabs/Tube) 4 - 8 tabs PO UD PRN; Protocol PRN Reason: Hypoglycemia Protocol Stop: 02/26/21 22:40 Glucose (Glucose 40% Gel 15 Gm Tube) 15 - 30 gm PO UD PRN; Protocol PRN Reason: Hypoglycemia Protocol Stop: 02/26/21 22:40 Hydrocortisone (Hydrocortisone Hc 2.5% Crm 30gm Tube) 1 appln EXT BID GABY Stop: 03/09/21 20:59 Last Admin: 02/11/21 08:59 Dose: 1 appln Documented by: Hydromorphone HCl (Hydromorphone Inj 0.5 Mg/0.5 Ml Syr) 0.5 mg IV Q6H PRN PRN Reason: Pain Stop: 02/13/21 21:56 Last Admin: 02/07/21 11:13 Dose: 0.5 mg Documented by: Promethazine HCl 12.5 mg/ (Sodium Chloride) 50.5 mls @ 202 mls/hr IV Q6H PRN PRN Reason: Nausea And Vomiting Stop: 02/27/21 00:51 Last Infusion: 02/04/21 01:25 Dose: Infused Documented by: Piperacillin Sod/Tazobactam (Sod 4.5 gm/ Dextrose) 120 mls @ 30 mls/hr IV Q12H [facility]; Protocol Stop: 02/15/21 03:59 Last Infusion: 02/11/21 09:10 Dose: Infused Documented by: Sodium Chloride (Nss) 250 mls @ 15 mls/hr IV .[id number] PRN PRN Reason: For Transfusion Stop: 02/11/21 21:07 Insulin Aspart (Insulin Aspart 100 Units/Ml 3 Ml Pen) 0 units SC ACHS [facility] Stop: 03/08/21 20:59 Last Admin: 02/11/21 08:56 Dose: 6 units Documented by: Lactobacillus Acidoph/Casei/Rhamnos (Advanced Probiotic 1250 Mg Capsule) 2 cap PO DAILY [facility] Stop: 03/01/21 14:59 Last Admin: 02/11/21 08:59 Dose: 2 cap Documented by: Meclizine HCl (Meclizine Hcl 25 Mg Tab) 25 mg PO TID PRN PRN Reason: Dizziness Stop: 02/26/21 19:23 Miconazole Nitrate (Miconazole Nitrate Powder 43 Gm) 1 appln EXT PRN PRN PRN Reason: Affected Skin Folds Stop: 03/03/21 05:53 Midodrine (Midodrine Hcl 10 Mg Tab) 10 mg PO MoWeFr@0800 [facility] Stop: 03/11/21 05:44 Last Admin: 02/11/21 08:58 Dose: 10 mg Documented by: Miscellaneous (Carbohydrates For Hypoglycemia ) 15 - 30 gm PO UD PRN PRN Reason: Hypoglycemia Protocol Stop: 02/26/21 22:40 Miscellaneous Information (Piperacill/Tazobac Consult Active) 1 ea N/A UD PRN PRN Reason: Consult Stop: 03/06/21 19:35 Oxycodone HCl (Oxycodone Hcl Ir 5 Mg Tab (Immediate Release)) 5 - 10 mg PO QID PRN PRN Reason: Pain Stop: 02/24/21 00:20 Last Admin: 02/11/21 04:45 Dose: 10 mg Documented by: Pantoprazole Sodium (Pantoprazole 40 Mg Tab) 40 mg PO BID [facility] Stop: 03/11/21 20:59 Last Admin: 02/11/21 08:59 Dose: 40 mg Documented by: Vitamin D (Cholecalciferol 1,000 Units 25 Mcg Tab) 5,000 units PO DAILY GABY Stop: 02/27/21 08:59 Last Admin: 02/11/21 08:58 Dose: 5,000 units Documented by: (1) GI bleed GI bleed type/associated pathology: unspecified gastrointestinal hemorrhage type Qualified Code(s): K92.2 - Gastrointestinal hemorrhage, unspecified
[2021-02-11] MEDS ORDERED: HYDROCORTISONE ACETATE 25 MG SUPP PR PRN (11:33)
--- NOTE | 2021-02-11 11:37 | Gastroenterology Progress Note ---
Date of Service February 11, 2021 Assessment & Plan (1) Rectal bleeding: Plan: EGD with small, non-bleeding gastric ulcer. Colonoscopy without source of bleeding. NM GI bleeding scan negative for active GI bleed. -Continue IV Protonix 40 mg BID -Add Anucort 25 mg BID x 10 days -Continue to monitor H/H -As per Dr. Castro's previous recommendations for if patient were to re-bleed, would repeat NM GI bleeding scan today -If no findings, would consider small bowel enteroscopy tomorrow (02/12/21) Admission and Anticipated Discharge Date Admission Date: January 27, 2021 Subjective Patient is a 55 yo female with multiple medical issues. She has continued to have rectal bleeding despite normal testing. She had an EGD with a non-bleeding small gastric ulcer and has continued on PPI therapy. She had a colonoscopy without source of bleed. A nuclear medicine bleeding scan was negative for an active GI bleed. Despite this, she continues to have rectal bleeding. Was previously bright red but it was reported this AM that this has changed to dark red blood. H/H 7.9/25.0. BP 75/50. Per nursing she had baseball sized clots of blood passed yesterday. Review of Systems Constitutional: no fever and no chills Respiratory: no cough and no dyspnea Cardiovascular: no chest pain Gastrointestinal: + blood in stools Physical Exam Constitutional: no acute distress Respiratory: normal respiratory effort Gastrointestinal (Abdomen): normal bowel sounds, soft, nontender, no hepatosplenomegaly Results & Data Results & Data ([facility]) Vital Signs (Past 12 Hours) Vital Signs Temp Pulse Resp BP Pulse Ox 02/11/21 08:30 75/50 L 02/11/21 08:13 36.8 C 89 18 96 02/11/21 04:35 36.8 C 88 18 96/59 L 97 PG Care Time/CCT Total # of Minutes Spent Total Time Spent with Patient: Total time spent is greater than 50% in coordination of care (as documented) at patient's floor/unit and/or counseling patient: Coding Level of Care Code 85453 Subseq Hosp Care Lvl 3 Diagnoses Rectal bleeding K62.5
[2021-02-11] MEDS: PROMETHAZINE HCL 12.5 MG in SODIUM CHLORIDE 0.9% 50 ML IV PRN (16:08)
--- NOTE | 2021-02-11 18:04 | Nuclear Medicine Report ---
NM GI bleeding CLINICAL HISTORY: GI bleeding TECHNIQUE: Following the intravenous injection of 17.4 mCi of Tc-99m tagged autologous RBCs, planar i mages of the abdomen were obtained over the course of one hour. COMPARISON: Comparison is made to GI bleeding study 02/09/2021 FINDINGS: Expected radiopharmaceutical uptake is seen in the liver, spleen and blood pool. No significant pool of radiopharmaceutical activity is identified over the region of the bowel to sug gest GI blood loss. However, if patient re-bleeds within 24 hours, additional follow-up imaging may b e obtained with the current radiopharmaceutical activity. IMPRESSION: No evidence of acute gastrointestinal bleeding. ACT 112: Negative or not required by law. Electronically signed by: Shekhar Daniel M.D. 02/11/2021 6:03 PM
[2021-02-11 20:34] LABS: Hematocrit (blood only) 27.3 % (37-47); Hemoglobin 8.7 g/dL (12.0-16.0)
[2021-02-11] MEDS: PANTOprazole 40 MG in SYRINGE 0 ML IV SCH (20:59)
[2021-02-12] MEDS ORDERED: Nursing to Pharmacy Communication SCH (00:45)
[2021-02-12] MEDS: oxyCODONE HCL IR 5 MG TAB (IMMEDIATE RELEASE) PO PRN ×2 (00:48→08:14)
[2021-02-12] MEDS: diphenhydrAMINE Capsule 25 MG CAP PO PRN (00:48)
[2021-02-12] MEDS: PIPERACILLIN/TAZOBACTAM 4.5 GM in DEXTROSE 5% 100 ML IV SCH ×2 (04:58→16:44)
[2021-02-12] MEDS: INSULIN ASPART 100 UNITS/ML 3 ML PEN SC SCH ×3 (05:50→18:06)
[2021-02-12 07:57] LABS: Hemoglobin 8.7 g/dL (12.0-16.0); Mean Corpuscular Hemoglobin 29.6 pg (25-34); Mean Corpuscular Hgb Conc 32.2 g/dL (32-36); Mean Corpuscular Volume 91.8 fL (80-100); Mean Platelet Volume 10.2 fL (7.4-10.4); Platelet Count 201 K/uL (130-400); RDW Coefficient of Variation 18.6 % (11.5-14.5); Red Blood Count 2.94 M/uL (4.2-5.4); White Blood Count 11.15 K/uL (4.8-10.8)
[2021-02-12] MEDS: PANTOprazole 40 MG in SYRINGE 0 ML IV SCH ×2 (08:00→20:32)
[2021-02-12] MEDS: CHOLECALCIFEROL 1,000 UNITS 25 MCG TAB PO SCH (08:00)
[2021-02-12] MEDS: ATORVASTATIN 20 MG TAB PO SCH (08:00)
[2021-02-12] MEDS: ADVANCED PROBIOTIC 1250 MG CAPSULE PO SCH (08:01)
[2021-02-12] MEDS: DOCUSATE SODIUM 100 MG CAP PO SCH ×2 (08:03→20:30)
[2021-02-12 08:29] LABS: BUN Creatinine Ratio 3.7 (10-20); Calcium 8.7 mg/dl (8.5-10.1); Creatinine Clr Calc Pharmacy 15.7 ml/min; Est GFR (African American) 10.9 ml/min; Est GFR (Non-African American) 9.4 ml/min; Ferritin 1602.2 ng/ml (8-388); Phosphorus 4.5 mg/dl (2.5-4.9); Potassium 3.6 mmol/L (3.5-5.1)
[2021-02-12] MEDS: HYDROCORTISONE HC 2.5% CRM 30GM TUBE EXT SCH ×2 (09:00→21:30)
[2021-02-12] MEDS ORDERED: IRON SUCROSE 100 MG in SYRINGE 0 ML IV ONE (09:00)
[2021-02-12 09:28] LABS: Magnesium 1.7 mg/dl (1.8-2.4)
--- NOTE | 2021-02-12 10:02 | Nephrology Progress Note ---
Date of Service February 12, 2021 Assessment & Plan (1) ESRD (end stage renal disease) on dialysis: Plan: HD MWF. Orders for treatment today entered into EHR and reviewed with dialysis nurse. Barb was seen and evaluated during HD. Qb at goal. BP acceptable. Clearances at goal. UF goal 2 L. TDC has been functioning well. Monitor metabolic profile daily while inpatient. Renal diet. Medications appropriate for kidney dysfunction. Hold heparin with HD due to GI bleed. (2) Hypertension: Plan: BP low. Volume status euvolemic. No changes at this time. (3) Acute blood loss anemia: Plan: With anemic of CKD. Epogen 37828 units given 02/02 and 02/07 with HD. PRBC transfusion support provided 02/09. Venofer 100 mg with HD today. Iron studies reviewed this AM. Admission and Anticipated Discharge Date Admission Date: January 27, 2021 Subjective No acute events overnight. Persistent lower pelvic discomfort and rectal pain. Passed several clots yesterday. Barb was seen and evaluated during HD today. She was tolerating HD well. Review of Systems Review of Systems: All systems reviewed & are unremarkable except as noted in HPI & below Physical Exam Constitutional: well developed and + morbidly obese; no acute distress Eyes: + anicteric sclerae; no corneal abnormality ENMT: Mouth: no oral mucosal abnormality and oral mucous membranes not dry Neck: normal visual inspection and trachea midline Respiratory: normal respiratory effort Auscultation: lungs clear to auscultation bilaterally and + diminished lung sounds Cardiovascular: Rate/Rhythm: regular rate Heart Sounds: normal S1, normal S2 and + murmur Extremities: no edema Musculoskeletal: Extremities: no cyanosis and no clubbing Skin: normal turgor; no lesions Neurologic: Motor/Sensory: no tremor and no asterixis Psychiatric: Orientation: alert and oriented x 3 Results & Data ([facility]) Vital Signs (Past 12 Hours) Vital Signs Temp Pulse Pulse Resp BP Pulse Ox 02/12/21 07:30 36.8 C 92 H 16 111/75 98 02/12/21 04:25 36.7 C 91 H 18 152/75 H 100 02/12/21 00:43 36.8 C 84 22 105/69 97 Laboratory Results Laboratory Results - last 24 hr 02/11/21 02/11/21 02/11/21 06:51 11:25 16:14 WBC RBC Hgb Hct MCV MCH MCHC RDW Std Deviation RDW Coeff of Maria D Plt Count MPV Sodium Potassium Chloride Carbon Dioxide Anion Gap BUN Creatinine Est Cr Clr Drug Dosing Est GFR ( Amer) Est GFR (Non-Af Amer) BUN/Creatinine Ratio Glucose POC Glucose 127 H 170 H Calcium Phosphorus Magnesium Iron Transferrin Transferrin % Sat Ferritin Hep Bs Antigen Blood Type O Positive Antibody Screen NEGATIVE Crossmatch See Detail 02/11/21 02/11/21 02/12/21 20:23 20:28 00:39 WBC RBC Hgb 8.7 L Hct 27.3 L MCV MCH MCHC RDW Std Deviation RDW Coeff of Maria D Plt Count MPV Sodium Potassium Chloride Carbon Dioxide Anion Gap BUN Creatinine Est Cr Clr Drug Dosing Est GFR ( Amer) Est GFR (Non-Af Amer) BUN/Creatinine Ratio Glucose POC Glucose 121 H 94 Calcium Phosphorus Magnesium Iron Transferrin Transferrin % Sat Ferritin Hep Bs Antigen Blood Type Antibody Screen Crossmatch 02/12/21 02/12/21 02/12/21 05:49 07:38 07:38 WBC 11.15 H RBC 2.94 L Hgb 8.7 L Hct 27.0 L MCV 91.8 MCH 29.6 MCHC 32.2 RDW Std Deviation 62.0 H RDW Coeff of Maria D 18.6 H Plt Count 201 MPV 10.2 Sodium 140 Potassium 3.6 Chloride 109 H Carbon Dioxide 22 Anion Gap 9.0 BUN 18 Creatinine 4.79 H* D Est Cr Clr Drug Dosing 15.7 Est GFR ( Amer) 10.9 Est GFR (Non-Af Amer) 9.4 BUN/Creatinine Ratio 3.7 L Glucose 110 H POC Glucose 104 H Calcium 8.7 Phosphorus 4.5 Magnesium 1.7 L Iron 19 L Transferrin 71 L Transferrin % Sat 18 Ferritin 1602.2 H Hep Bs Antigen Blood Type Antibody Screen Crossmatch 02/12/21 07:38 WBC RBC Hgb Hct MCV MCH MCHC RDW Std Deviation RDW Coeff of Maria D Plt Count MPV Sodium Potassium Chloride Carbon Dioxide Anion Gap BUN Creatinine Est Cr Clr Drug Dosing Est GFR ( Amer) Est GFR (Non-Af Amer) BUN/Creatinine Ratio Glucose POC Glucose Calcium Phosphorus Magnesium Iron Transferrin Transferrin % Sat Ferritin Hep Bs Antigen Pending Blood Type Antibody Screen Crossmatch PG Care Time/CCT Total # of Minutes Spent Total Time Spent with Patient: Total time spent is greater than 50% in coordination of care (as documented) at patient's floor/unit and/or counseling patient: Coding Level of Care Code 34657 Subseq Hosp Care Lvl 3 Diagnoses ESRD (end stage renal disease) on dialysis N18.6; Z99.2 Hypertension I10 Acute blood loss anemia D62
--- NOTE | 2021-02-12 10:11 | Hospitalist Progress Note ---
Date of Service February 12, 2021 Assessment & Plan (1) GI bleed: Plan: Likely multifactorial Gastric Ulcer Rectal bleeding likely secondary to polyps, diverticulosis and internal hemorrhoids Suspect ischemic colitis--less likely based on CT S/P EGD: gastric ulcer S/P PRBC H/O hemorrhoids as per patient --CT ABD:No CT evidence for ischemic bowel. However, there is a masslike filling defect within the rectum suspicious for a neoplastic process. Direct visualization is recommended. -S/P Colonoscopy: Two 5 to 7 mm polyps in the cecum, removed with hot snare. Resected and retrieved. Diverticulosis in the sigmoid colon. Nonbleeding internal hemorrhoids. No findings on the exam to correlate with abnormal CT in the rectum. It was most likely stool versus shadowing. --Pathology pending Continue Protonix drip>>Transitioned to PO Appreciate GI input Continue H&H and transfuse PRBCs as needed Bleeding Scan showed No evidence of acute gastrointestinal bleeding Monitor CBC Conservative management as per GI Hb 8.7 on 02/10 Hb 7.9 on 02/11 received 1unit of pRBC on 02/11 02/11 - Patient again had 2 large bowel movements, per RN dark red GI, Dr. Castro contacted, plan for repeat bleeding scan, if negative, plans for small bowel enteroscopy tomorrow (02/12) 02/12 -bleeding scan negative, plan for small bowel enteroscopy today (2) Postoperative wound infection: Plan: Left AKA stump cellulitis Stage 3 Pressure ulcer of right heel, POA --Blood Cx: Negative to date Empirically received Unasyn for 7 days Also completed 7 days of doxycycline Worsening leukocytosis Transitioned Unasyn to Zosyn Appreciate orthopedics, vascular surgery input Needs debridement of left above-knee amputation stump and possible need for wound VAC Continue wound care Leukocytosis normalized Needs debridement as able-- Planned for Tuesday (w/ vasc. surg.) Leukocytosis , now WBC 11 K (02/12) (3) ESRD (end stage renal disease) on dialysis: Plan: - Consult nephrology - pt on HD M/W/F hemodialysis as per Nephrology Received Epogen with HD Hypokalemia Replace electrolytes as needed (4) Diabetes mellitus, type 2: Plan: - Accuchecks - Insulin sliding scale (5) Hypertension: Plan: Monitor BP Continue current medications (6) Hyperlipidemia: Plan: on Statin (7) Ulcer of right heel: Plan: - Wound care consult, as above (8) Peripheral vascular disease: (9) Obstructive sleep apnea: Plan: Non-compliant with CPAP CODE STATUS: Full code DVT Px: SCDs Re: GI bleeding Admission and Anticipated Discharge Date Admission Date: January 27, 2021 Subjective Patient is seen in follow-up of GI bleed, wound infection Patient seen right after dialysis today She is complaining of pain in her buttocks area due to several BMs and small wounds, nursing staff aware She has also some lower abdominal discomfort Had some bloody bowel movements noted by nursing staff GI contacted, and bleeding scan ordered yesterday, which was negative Plan for small bowel enteroscopy later today Patient received 1 unit of PRBCs yesterday, hemoglobin now 8.7 Previous provider discussed with vascular surgery, plan for OR on Tuesday Pt denies any chest pain, shortness of breath, dizziness Review of Systems Review of Systems: All systems reviewed & are unremarkable except as noted in Subjective Physical Exam Physical Exam: General Appearance:Morbidly Obese F in NAD, chronically ill appearing Head: normocephalic, Atraumatic Eyes: normal inspection, EOMI Neck: supple, Trachea midline Respiratory/Chest: Normal breath sounds, CTA, No accessory muscle use Cardiovascular: S1, S2, No murmur Abdomen/GI:Soft, Non tender, Bowel sounds present Extremities/Musculoskeletal:normal inspection, 1+ pedal edema, Left AKA, mild erythema -dressings applied Neurologic/Psych: AAOX3, speech fluent, moves extremities Skin: normal color, warm, right heel wound Results & Data Results & Data ([facility]) Vital Signs (Past 12 Hours) Vital Signs Temp Pulse Pulse Resp BP Pulse Ox 02/12/21 07:30 36.8 C 92 H 16 111/75 98 02/12/21 04:25 36.7 C 91 H 18 152/75 H 100 02/12/21 00:43 36.8 C 84 22 105/69 97 Laboratory Results 02/12/21 02/12/21 02/12/21 Range/Units 07:38 07:38 07:38 WBC 11.15 H (4.8-10.8) K/uL RBC 2.94 L (4.2-5.4) M/uL Hgb 8.7 L (12.0-16.0) g/dL Hct 27.0 L (37-47) % MCV 91.8 (80-100) fL MCH 29.6 (25-34) pg MCHC 32.2 (32-36) g/dL RDW Std Deviation 62.0 H (36.4-46.3) fL RDW Coeff of Maria D 18.6 H (11.5-14.5) % Plt Count 201 (130-400) K/uL MPV 10.2 (7.4-10.4) fL Sodium 140 (136-145) mmol/L Potassium 3.6 (3.5-5.1) mmol/L Chloride 109 H (98-107) mmol/L Carbon Dioxide 22 (21-32) mmol/L Anion Gap 9.0 (3-11) BUN 18 (7-18) mg/dl Creatinine 4.79 H* D (0.6-1.2) mg/dl Est Cr Clr Drug Dosing 15.7 ml/min Est GFR ( Amer) 10.9 ml/min Est GFR (Non-Af Amer) 9.4 ml/min BUN/Creatinine Ratio 3.7 L (10-20) Glucose 110 H (70-99) mg/dl POC Glucose (70-99) mg/dl Calcium 8.7 (8.5-10.1) mg/dl Phosphorus 4.5 (2.5-4.9) mg/dl Magnesium 1.7 L (1.8-2.4) mg/dl Iron 19 L (35-150) mcg/dl Transferrin 71 L (200-360) mg/dl Transferrin % Sat 18 (15-50) % Ferritin 1602.2 H (8-388) ng/ml Hep Bs Antigen Pending Blood Type Antibody Screen Crossmatch 02/12/21 02/12/21 02/11/21 Range/Units 05:49 00:39 20:28 WBC (4.8-10.8) K/uL RBC (4.2-5.4) M/uL Hgb (12.0-16.0) g/dL Hct (37-47) % MCV (80-100) fL MCH (25-34) pg MCHC (32-36) g/dL RDW Std Deviation (36.4-46.3) fL RDW Coeff of Maria D (11.5-14.5) % Plt Count (130-400) K/uL MPV (7.4-10.4) fL Sodium (136-145) mmol/L Potassium (3.5-5.1) mmol/L Chloride (98-107) mmol/L Carbon Dioxide (21-32) mmol/L Anion Gap (3-11) BUN (7-18) mg/dl Creatinine (0.6-1.2) mg/dl Est Cr Clr Drug Dosing ml/min Est GFR ( Amer) ml/min Est GFR (Non-Af Amer) ml/min BUN/Creatinine Ratio (10-20) Glucose (70-99) mg/dl POC Glucose 104 H 94 121 H (70-99) mg/dl Calcium (8.5-10.1) mg/dl Phosphorus (2.5-4.9) mg/dl Magnesium (1.8-2.4) mg/dl Iron (35-150) mcg/dl Transferrin (200-360) mg/dl Transferrin % Sat (15-50) % Ferritin (8-388) ng/ml Hep Bs Antigen Blood Type Antibody Screen Crossmatch 02/11/21 02/11/21 02/11/21 Range/Units 20:23 16:14 11:25 WBC (4.8-10.8) K/uL RBC (4.2-5.4) M/uL Hgb 8.7 L (12.0-16.0) g/dL Hct 27.3 L (37-47) % MCV (80-100) fL MCH (25-34) pg MCHC (32-36) g/dL RDW Std Deviation (36.4-46.3) fL RDW Coeff of Maria D (11.5-14.5) % Plt Count (130-400) K/uL MPV (7.4-10.4) fL Sodium (136-145) mmol/L Potassium (3.5-5.1) mmol/L Chloride (98-107) mmol/L Carbon Dioxide (21-32) mmol/L Anion Gap (3-11) BUN (7-18) mg/dl Creatinine (0.6-1.2) mg/dl Est Cr Clr Drug Dosing ml/min Est GFR ( Amer) ml/min Est GFR (Non-Af Amer) ml/min BUN/Creatinine Ratio (10-20) Glucose (70-99) mg/dl POC Glucose 170 H 127 H (70-99) mg/dl Calcium (8.5-10.1) mg/dl Phosphorus (2.5-4.9) mg/dl Magnesium (1.8-2.4) mg/dl Iron (35-150) mcg/dl Transferrin (200-360) mg/dl Transferrin % Sat (15-50) % Ferritin (8-388) ng/ml Hep Bs Antigen Blood Type Antibody Screen Crossmatch 02/11/21 Range/Units 06:51 WBC (4.8-10.8) K/uL RBC (4.2-5.4) M/uL Hgb (12.0-16.0) g/dL Hct (37-47) % MCV (80-100) fL MCH (25-34) pg MCHC (32-36) g/dL RDW Std Deviation (36.4-46.3) fL RDW Coeff of Maria D (11.5-14.5) % Plt Count (130-400) K/uL MPV (7.4-10.4) fL Sodium (136-145) mmol/L Potassium (3.5-5.1) mmol/L Chloride (98-107) mmol/L Carbon Dioxide (21-32) mmol/L Anion Gap (3-11) BUN (7-18) mg/dl Creatinine (0.6-1.2) mg/dl Est Cr Clr Drug Dosing ml/min Est GFR ( Amer) ml/min Est GFR (Non-Af Amer) ml/min BUN/Creatinine Ratio (10-20) Glucose (70-99) mg/dl POC Glucose (70-99) mg/dl Calcium (8.5-10.1) mg/dl Phosphorus (2.5-4.9) mg/dl Magnesium (1.8-2.4) mg/dl Iron (35-150) mcg/dl Transferrin (200-360) mg/dl Transferrin % Sat (15-50) % Ferritin (8-388) ng/ml Hep Bs Antigen Blood Type O Positive Antibody Screen NEGATIVE Crossmatch See Detail Medications Administered Current Inpatient Medications Acetaminophen (Acetaminophen 325 Mg Tab) 650 mg PO Q6H PRN PRN Reason: Fever/pain Stop: 02/27/21 04:58 Last Admin: 02/05/21 21:15 Dose: 650 mg Documented by: Atorvastatin Calcium (Atorvastatin 20 Mg Tab) 20 mg PO DAILY GABY Stop: 02/27/21 08:59 Last Admin: 02/12/21 08:00 Dose: 20 mg Documented by: Dextrose (Dextrose 50% 50 Ml Syringe) 25 - 50 ml IV UD PRN; Protocol PRN Reason: Hypoglycemia Protocol Stop: 02/26/21 22:40 Last Admin: 01/28/21 10:53 Dose: 25 ml Documented by: Diphenhydramine HCl (Diphenhydramine Capsule 25 Mg Cap) 25 mg PO TID PRN PRN Reason: Itching Stop: 03/03/21 00:53 Last Admin: 02/12/21 00:48 Dose: 25 mg Documented by: Docusate Sodium (Docusate Sodium 100 Mg Cap) 100 mg PO BID GABY Stop: 02/26/21 20:59 Last Admin: 02/12/21 08:03 Dose: Not Given Documented by: Glucagon (Glucagon For Inj 1 Mg Vial) 1 mg SQ UD PRN; Protocol PRN Reason: Hypoglycemia Protocol Stop: 02/26/21 22:40 Glucose (Glucose 10 Tabs/Tube) 4 - 8 tabs PO UD PRN; Protocol PRN Reason: Hypoglycemia Protocol Stop: 02/26/21 22:40 Glucose (Glucose 40% Gel 15 Gm Tube) 15 - 30 gm PO UD PRN; Protocol PRN Reason: Hypoglycemia Protocol Stop: 02/26/21 22:40 Hydrocortisone (Hydrocortisone Hc 2.5% Crm 30gm Tube) 1 appln EXT BID GABY Stop: 03/09/21 20:59 Last Admin: 02/11/21 20:58 Dose: 1 appln Documented by: Hydrocortisone (Hydrocortisone Acetate 25 Mg Supp) 25 mg NE BID PRN PRN Reason: Hemorrhoids Stop: 03/13/21 11:32 Hydromorphone HCl (Hydromorphone Inj 0.5 Mg/0.5 Ml Syr) 0.5 mg IV Q6H PRN PRN Reason: Pain Stop: 02/13/21 21:56 Last Admin: 02/07/21 11:13 Dose: 0.5 mg Documented by: Promethazine HCl 12.5 mg/ (Sodium Chloride) 50.5 mls @ 202 mls/hr IV Q6H PRN PRN Reason: Nausea And Vomiting Stop: 02/27/21 00:51 Last Infusion: 02/11/21 17:12 Dose: Infused Documented by: Piperacillin Sod/Tazobactam (Sod 4.5 gm/ Dextrose) 120 mls @ 30 mls/hr IV Q12H [facility]; Protocol Stop: 02/15/21 03:59 Last Admin: 02/12/21 04:58 Dose: 30 mls/hr Documented by: Pantoprazole Sodium 40 mg/ (Syringe) 10 mls @ 5 mls/min IV BID [facility] Stop: 03/13/21 20:59 Last Admin: 02/12/21 08:00 Dose: 5 mls/min Documented by: Insulin Aspart (Insulin Aspart 100 Units/Ml 3 Ml Pen) 0 units SC Q6 [facility] Stop: 03/14/21 05:59 Last Admin: 02/12/21 05:50 Dose: Not Given Documented by: Lactobacillus Acidoph/Casei/Rhamnos (Advanced Probiotic 1250 Mg Capsule) 2 cap PO DAILY [facility] Stop: 03/01/21 14:59 Last Admin: 02/12/21 08:01 Dose: 2 cap Documented by: Meclizine HCl (Meclizine Hcl 25 Mg Tab) 25 mg PO TID PRN PRN Reason: Dizziness Stop: 02/26/21 19:23 Miconazole Nitrate (Miconazole Nitrate Powder 43 Gm) 1 appln EXT PRN PRN PRN Reason: Affected Skin Folds Stop: 03/03/21 05:53 Midodrine (Midodrine Hcl 10 Mg Tab) 10 mg PO MoWeFr@0800 [facility] Stop: 03/11/21 05:44 Last Admin: 02/11/21 08:58 Dose: 10 mg Documented by: Miscellaneous (Carbohydrates For Hypoglycemia ) 15 - 30 gm PO UD PRN PRN Reason: Hypoglycemia Protocol Stop: 02/26/21 22:40 Miscellaneous Information (Piperacill/Tazobac Consult Active) 1 ea N/A UD PRN PRN Reason: Consult Stop: 03/06/21 19:35 Oxycodone HCl (Oxycodone Hcl Ir 5 Mg Tab (Immediate Release)) 5 - 10 mg PO QID PRN PRN Reason: Pain Stop: 02/24/21 00:20 Last Admin: 02/12/21 08:14 Dose: 5 mg Documented by: Vitamin D (Cholecalciferol 1,000 Units 25 Mcg Tab) 5,000 units PO DAILY GABY Stop: 02/27/21 08:59 Last Admin: 02/12/21 08:00 Dose: 5,000 units Documented by: (1) GI bleed GI bleed type/associated pathology: unspecified gastrointestinal hemorrhage type Qualified Code(s): K92.2 - Gastrointestinal hemorrhage, unspecified
--- NOTE | 2021-02-12 10:21 | History & Physical Bridge Note ---
Date of Service February 12, 2021 History & Physical Bridge Note I have reviewed the History & Physical and in the interval since the performance of the History & Physical I have noted the following changes of clinical significance: BP this AM is 115/58. H/H 8.7/27.0. Patient continues to have bright red blood per rectum and clots. She had a second GI bleeding scan on 02/11/21 that failed to identify any source of active GI bleed. She is scheduled for a small bowel enteroscopy today. She continues Protonix 40 mg BID. Keep NPO Proceed with small bowel enteroscopy today if BP is appropriate after dialysis. After enteroscopy, would consider a CT angiogram for further evaluation. Continue to monitor H/H and continue to treat with Protonix 40 mg BID.
[2021-02-12] MEDS ORDERED: oxyCODONE HCL IR 5 MG TAB (IMMEDIATE RELEASE) PO STA (11:52)
--- NOTE | 2021-02-12 13:47 | Communication Note ---
Date of Service: February 12, 2021 Patient for debridement of her stump tomorrow in the am.
--- NOTE | 2021-02-12 14:01 | Anesthesiology Consultation ---
Date of Service February 12, 2021 Assessment & Plan Chart Review Chart Review: Acceptable Risk for Surgery Consults Requested none History Surgery Operation Date: 01/28/21 15:30 Proposed Procedures p Esophagogastroduodenoscopy Dr. Castro - Javi Castro MD Operation Date: 02/06/21 15:30 Proposed Procedures p Colonoscopy Dr. Rambo Ricks, Operation Date: 02/12/21 16:30 Proposed Procedures p Small Bowel Enteroscopy - Javi Castro MD Operation Date: 02/13/21 08:00 Proposed Procedures p Debridement Left Above Knee Amputation Stump, Possible Application of Wound Vac - Giuseppe Michel MD Operation Date: 02/13/21 09:05 Proposed Procedures p Debridement Left Above Knee Amputation Stump, Possible Application of Wound Vac - iGuseppe Michel MD Height/Weight Height: 5 ft 3 in Weight: 113.2 kg Allergies Allergy/AdvReac Type Severity Reaction Status Date / Time No Known Allergies Allergy Verified 01/24/21 20:53 Medications Home Medications Medication Instructions Recorded Confirmed Last Taken atorvastatin 20 mg tablet (Lipitor) 20 mg PO DAILY 06/05/18 01/27/21 11/16/18 20:30 clopidogrel 75 mg tablet (Plavix) 75 mg PO DAILY 06/05/18 01/27/21 11/17/18 04:30 docusate sodium 100 mg capsule 100 mg PO BID 06/05/18 01/27/21 11/17/18 04:30 insulin glargine 100 unit/mL 10 units SUBCUT HS 06/05/18 01/27/21 11/17/18 04:30 subcutaneous solution (Lantus 20 units U-100 Insulin) Saccharomyces boulardii 250 mg 250 mg PO BIDM 01/24/21 01/27/21 Unknown capsule acetaminophen 325 mg tablet 650 mg PO Q4 PRN 01/24/21 01/27/21 Unknown aspirin 81 mg tablet,delayed 81 mg PO DAILY 01/24/21 01/27/21 Unknown release (Aspirin Low Dose) bisacodyl 10 mg rectal suppository 10 mg IN DAILY PRN 01/24/21 01/27/21 Unknown cholecalciferol (vitamin D3) 125 125 mcg PO DAILY 01/24/21 01/27/21 Unknown mcg (5,000 unit) capsule collagenase clostridium histo. 250 1 applic TOPICAL DAILY 01/24/21 01/27/21 Unknown unit/gram topical ointment (Santyl) darbepoetin sheri in polysorbat 100 100 mcg SUBCUT UD 01/24/21 01/27/21 Unknown mcg/0.5 mL in polysorbate injection syringe dextrose 40 % oral gel 15 g PO ONCE PRN 01/24/21 01/27/21 Unknown gentamicin 0.1 % topical ointment 1 applic TOPICAL DAILY 01/24/21 01/27/21 Unknown heparin (porcine) 5,000 unit/mL 5,000 unit SUBCUT Q12H 01/24/21 01/27/21 Unknown injection solution iron sucrose 100 mg iron/5 mL 100 mg IV UD PRN 01/24/21 01/27/21 Unknown intravenous solution (Venofer) magnesium hydroxide 400 mg/5 mL 30 ml PO DAILY PRN 01/24/21 01/27/21 Unknown oral suspension (Milk of MagnRazorGator) meclizine 12.5 mg tablet 25 mg PO TID PRN 01/24/21 01/27/21 Unknown midodrine 5 mg tablet 5 mg PO TID 01/24/21 01/27/21 Unknown ondansetron 4 mg disintegrating 4 mg PO Q6H PRN 01/24/21 01/27/21 Unknown tablet pantoprazole 40 mg tablet,delayed 40 mg PO HS 01/24/21 01/27/21 Unknown release polyethylene glycol 3350 17 gram 17 g PO QDL PRN 01/24/21 01/27/21 Unknown oral powder packet (Miralax) sennosides 8.6 mg-docusate sodium 1 tab-cap PO QDL PRN 01/24/21 01/27/21 Unknown 50 mg tablet (Senokot-S) tramadol 50 mg tablet 50 mg PO Q6H PRN 01/24/21 01/27/21 Unknown doxycycline hyclate 100 mg capsule 100 mg PO BID 14 Days #28 cap 01/25/21 01/27/21 Unknown cocoa butter-shark liver oil 1 supp IN BID 01/27/21 01/27/21 Unknown rectal suppository hydrocortisone 2.5 % topical cream 1 applic TOPICAL BID 01/27/21 01/27/21 Unknown insulin regular human 100 unit/mL 1 sliding scale dose SUBCUT 01/27/21 01/27/21 Unknown injection solution (Humulin R USEASDIRECTD Regular U-100 Insulin) Active Medications Generic Name Dose Route Start Last Admin Trade Name Freq PRN Reason Stop Dose Admin Acetaminophen 650 mg 01/28/21 04:59 02/05/21 21:15 Acetaminophen 325 Mg Tab PO 02/27/21 04:58 650 mg Q6H PRN Administration Fever/pain Atorvastatin Calcium 20 mg 01/28/21 09:00 02/12/21 08:00 Atorvastatin 20 Mg Tab PO 02/27/21 08:59 20 mg DAILY GABY Administration Dextrose 25 - 50 ml 01/27/21 22:41 01/28/21 10:53 Dextrose 50% 50 Ml Syringe IV 02/26/21 22:40 25 ml UD PRN Administration Hypoglycemia Protocol Protocol Diphenhydramine HCl 25 mg 02/01/21 00:54 02/12/21 00:48 Diphenhydramine Capsule 25 Mg Cap PO 03/03/21 00:53 25 mg TID PRN Administration Itching Docusate Sodium 100 mg 01/27/21 21:00 02/12/21 08:03 Docusate Sodium 100 Mg Cap PO 02/26/21 20:59 Not Given BID GABY Hydrocortisone 1 appln 02/07/21 21:00 02/12/21 09:00 Hydrocortisone Hc 2.5% Crm 30gm Tube EXT 03/09/21 20:59 1 appln BID GABY Administration Hydromorphone HCl 0.5 mg 01/30/21 21:57 02/07/21 11:13 Hydromorphone Inj 0.5 Mg/0.5 Ml Syr IV 02/13/21 21:56 0.5 mg Q6H PRN Administration Pain Promethazine HCl 12.5 mg/ 50.5 mls @ 202 mls/hr 01/28/21 00:52 02/11/21 17:12 Sodium Chloride IV 02/27/21 00:51 Infused Q6H PRN Infusion Nausea And Vomiting Piperacillin Sod/Tazobactam 120 mls @ 30 mls/hr 02/05/21 16:00 02/12/21 10:58 Sod 4.5 gm/ Dextrose IV 02/15/21 03:59 Infused Q12H GABY Infusion Protocol Pantoprazole Sodium 40 mg/ 10 mls @ 5 mls/min 02/11/21 21:00 02/12/21 08:00 Syringe IV 03/13/21 20:59 5 mls/min BID GABY Administration Insulin Aspart 0 units 02/12/21 06:00 02/12/21 12:47 Insulin Aspart 100 Units/Ml 3 Ml Pen SC 03/14/21 05:59 Not Given Q6 GABY Lactobacillus Acidoph/Casei/Rhamnos 2 cap 01/30/21 15:00 02/12/21 08:01 Advanced Probiotic 1250 Mg Capsule PO 03/01/21 14:59 2 cap DAILY GABY Administration Midodrine 10 mg 02/09/21 05:45 02/11/21 08:58 Midodrine Hcl 10 Mg Tab PO 03/11/21 05:44 10 mg MoWeFr@0800 GABY Administration Oxycodone HCl 5 - 10 mg 02/10/21 00:21 02/12/21 08:14 Oxycodone Hcl Ir 5 Mg Tab (Immediate Release) PO 02/24/21 00:20 5 mg QID PRN Administration Pain Vitamin D 5,000 units 01/28/21 09:00 02/12/21 08:00 Cholecalciferol 1,000 Units 25 Mcg Tab PO 02/27/21 08:59 5,000 units DAILY GABY Administration NPO Date Last Intake of Fluids: 02/05/21 Time Last Intake of Fluids: 08:30 Last Intake of Fluids Comment: Water with meds Date Last Intake of Solids: 02/02/21 Time Last Intake of Solids: 08:00 Past Medical History Medical History (Updated 02/11/21 @ 11:45 by Dariela Butler PA-C) Anemia AV fistula LEFT ARM Congestive heart failure Diabetes mellitus, type 2 Difficult intravenous access Hemodialysis patient [facility] Hyperlipidemia Hypertension Morbid obesity Obstructive sleep apnea Peripheral vascular disease Right heart failure Transient ischemic attack (TIA) X 14 (LAST EVENT 2015) Past Family History Family History Other No significant family history Past Surgical History Surgical History History of appendectomy History of cardiac cath X 2 (NO STENTS) History of section X1 History of cholecystectomy History of colonoscopy History of dilatation and curettage X 3 History of hysterectomy History of surgery HX OF LEFT UPPER ARM FISTULOGRAM (CLOT IN AV FISTULA) X 9 TIMES History of tooth extraction Social History Smoking Status: Former smoker tobacco type: cigarettes Hx Alcohol Use: No Hx Substance Use: No substance use type: does not use Physical Exam Vital Signs Last Vital Signs Temp 37.1 C 02/12/21 13:36 Pulse 89 02/12/21 13:36 Resp 18 02/12/21 13:36 BP 70/45 L 02/12/21 13:36 Pulse Ox 100 02/12/21 13:36 Testing Laboratory Results 02/12/21 07:38 02/12/21 07:38 PT 10.4 Seconds (9.0-12.0) 01/27/21 15:05 INR 1.0 (0.9-1.1) 01/27/21 15:05 APTT 23.2 Seconds (21.0-31.0) 01/27/21 15:05 Hemoglobin A1c 4.7 % (4.5-5.6) 01/28/21 06:02 Blood Type O Positive 02/11/21 06:51 Antibody Screen NEGATIVE 02/11/21 06:51 02/12/21 02/12/21 12:43 05:49 POC Glucose 96 104 H
--- NOTE | 2021-02-12 14:03 | Communication Note ---
Date of Service: February 12, 2021 GI brief communication note: procedure cancelled due to patient's hypotension following dialysis after discussion with anesthesia. at this time would recommend a CT angiography to further evaluate her GI bleeding. clear liquid diet as tolerated. Javi Castro MD Gastroenterology
[2021-02-12] MEDS: ALBUMIN 25% 100 mL 25 GM/100 ML VIAL IV SCH ×2 (14:45→21:39)
[2021-02-12] MEDS ORDERED: MIDODRINE HCL 2.5 MG TAB PO ONE (14:45)
[2021-02-12 15:24] LABS: Hematocrit (blood only) 27.2 % (37-47); Hemoglobin 8.7 g/dL (12.0-16.0)
[2021-02-13] MEDS: INSULIN ASPART 100 UNITS/ML 3 ML PEN SC SCH ×4 (00:12→16:55)
[2021-02-13] MEDS: PIPERACILLIN/TAZOBACTAM 4.5 GM in DEXTROSE 5% 100 ML IV SCH ×2 (04:53→16:42)
[2021-02-13] MEDS: ALBUMIN 25% 100 mL 25 GM/100 ML VIAL IV SCH ×3 (05:55→21:45)
[2021-02-13 07:45] LABS: Hematocrit (blood only) 23.4 % (37-47); Hemoglobin 7.3 g/dL (12.0-16.0); Mean Corpuscular Hgb Conc 31.2 g/dL (32-36); Mean Corpuscular Volume 92.9 fL (80-100); Mean Platelet Volume 10.4 fL (7.4-10.4); Platelet Count 186 K/uL (130-400); RDW Coefficient of Variation 18.8 % (11.5-14.5); RDW Standard Deviation 63.6 fL (36.4-46.3); Red Blood Count 2.52 M/uL (4.2-5.4); White Blood Count 7.64 K/uL (4.8-10.8)
--- NOTE | 2021-02-13 07:49 | History & Physical Bridge Note ---
Date of Service February 13, 2021 History & Physical Bridge Note Patient for debridement of left AKA stump. I have discussed the risks options and benefits of the procedure with the patient. The patient understands the risks options and benefits and agrees to the procedure. I have examined the patient, reviewed the History & Physical and in the interval since the performance of the History & Physical I have noted the following changes of clinical significance: no changes noted
[2021-02-13] MEDS ORDERED: fentaNYL citrate 100 MCG/2 ML VIAL ONE (07:55)
[2021-02-13] MEDS ORDERED: PROPOFOL IV EMULSION 10 MG/ML 20 ML VIAL IV ONE (07:55)
[2021-02-13] MEDS ORDERED: ONDANSETRON INJ 2 MG/ML 2 ML VIAL ONE ×2 (07:55→10:04)
[2021-02-13] MEDS ORDERED: LIDOCAINE 2% 2 ML VIAL/AMP(20MG/ML) INFIL ONE (07:55)
--- NOTE | 2021-02-13 08:12 | Hospitalist Progress Note ---
Date of Service February 13, 2021 Assessment & Plan (1) GI bleed: Plan: Likely multifactorial Gastric Ulcer Rectal bleeding likely secondary to polyps, diverticulosis and internal hemorrhoids Suspect ischemic colitis--less likely based on CT S/P EGD: gastric ulcer S/P PRBC H/O hemorrhoids as per patient --CT ABD:No CT evidence for ischemic bowel. However, there is a masslike filling defect within the rectum suspicious for a neoplastic process. Direct visualization is recommended. -S/P Colonoscopy: Two 5 to 7 mm polyps in the cecum, removed with hot snare. Resected and retrieved. Diverticulosis in the sigmoid colon. Nonbleeding internal hemorrhoids. No findings on the exam to correlate with abnormal CT in the rectum. It was most likely stool versus shadowing. --Pathology pending Continue Protonix drip>>Transitioned to PO Appreciate GI input Continue H&H and transfuse PRBCs as needed Bleeding Scan showed No evidence of acute gastrointestinal bleeding Monitor CBC Conservative management as per GI Hb 8.7 on 02/10 Hb 7.9 on 02/11 received 1unit of pRBC on 02/11 02/11 - Patient again had 2 large bowel movements, per RN dark red GI, Dr. Castro contacted, plan for repeat bleeding scan, if negative, plans for small bowel enteroscopy tomorrow (02/12) 02/12 -bleeding scan negative, plan for small bowel enteroscopy today 02/13 -small bowel enteroscopy canceled due to hypotension, plan for CT angio abdomen pelvis (2) Postoperative wound infection: Plan: Left AKA stump cellulitis Stage 3 Pressure ulcer of right heel, POA --Blood Cx: Negative to date Empirically received Unasyn for 7 days Also completed 7 days of doxycycline Worsening leukocytosis Transitioned Unasyn to Zosyn Appreciate orthopedics, vascular surgery input Needs debridement of left above-knee amputation stump and possible need for wound VAC Continue wound care Leukocytosis normalized Needs debridement as able-- Planned for Tuesday (w/ vasc. surg.) Leukocytosis , now WBC 11 K (02/12) 02/13 - underwent Debridement of skin and subcutaneous Left Above Knee Amputation Stump (22x8cm), Application of Wound Vac with wound measuring 22x8 cm.(Left) - Giuseppe Michel MD Follow wound cultx from OR (3) ESRD (end stage renal disease) on dialysis: Plan: - Consult nephrology - pt on HD M/W/F, now on TTS schedule hemodialysis as per Nephrology Received Epogen with HD Hypokalemia Replace electrolytes as needed (4) Diabetes mellitus, type 2: Plan: - Accuchecks - Insulin sliding scale (5) Hypertension: Plan: Monitor BP Continue current medications (6) Hyperlipidemia: Plan: on Statin (7) Ulcer of right heel: Plan: - Wound care consult, as above (8) Peripheral vascular disease: (9) Obstructive sleep apnea: Plan: Non-compliant with CPAP CODE STATUS: Full code DVT Px: SCDs Re: GI bleeding Admission and Anticipated Discharge Date Admission Date: January 27, 2021 Subjective Patient is seen in follow-up of GI bleed, wound infection Underwent Debridement of skin and subcutaneous Left Above Knee Amputation Stump (22x8cm), Application of Wound Vac with wound measuring 22x8 cm.(Left) - Giuseppe Michel MD, earlier today Currently laying in bed, sleepy, in no acute distress Pt denies any chest pain, shortness of breath, dizziness Small bowel enteroscopy canceled due to anesthesia/hypotension after dialysis Discussed with GI, plan for CT angio abdomen pelvis, ordered Review of Systems Review of Systems: All systems reviewed & are unremarkable except as noted in Subjective Physical Exam Physical Exam: General Appearance:Morbidly Obese F in NAD, chronically ill appearing Head: normocephalic, Atraumatic Eyes: normal inspection, EOMI Neck: supple, Trachea midline Respiratory/Chest: Normal breath sounds, CTA, No accessory muscle use Cardiovascular: S1, S2, No murmur Abdomen/GI:Soft, Non tender, Bowel sounds present Extremities/Musculoskeletal:normal inspection, 1+ pedal edema, Left AKA - wound vac now applied after surgery, mild erythema -dressings applied Neurologic/Psych: AAOX3, speech fluent, moves extremities Skin: normal color, warm, right heel wound Results & Data Results & Data ([facility]) Vital Signs (Past 12 Hours) Vital Signs Temp Pulse Pulse Resp BP Pulse Ox 02/13/21 07:23 37.3 C 82 20 120/53 L 97 02/13/21 04:23 37.3 C 90 18 93/67 L 92 02/13/21 00:16 37 C 87 20 87/49 L 95 02/12/21 20:33 36.8 C 84 20 89/44 L 94 Medications Administered Current Inpatient Medications Acetaminophen (Acetaminophen 325 Mg Tab) 650 mg PO Q6H PRN PRN Reason: Fever/pain Stop: 02/27/21 04:58 Last Admin: 02/05/21 21:15 Dose: 650 mg Documented by: Atorvastatin Calcium (Atorvastatin 20 Mg Tab) 20 mg PO DAILY GABY Stop: 02/27/21 08:59 Last Admin: 02/12/21 08:00 Dose: 20 mg Documented by: Dextrose (Dextrose 50% 50 Ml Syringe) 25 - 50 ml IV UD PRN; Protocol PRN Reason: Hypoglycemia Protocol Stop: 02/26/21 22:40 Last Admin: 01/28/21 10:53 Dose: 25 ml Documented by: Diphenhydramine HCl (Diphenhydramine Capsule 25 Mg Cap) 25 mg PO TID PRN PRN Reason: Itching Stop: 03/03/21 00:53 Last Admin: 02/12/21 00:48 Dose: 25 mg Documented by: Docusate Sodium (Docusate Sodium 100 Mg Cap) 100 mg PO BID GABY Stop: 02/26/21 20:59 Last Admin: 02/12/21 20:30 Dose: Not Given Documented by: Glucagon (Glucagon For Inj 1 Mg Vial) 1 mg SQ UD PRN; Protocol PRN Reason: Hypoglycemia Protocol Stop: 02/26/21 22:40 Glucose (Glucose 10 Tabs/Tube) 4 - 8 tabs PO UD PRN; Protocol PRN Reason: Hypoglycemia Protocol Stop: 02/26/21 22:40 Glucose (Glucose 40% Gel 15 Gm Tube) 15 - 30 gm PO UD PRN; Protocol PRN Reason: Hypoglycemia Protocol Stop: 02/26/21 22:40 Hydrocortisone (Hydrocortisone Hc 2.5% Crm 30gm Tube) 1 appln EXT BID GABY Stop: 03/09/21 20:59 Last Admin: 02/12/21 21:30 Dose: 1 appln Documented by: Hydrocortisone (Hydrocortisone Acetate 25 Mg Supp) 25 mg NM BID PRN PRN Reason: Hemorrhoids Stop: 03/13/21 11:32 Hydromorphone HCl (Hydromorphone Inj 0.5 Mg/0.5 Ml Syr) 0.5 mg IV Q6H PRN PRN Reason: Pain Stop: 02/13/21 21:56 Last Admin: 02/07/21 11:13 Dose: 0.5 mg Documented by: Promethazine HCl 12.5 mg/ (Sodium Chloride) 50.5 mls @ 202 mls/hr IV Q6H PRN PRN Reason: Nausea And Vomiting Stop: 02/27/21 00:51 Last Infusion: 02/11/21 17:12 Dose: Infused Documented by: Piperacillin Sod/Tazobactam (Sod 4.5 gm/ Dextrose) 120 mls @ 30 mls/hr IV Q12H [facility]; Protocol Stop: 02/15/21 03:59 Last Admin: 02/13/21 04:53 Dose: 30 mls/hr Documented by: Pantoprazole Sodium 40 mg/ (Syringe) 10 mls @ 5 mls/min IV BID [facility] Stop: 03/13/21 20:59 Last Admin: 02/12/21 20:32 Dose: 5 mls/min Documented by: Albumin Human (Albumin 25% 100 Ml) 25 gm in 100 mls @ 50 mls/hr IV Q8H [facility] Stop: 02/15/21 14:14 Last Admin: 02/13/21 05:55 Dose: 50 mls/hr Documented by: Sodium Chloride (Nss 1000ml) 1,000 mls @ 15 mls/hr IV .Q24H [facility] Stop: 03/15/21 08:14 Insulin Aspart (Insulin Aspart 100 Units/Ml 3 Ml Pen) 0 units SC Q6 [facility] Stop: 03/14/21 05:59 Last Admin: 02/13/21 06:11 Dose: Not Given Documented by: Lactobacillus Acidoph/Casei/Rhamnos (Advanced Probiotic 1250 Mg Capsule) 2 cap PO DAILY [facility] Stop: 03/01/21 14:59 Last Admin: 02/12/21 08:01 Dose: 2 cap Documented by: Meclizine HCl (Meclizine Hcl 25 Mg Tab) 25 mg PO TID PRN PRN Reason: Dizziness Stop: 02/26/21 19:23 Miconazole Nitrate (Miconazole Nitrate Powder 43 Gm) 1 appln EXT PRN PRN PRN Reason: Affected Skin Folds Stop: 03/03/21 05:53 Midodrine (Midodrine Hcl 10 Mg Tab) 10 mg PO MoWeFr@0800 [facility] Stop: 03/11/21 05:44 Last Admin: 02/11/21 08:58 Dose: 10 mg Documented by: Miscellaneous (Carbohydrates For Hypoglycemia ) 15 - 30 gm PO UD PRN PRN Reason: Hypoglycemia Protocol Stop: 02/26/21 22:40 Miscellaneous Information (Piperacill/Tazobac Consult Active) 1 ea N/A UD PRN PRN Reason: Consult Stop: 03/06/21 19:35 Oxycodone HCl (Oxycodone Hcl Ir 5 Mg Tab (Immediate Release)) 5 - 10 mg PO QID PRN PRN Reason: Pain Stop: 02/24/21 00:20 Last Admin: 02/12/21 08:14 Dose: 5 mg Documented by: Vitamin D (Cholecalciferol 1,000 Units 25 Mcg Tab) 5,000 units PO DAILY GABY Stop: 02/27/21 08:59 Last Admin: 02/12/21 08:00 Dose: 5,000 units Documented by: (1) GI bleed GI bleed type/associated pathology: unspecified gastrointestinal hemorrhage type Qualified Code(s): K92.2 - Gastrointestinal hemorrhage, unspecified
[2021-02-13 08:24] LABS: BUN Creatinine Ratio 3.1 (10-20); Calcium 8.9 mg/dl (8.5-10.1); Creatinine Clr Calc Pharmacy 20.2 ml/min; Est GFR (African American) 15.1 ml/min; Magnesium 1.8 mg/dl (1.8-2.4); Phosphorus 3.8 mg/dl (2.5-4.9); Potassium 3.6 mmol/L (3.5-5.1)
[2021-02-13] MEDS ORDERED: ATROPINE SULFATE 0.1 MG/ML 10ML SYR IV PRN (08:50)
[2021-02-13] MEDS ORDERED: ONDANSETRON INJ 2 MG/ML 2 ML VIAL IV PRN (08:50)
[2021-02-13] MEDS ORDERED: LIDOCAINE 1% LOCAL 20 ML VIAL ONE (09:01)
[2021-02-13] MEDS ORDERED: EPINEPHrine INJ 1 MG/ML AMP ONE (09:01)
[2021-02-13] MEDS ORDERED: BUPIVACAINE 0.5 % 5 MG/1 ML MPF 30ML VIAL ONE (09:01)
[2021-02-13] MEDS ORDERED: PHENYLEPHRINE 100MCG/ML 5ML SYR ONE (09:43)
[2021-02-13] MEDS ORDERED: ETOMIDATE 2 MG/ML 20 ML VIAL IV ONE (09:43)
--- NOTE | 2021-02-13 10:21 | Communication Note ---
Date of Service: February 13, 2021 Patient was scheduled for small bowel enteroscopy on 02/12/21. Unfortunately she was hypotensive after dialysis and anesthesia could not move forward. Patient is now scheduled for planned for revision of her amputation today. H/H currently 7.3/23.4. Continue current plan with IV PPI therapy BID. Continue to monitor H/H. Further GI recommendations pending result of the CT Angiogram requested yesterday.
[2021-02-13] MEDS: HYDROmorphone INJ 1 MG/ML SYRINGE IV PRN ×6 (10:27→10:58)
[2021-02-13] MEDS: HYDROCORTISONE HC 2.5% CRM 30GM TUBE EXT SCH ×2 (10:30→20:38)
--- NOTE | 2021-02-13 10:32 | Operative Report ---
Post Operative Report Pre & Post Diagnosis Operation Date: 01/28/21 15:30 Pre-Op Diagnosis: GI BLEED Post-Op Diagnosis: gastritis, gastric ulcer Operation Date: 02/06/21 15:30 Pre-Op Diagnosis: GI BLEED Post-Op Diagnosis: polyps, hemorrhoids Operation Date: 02/12/21 16:30 <No data on this case meets the specified criteria> Operation Date: 02/13/21 08:00 <No data on this case meets the specified criteria> Operation Date: 02/13/21 09:05 Pre-Op Diagnosis: Necrotic above the knee amputation left stump. Post-Op Diagnosis: Necrotic above the knee amputation left stump. I identified the patient and participated in the time-out.: Yes Procedure Operation Date: 01/28/21 15:30 Actual Procedures p EGD Biopsy Cytology - Javi Castro MD Operation Date: 02/06/21 15:30 Actual Procedures p Colonoscopy Polypectomy - Alex Ricks, DO Operation Date: 02/12/21 16:30 <No data on this case meets the specified criteria> Operation Date: 02/13/21 08:00 <No data on this case meets the specified criteria> Operation Date: 02/13/21 09:05 Actual Procedures p Debridement of skin and subcutaneous Left Above Knee Amputation Stump (22x8cm), Application of Wound Vac with wound measuring 22x8 cm.(Left) - Giuseppe Michel MD Surgeon Giuseppe Michel MD Optical Glass Inspector [place],PAC Estimated Blood Loss 100 Findings Consistent with Post-Op Diagnosis Specimens culture sent Disposition Accompanied Patient To Recovery: No Disposition: Recovery Room Indications This patient says 55-year-old female who had a left above-knee amputation done in the past. The edges are necrotic along almost the entire course of the wound. Debridement was recommended and possible application of a wound VAC. I have discussed the risks options and benefits of the procedure with the patient. The patient understands the risks options and benefits and agrees to the procedure. Description of Procedure The patient was taken the operating room placed supine position. The left stump was prepped and draped in a sterile manner after general anesthesia was accomplished. Patient was identified and timeout was performed. Using a scalpel the necrotic wound was incised in elliptical fashion. The dissection was carried down with the scalpel through the subcutaneous tissue removing all necrotic skin and subcutaneous tissue that was seen. A pocket was identified in the midportion of the wound coursing down to the end of the bone which was covered with granulation tissue. This did not appear to be infected. Adequate administration was then obtained with electrocautery. Wound was then irrigated with copious amounts of saline. Once this was completed the wound VAC was placed. The foam was tucked down into the cavity overlying a Adaptic covering of the bone. Once the foam was then placed over the entire wound the VAC wrap was placed on the wound. Suction was applied through the suction adapter. Good seal was noted. The wound itself that was debrided was 22 x 8 cm in size. The patient left the operation room in satisfactory condition and tolerated the procedure well. All needle and sponge counts were correct at the end of the procedure. Lynne Martinez Pac assisted due to lack of resident availability and was necessary for positioning, draping, retraction, wound closure deep layers, subcutaneous tissue, and skin closure and was necessary for assisting with the case. I attest to the content of the Intraoperative Record and any orders documented therein. Any exceptions are noted below.
--- NOTE | 2021-02-13 10:39 | Nephrology Progress Note ---
Date of Service February 13, 2021 Assessment & Plan (1) ESRD (end stage renal disease) on dialysis: Plan: Transitioned from MWF schedule to TTS schedule during admission. Barb struggles to tolerate complete treatments due to pain and discomfort - notably in her rect um. She has not completed a full treatment in the past 2 weeks. Thankfully, she has some residual kidney function and her volume status and electrolytes have been reasonably controlled. No plan for HD today. Anticipate next treatment tomorrow. Chronic hypotension and intradialytic hypotension for which she is maintained on midodrine. TDC has been functioning well. Monitor metabolic profile daily while inpatient. Medications appropriate for kidney dysfunction. Hold heparin with HD due to GI bleed. (2) Acute blood loss anemia: Plan: With anemia of CKD. Epogen 92217 units given 02/02 and 02/07 with HD. PRBC transfusion support provided 02/09. Venofer 100 mg with HD 02/12. Iron studies reviewed 02/12. Admission and Anticipated Discharge Date Admission Date: January 27, 2021 Subjective No acute events overnight. Surgery canceled yesterday due to hypotension post HD. BP improved. Barb was taken to the OR this AM. She continues to endorse GI bleeding. No fevers or chills. Review of Systems Review of Systems: All systems reviewed & are unremarkable except as noted in HPI & below Physical Exam Constitutional: well developed and + morbidly obese; no acute distress Eyes: + anicteric sclerae; no corneal abnormality ENMT: Mouth: no oral mucosal abnormality and oral mucous membranes not dry Neck: normal visual inspection and trachea midline Respiratory: normal respiratory effort Auscultation: lungs clear to auscultation bilaterally and + diminished lung sounds Cardiovascular: Rate/Rhythm: regular rate Heart Sounds: normal S1, normal S2 and + murmur Extremities: no edema Musculoskeletal: Extremities: no cyanosis and no clubbing L AKA Skin: normal turgor; no lesions Neurologic: Motor/Sensory: no tremor and no asterixis Psychiatric: Orientation: alert and oriented x 3 Results & Data ([facility]) Vital Signs (Past 12 Hours) Vital Signs Temp Pulse Pulse Pulse Resp BP Pulse Ox 02/13/21 08:10 37.3 C 81 20 151/56 H 98 02/13/21 07:23 37.3 C 82 20 120/53 L 97 02/13/21 07:20 89 02/13/21 04:23 37.3 C 90 18 93/67 L 92 02/13/21 00:16 37 C 87 20 87/49 L 95 Laboratory Results Laboratory Results - last 24 hr 02/12/21 02/12/21 02/12/21 07:38 12:43 15:07 WBC RBC Hgb 8.7 L Hct 27.2 L MCV MCH MCHC RDW Std Deviation RDW Coeff of Maria D Plt Count MPV Sodium Potassium Chloride Carbon Dioxide Anion Gap BUN Creatinine Est Cr Clr Drug Dosing Est GFR ( Amer) Est GFR (Non-Af Amer) BUN/Creatinine Ratio Glucose POC Glucose 96 Calcium Phosphorus Magnesium Hep Bs Antigen Neg 02/12/21 02/12/21 02/13/21 16:36 20:34 00:04 WBC RBC Hgb Hct MCV MCH MCHC RDW Std Deviation RDW Coeff of Maria D Plt Count MPV Sodium Potassium Chloride Carbon Dioxide Anion Gap BUN Creatinine Est Cr Clr Drug Dosing Est GFR ( Amer) Est GFR (Non-Af Amer) BUN/Creatinine Ratio Glucose POC Glucose 92 109 H 98 Calcium Phosphorus Magnesium Hep Bs Antigen 02/13/21 02/13/21 02/13/21 06:00 06:56 06:56 WBC 7.64 RBC 2.52 L Hgb 7.3 L Hct 23.4 L MCV 92.9 MCH 29.0 MCHC 31.2 L RDW Std Deviation 63.6 H RDW Coeff of Maria D 18.8 H Plt Count 186 MPV 10.4 Sodium 142 Potassium 3.6 Chloride 110 H Carbon Dioxide 24 Anion Gap 8.0 BUN 11 Creatinine 3.66 H D Est Cr Clr Drug Dosing 20.2 Est GFR ( Amer) 15.1 Est GFR (Non-Af Amer) 13.0 BUN/Creatinine Ratio 3.1 L Glucose 98 POC Glucose 107 H Calcium 8.9 Phosphorus 3.8 Magnesium 1.8 Hep Bs Antigen 02/13/21 02/13/21 07:15 10:25 WBC RBC Hgb Hct MCV MCH MCHC RDW Std Deviation RDW Coeff of Maria D Plt Count MPV Sodium Potassium Chloride Carbon Dioxide Anion Gap BUN Creatinine Est Cr Clr Drug Dosing Est GFR ( Amer) Est GFR (Non-Af Amer) BUN/Creatinine Ratio Glucose POC Glucose 100 H 84 Calcium Phosphorus Magnesium Hep Bs Antigen PG Care Time/CCT Total # of Minutes Spent Total Time Spent with Patient: Total time spent is greater than 50% in coordination of care (as documented) at patient's floor/unit and/or counseling patient: Coding Level of Care Code 81479 Subseq Hosp Care Lvl 3 Diagnoses ESRD (end stage renal disease) on dialysis N18.6; Z99.2 Acute blood loss anemia D62
--- NOTE | 2021-02-13 11:34 | Anesthesiology Progress Note ---
Date of Service February 13, 2021 Anesthesia Post Procedure Vital Signs Vital Signs: Temp Pulse Pulse Pulse Pulse Resp BP 02/13/21 11:15 36.9 C 80 11 L 96/49 L 02/13/21 11:05 77 13 105/49 L 02/13/21 10:55 81 18 106/59 L 02/13/21 10:45 77 18 109/56 L 02/13/21 10:35 78 12 92/62 L 02/13/21 10:25 36.6 C 81 18 123/52 L 02/13/21 08:10 37.3 C 81 20 151/56 H 02/13/21 07:23 37.3 C 82 20 120/53 L 02/13/21 07:20 89 02/13/21 04:23 37.3 C 90 18 93/67 L 02/13/21 00:16 37 C 87 20 87/49 L 02/12/21 20:33 36.8 C 84 20 89/44 L 02/12/21 16:52 85 106/66 02/12/21 15:47 37.1 C 85 18 71/44 L 02/12/21 13:36 37.1 C 89 18 70/45 L 02/12/21 12:51 36.9 C 91 H 18 96/64 L Pulse Ox 02/13/21 11:15 96 02/13/21 11:05 100 02/13/21 10:55 100 02/13/21 10:45 100 02/13/21 10:35 100 02/13/21 10:25 100 02/13/21 08:10 98 02/13/21 07:23 97 02/13/21 07:20 02/13/21 04:23 92 02/13/21 00:16 95 02/12/21 20:33 94 02/12/21 16:52 02/12/21 15:47 98 02/12/21 13:36 100 02/12/21 12:51 100 Pain Intensity Left Knee: Pain Intensity: 2 Bilateral Hip: Pain Intensity: 4 Other: Pain Intensity: 7 Transfer of Care Handoff Completed per policy Notes Mental Status: alert / awake / arousable Patient Amnestic to Procedure: Yes Nausea / Vomiting: adequately controlled Pain: adequately controlled Airway Patency, RR, SpO2: stable & adequate BP & HR: stable & adequate Hydration State: stable & adequate Anesthetic Complications: no major complications apparent
[2021-02-13] MEDS: SODIUM CHLORIDE 0.9% 1000ML 1,000 ML IV SCH (11:57)
[2021-02-13] MEDS: MIDODRINE HCL 10 MG TAB PO SCH (12:05)
[2021-02-13] MEDS: ATORVASTATIN 20 MG TAB PO SCH (12:05)
[2021-02-13] MEDS: CHOLECALCIFEROL 1,000 UNITS 25 MCG TAB PO SCH (12:06)
[2021-02-13] MEDS: PANTOprazole 40 MG in SYRINGE 0 ML IV SCH ×2 (12:07→20:38)
[2021-02-13] MEDS: ADVANCED PROBIOTIC 1250 MG CAPSULE PO SCH (12:07)
[2021-02-13] MEDS: DOCUSATE SODIUM 100 MG CAP PO SCH ×2 (12:15→20:37)
[2021-02-13] MEDS: oxyCODONE HCL IR 5 MG TAB (IMMEDIATE RELEASE) PO PRN ×2 (12:19→17:46)
[2021-02-13] MEDS: ACETAMINOPHEN 325 MG TAB PO PRN (16:34)
[2021-02-13] MEDS ORDERED: OPTIRAY 320 125ml IV ONE (17:08)
--- NOTE | 2021-02-13 17:45 | CT Scan Report ---
CT angio abdomen pelvis w con CLINICAL HISTORY: 55 years-old Female with eval bowel ischemia acute generalized abdominal pain COMPARISON STUDY: Bleeding scan 02/11/2021 and 02/09/2021, CT abdomen and pelvis 02/05/2021, chest radi ographs 11/14/2018, 01/24/2021 TECHNIQUE: Following the IV administration of 120 cc of Optiray, CT angiogram of the abdomen and pelv is was performed from the lung bases the proximal femora. Images are reviewed in the axial, sagittal, and coronal planes. 3-D MIPS images are created and assessed. All measurements were obtained accordi ng to NASCET criteria. IV contrast was administered without complication. A dose lowering technique was utilized adhering to the principles of ALARA. CT DOSE: 1585.39 mGy.cm FINDINGS: CTA: The heart is mildly enlarged. Partially imaged catheter within the right atrium. Sensitive Atheroscle rotic Plaque of the Abdominal Aorta and Branch Vessels. The Celiac, and Superior Mesenteric Arteries Are Patent. Moderate Stenosis of the Proximal Inferior Mesenteric Artery. Multifocal High-Grade Steno ses of the Proximal to Mid Renal Arteries. There Is Multifocal Mostly Mild to Moderate Stenosis of th e Iliac Arteries Are Patent. The Proximal Aspect of the Femoral Arteries Are Patent Bilaterally. CT Abdomen/Pelvis: Trace Pleural Effusions. Mild dependent subsegmental bibasilar consolidation. Intralobular septal thi ckening with groundglass densities. Subpleural partially calcified 2.5 cm consolidation in the inferi or segment lingula redemonstrated on image 11 series 3. Partially calcified consolidative nodular [place] of the basal right lower lobe. Unremarkable spleen, mildly shoulder pancreas, left adrenal gland and liver with suggested hepatic st eatosis. 10 mm indeterminate nodular density of the lateral limb right adrenal gland redemonstrated. Mild bilateral hydroureteronephrosis. The findings in the left are new/progressed from prior. Mild bi lateral perinephric stranding. Urinary bladder distention with associated wall thickening and perives icular stranding. There is question urothelial thickening of the collecting systems. 5.0 x 4.5 cm lef t ovarian cyst redemonstrated. No adenopathy. No bowel obstruction. Nonspecific wall thickening of the anorectal junction with surrounding inflamma tory stranding redemonstrated. The previously described area of masslike prominence within the rectum is no longer identified. Colonic diverticulosis. The appendix is reportedly surgically absent. Uncha nged changed stranding adjacent to the coccyx. Demineralized appearance of the bones. Degenerative ch anges of the spine, pelvis and hips. IMPRESSION: 1. Extensive atherosclerotic vascular disease without aneurysm, dissection or arterial occlusion iden tified. 2. Multifocal high-grade stenoses of the renal arteries. 3. Mild hydroureteronephrosis is likely secondary to urinary bladder distention. No obstructing calcu kimberly or lesion identified. 4. Bilateral urothelial thickening with urinary bladder wall thickening and perivesicular stranding. Correlate with urinalysis to exclude an infectious process. 5. Trace pleural effusions with suggested pulmonary edema and bibasilar atelectasis 6. Partially calcified areas of bibasilar consolidation redemonstrated. 7. Mild nonspecific wall thickening of the anorectal junction with mild surrounding inflammatory stra nding is again noted. This could be correlated with colonoscopy. 8. Additional findings as above. ACT 112: Negative or not required by law. The above report was generated using voice recognition software. It may contain grammatical, syntax o r spelling errors. Electronically signed by: David Goins M.D. 02/13/2021 5:44 PM
[2021-02-14] MEDS: INSULIN ASPART 100 UNITS/ML 3 ML PEN SC SCH ×6 (01:26→20:06)
[2021-02-14] MEDS: ACETAMINOPHEN 325 MG TAB PO PRN ×2 (01:29→15:12)
[2021-02-14] MEDS: PIPERACILLIN/TAZOBACTAM 4.5 GM in DEXTROSE 5% 100 ML IV SCH ×2 (03:04→17:21)
[2021-02-14 06:58] LABS: Hematocrit (blood only) 22.8 % (37-47); Hemoglobin 7.4 g/dL (12.0-16.0); Mean Corpuscular Hgb Conc 32.5 g/dL (32-36); Mean Corpuscular Volume 92.3 fL (80-100); Mean Platelet Volume 10.6 fL (7.4-10.4); Platelet Count 182 K/uL (130-400); RDW Coefficient of Variation 19.1 % (11.5-14.5); Red Blood Count 2.47 M/uL (4.2-5.4); White Blood Count 9.12 K/uL (4.8-10.8)
[2021-02-14 08:04] LABS: Creatinine Clr Calc Pharmacy 16.6 ml/min; Est GFR (African American) 11.8 ml/min; Est GFR (Non-African American) 10.1 ml/min; Magnesium 1.8 mg/dl (1.8-2.4); Phosphorus 4.8 mg/dl (2.5-4.9); Potassium 3.5 mmol/L (3.5-5.1)
--- NOTE | 2021-02-14 08:05 | Hospitalist Progress Note ---
Date of Service February 14, 2021 Assessment & Plan (1) GI bleed: Plan: Likely multifactorial Gastric Ulcer Rectal bleeding likely secondary to polyps, diverticulosis and internal hemorrhoids Suspect ischemic colitis--less likely based on CT S/P EGD: gastric ulcer S/P PRBC H/O hemorrhoids as per patient --CT ABD:No CT evidence for ischemic bowel. However, there is a masslike filling defect within the rectum suspicious for a neoplastic process. Direct visualization is recommended. -S/P Colonoscopy: Two 5 to 7 mm polyps in the cecum, removed with hot snare. Resected and retrieved. Diverticulosis in the sigmoid colon. Nonbleeding internal hemorrhoids. No findings on the exam to correlate with abnormal CT in the rectum. It was most likely stool versus shadowing. --Pathology pending Continue Protonix drip>>Transitioned to PO Appreciate GI input Continue H&H and transfuse PRBCs as needed Bleeding Scan showed No evidence of acute gastrointestinal bleeding Monitor CBC Conservative management as per GI Hb 8.7 on 02/10 Hb 7.9 on 02/11 Received 1unit of pRBC on 02/11 02/11 - Patient again had 2 large bowel movements, per RN dark red GI, Dr. Castro contacted, plan for repeat bleeding scan, if negative, plans for small bowel enteroscopy tomorrow (02/12) 02/12 -bleeding scan negative, plan for small bowel enteroscopy today 02/13 -small bowel enteroscopy canceled due to hypotension, plan for CT angio abdomen pelvis CT angio abdomen pelvis IMPRESSION: 1. Extensive atherosclerotic vascular disease without aneurysm, dissection or arterial occlusion identified. 2. Multifocal high-grade stenoses of the renal arteries. 3. Mild hydroureteronephrosis is likely secondary to urinary bladder distention. No obstructing calculus or lesion identified. 4. Bilateral urothelial thickening with urinary bladder wall thickening and perivesicular stranding. Correlate with urinalysis to exclude an infectious process. 5. Trace pleural effusions with suggested pulmonary edema and bibasilar atelectasis 6. Partially calcified areas of bibasilar consolidation redemonstrated. 7. Mild nonspecific wall thickening of the anorectal junction with mild surrounding inflammatory stranding is again noted. This could be correlated with colonoscopy. 8. Additional findings as above. 02/14 - stools reported by RN, no blood in her stool Hgb stable from yesterday (2) Postoperative wound infection: Plan: Left AKA stump cellulitis Stage 3 Pressure ulcer of right heel, POA --Blood Cx: Negative to date Empirically received Unasyn for 7 days Also completed 7 days of doxycycline Worsening leukocytosis Transitioned Unasyn to Zosyn Appreciate orthopedics, vascular surgery input Needs debridement of left above-knee amputation stump and possible need for wound VAC Continue wound care Leukocytosis normalized Needs debridement as able-- Planned for Tuesday (w/ vasc. surg.) Leukocytosis , now WBC 11 K (02/12), WBC 9K (02/14) 02/13 - underwent Debridement of skin and subcutaneous Left Above Knee Amputation Stump (22x8cm), Application of Wound Vac with wound measuring 22x8 cm.(Left) - Giuseppe Michel MD Follow wound cultx from OR (3) ESRD (end stage renal disease) on dialysis: Plan: - Consult nephrology - pt on HD M/W/, now on TTS schedule hemodialysis as per Nephrology Received Epogen with HD Hypokalemia Replace electrolytes as needed (4) Diabetes mellitus, type 2: Plan: - Accuchecks - Insulin sliding scale (5) Hypertension: Plan: Monitor BP Continue current medications (6) Hyperlipidemia: Plan: on Statin (7) Ulcer of right heel: Plan: - Wound care consult, as above (8) Peripheral vascular disease: (9) Obstructive sleep apnea: Plan: Non-compliant with CPAP CODE STATUS: Full code DVT Px: SCDs Re: GI bleeding Admission and Anticipated Discharge Date Admission Date: January 27, 2021 Subjective Patient is seen in follow-up of GI bleed, wound infection Underwent Debridement of skin and subcutaneous Left Above Knee Amputation Stump (22x8cm), Application of Wound Vac with wound measuring 22x8 cm.(Left) - Giuseppe Michel MD, yesterday Currently laying in bed, in NAD, only complaining of stump pain Also feels hungry, and would like to advance her diet if possible No blood in the stool currently. RN Pt denies any chest pain, shortness of breath, dizziness Small bowel enteroscopy canceled due to anesthesia/hypotension after dialysis Discussed with GI, underwent CT angio abdomen pelvis instead Review of Systems Review of Systems: All systems reviewed & are unremarkable except as noted in Subjective Physical Exam Physical Exam: General Appearance:Morbidly Obese F in NAD, chronically ill appearing Head: normocephalic, Atraumatic Eyes: normal inspection, EOMI Neck: supple, Trachea midline Respiratory/Chest: Normal breath sounds, CTA, No accessory muscle use Cardiovascular: S1, S2, No murmur Abdomen/GI:Soft, Non tender, Bowel sounds present Extremities/Musculoskeletal:normal inspection, 1+ pedal edema, Left AKA - wound vac now applied after surgery Neurologic/Psych: AAOX3, speech fluent, moves extremities Skin: normal color, warm, right heel wound Results & Data Results & Data ([facility]) Vital Signs (Past 12 Hours) Vital Signs Temp Pulse Resp BP Pulse Ox 02/14/21 06:56 37.3 C 80 16 98/63 L 92 02/14/21 03:20 37.7 C H 85 16 109/55 L 93 02/13/21 22:53 36.8 C 78 16 101/46 L 94 02/13/21 21:56 36.6 C 80 16 133/70 93 Laboratory Results 02/14/21 02/14/21 02/14/21 Range/Units 07:14 06:12 06:10 WBC (4.8-10.8) K/uL RBC (4.2-5.4) M/uL Hgb (12.0-16.0) g/dL Hct (37-47) % MCV (80-100) fL MCH (25-34) pg MCHC (32-36) g/dL RDW Std Deviation (36.4-46.3) fL RDW Coeff of Maria D (11.5-14.5) % Plt Count (130-400) K/uL MPV (7.4-10.4) fL Sodium 140 (136-145) mmol/L Potassium 3.5 (3.5-5.1) mmol/L Chloride 109 H (98-107) mmol/L Carbon Dioxide 22 (21-32) mmol/L Anion Gap 9.0 (3-11) BUN 14 (7-18) mg/dl Creatinine 4.50 H D (0.6-1.2) mg/dl Est Cr Clr Drug Dosing 16.6 ml/min Est GFR ( Amer) 11.8 ml/min Est GFR (Non-Af Amer) 10.1 ml/min BUN/Creatinine Ratio 3.0 L (10-20) Glucose 77 (70-99) mg/dl POC Glucose 80 84 (70-99) mg/dl Calcium 9.0 (8.5-10.1) mg/dl Phosphorus 4.8 D (2.5-4.9) mg/dl Magnesium 1.8 (1.8-2.4) mg/dl 02/14/21 02/14/21 02/13/21 Range/Units 06:10 01:25 20:02 WBC 9.12 (4.8-10.8) K/uL RBC 2.47 L (4.2-5.4) M/uL Hgb 7.4 L (12.0-16.0) g/dL Hct 22.8 L (37-47) % MCV 92.3 (80-100) fL MCH 30.0 (25-34) pg MCHC 32.5 (32-36) g/dL RDW Std Deviation 65.0 H (36.4-46.3) fL RDW Coeff of Maria D 19.1 H (11.5-14.5) % Plt Count 182 (130-400) K/uL MPV 10.6 H (7.4-10.4) fL Sodium (136-145) mmol/L Potassium (3.5-5.1) mmol/L Chloride (98-107) mmol/L Carbon Dioxide (21-32) mmol/L Anion Gap (3-11) BUN (7-18) mg/dl Creatinine (0.6-1.2) mg/dl Est Cr Clr Drug Dosing ml/min Est GFR ( Amer) ml/min Est GFR (Non-Af Amer) ml/min BUN/Creatinine Ratio (10-20) Glucose (70-99) mg/dl POC Glucose 90 111 H (70-99) mg/dl Calcium (8.5-10.1) mg/dl Phosphorus (2.5-4.9) mg/dl Magnesium (1.8-2.4) mg/dl 02/13/21 02/13/21 02/13/21 Range/Units 16:21 11:39 10:25 WBC (4.8-10.8) K/uL RBC (4.2-5.4) M/uL Hgb (12.0-16.0) g/dL Hct (37-47) % MCV (80-100) fL MCH (25-34) pg MCHC (32-36) g/dL RDW Std Deviation (36.4-46.3) fL RDW Coeff of Maria D (11.5-14.5) % Plt Count (130-400) K/uL MPV (7.4-10.4) fL Sodium (136-145) mmol/L Potassium (3.5-5.1) mmol/L Chloride (98-107) mmol/L Carbon Dioxide (21-32) mmol/L Anion Gap (3-11) BUN (7-18) mg/dl Creatinine (0.6-1.2) mg/dl Est Cr Clr Drug Dosing ml/min Est GFR ( Amer) ml/min Est GFR (Non-Af Amer) ml/min BUN/Creatinine Ratio (10-20) Glucose (70-99) mg/dl POC Glucose 86 82 84 (70-99) mg/dl Calcium (8.5-10.1) mg/dl Phosphorus (2.5-4.9) mg/dl Magnesium (1.8-2.4) mg/dl Medications Administered Current Inpatient Medications Acetaminophen (Acetaminophen 325 Mg Tab) 650 mg PO Q6H PRN PRN Reason: Fever/pain Stop: 02/27/21 04:58 Last Admin: 02/14/21 01:29 Dose: 650 mg Documented by: Atorvastatin Calcium (Atorvastatin 20 Mg Tab) 20 mg PO DAILY GABY Stop: 02/27/21 08:59 Last Admin: 02/13/21 12:05 Dose: 20 mg Documented by: Dextrose (Dextrose 50% 50 Ml Syringe) 25 - 50 ml IV UD PRN; Protocol PRN Reason: Hypoglycemia Protocol Stop: 02/26/21 22:40 Last Admin: 01/28/21 10:53 Dose: 25 ml Documented by: Diphenhydramine HCl (Diphenhydramine Capsule 25 Mg Cap) 25 mg PO TID PRN PRN Reason: Itching Stop: 03/03/21 00:53 Last Admin: 02/12/21 00:48 Dose: 25 mg Documented by: Docusate Sodium (Docusate Sodium 100 Mg Cap) 100 mg PO BID GABY Stop: 02/26/21 20:59 Last Admin: 02/13/21 20:37 Dose: Not Given Documented by: Glucagon (Glucagon For Inj 1 Mg Vial) 1 mg SQ UD PRN; Protocol PRN Reason: Hypoglycemia Protocol Stop: 02/26/21 22:40 Glucose (Glucose 10 Tabs/Tube) 4 - 8 tabs PO UD PRN; Protocol PRN Reason: Hypoglycemia Protocol Stop: 02/26/21 22:40 Glucose (Glucose 40% Gel 15 Gm Tube) 15 - 30 gm PO UD PRN; Protocol PRN Reason: Hypoglycemia Protocol Stop: 02/26/21 22:40 Hydrocortisone (Hydrocortisone Hc 2.5% Crm 30gm Tube) 1 appln EXT BID GABY Stop: 03/09/21 20:59 Last Admin: 02/13/21 20:38 Dose: 1 appln Documented by: Hydrocortisone (Hydrocortisone Acetate 25 Mg Supp) 25 mg OH BID PRN PRN Reason: Hemorrhoids Stop: 03/13/21 11:32 Promethazine HCl 12.5 mg/ (Sodium Chloride) 50.5 mls @ 202 mls/hr IV Q6H PRN PRN Reason: Nausea And Vomiting Stop: 02/27/21 00:51 Last Infusion: 02/11/21 17:12 Dose: Infused Documented by: Piperacillin Sod/Tazobactam (Sod 4.5 gm/ Dextrose) 120 mls @ 30 mls/hr IV Q12H [facility]; Protocol Stop: 02/15/21 03:59 Last Infusion: 02/14/21 07:40 Dose: Infused Documented by: Pantoprazole Sodium 40 mg/ (Syringe) 10 mls @ 5 mls/min IV BID [facility] Stop: 03/13/21 20:59 Last Admin: 02/13/21 20:38 Dose: 5 mls/min Documented by: Albumin Human (Albumin 25% 100 Ml) 25 gm in 100 mls @ 50 mls/hr IV Q8H [facility] Stop: 02/15/21 14:14 Last Infusion: 02/13/21 23:45 Dose: Infused Documented by: Sodium Chloride (Nss 1000ml) 1,000 mls @ 15 mls/hr IV .Q24H [facility] Stop: 03/15/21 08:14 Last Admin: 02/13/21 11:57 Dose: Not Given Documented by: Insulin Aspart (Insulin Aspart 100 Units/Ml 3 Ml Pen) 0 units SC Q6 [facility] Stop: 03/14/21 05:59 Last Admin: 02/14/21 06:17 Dose: Not Given Documented by: Lactobacillus Acidoph/Casei/Rhamnos (Advanced Probiotic 1250 Mg Capsule) 2 cap PO DAILY [facility] Stop: 03/01/21 14:59 Last Admin: 02/13/21 12:07 Dose: 2 cap Documented by: Meclizine HCl (Meclizine Hcl 25 Mg Tab) 25 mg PO TID PRN PRN Reason: Dizziness Stop: 02/26/21 19:23 Miconazole Nitrate (Miconazole Nitrate Powder 43 Gm) 1 appln EXT PRN PRN PRN Reason: Affected Skin Folds Stop: 03/03/21 05:53 Midodrine (Midodrine Hcl 10 Mg Tab) 10 mg PO MoWeFr@0800 [facility] Stop: 03/11/21 05:44 Last Admin: 02/13/21 12:05 Dose: 10 mg Documented by: Miscellaneous (Carbohydrates For Hypoglycemia ) 15 - 30 gm PO UD PRN PRN Reason: Hypoglycemia Protocol Stop: 02/26/21 22:40 Miscellaneous Information (Piperacill/Tazobac Consult Active) 1 ea N/A UD PRN PRN Reason: Consult Stop: 03/06/21 19:35 Oxycodone HCl (Oxycodone Hcl Ir 5 Mg Tab (Immediate Release)) 5 - 10 mg PO QID PRN PRN Reason: Pain Stop: 02/24/21 00:20 Last Admin: 02/13/21 17:46 Dose: 5 mg Documented by: Vitamin D (Cholecalciferol 1,000 Units 25 Mcg Tab) 5,000 units PO DAILY [facility] Stop: 02/27/21 08:59 Last Admin: 02/13/21 12:06 Dose: 5,000 units Documented by: (1) GI bleed GI bleed type/associated pathology: unspecified gastrointestinal hemorrhage type Qualified Code(s): K92.2 - Gastrointestinal hemorrhage, unspecified
[2021-02-14] MEDS: HYDROCORTISONE HC 2.5% CRM 30GM TUBE EXT SCH ×2 (08:40→20:15)
[2021-02-14] MEDS: ALBUMIN 25% 100 mL 25 GM/100 ML VIAL IV SCH ×3 (08:40→21:38)
[2021-02-14] MEDS: ATORVASTATIN 20 MG TAB PO SCH (08:41)
[2021-02-14] MEDS: CHOLECALCIFEROL 1,000 UNITS 25 MCG TAB PO SCH (08:41)
[2021-02-14] MEDS: PANTOprazole 40 MG in SYRINGE 0 ML IV SCH ×2 (08:41→20:13)
[2021-02-14] MEDS: ADVANCED PROBIOTIC 1250 MG CAPSULE PO SCH (08:41)
[2021-02-14] MEDS: oxyCODONE HCL IR 5 MG TAB (IMMEDIATE RELEASE) PO PRN ×2 (08:50→20:00)
[2021-02-14] MEDS: DOCUSATE SODIUM 100 MG CAP PO SCH ×2 (08:52→20:03)
[2021-02-14] MEDS: SODIUM CHLORIDE 0.9% 1000ML 1,000 ML IV SCH (08:54)
[2021-02-14] MEDS ORDERED: SODIUM CHLORIDE 0.9% 1000ML 1,000 ML IV PRN (09:17)
[2021-02-14] MEDS ORDERED: EPOETIN ALFA 10,000 UNITS/ML VIAL IV ONE (10:00)
[2021-02-14] MEDS ORDERED: MIDODRINE HCL 2.5 MG TAB PO ONE (10:15)
--- NOTE | 2021-02-14 11:38 | Nephrology Progress Note ---
Date of Service February 14, 2021 Assessment & Plan (1) ESRD (end stage renal disease) on dialysis: Plan: * Transitioned from MWF schedule to TTS schedule during admission * Heparin held during HD due to recurrent GIB * Requests limited HD treatments to 2 hours due to poor po intake, rectal pain and recurrent hematochezia * Chronic hypotension and intradialytic hypotension - on midodrine * Will provide 2 hr HD treatment today. HD RN notified and orders placed in EMR (2) Acute blood loss anemia: Plan: * PRBC transfusion support provided 02/09 * Venofer 100 mg with HD 02/12 * Iron studies 02/12: iron sat 18%, ferritin 1600 * Will provide ISAÍAS w/ HD Admission and Anticipated Discharge Date Admission Date: January 27, 2021 Subjective Ms. López was evaluated in her hospital room this morning. She reports discomfort due to rectal pain and recent debridement of her L AKA. Review of Systems Constitutional: + weakness; no fever Eyes: no problem reported Ear, Nose, Mouth, Throat: no problem reported Respiratory: no cough and no dyspnea Cardiovascular: no chest pain, no palpitations and no edema Gastrointestinal: + blood in stools (+ rectal pain) Musculoskeletal: no back pain Integumentary: no rash Neurologic: no confusion Physical Exam Constitutional: + overweight; not in distress Eyes: PERRL, conjunctivae normal, anicteric sclerae ENMT: external ear and nose normal, oropharynx normal Neck: trachea midline, no thyromegaly R IJ THC in place Respiratory: normal respiratory effort, lungs clear to auscultation Cardiovascular: Rate/Rhythm: regular rate and regular rhythm Extremities: + AV fistula (thrombosed) Gastrointestinal (Abdomen): normal bowel sounds, soft, nontender, no hepatosplenomegaly Skin: no rashes, warm and dry Neurologic: awake; not confused Results & Data ([place]) Vital Signs (Past 12 Hours) Vital Signs Temp Pulse Pulse Resp BP Pulse Ox 02/14/21 08:00 81 02/14/21 06:56 37.3 C 80 16 98/63 L 92 02/14/21 03:20 37.7 C H 85 16 109/55 L 93 Laboratory Results Laboratory Tests 02/14/21 02/14/21 06:10 06:10 WBC 9.12 Hgb 7.4 L Hct 22.8 L Plt Count 182 Sodium 140 Potassium 3.5 Chloride 109 H Carbon Dioxide 22 BUN 14 Creatinine 4.50 H D Glucose 77 PG Care Time/CCT Total # of Minutes Spent Total Time Spent with Patient: Total time spent is greater than 50% in coordination of care (as documented) at patient's floor/unit and/or counseling patient: Coding Level of Care Code 77074 Subseq Hosp Care Lvl 3 Diagnoses ESRD (end stage renal disease) on dialysis N18.6; Z99.2 Acute blood loss anemia D62
[2021-02-14] MEDS: diphenhydrAMINE Capsule 25 MG CAP PO PRN (15:12)
[2021-02-15] MEDS: PIPERACILLIN/TAZOBACTAM 4.5 GM in DEXTROSE 5% 100 ML IV SCH ×2 (03:17→18:29)
[2021-02-15] MEDS: oxyCODONE HCL IR 5 MG TAB (IMMEDIATE RELEASE) PO PRN ×3 (05:31→20:18)
[2021-02-15] MEDS: PROMETHAZINE HCL 12.5 MG in SODIUM CHLORIDE 0.9% 50 ML IV PRN (05:32)
[2021-02-15] MEDS: ALBUMIN 25% 100 mL 25 GM/100 ML VIAL IV SCH (07:00)
--- NOTE | 2021-02-15 07:52 | Hospitalist Progress Note ---
Date of Service February 15, 2021 Assessment & Plan (1) GI bleed: Plan: Likely multifactorial Gastric Ulcer Rectal bleeding likely secondary to polyps, diverticulosis and internal hemorrhoids Suspect ischemic colitis--less likely based on CT S/P EGD: gastric ulcer S/P PRBC H/O hemorrhoids as per patient --CT ABD:No CT evidence for ischemic bowel. However, there is a masslike filling defect within the rectum suspicious for a neoplastic process. Direct visualization is recommended. -S/P Colonoscopy: Two 5 to 7 mm polyps in the cecum, removed with hot snare. Resected and retrieved. Diverticulosis in the sigmoid colon. Nonbleeding internal hemorrhoids. No findings on the exam to correlate with abnormal CT in the rectum. It was most likely stool versus shadowing. --Pathology Stomach, biopsy: - Mild to moderate acute and chronic gastritis - Negative for intestinal metaplasia, dysplasia and carcinoma - H. pylori immunoperoxidase stain negative Colon, cecum, polypectomies: - #1. Fragments of tubular adenoma. - #2. No invasive carcinoma seen. Continue Protonix drip>>Transitioned to PO Appreciate GI input Continue H&H and transfuse PRBCs as needed Bleeding Scan showed No evidence of acute gastrointestinal bleeding Monitor CBC Conservative management as per GI Hb 8.7 on 02/10 Hb 7.9 on 02/11 - Received 1unit of pRBC 02/11 - Patient again had 2 large bowel movements, per RN dark red GI, Dr. Castro contacted, plan for repeat bleeding scan, if negative, plans for small bowel enteroscopy tomorrow (02/12) -bleeding scan negative, plan for small bowel enteroscopy 02/13 -small bowel enteroscopy canceled due to hypotension (after HD), plan for CT angio abdomen pelvis CT angio abdomen pelvis IMPRESSION: 1. Extensive atherosclerotic vascular disease without aneurysm, dissection or arterial occlusion identified. 2. Multifocal high-grade stenoses of the renal arteries. 3. Mild hydroureteronephrosis is likely secondary to urinary bladder distention. No obstructing calculus or lesion identified. 4. Bilateral urothelial thickening with urinary bladder wall thickening and perivesicular stranding. Correlate with urinalysis to exclude an infectious process. 5. Trace pleural effusions with suggested pulmonary edema and bibasilar atelecta sis 6. Partially calcified areas of bibasilar consolidation redemonstrated. 7. Mild nonspecific wall thickening of the anorectal junction with mild surrounding inflammatory stranding is again noted. This could be correlated with colonoscopy. 8. Additional findings as above. 02/14 - stools reported by RN, no blood in her stool Hgb stable from yesterday 02/15 - patient again had several bowel movements, with blood, hemoglobin dropped to 6.5. GI, Dr. Ricks contacted. Patient received 1 unit of PRBCs in the morning and second unit on the way to the OR. Dr. Ricks taking patient for emergent endoscopy. Patient's daughter updated over the phone. (2) Postoperative wound infection: Plan: Left AKA stump cellulitis Stage 3 Pressure ulcer of right heel, POA --Blood Cx: Negative to date Empirically received Unasyn for 7 days Also completed 7 days of doxycycline Worsening leukocytosis Transitioned Unasyn to Zosyn Appreciate orthopedics, vascular surgery input Needs debridement of left above-knee amputation stump and possible need for wound VAC Continue wound care Leukocytosis normalized Needs debridement as able-- Planned for Tuesday (w/ vasc. surg.) Leukocytosis , now WBC 11 K (02/12), WBC 9K (02/14), WBC 8.7K (02/15) 02/13 - underwent Debridement of skin and subcutaneous Left Above Knee Amputation Stump (22x8cm), Application of Wound Vac with wound measuring 22x8 cm.(Left) - Giuseppe Michel MD Follow wound cultx from OR (3) ESRD (end stage renal disease) on dialysis: Plan: - Consult nephrology - pt on HD M/W/, now on TTS schedule hemodialysis as per Nephrology Received Epogen with HD Hypokalemia Replace electrolytes as needed (4) Diabetes mellitus, type 2: Plan: - Accuchecks - Insulin sliding scale (5) Hypertension: Plan: Monitor BP Continue current medications (6) Hyperlipidemia: Plan: on Statin (7) Ulcer of right heel: Plan: - Wound care consult, as above (8) Peripheral vascular disease: (9) Obstructive sleep apnea: Plan: Non-compliant with CPAP CODE STATUS: Full code DVT Px: SCDs Re: GI bleeding Admission and Anticipated Discharge Date Admission Date: January 27, 2021 Subjective Patient is seen in follow-up of GI bleed, wound infection Underwent Debridement of skin and subcutaneous Left Above Knee Amputation Stump (22x8cm), Application of Wound Vac on 02/13 Notified by livestock handler/nursing staff that patient again had another episode of GI bleed Contacted GI, Dr. Rambo Johnson this morning 6.5, 1 unit of PRBCs ordered Patient then had several more episodes, and therefore another unit of PRBCs was ordered and Dr. Maxwell taking patient to the OR for endoscopy emergently On my evaluation, patient was lying in bed, in no acute distress, however very upset about her recurrent GI bleed Denies any chest pain shortness of breath abdominal pain nausea vomiting Reported rectal pain Patient's daughter updated over the phone - she is also inquiring about possible transfer to [facility] as patient had her previous surgery done there, and has been hospitalized for a long time here, without improvement in her symptoms (GI bleed). Review of Systems Review of Systems: All systems reviewed & are unremarkable except as noted in Subjective Physical Exam Physical Exam: General Appearance:Morbidly Obese F in NAD, chronically ill appearing Head: normocephalic, Atraumatic Eyes: normal inspection, EOMI Neck: supple, Trachea midline Respiratory/Chest: Normal breath sounds, CTA, No accessory muscle use Cardiovascular: S1, S2, No murmur Abdomen/GI:Soft, Non tender, Bowel sounds present Extremities/Musculoskeletal:normal inspection, 1+ pedal edema, Left AKA - wound vac now applied after surgery Neurologic/Psych: AAOX3, speech fluent, moves extremities Skin: normal color, warm, right heel wound Results & Data Results & Data ([facility]) Vital Signs (Past 12 Hours) Vital Signs Temp Pulse Pulse Resp BP Pulse Ox 02/15/21 07:32 36.8 C 89 18 111/73 90 02/15/21 03:29 92 H 02/15/21 02:37 37.0 C 91 H 18 124/72 93 02/14/21 23:54 36.6 C 90 16 128/70 98 Laboratory Results 02/15/21 02/15/21 02/15/21 Range/Units 13:20 11:21 08:50 WBC (4.8-10.8) K/uL RBC (4.2-5.4) M/uL Hgb 6.7 L* (12.0-16.0) g/dL Hct 21.6 L (37-47) % MCV (80-100) fL MCH (25-34) pg MCHC (32-36) g/dL RDW Std Deviation (36.4-46.3) fL RDW Coeff of Maria D (11.5-14.5) % Plt Count (130-400) K/uL MPV (7.4-10.4) fL Sodium (136-145) mmol/L Potassium (3.5-5.1) mmol/L Chloride (98-107) mmol/L Carbon Dioxide (21-32) mmol/L Anion Gap (3-11) BUN (7-18) mg/dl Creatinine (0.6-1.2) mg/dl Est Cr Clr Drug Dosing ml/min Est GFR ( Amer) ml/min Est GFR (Non-Af Amer) ml/min BUN/Creatinine Ratio (10-20) Glucose (70-99) mg/dl POC Glucose 99 (70-99) mg/dl Calcium (8.5-10.1) mg/dl Phosphorus (2.5-4.9) mg/dl Magnesium (1.8-2.4) mg/dl Blood Type O Positive Antibody Screen NEGATIVE Crossmatch See Detail 02/15/21 02/15/21 02/15/21 Range/Units 07:51 07:51 07:24 WBC 8.68 (4.8-10.8) K/uL RBC 2.21 L (4.2-5.4) M/uL Hgb 6.5 L* (12.0-16.0) g/dL Hct 20.8 L* (37-47) % MCV 94.1 (80-100) fL MCH 29.4 (25-34) pg MCHC 31.3 L (32-36) g/dL RDW Std Deviation 66.9 H (36.4-46.3) fL RDW Coeff of Maria D 19.6 H (11.5-14.5) % Plt Count 193 (130-400) K/uL MPV 10.6 H (7.4-10.4) fL Sodium 142 (136-145) mmol/L Potassium 3.2 L (3.5-5.1) mmol/L Chloride 108 H (98-107) mmol/L Carbon Dioxide 24 (21-32) mmol/L Anion Gap 10.0 (3-11) BUN 9 D (7-18) mg/dl Creatinine 3.66 H D (0.6-1.2) mg/dl Est Cr Clr Drug Dosing 20.6 ml/min Est GFR ( Amer) 15.1 ml/min Est GFR (Non-Af Amer) 13.0 ml/min BUN/Creatinine Ratio 2.3 L (10-20) Glucose 104 H (70-99) mg/dl POC Glucose 129 H (70-99) mg/dl Calcium 9.1 (8.5-10.1) mg/dl Phosphorus 3.3 D (2.5-4.9) mg/dl Magnesium 1.7 L (1.8-2.4) mg/dl Blood Type Antibody Screen Crossmatch 02/14/21 02/14/21 02/11/21 Range/Units 20:03 16:19 06:51 WBC (4.8-10.8) K/uL RBC (4.2-5.4) M/uL Hgb (12.0-16.0) g/dL Hct (37-47) % MCV (80-100) fL MCH (25-34) pg MCHC (32-36) g/dL RDW Std Deviation (36.4-46.3) fL RDW Coeff of Maria D (11.5-14.5) % Plt Count (130-400) K/uL MPV (7.4-10.4) fL Sodium (136-145) mmol/L Potassium (3.5-5.1) mmol/L Chloride (98-107) mmol/L Carbon Dioxide (21-32) mmol/L Anion Gap (3-11) BUN (7-18) mg/dl Creatinine (0.6-1.2) mg/dl Est Cr Clr Drug Dosing ml/min Est GFR ( Amer) ml/min Est GFR (Non-Af Amer) ml/min BUN/Creatinine Ratio (10-20) Glucose (70-99) mg/dl POC Glucose 102 H 98 (70-99) mg/dl Calcium (8.5-10.1) mg/dl Phosphorus (2.5-4.9) mg/dl Magnesium (1.8-2.4) mg/dl Blood Type Antibody Screen Crossmatch See Detail Medications Administered Current Inpatient Medications Acetaminophen (Acetaminophen 325 Mg Tab) 650 mg PO Q6H PRN PRN Reason: Fever/pain Stop: 02/27/21 04:58 Last Admin: 02/14/21 15:12 Dose: 650 mg Documented by: Atorvastatin Calcium (Atorvastatin 20 Mg Tab) 20 mg PO DAILY GABY Stop: 02/27/21 08:59 Last Admin: 02/14/21 08:41 Dose: 20 mg Documented by: Dextrose (Dextrose 50% 50 Ml Syringe) 25 - 50 ml IV UD PRN; Protocol PRN Reason: Hypoglycemia Protocol Stop: 02/26/21 22:40 Last Admin: 01/28/21 10:53 Dose: 25 ml Documented by: Diphenhydramine HCl (Diphenhydramine Capsule 25 Mg Cap) 25 mg PO TID PRN PRN Reason: Itching Stop: 03/03/21 00:53 Last Admin: 02/14/21 15:12 Dose: 25 mg Documented by: Docusate Sodium (Docusate Sodium 100 Mg Cap) 100 mg PO BID GABY Stop: 02/26/21 20:59 Last Admin: 02/14/21 20:03 Dose: Not Given Documented by: Glucagon (Glucagon For Inj 1 Mg Vial) 1 mg SQ UD PRN; Protocol PRN Reason: Hypoglycemia Protocol Stop: 02/26/21 22:40 Glucose (Glucose 10 Tabs/Tube) 4 - 8 tabs PO UD PRN; Protocol PRN Reason: Hypoglycemia Protocol Stop: 02/26/21 22:40 Glucose (Glucose 40% Gel 15 Gm Tube) 15 - 30 gm PO UD PRN; Protocol PRN Reason: Hypoglycemia Protocol Stop: 02/26/21 22:40 Hydrocortisone (Hydrocortisone Hc 2.5% Crm 30gm Tube) 1 appln EXT BID GABY Stop: 03/09/21 20:59 Last Admin: 02/14/21 20:15 Dose: 1 appln Documented by: Hydrocortisone (Hydrocortisone Acetate 25 Mg Supp) 25 mg FL BID PRN PRN Reason: Hemorrhoids Stop: 03/13/21 11:32 Promethazine HCl 12.5 mg/ (Sodium Chloride) 50.5 mls @ 202 mls/hr IV Q6H PRN PRN Reason: Nausea And Vomiting Stop: 02/27/21 00:51 Last Infusion: 02/15/21 05:45 Dose: Infused Documented by: Piperacillin Sod/Tazobactam (Sod 4.5 gm/ Dextrose) 120 mls @ 30 mls/hr IV Q12H [facility]; Protocol Stop: 02/17/21 23:59 Last Infusion: 02/15/21 07:02 Dose: Infused Documented by: Pantoprazole Sodium 40 mg/ (Syringe) 10 mls @ 5 mls/min IV BID [facility] Stop: 03/13/21 20:59 Last Admin: 02/14/21 20:13 Dose: 5 mls/min Documented by: Albumin Human (Albumin 25% 100 Ml) 25 gm in 100 mls @ 50 mls/hr IV Q8H [facility] Stop: 02/15/21 14:14 Last Admin: 02/15/21 07:00 Dose: 50 mls/hr Documented by: Sodium Chloride (Nss 1000ml) 1,000 mls @ 15 mls/hr IV .Q24H [facility] Stop: 03/15/21 08:14 Last Admin: 02/14/21 08:54 Dose: Not Given Documented by: Insulin Aspart (Insulin Aspart 100 Units/Ml 3 Ml Pen) 0 units SC ACHS [facility] Stop: 03/16/21 20:59 Last Admin: 02/14/21 20:06 Dose: Not Given Documented by: Lactobacillus Acidoph/Casei/Rhamnos (Advanced Probiotic 1250 Mg Capsule) 2 cap PO DAILY [facility] Stop: 03/01/21 14:59 Last Admin: 02/14/21 08:41 Dose: 2 cap Documented by: Meclizine HCl (Meclizine Hcl 25 Mg Tab) 25 mg PO TID PRN PRN Reason: Dizziness Stop: 02/26/21 19:23 Miconazole Nitrate (Miconazole Nitrate Powder 43 Gm) 1 appln EXT PRN PRN PRN Reason: Affected Skin Folds Stop: 03/03/21 05:53 Midodrine (Midodrine Hcl 10 Mg Tab) 10 mg PO MoWeFr@0800 [facility] Stop: 03/11/21 05:44 Last Admin: 02/13/21 12:05 Dose: 10 mg Documented by: Miscellaneous (Carbohydrates For Hypoglycemia ) 15 - 30 gm PO UD PRN PRN Reason: Hypoglycemia Protocol Stop: 02/26/21 22:40 Miscellaneous Information (Piperacill/Tazobac Consult Active) 1 ea N/A UD PRN PRN Reason: Consult Stop: 03/06/21 19:35 Oxycodone HCl (Oxycodone Hcl Ir 5 Mg Tab (Immediate Release)) 5 - 10 mg PO QID PRN PRN Reason: Pain Stop: 02/24/21 00:20 Last Admin: 02/15/21 05:31 Dose: 10 mg Documented by: Vitamin D (Cholecalciferol 1,000 Units 25 Mcg Tab) 5,000 units PO DAILY GABY Stop: 02/27/21 08:59 Last Admin: 02/14/21 08:41 Dose: 5,000 units Documented by: (1) GI bleed GI bleed type/associated pathology: unspecified gastrointestinal hemorrhage type Qualified Code(s): K92.2 - Gastrointestinal hemorrhage, unspecified
[2021-02-15] MEDS: DOCUSATE SODIUM 100 MG CAP PO SCH ×2 (08:09→08:14)
[2021-02-15] MEDS: ATORVASTATIN 20 MG TAB PO SCH (08:09)
[2021-02-15] MEDS: HYDROCORTISONE HC 2.5% CRM 30GM TUBE EXT SCH ×2 (08:09→20:14)
[2021-02-15] MEDS: PANTOprazole 40 MG in SYRINGE 0 ML IV SCH ×2 (08:09→20:15)
[2021-02-15] MEDS: ADVANCED PROBIOTIC 1250 MG CAPSULE PO SCH (08:09)
[2021-02-15] MEDS: CHOLECALCIFEROL 1,000 UNITS 25 MCG TAB PO SCH (08:09)
[2021-02-15] MEDS: INSULIN ASPART 100 UNITS/ML 3 ML PEN SC SCH ×4 (08:10→20:14)
[2021-02-15 08:28] LABS: Hematocrit (blood only) 20.8 % (37-47); Hemoglobin 6.5 g/dL (12.0-16.0); Mean Corpuscular Hemoglobin 29.4 pg (25-34); Mean Corpuscular Hgb Conc 31.3 g/dL (32-36); Mean Corpuscular Volume 94.1 fL (80-100); Mean Platelet Volume 10.6 fL (7.4-10.4); Platelet Count 193 K/uL (130-400); RDW Coefficient of Variation 19.6 % (11.5-14.5); RDW Standard Deviation 66.9 fL (36.4-46.3); Red Blood Count 2.21 M/uL (4.2-5.4); White Blood Count 8.68 K/uL (4.8-10.8)
[2021-02-15] MEDS ORDERED: SODIUM CHLORIDE 0.9% 250 ML IV PRN ×4 (08:37→16:30)
[2021-02-15 08:46] LABS: BUN Creatinine Ratio 2.3 (10-20); Calcium 9.1 mg/dl (8.5-10.1); Creatinine Clr Calc Pharmacy 20.6 ml/min; Est GFR (African American) 15.1 ml/min; Magnesium 1.7 mg/dl (1.8-2.4); Potassium 3.2 mmol/L (3.5-5.1)
[2021-02-15 08:59] LABS: Phosphorus 3.3 mg/dl (2.5-4.9)
--- NOTE | 2021-02-15 09:36 | Nephrology Progress Note ---
Date of Service February 15, 2021 Assessment & Plan (1) ESRD (end stage renal disease) on dialysis: Plan: * Transitioned from MWF schedule to TTS schedule during admission * Heparin held during HD due to recurrent GIB * Requests limited HD treatments to 2 hours due to poor po intake, rectal pain and recurrent hematochezia * Chronic hypotension and intradialytic hypotension - on midodrine * 2 hour heparin free HD complete yesterday for net 1 L UF * Electrolyte balance is acceptable this am (2) Acute blood loss anemia: Plan: * ISAÍAS provided w/ HD yesterday * Patient continues to have bloody stool. Hgb is down to 6.5. Primary service has ordered blood transfusion * Consider transfer to tertiary care facility for Gastroenterology/VIR evaluation of recurrent bleeding Admission and Anticipated Discharge Date Admission Date: January 27, 2021 Subjective Ms. López was evaluated in her hospital room this morning. She reports continued GI blood loss and rectal pain. She dialyzed yesterday for 2 hours heparin free with net 1 L UF. Review of Systems Constitutional: + weakness; no fever Eyes: no problem reported Ear, Nose, Mouth, Throat: no problem reported Respiratory: no cough and no dyspnea Cardiovascular: no chest pain, no palpitations and no edema Gastrointestinal: + blood in stools (+ rectal pain) Musculoskeletal: no back pain Integumentary: no rash Neurologic: no confusion Physical Exam Constitutional: + overweight; not in distress Eyes: PERRL, conjunctivae normal, anicteric sclerae ENMT: external ear and nose normal, oropharynx normal Neck: trachea midline, no thyromegaly Respiratory: normal respiratory effort, lungs clear to auscultation Cardiovascular: Rate/Rhythm: regular rate and regular rhythm Extremities: + AV fistula (thrombosed) Gastrointestinal (Abdomen): normal bowel sounds, soft, nontender, no hepatosplenomegaly Skin: no rashes, warm and dry Neurologic: awake; not confused Results & Data ([facility]) Vital Signs (Past 12 Hours) Vital Signs Temp Pulse Pulse Resp BP Pulse Ox 02/15/21 07:32 36.8 C 89 18 111/73 90 02/15/21 03:29 92 H 02/15/21 02:37 37.0 C 91 H 18 124/72 93 02/14/21 23:54 36.6 C 90 16 128/70 98 Laboratory Results Laboratory Tests 02/15/21 02/15/21 07:51 07:51 WBC 8.68 Hgb 6.5 L* Hct 20.8 L* Plt Count 193 Sodium 142 Potassium 3.2 L Chloride 108 H Carbon Dioxide 24 BUN 9 D Creatinine 3.66 H D Glucose 104 H Calcium 9.1 Phosphorus 3.3 D Magnesium 1.7 L PG Care Time/CCT Total # of Minutes Spent Total Time Spent with Patient: Total time spent is greater than 50% in coordination of care (as documented) at patient's floor/unit and/or counseling patient: Coding Level of Care Code 02647 Subseq Hosp Care Lvl 3 Diagnoses ESRD (end stage renal disease) on dialysis N18.6; Z99.2 Acute blood loss anemia D62
[2021-02-15] MEDS ORDERED: LIDOCAINE 2% 2 ML VIAL/AMP(20MG/ML) INFIL ONE (13:43)
[2021-02-15] MEDS ORDERED: ETOMIDATE 2 MG/ML 20 ML VIAL IV ONE (13:44)
[2021-02-15] MEDS ORDERED: PROPOFOL IV EMULSION 10 MG/ML 20 ML VIAL IV ONE (13:44)
--- NOTE | 2021-02-15 13:54 | Anesthesiology Consultation ---
Date of Service February 15, 2021 Assessment & Plan (1) Encounter for pre-operative examination: Chart Review Chart Review: Acceptable Risk for Surgery (Emergent due to acute bleeding ) History Surgery Operation Date: 01/28/21 15:30 Proposed Procedures p Esophagogastroduodenoscopy Dr. Castro - Javi Castro MD Operation Date: 02/06/21 15:30 Proposed Procedures p Colonoscopy Dr. Rambo Ricks, Operation Date: 02/12/21 16:30 Proposed Procedures p Small Bowel Enteroscopy - Javi Castro MD Operation Date: 02/13/21 08:00 Proposed Procedures p Debridement Left Above Knee Amputation Stump, Possible Application of Wound Vac - Giuseppe Michel MD Operation Date: 02/13/21 09:05 Proposed Procedures p Debridement Left Above Knee Amputation Stump, Possible Application of Wound Vac - Giuseppe Michel MD Height/Weight Height: 5 ft 3 in Weight: 113.8 kg Allergies Allergy/AdvReac Type Severity Reaction Status Date / Time No Known Allergies Allergy Verified 01/24/21 20:53 Medications Home Medications Medication Instructions Recorded Confirmed Last Taken atorvastatin 20 mg tablet (Lipitor) 20 mg PO DAILY 06/05/18 01/27/21 11/16/18 20:30 clopidogrel 75 mg tablet (Plavix) 75 mg PO DAILY 06/05/18 01/27/21 11/17/18 04:30 docusate sodium 100 mg capsule 100 mg PO BID 06/05/18 01/27/21 11/17/18 04:30 insulin glargine 100 unit/mL 10 units SUBCUT HS 06/05/18 01/27/21 11/17/18 04:30 subcutaneous solution (Lantus 20 units U-100 Insulin) Saccharomyces boulardii 250 mg 250 mg PO BIDM 01/24/21 01/27/21 Unknown capsule acetaminophen 325 mg tablet 650 mg PO Q4 PRN 01/24/21 01/27/21 Unknown aspirin 81 mg tablet,delayed 81 mg PO DAILY 01/24/21 01/27/21 Unknown release (Aspirin Low Dose) bisacodyl 10 mg rectal suppository 10 mg ND DAILY PRN 01/24/21 01/27/21 Unknown cholecalciferol (vitamin D3) 125 125 mcg PO DAILY 01/24/21 01/27/21 Unknown mcg (5,000 unit) capsule collagenase clostridium histo. 250 1 applic TOPICAL DAILY 01/24/21 01/27/21 Unknown unit/gram topical ointment (Santyl) darbepoetin sheri in polysorbat 100 100 mcg SUBCUT UD 01/24/21 01/27/21 Unknown mcg/0.5 mL in polysorbate injection syringe dextrose 40 % oral gel 15 g PO ONCE PRN 01/24/21 01/27/21 Unknown gentamicin 0.1 % topical ointment 1 applic TOPICAL DAILY 01/24/21 01/27/21 Unknown heparin (porcine) 5,000 unit/mL 5,000 unit SUBCUT Q12H 01/24/21 01/27/21 Unknown injection solution iron sucrose 100 mg iron/5 mL 100 mg IV UD PRN 01/24/21 01/27/21 Unknown intravenous solution (Venofer) magnesium hydroxide 400 mg/5 mL 30 ml PO DAILY PRN 01/24/21 01/27/21 Unknown oral suspension (Milk of Magnesia) meclizine 12.5 mg tablet 25 mg PO TID PRN 01/24/21 01/27/21 Unknown midodrine 5 mg tablet 5 mg PO TID 01/24/21 01/27/21 Unknown ondansetron 4 mg disintegrating 4 mg PO Q6H PRN 01/24/21 01/27/21 Unknown tablet pantoprazole 40 mg tablet,delayed 40 mg PO HS 01/24/21 01/27/21 Unknown release polyethylene glycol 3350 17 gram 17 g PO QDL PRN 01/24/21 01/27/21 Unknown oral powder packet (Miralax) sennosides 8.6 mg-docusate sodium 1 tab-cap PO QDL PRN 01/24/21 01/27/21 Unknown 50 mg tablet (Senokot-S) tramadol 50 mg tablet 50 mg PO Q6H PRN 01/24/21 01/27/21 Unknown doxycycline hyclate 100 mg capsule 100 mg PO BID 14 Days #28 cap 01/25/21 01/27/21 Unknown cocoa butter-shark liver oil 1 supp ND BID 01/27/21 01/27/21 Unknown rectal suppository hydrocortisone 2.5 % topical cream 1 applic TOPICAL BID 01/27/21 01/27/21 Unknown insulin regular human 100 unit/mL 1 sliding scale dose SUBCUT 01/27/21 01/27/21 Unknown injection solution (Humulin R USEASDIRECTD Regular U-100 Insulin) Active Medications Generic Name Dose Route Start Last Admin Trade Name Freq PRN Reason Stop Dose Admin Acetaminophen 650 mg 01/28/21 04:59 02/14/21 15:12 Acetaminophen 325 Mg Tab PO 02/27/21 04:58 650 mg Q6H PRN Administration Fever/pain Atorvastatin Calcium 20 mg 01/28/21 09:00 02/15/21 08:09 Atorvastatin 20 Mg Tab PO 02/27/21 08:59 20 mg DAILY GABY Administration Dextrose 25 - 50 ml 01/27/21 22:41 01/28/21 10:53 Dextrose 50% 50 Ml Syringe IV 02/26/21 22:40 25 ml UD PRN Administration Hypoglycemia Protocol Protocol Diphenhydramine HCl 25 mg 02/01/21 00:54 02/14/21 15:12 Diphenhydramine Capsule 25 Mg Cap PO 03/03/21 00:53 25 mg TID PRN Administration Itching Docusate Sodium 100 mg 01/27/21 21:00 02/15/21 08:14 Docusate Sodium 100 Mg Cap PO 02/26/21 20:59 Not Given BID GABY Hydrocortisone 1 appln 02/07/21 21:00 02/15/21 08:09 Hydrocortisone Hc 2.5% Crm 30gm Tube EXT 03/09/21 20:59 1 appln BID GABY Administration Promethazine HCl 12.5 mg/ 50.5 mls @ 202 mls/hr 01/28/21 00:52 02/15/21 05:45 Sodium Chloride IV 02/27/21 00:51 Infused Q6H PRN Infusion Nausea And Vomiting Piperacillin Sod/Tazobactam 120 mls @ 30 mls/hr 02/05/21 16:00 02/15/21 07:02 Sod 4.5 gm/ Dextrose IV 02/17/21 23:59 Infused Q12H GABY Infusion Protocol Pantoprazole Sodium 40 mg/ 10 mls @ 5 mls/min 02/11/21 21:00 02/15/21 08:09 Syringe IV 03/13/21 20:59 5 mls/min BID GABY Administration Albumin Human 25 gm in 100 mls @ 50 mls/hr 02/12/21 14:15 02/15/21 09:02 Albumin 25% 100 Ml IV 02/15/21 14:14 Infused Q8H GABY Infusion Sodium Chloride 1,000 mls @ 15 mls/hr 02/13/21 08:15 02/14/21 08:54 Nss 1000ml IV 03/15/21 08:14 Not Given .Q24H GABY Insulin Aspart 0 units 02/14/21 21:00 02/15/21 12:08 Insulin Aspart 100 Units/Ml 3 Ml Pen SC 03/16/21 20:59 4 units ACHS GABY Administration Lactobacillus Acidoph/Casei/Rhamnos 2 cap 01/30/21 15:00 02/15/21 08:09 Advanced Probiotic 1250 Mg Capsule PO 03/01/21 14:59 2 cap DAILY GABY Administration Midodrine 10 mg 02/09/21 05:45 02/13/21 12:05 Midodrine Hcl 10 Mg Tab PO 03/11/21 05:44 10 mg MoWeFr@0800 GABY Administration Oxycodone HCl 5 - 10 mg 02/10/21 00:21 02/15/21 11:29 Oxycodone Hcl Ir 5 Mg Tab (Immediate Release) PO 02/24/21 00:20 10 mg QID PRN Administration Pain Vitamin D 5,000 units 01/28/21 09:00 02/15/21 08:09 Cholecalciferol 1,000 Units 25 Mcg Tab PO 02/27/21 08:59 5,000 units DAILY GABY Administration Past Medical History Medical History Anemia AV fistula LEFT ARM Congestive heart failure Diabetes mellitus, type 2 Difficult intravenous access Hemodialysis patient [facility] Hyperlipidemia Hypertension Morbid obesity Obstructive sleep apnea Peripheral vascular disease Right heart failure Transient ischemic attack (TIA) X 14 (LAST EVENT 2015) Past Family History Family History Other No significant family history Past Surgical History Surgical History History of appendectomy History of cardiac cath X 2 (NO STENTS) History of section X1 History of cholecystectomy History of colonoscopy History of dilatation and curettage X 3 History of hysterectomy History of surgery HX OF LEFT UPPER ARM FISTULOGRAM (CLOT IN AV FISTULA) X 9 TIMES History of tooth extraction Social History Smoking Status: Former smoker tobacco type: cigarettes Hx Alcohol Use: No Hx Substance Use: No substance use type: does not use Physical Exam Vital Signs Last Vital Signs Temp 37.0 C 02/15/21 13:42 Pulse 86 02/15/21 13:42 Resp 16 02/15/21 13:42 BP 94/60 L 02/15/21 13:42 Pulse Ox 99 02/15/21 13:42 Testing Laboratory Results 02/15/21 07:51 PT 10.4 Seconds (9.0-12.0) 01/27/21 15:05 INR 1.0 (0.9-1.1) 01/27/21 15:05 APTT 23.2 Seconds (21.0-31.0) 01/27/21 15:05 Hemoglobin A1c 4.7 % (4.5-5.6) 01/28/21 06:02 Blood Type O Positive 02/15/21 08:50 Antibody Screen NEGATIVE 02/15/21 08:50 02/13/21 Unknown Gram Stain - Final Leg,Left Aerobic and Anaerobic Culture - Preliminary Taryn albicans/dubliniensis 02/15/21 02/15/21 11:21 07:24 POC Glucose 99 129 H
[2021-02-15] MEDS ORDERED: SUCCINYLCHOLINE CHLORIDE 20 MG/ML 10 ML VIAL IV ONE (14:02)
[2021-02-15] MEDS ORDERED: PHENYLEPHRINE HCL 10 MG/ML VIAL ONE (14:06)
[2021-02-15] MEDS ORDERED: ePHEDrine sulfate 50 MG/ML AMP ONE (14:06)
[2021-02-15 14:07] LABS: Hematocrit (blood only) 21.6 % (37-47); Hemoglobin 6.7 g/dL (12.0-16.0)
[2021-02-15] MEDS ORDERED: WATER, STERILE FOR INJ 10 ML VIAL ONE (14:07)
[2021-02-15] MEDS ORDERED: HYDROmorphone INJ 1 MG/ML SYRINGE IV PRN (14:40)
[2021-02-15] MEDS ORDERED: ONDANSETRON INJ 2 MG/ML 2 ML VIAL IV PRN (14:40)
[2021-02-15] MEDS ORDERED: ATROPINE SULFATE 0.1 MG/ML 10ML SYR IV PRN (14:40)
--- NOTE | 2021-02-15 14:41 | Gastroenterology Progress Note ---
Date of Service February 15, 2021 Assessment & Plan (1) BRBPR (bright red blood per rectum): (2) GI bleed: Plan: Patient with continued GI bleeding despite EGD, Colonoscopy, 2 bleeding scans and a CTA of the Abd/pelvis with no definitive bleeding source Identified Will perform emergent Push Enteroscopy and flex sig now for further evaluation Continue current therapy and supportive care Admission and Anticipated Discharge Date Admission Date: January 27, 2021 Gayle I was contacted by Dr. Peoples this morning secondary to multiple bloody BM's by Barb López. She did have a decline in her H/H and is currently receiving the 2nd of 2 units of PRBC. She denies any abdominal pain, fevers, chills, nausea, vomiting or hematemesis. She has no further complaints. Physical Exam Constitutional: + ill appearing and + morbidly obese Gastrointestinal (Abdomen): normal bowel sounds, soft, nontender, no hepatosplenomegaly Results & Data Results & Data ([facility]) Vital Signs (Past 12 Hours) Vital Signs Temp Pulse Pulse Resp BP BP Pulse Ox 02/15/21 14:20 36.2 C L 87 18 75/43 L 96 02/15/21 14:03 36.2 C L 89 18 75/50 L 97 02/15/21 13:42 37.0 C 86 16 94/60 L 99 02/15/21 12:55 36.9 C 86 16 101/67 02/15/21 11:55 37.0 C 86 16 138/70 94 02/15/21 11:25 37.1 C 89 16 133/76 98 02/15/21 11:20 37.1 C 85 18 109/67 90 02/15/21 11:10 37.0 C 83 15 115/69 96 02/15/21 10:53 36.9 C 86 15 100/64 94 02/15/21 07:32 36.8 C 89 18 111/73 90 02/15/21 03:29 92 H PG Care Time/CCT Total # of Minutes Spent Total Time Spent with Patient: Total time spent is greater than 50% in coordination of care (as documented) at patient's floor/unit and/or counseling patient: Coding Level of Care Code 99251 Subseq Hosp Care Lvl 3 Diagnoses BRBPR (bright red blood per rectum) K62.5 GI bleed K92.2
--- NOTE | 2021-02-15 16:38 | GI REPORT ---
Patient Name: Barb López Procedure Date: 02/15/2021 4:19 PM Date of : 1965 Admit Type: Inpatient Age: 55 Gender: Female Attending MD: Alex Ricks DO Procedure: Colonoscopy Providers: Alex Ricks DO Referring MD: Marcelo Peoples Md Indications: Hematochezia Medicines: General Anesthesia Complications: No immediate complications. Estimated Blood Loss: Estimated blood loss: none. Procedure: Pre-Anesthesia Assessment: - Prior to the procedure, a History and Physical was performed, and patient medications and allergies were reviewed. The patient's tolerance of previous anesthesia was also reviewed. The risks and benefits of the procedure and the sedation options and risks were discussed with the patient. All questions were answered, and informed consent was obtained. Prior Anticoagulants: The patient has taken no previous anticoagulant or antiplatelet agents. ASA Grade Assessment: IV - A patient with severe systemic disease that is a constant threat to life. After reviewing the risks and benefits, the patient was deemed in satisfactory condition to undergo the procedure. After I obtained informed consent, the scope was passed under direct vision. Throughout the procedure, the patient's blood pressure, pulse, and oxygen saturations were monitored continuously. The Colonoscope was introduced through the anus and advanced to the terminal ileum. The colonoscopy was performed without difficulty. The patient tolerated the procedure well. The quality of the bowel preparation was fair. The terminal ileum, ileocecal valve, appendiceal orifice, and rectum were photographed. Findings: The perianal and digital rectal examinations were normal. Nonbleeding ulcerated mucosa from prior polypectomy site with no stigmata of recent bleeding were present in the cecum. To prevent bleeding one hemostatic clip was successfully placed (MR conditional). There was no bleeding during, or at the end, of the procedure. Multiple small-mouthed diverticula were found in the sigmoid colon. Multiple small localized angioectasias with bleeding were found in the rectum. Fulguration to ablate the lesion to prevent bleeding by heater probe was successful. Non-bleeding internal hemorrhoids were found during retroflexion. The hemorrhoids were small. Impression: - Preparation of the colon was fair. - Mucosal ulceration. Clip (MR conditional) was placed. - Diverticulosis in the sigmoid colon. - Multiple bleeding colonic angioectasias. Treated with a heater probe. - Non-bleeding internal hemorrhoids. - No specimens collected. Recommendation: - Return patient to [facility] for [facility] care. - Advance diet as tolerated. - Continue present medications. Alex PascaleSujata Ricks, DO 02/15/2021 4:38:16 PM This report has been signed electronically. Note Initiated On: 02/15/2021 4:19 PM Number of Addenda: 0 I attest to the content of the Intraoperative Record and orders documented therein, exceptions below {[id number]}
--- NOTE | 2021-02-15 16:39 | GI REPORT ---
Patient Name: Barb López Procedure Date: 02/15/2021 2:51 PM Date of : 1965 Admit Type: Inpatient Age: 55 Gender: Female Attending MD: lAex Ricks DO Procedure: Small bowel enteroscopy Providers: Alex Ricks DO Referring MD: Marcelo Peoples Md Indications: Hematochezia Medicines: General Anesthesia Complications: No immediate complications. Estimated Blood Loss: Estimated blood loss: none. Procedure: Pre-Anesthesia Assessment: - Prior to the procedure, a History and Physical was performed, and patient medications and allergies were reviewed. The patient's tolerance of previous anesthesia was also reviewed. The risks and benefits of the procedure and the sedation options and risks were discussed with the patient. All questions were answered, and informed consent was obtained. Prior Anticoagulants: The patient has taken no previous anticoagulant or antiplatelet agents. ASA Grade Assessment: IV - A patient with severe systemic disease that is a constant threat to life. After reviewing the risks and benefits, the patient was deemed in satisfactory condition to undergo the procedure. After obtaining informed consent, the endoscope was passed under direct vision. Throughout the procedure, the patient's blood pressure, pulse, and oxygen saturations were monitored continuously. The Colonoscope was introduced through the mouth, and advanced to the fourth part of duodenum. After obtaining informed consent, the endoscope was passed under direct vision. Throughout the procedure, the patient's blood pressure, pulse, and oxygen saturations were monitored continuously.The small bowel enteroscopy was accomplished without difficulty. The patient tolerated the procedure well. Findings: The esophagus was normal. The stomach was normal. The esophagus was normal. A small hiatal hernia was present. The examined duodenum was normal. Impression: - Normal esophagus. - Normal stomach. - Normal esophagus. - Small hiatal hernia. - Normal examined duodenum. - No specimens collected. Recommendation: - Return patient to [facility] for ongoing care. - Advance diet as tolerated - advance as tolerated to resume previous diet. - Perform a colonoscopy today. Alex Ricks DO 02/15/2021 4:38:28 PM This report has been signed electronically. Note Initiated On: 02/15/2021 2:51 PM Number of Addenda: 0 I attest to the content of the Intraoperative Record and orders documented therein, exceptions below {[id number]}
[2021-02-15] MEDS: SODIUM CHLORIDE 0.9% 1000ML 1,000 ML IV SCH (17:23)
--- NOTE | 2021-02-15 17:56 | Anesthesiology Progress Note ---
Date of Service February 15, 2021 Anesthesia Post Procedure Vital Signs Vital Signs: Temp Pulse Pulse Pulse Pulse Resp BP 02/15/21 17:25 36.1 C L 98 H 98 H 20 99/44 L 02/15/21 17:15 99 H 14 02/15/21 17:10 36.3 C L 103 H 14 92/43 L 02/15/21 17:05 102 H 12 02/15/21 16:55 36 C L 100 H 14 02/15/21 16:45 102 H 12 02/15/21 16:35 102 H 10 L 02/15/21 16:25 104 H 12 02/15/21 16:15 37.0 C 104 H 12 02/15/21 14:55 36.0 C L 100 H 14 85/60 L 02/15/21 14:20 36.2 C L 87 18 75/43 L 02/15/21 14:03 36.2 C L 89 18 75/50 L 02/15/21 13:42 37.0 C 86 16 94/60 L 02/15/21 12:55 36.9 C 86 16 101/67 02/15/21 11:55 37.0 C 86 16 138/70 02/15/21 11:25 37.1 C 89 16 133/76 02/15/21 11:20 37.1 C 85 18 109/67 02/15/21 11:10 37.0 C 83 15 115/69 02/15/21 10:53 36.9 C 86 15 100/64 02/15/21 07:32 36.8 C 89 18 02/15/21 03:29 92 H 02/15/21 02:37 37.0 C 91 H 18 02/14/21 23:54 36.6 C 90 16 02/14/21 18:48 37.0 C 93 H 18 BP Pulse Ox 02/15/21 17:25 99/44 L 96 02/15/21 17:15 85/39 L 95 02/15/21 17:10 92/43 L 98 02/15/21 17:05 60/43 L 94 02/15/21 16:55 85/60 L 92 02/15/21 16:45 80/39 L 97 02/15/21 16:35 109/41 L 95 02/15/21 16:25 121/46 L 100 02/15/21 16:15 83/28 L 100 02/15/21 14:55 92 02/15/21 14:20 96 02/15/21 14:03 97 02/15/21 13:42 99 02/15/21 12:55 02/15/21 11:55 94 02/15/21 11:25 98 02/15/21 11:20 90 02/15/21 11:10 96 02/15/21 10:53 94 02/15/21 07:32 111/73 90 02/15/21 03:29 02/15/21 02:37 124/72 93 02/14/21 23:54 128/70 98 02/14/21 18:48 111/62 93 Pain Intensity Left Knee: Pain Intensity: 2 Bilateral Hip: Pain Intensity: 4 Other: Pain Intensity: 8 Transfer of Care Handoff Completed per policy Notes Mental Status: alert / awake / arousable Patient Amnestic to Procedure: Yes Nausea / Vomiting: adequately controlled Pain: adequately controlled Airway Patency, RR, SpO2: stable & adequate BP & HR: stable & adequate Hydration State: stable & adequate Anesthetic Complications: no major complications apparent
[2021-02-15 20:06] LABS: Hematocrit (blood only) 29.7 % (37-47); Hemoglobin 9.4 g/dL (12.0-16.0)
[2021-02-16] MEDS: PIPERACILLIN/TAZOBACTAM 4.5 GM in DEXTROSE 5% 100 ML IV SCH ×2 (04:09→16:51)
[2021-02-16] MEDS: oxyCODONE HCL IR 5 MG TAB (IMMEDIATE RELEASE) PO PRN ×4 (05:17→20:13)
--- NOTE | 2021-02-16 07:18 | Hospitalist Progress Note ---
Date of Service February 16, 2021 Assessment & Plan (1) GI bleed: Plan: Likely multifactorial Gastric Ulcer Rectal bleeding likely secondary to polyps, diverticulosis and internal hemorrhoids Suspect ischemic colitis--less likely based on CT S/P EGD: gastric ulcer S/P PRBC H/O hemorrhoids as per patient --CT ABD:No CT evidence for ischemic bowel. However, there is a masslike filling defect within the rectum suspicious for a neoplastic process. Direct visualization is recommended. -S/P Colonoscopy: Two 5 to 7 mm polyps in the cecum, removed with hot snare. Resected and retrieved. Diverticulosis in the sigmoid colon. Nonbleeding internal hemorrhoids. No findings on the exam to correlate with abnormal CT in the rectum. It was most likely stool versus shadowing. --Pathology Stomach, biopsy: - Mild to moderate acute and chronic gastritis - Negative for intestinal metaplasia, dysplasia and carcinoma - H. pylori immunoperoxidase stain negative Colon, cecum, polypectomies: - #1. Fragments of tubular adenoma. - #2. No invasive carcinoma seen. Continue Protonix drip>>Transitioned to PO - cont. PO PPI BID for 8 week Appreciate GI input Continue H&H and transfuse PRBCs as needed Bleeding Scan showed No evidence of acute gastrointestinal bleeding Monitor CBC Conservative management as per GI Hb 8.7 on 02/10 Hb 7.9 on 02/11 - Received 1unit of pRBC 02/11 - Patient again had 2 large bowel movements, per RN dark red GI, Dr. Castro contacted, plan for repeat bleeding scan, if negative, plans for small bowel enteroscopy tomorrow (02/12) -bleeding scan negative, plan for small bowel enteroscopy 02/13 -small bowel enteroscopy canceled due to hypotension (after HD), plan for CT angio abdomen pelvis CT angio abdomen pelvis IMPRESSION: 1. Extensive atherosclerotic vascular disease without aneurysm, dissection or arterial occlusion identified. 2. Multifocal high-grade stenoses of the renal arteries. 3. Mild hydroureteronephrosis is likely secondary to urinary bladder distention. No obstructing calculus or lesion identified. 4. Bilateral urothelial thickening with urinary bladder wall thickening and perivesicular stranding. Correlate with urinalysis to exclude an infectious process. 5. Trace pleural effusions with suggested pulmonary edema and bibasilar atelectasis 6. Partially calcified areas of bibasilar consolidation redemonstrated. 7. Mild nonspecific wall thickening of the anorectal junction with mild surrounding inflammatory stranding is again noted. This could be correlated with colonoscopy. 8. Additional findings as above. 02/14 - stools reported by RN, no blood in her stool Hgb stable from yesterday 02/15 - patient again had several bowel movements, with blood, hemoglobin dropped to 6.5. GI, Dr. Ricks contacted. Patient received 1 unit of PRBCs in the morning and second unit on the way to the OR. Dr. Ricks taking patient for emergent endoscopy. Patient's daughter updated over the phone. 02/16 -no bleeding overnight, H&H last evening stable. Received PRBCs yesterday. Currently feels well. (2) Postoperative wound infection: Plan: Left AKA stump cellulitis Stage 3 Pressure ulcer of right heel, POA --Blood Cx: Negative to date Empirically received Unasyn for 7 days Also completed 7 days of doxycycline Worsening leukocytosis Transitioned Unasyn to Zosyn Appreciate orthopedics, vascular surgery input Needs debridement of left above-knee amputation stump and possible need for wound VAC Continue wound care Leukocytosis normalized Needs debridement as able-- Planned for Tuesday (w/ vasc. surg.) Leukocytosis , now WBC 11 K (02/12), WBC 9K (02/14), WBC 8.7K (02/15) 02/13 - underwent Debridement of skin and subcutaneous Left Above Knee Amputation Stump (22x8cm), Application of Wound Vac with wound measuring 22x8 cm.(Left) - Giuseppe Michel MD Follow wound cultx from OR (3) ESRD (end stage renal disease) on dialysis: Plan: - Consult nephrology - pt on HD M/W/, now on TTS schedule - switch back to MWF hemodialysis as per Nephrology - reduce to 2hrs as pt has difficulty tolerating Received Epogen with HD Hypokalemia Replace electrolytes as needed (4) Diabetes mellitus, type 2: Plan: - Accuchecks - Insulin sliding scale (5) Hypertension: Plan: Monitor BP Continue current medications (6) Hyperlipidemia: Plan: on Statin (7) Ulcer of right heel: Plan: - Wound care consult, as above (8) Peripheral vascular disease: (9) Obstructive sleep apnea: Plan: Non-compliant with CPAP CODE STATUS: Full code DVT Px: SCDs Re: GI bleeding Admission and Anticipated Discharge Date Admission Date: January 27, 2021 Subjective Patient is seen in follow-up of GI bleed, wound infection Underwent Debridement of skin and subcutaneous Left Above Knee Amputation Stump (22x8cm), Application of Wound Vac on 02/13 Patient developed GI bleed again yesterday, significant, with hemoglobin of 6.5, noted to have AVM bleeds She was taking to the OR by GI emergently, for endoscopy. Patient seen after endoscopy, and she was feeling well at that time. Did not have any chest pain shortness of breath. Also discussed with patient's daughter in detail, patient's daughter in agreement to consult palliative medicine as well. Overnight patient did not have any GI bleed. This morning she feels well overall, says that she had good sleep. Appears in better spirits today. No chest pain shortness of breath abdominal pain, reports buttocks pain and stump pain. Plan for hemodialysis today. Unable to draw labs this morning, will do during dialysis. Review of Systems Review of Systems: All systems reviewed & are unremarkable except as noted in Subjective Physical Exam Physical Exam: General Appearance:Morbidly Obese F in NAD, chronically ill appearing Head: normocephalic, Atraumatic Eyes: normal inspection, EOMI Neck: supple, Trachea midline Respiratory/Chest: Normal breath sounds, CTA, No accessory muscle use Cardiovascular: S1, S2, No murmur Abdomen/GI:Soft, Non tender, Bowel sounds present Extremities/Musculoskeletal:normal inspection, 1+ pedal edema, Left AKA - wound vac Neurologic/Psych: AAOX3, speech fluent, moves extremities Skin: normal color, warm, right heel wound Results & Data Results & Data ([facility]) Vital Signs (Past 12 Hours) Vital Signs Temp Pulse Pulse Pulse Resp BP Pulse Ox 02/16/21 02:53 36.8 C 100 H 18 94/56 L 93 02/15/21 23:12 64 02/15/21 22:52 36.7 C 104 H 18 108/54 L 92 02/15/21 19:24 36.9 C 100 H 17 93/61 L 95 Medications Administered Current Inpatient Medications Acetaminophen (Acetaminophen 325 Mg Tab) 650 mg PO Q6H PRN PRN Reason: Fever/pain Stop: 02/27/21 04:58 Last Admin: 02/14/21 15:12 Dose: 650 mg Documented by: Atorvastatin Calcium (Atorvastatin 20 Mg Tab) 20 mg PO DAILY GABY Stop: 02/27/21 08:59 Last Admin: 02/15/21 08:09 Dose: 20 mg Documented by: Dextrose (Dextrose 50% 50 Ml Syringe) 25 - 50 ml IV UD PRN; Protocol PRN Reason: Hypoglycemia Protocol Stop: 02/26/21 22:40 Last Admin: 01/28/21 10:53 Dose: 25 ml Documented by: Diphenhydramine HCl (Diphenhydramine Capsule 25 Mg Cap) 25 mg PO TID PRN PRN Reason: Itching Stop: 03/03/21 00:53 Last Admin: 02/14/21 15:12 Dose: 25 mg Documented by: Glucagon (Glucagon For Inj 1 Mg Vial) 1 mg SQ UD PRN; Protocol PRN Reason: Hypoglycemia Protocol Stop: 02/26/21 22:40 Glucose (Glucose 10 Tabs/Tube) 4 - 8 tabs PO UD PRN; Protocol PRN Reason: Hypoglycemia Protocol Stop: 02/26/21 22:40 Glucose (Glucose 40% Gel 15 Gm Tube) 15 - 30 gm PO UD PRN; Protocol PRN Reason: Hypoglycemia Protocol Stop: 02/26/21 22:40 Hydrocortisone (Hydrocortisone Hc 2.5% Crm 30gm Tube) 1 appln EXT BID [facility] Stop: 03/09/21 20:59 Last Admin: 02/15/21 20:14 Dose: Not Given Documented by: Hydrocortisone (Hydrocortisone Acetate 25 Mg Supp) 25 mg ME BID PRN PRN Reason: Hemorrhoids Stop: 03/13/21 11:32 Promethazine HCl 12.5 mg/ (Sodium Chloride) 50.5 mls @ 202 mls/hr IV Q6H PRN PRN Reason: Nausea And Vomiting Stop: 02/27/21 00:51 Last Infusion: 02/15/21 05:45 Dose: Infused Documented by: Piperacillin Sod/Tazobactam (Sod 4.5 gm/ Dextrose) 120 mls @ 30 mls/hr IV Q12H [facility]; Protocol Stop: 02/17/21 23:59 Last Admin: 02/16/21 04:09 Dose: 30 mls/hr Documented by: Pantoprazole Sodium 40 mg/ (Syringe) 10 mls @ 5 mls/min IV BID [facility] Stop: 03/13/21 20:59 Last Admin: 02/15/21 20:15 Dose: 5 mls/min Documented by: Sodium Chloride (Nss 1000ml) 1,000 mls @ 15 mls/hr IV .Q24H [facility] Stop: 03/15/21 08:14 Last Admin: 02/15/21 17:23 Dose: Not Given Documented by: Insulin Aspart (Insulin Aspart 100 Units/Ml 3 Ml Pen) 0 units SC ACHS GABY Stop: 03/16/21 20:59 Last Admin: 02/15/21 20:14 Dose: Not Given Documented by: Lactobacillus Acidoph/Casei/Rhamnos (Advanced Probiotic 1250 Mg Capsule) 2 cap PO DAILY [facility] Stop: 03/01/21 14:59 Last Admin: 02/15/21 08:09 Dose: 2 cap Documented by: Miconazole Nitrate (Miconazole Nitrate Powder 43 Gm) 1 appln EXT PRN PRN PRN Reason: Affected Skin Folds Stop: 03/03/21 05:53 Midodrine (Midodrine Hcl 10 Mg Tab) 10 mg PO MoWeFr@0800 [facility] Stop: 03/11/21 05:44 Last Admin: 02/13/21 12:05 Dose: 10 mg Documented by: Miscellaneous (Carbohydrates For Hypoglycemia ) 15 - 30 gm PO UD PRN PRN Reason: Hypoglycemia Protocol Stop: 02/26/21 22:40 Miscellaneous Information (Piperacill/Tazobac Consult Active) 1 ea N/A UD PRN PRN Reason: Consult Stop: 03/06/21 19:35 Oxycodone HCl (Oxycodone Hcl Ir 5 Mg Tab (Immediate Release)) 5 - 10 mg PO QID PRN PRN Reason: Pain Stop: 02/24/21 00:20 Last Admin: 02/16/21 05:17 Dose: 10 mg Documented by: Vitamin D (Cholecalciferol 1,000 Units 25 Mcg Tab) 5,000 units PO DAILY [facility] Stop: 02/27/21 08:59 Last Admin: 02/15/21 08:09 Dose: 5,000 units Documented by: (1) GI bleed GI bleed type/associated pathology: unspecified gastrointestinal hemorrhage type Qualified Code(s): K92.2 - Gastrointestinal hemorrhage, unspecified
[2021-02-16] MEDS: INSULIN ASPART 100 UNITS/ML 3 ML PEN SC SCH ×4 (07:53→20:10)
[2021-02-16] MEDS: CHOLECALCIFEROL 1,000 UNITS 25 MCG TAB PO SCH (07:54)
[2021-02-16] MEDS: SODIUM CHLORIDE 0.9% 1000ML 1,000 ML IV SCH (07:54)
[2021-02-16] MEDS: MIDODRINE HCL 10 MG TAB PO SCH (07:54)
[2021-02-16] MEDS: ATORVASTATIN 20 MG TAB PO SCH (07:54)
[2021-02-16] MEDS: HYDROCORTISONE HC 2.5% CRM 30GM TUBE EXT SCH ×2 (07:55→20:09)
[2021-02-16] MEDS: ADVANCED PROBIOTIC 1250 MG CAPSULE PO SCH (07:55)
[2021-02-16] MEDS: PANTOprazole 40 MG in SYRINGE 0 ML IV SCH ×2 (07:56→20:10)
[2021-02-16] MEDS ORDERED: EPOETIN ALFA 10,000 UNITS/ML VIAL IV ONE (08:59)
[2021-02-16] MEDS ORDERED: SODIUM CHLORIDE 0.9% 1000ML 1,000 ML IV PRN (08:59)
--- NOTE | 2021-02-16 09:07 | Nephrology Progress Note ---
Date of Service February 16, 2021 Assessment & Plan (1) ESRD (end stage renal disease) on dialysis: Plan: * Patient requests 2 hour HD today to return to her MWF schedule. Orders placed in EMR and HD RN notified * Hold heparin during HD due to recurrent GIB * Chronic hypotension and intradialytic hypotension - on midodrine * HD RN to draw morning labs when placing patient on circuit (2) Acute blood loss anemia: Plan: * Will provide ISAÍAS w/ HD this morning * 02/15/21 EGD negative, colonoscopy revealed rectal angiodysplasia s/p cautery Admission and Anticipated Discharge Date Admission Date: January 27, 2021 Subjective Ms. López was evaluated in her hospital room this morning. She underwent EGD and colonoscopy yesterday. She required cauterization of rectal angiodysplastic vessels and was found to have a few small nonbleeding internal hemorrhoids. Lab was unable to draw blood work this am Review of Systems Constitutional: + weakness; no fever Eyes: no problem reported Ear, Nose, Mouth, Throat: no problem reported Respiratory: no cough and no dyspnea Cardiovascular: no chest pain, no palpitations and no edema Gastrointestinal: + blood in stools (+ rectal pain) Musculoskeletal: no back pain Integumentary: no rash Neurologic: no confusion Physical Exam Constitutional: + overweight; not in distress Eyes: PERRL, conjunctivae normal, anicteric sclerae ENMT: external ear and nose normal, oropharynx normal Neck: trachea midline, no thyromegaly Respiratory: normal respiratory effort, lungs clear to auscultation Cardiovascular: Rate/Rhythm: regular rate and regular rhythm Extremities: + AV fistula (thrombosed) Gastrointestinal (Abdomen): normal bowel sounds, soft, nontender, no hepatosplenomegaly Skin: no rashes, warm and dry Neurologic: awake; not confused Results & Data ([facility]) Vital Signs (Past 12 Hours) Vital Signs Temp Pulse Pulse Resp BP Pulse Ox 02/16/21 08:07 36.6 C 91 H 19 107/69 98 02/16/21 07:43 77 02/16/21 02:53 36.8 C 100 H 18 94/56 L 93 02/15/21 23:12 64 02/15/21 22:52 36.7 C 104 H 18 108/54 L 92 PG Care Time/CCT Total # of Minutes Spent Total Time Spent with Patient: Total time spent is greater than 50% in coordination of care (as documented) at patient's floor/unit and/or counseling patient: Coding Level of Care Code 10596 Subseq Hosp Care Lvl 3 Diagnoses ESRD (end stage renal disease) on dialysis N18.6; Z99.2 Acute blood loss anemia D62
--- NOTE | 2021-02-16 10:08 | Gastroenterology Progress Note ---
Date of Service February 16, 2021 Assessment & Plan (1) AVM (arteriovenous malformation) of colon: Plan: -Continue to monitor H/H -Monitor for further GI bleeding (2) Gastric ulcer: Plan: -Continue Protonix 40 mg BID x 8 weeks, then reduce to once daily thereafter Admission and Anticipated Discharge Date Admission Date: January 27, 2021 Subjective Patient is a 55 yo female with rectal bleeding who underwent a second colonoscopy on 02/15/21 due to persistent bleeding and anemia. Colonoscopy indicated rectal AVMs that were treated. Small bowel enteroscopy was negative. H/H 9.4/29.7. She denies any GI bleeding overnight. She denies abdominal pain. She seems to be in good spirits today. Review of Systems Constitutional: no fever and no chills Respiratory: no cough and no dyspnea Cardiovascular: no chest pain Gastrointestinal: no abdominal pain and no blood in stools Physical Exam Constitutional: no acute distress Respiratory: normal respiratory effort, lungs clear to auscultation Cardiovascular: Rate/Rhythm: regular rate and regular rhythm Gastrointestinal (Abdomen): normal bowel sounds, soft, nontender, no hepatosplenomegaly Psychiatric: Orientation: alert and oriented x 3 Results & Data Results & Data ([facility]) Vital Signs (Past 12 Hours) Vital Signs Temp Pulse Pulse Resp BP Pulse Ox 02/16/21 08:07 36.6 C 91 H 19 107/69 98 02/16/21 07:43 77 02/16/21 02:53 36.8 C 100 H 18 94/56 L 93 02/15/21 23:12 64 02/15/21 22:52 36.7 C 104 H 18 108/54 L 92 PG Care Time/CCT Total # of Minutes Spent Total Time Spent with Patient: Total time spent is greater than 50% in coordination of care (as documented) at patient's floor/unit and/or counseling patient: Coding Level of Care Code 09078 Subseq Hosp Care Lvl 2 Diagnoses Gastric ulcer K25.9 AVM (arteriovenous malformation) of colon K55.20
[2021-02-16 14:45] LABS: Hematocrit (blood only) 26.6 % (37-47); Hemoglobin 8.5 g/dL (12.0-16.0); Mean Corpuscular Hemoglobin 28.8 pg (25-34); Mean Corpuscular Volume 90.2 fL (80-100); Mean Platelet Volume 10.9 fL (7.4-10.4); Platelet Count 217 K/uL (130-400); RDW Coefficient of Variation 18.7 % (11.5-14.5); RDW Standard Deviation 61.1 fL (36.4-46.3); Red Blood Count 2.95 M/uL (4.2-5.4); White Blood Count 13.51 K/uL (4.8-10.8)
[2021-02-16 15:40] LABS: BUN Creatinine Ratio 2.2 (10-20); Calcium 9.1 mg/dl (8.5-10.1); Creatinine Clr Calc Pharmacy 15.8 ml/min; Est GFR (African American) 10.7 ml/min; Est GFR (Non-African American) 9.3 ml/min; Potassium 3.4 mmol/L (3.5-5.1)
[2021-02-17] MEDS: oxyCODONE HCL IR 5 MG TAB (IMMEDIATE RELEASE) PO PRN ×5 (00:02→09:56)
[2021-02-17] MEDS: PIPERACILLIN/TAZOBACTAM 4.5 GM in DEXTROSE 5% 100 ML IV SCH ×2 (05:04→17:10)
[2021-02-17] MEDS: ACETAMINOPHEN 325 MG TAB PO PRN (06:18)
--- NOTE | 2021-02-17 07:38 | Hospitalist Progress Note ---
Date of Service February 17, 2021 Assessment & Plan (1) GI bleed: Plan: Likely multifactorial Gastric Ulcer Rectal bleeding initially thought likely secondary to polyps, diverticulosis and internal hemorrhoids Suspect ischemic colitis--less likely based on CT S/P EGD: gastric ulcer S/P PRBC H/O hemorrhoids as per patient --CT ABD:No CT evidence for ischemic bowel. However, there is a masslike filling defect within the rectum suspicious for a neoplastic process. Direct visualization is recommended. -S/P Colonoscopy: Two 5 to 7 mm polyps in the cecum, removed with hot snare. Resected and retrieved. Diverticulosis in the sigmoid colon. Nonbleeding internal hemorrhoids. No findings on the exam to correlate with abnormal CT in the rectum. It was most likely stool versus shadowing. --Pathology Stomach, biopsy: - Mild to moderate acute and chronic gastritis - Negative for intestinal metaplasia, dysplasia and carcinoma - H. pylori immunoperoxidase stain negative Colon, cecum, polypectomies: - #1. Fragments of tubular adenoma. - #2. No invasive carcinoma seen. Continue Protonix drip>>Transitioned to PO - cont. PO PPI BID for 8 week Appreciate GI input Continue H&H and transfuse PRBCs as needed Bleeding Scan showed No evidence of acute gastrointestinal bleeding Monitor CBC Hb 8.7 on 02/10 Hb 7.9 on 02/11 - Received 1unit of pRBC 02/11 - Patient again had 2 large bowel movements, per RN dark red GI, Dr. Castro contacted, plan for repeat bleeding scan, if negative, plans for small bowel enteroscopy tomorrow (02/12) -bleeding scan negative, plan for small bowel enteroscopy 02/13 -small bowel enteroscopy canceled due to hypotension (after HD), plan for CT angio abdomen pelvis CT angio abdomen pelvis IMPRESSION: 1. Extensive atherosclerotic vascular disease without aneurysm, dissection or arterial occlusion identified. 2. Multifocal high-grade stenoses of the renal arteries. 3. Mild hydroureteronephrosis is likely secondary to urinary bladder distention. No obstructing calculus or lesion identified. 4. Bilateral urothelial thickening with urinary bladder wall thickening and perivesicular stranding. Correlate with urinalysis to exclude an infectious process. 5. Trace pleural effusions with suggested pulmonary edema and bibasilar atelectasis 6. Partially calcified areas of bibasilar consolidation re-demonstrated. 7. Mild nonspecific wall thickening of the anorectal junction with mild surrounding inflammatory stranding is again noted. This could be correlated with colonoscopy. 8. Additional findings as above. 02/14 - stools reported by RN, no blood in her stool Hgb stable from yesterday 02/15 - patient again had several bowel movements, with blood, hemoglobin dropped to 6.5. GI, Dr. Ricks contacted. Patient received 1 unit of PRBCs in the morning and second unit on the way to the OR. Dr. Ricks taking patient for emergent endoscopy. Patient's daughter updated over the phone. 02/16 -no bleeding overnight, H&H last evening stable. Received PRBCs yesterday. Currently feels well. 02/17 -no BM, and no bleeding reported since endoscopy on February 15. Will advance diet. (2) Postoperative wound infection: Plan: Left AKA stump cellulitis Stage 3 Pressure ulcer of right heel, POA --Blood Cx: Negative to date Empirically received Unasyn for 7 days Also completed 7 days of doxycycline Worsening leukocytosis Transitioned Unasyn to Zosyn Appreciate orthopedics, vascular surgery input Needs debridement of left above-knee amputation stump and possible need for wound VAC Continue wound care Leukocytosis normalized Needs debridement as able-- Planned for Tuesday (w/ vasc. surg.) Leukocytosis , now WBC 11 K (02/12), WBC 9K (02/14), WBC 8.7K (02/15) 02/13 - underwent Debridement of skin and subcutaneous Left Above Knee Amputation Stump (22x8cm), Application of Wound Vac with wound measuring 22x8 cm.(Left) - Giuseppe Michel MD Follow wound cultx from OR 02/16 ID consulted -anticipate antibiotics 10 to 14 days, from February 13, 2021 . Since no bone infection is suspected at this time. However if bone involvement is noted on wound VAC change, patient may need a longer duration of antibiotic therapy, about 4 to 6 weeks from debridement of bone if it is performed. May consider switching Zosyn to cefepime IV, this can be given as 2 g IV after each dialysis as outpatient, and metronidazole 500 mg p.o. every 8 hours for convenient dosing at dialysis center. Per ID, okay to ignore C albicans found on the wound culture on February 13. 02/16 -currently patient reports pain in her stump, had wound VAC changed yesterday, feels that she may have a lot of difficulty to have it done again due to pain. (3) ESRD (end stage renal disease) on dialysis: Plan: - Consult nephrology - pt on HD //, now on TTS schedule - switch back to MWF hemodialysis as per Nephrology - reduce to 2hrs as pt has difficulty tolerating Received Epogen with HD Hypokalemia Replace electrolytes as needed (4) Diabetes mellitus, type 2: Plan: - Accuchecks - Insulin sliding scale (5) Hypertension: Plan: Monitor BP Continue current medications (6) Hyperlipidemia: Plan: on Statin (7) Ulcer of right heel: Plan: - Wound care consult, as above (8) Peripheral vascular disease: (9) Obstructive sleep apnea: Plan: Non-tolerant of CPAP CODE STATUS: Full code DVT Px: SCDs Re: GI bleeding Admission and Anticipated Discharge Date Admission Date: January 27, 2021 Subjective Patient is seen in follow-up of GI bleed, wound infection Underwent Debridement of skin and subcutaneous Left Above Knee Amputation Stump (22x8cm), Application of Wound Vac on 02/13 Patient developed GI bleed againon 02/15 with hemoglobin of 6.5, noted to have AVM bleeds She was taken for emergent endoscopy. Discussed with the patient's daughter in detail, patient's daughter in agreement to consult palliative medicine as well. No more GI bleed reported since endoscopy. No BM. This morning patient reports pain in her stump. Says that change of wound VAC yesterday was very painful for her and she does not think she can do it again. No chest pain shortness of breath abdominal pain, n/v. ID consult this AM Review of Systems Review of Systems: All systems reviewed & are unremarkable except as noted in Subjective Physical Exam Physical Exam: General Appearance:Morbidly Obese F in NAD, chronically ill appearing Head: normocephalic, Atraumatic Eyes: normal inspection, EOMI Neck: supple, Trachea midline Respiratory/Chest: Normal breath sounds, CTA, No accessory muscle use Cardiovascular: S1, S2, No murmur Abdomen/GI:Soft, Non tender, Bowel sounds present Extremities/Musculoskeletal:normal inspection, 1+ pedal edema, Left AKA - wound vac Neurologic/Psych: AAOX3, speech fluent, moves extremities Skin: normal color, warm, right heel wound Results & Data Results & Data ([facility]) Vital Signs (Past 12 Hours) Vital Signs Temp Pulse Pulse Pulse Resp BP Pulse Ox 02/17/21 06:59 36.4 C L 98 H 19 75/45 L 95 02/17/21 04:11 37.0 C 99 H 16 98/58 L 95 02/17/21 03:05 36.8 C 99 H 18 100/64 96 02/17/21 01:12 102 H 02/16/21 23:42 37.3 C 101 H 18 93/60 L 96 02/16/21 20:24 97 H 22 102/65 Laboratory Results 02/17/21 02/17/21 02/17/21 Range/Units 07:41 07:41 07:23 WBC 14.89 H (4.8-10.8) K/uL RBC 2.97 L (4.2-5.4) M/uL Hgb 8.7 L (12.0-16.0) g/dL Hct 26.7 L (37-47) % MCV 89.9 (80-100) fL MCH 29.3 (25-34) pg MCHC 32.6 (32-36) g/dL RDW Std Deviation 60.1 H (36.4-46.3) fL RDW Coeff of Maria D 18.8 H (11.5-14.5) % Plt Count 202 (130-400) K/uL MPV 10.7 H (7.4-10.4) fL Sodium 139 (136-145) mmol/L Potassium 4.0 D (3.5-5.1) mmol/L Chloride 108 H (98-107) mmol/L Carbon Dioxide 21 (21-32) mmol/L Anion Gap 10.0 (3-11) BUN 7 (7-18) mg/dl Creatinine 3.77 H D (0.6-1.2) mg/dl Est Cr Clr Drug Dosing 20.4 ml/min Est GFR ( Amer) 14.6 ml/min Est GFR (Non-Af Amer) 12.6 ml/min BUN/Creatinine Ratio 2.0 L (10-20) Glucose 105 H (70-99) mg/dl POC Glucose 110 H (70-99) mg/dl Calcium 8.9 (8.5-10.1) mg/dl Specimen Hemolysis 02/16/21 02/16/21 02/16/21 Range/Units 20:03 16:24 13:53 WBC (4.8-10.8) K/uL RBC (4.2-5.4) M/uL Hgb (12.0-16.0) g/dL Hct (37-47) % MCV (80-100) fL MCH (25-34) pg MCHC (32-36) g/dL RDW Std Deviation (36.4-46.3) fL RDW Coeff of Maria D (11.5-14.5) % Plt Count (130-400) K/uL MPV (7.4-10.4) fL Sodium 138 (136-145) mmol/L Potassium 3.4 L (3.5-5.1) mmol/L Chloride 105 (98-107) mmol/L Carbon Dioxide 22 (21-32) mmol/L Anion Gap 11.0 (3-11) BUN 11 (7-18) mg/dl Creatinine 4.85 H* D (0.6-1.2) mg/dl Est Cr Clr Drug Dosing 15.8 ml/min Est GFR ( Amer) 10.7 ml/min Est GFR (Non-Af Amer) 9.3 ml/min BUN/Creatinine Ratio 2.2 L (10-20) Glucose 106 H (70-99) mg/dl POC Glucose 106 H 101 H (70-99) mg/dl Calcium 9.1 (8.5-10.1) mg/dl Specimen Hemolysis 02/16/21 02/16/21 Range/Units 13:53 11:14 WBC 13.51 H (4.8-10.8) K/uL RBC 2.95 L (4.2-5.4) M/uL Hgb 8.5 L (12.0-16.0) g/dL Hct 26.6 L (37-47) % MCV 90.2 (80-100) fL MCH 28.8 (25-34) pg MCHC 32.0 (32-36) g/dL RDW Std Deviation 61.1 H (36.4-46.3) fL RDW Coeff of Maria D 18.7 H (11.5-14.5) % Plt Count 217 (130-400) K/uL MPV 10.9 H (7.4-10.4) fL Sodium (136-145) mmol/L Potassium (3.5-5.1) mmol/L Chloride (98-107) mmol/L Carbon Dioxide (21-32) mmol/L Anion Gap (3-11) BUN (7-18) mg/dl Creatinine (0.6-1.2) mg/dl Est Cr Clr Drug Dosing ml/min Est GFR ( Amer) ml/min Est GFR (Non-Af Amer) ml/min BUN/Creatinine Ratio (10-20) Glucose (70-99) mg/dl POC Glucose 118 H (70-99) mg/dl Calcium (8.5-10.1) mg/dl Specimen Hemolysis Medications Administered Current Inpatient Medications Acetaminophen (Acetaminophen 325 Mg Tab) 650 mg PO Q6H PRN PRN Reason: Fever/pain Stop: 02/27/21 04:58 Last Admin: 02/17/21 06:18 Dose: 650 mg Documented by: Atorvastatin Calcium (Atorvastatin 20 Mg Tab) 20 mg PO DAILY GABY Stop: 02/27/21 08:59 Last Admin: 02/16/21 07:54 Dose: 20 mg Documented by: Dextrose (Dextrose 50% 50 Ml Syringe) 25 - 50 ml IV UD PRN; Protocol PRN Reason: Hypoglycemia Protocol Stop: 02/26/21 22:40 Last Admin: 01/28/21 10:53 Dose: 25 ml Documented by: Diphenhydramine HCl (Diphenhydramine Capsule 25 Mg Cap) 25 mg PO TID PRN PRN Reason: Itching Stop: 03/03/21 00:53 Last Admin: 02/14/21 15:12 Dose: 25 mg Documented by: Glucagon (Glucagon For Inj 1 Mg Vial) 1 mg SQ UD PRN; Protocol PRN Reason: Hypoglycemia Protocol Stop: 02/26/21 22:40 Glucose (Glucose 10 Tabs/Tube) 4 - 8 tabs PO UD PRN; Protocol PRN Reason: Hypoglycemia Protocol Stop: 02/26/21 22:40 Glucose (Glucose 40% Gel 15 Gm Tube) 15 - 30 gm PO UD PRN; Protocol PRN Reason: Hypoglycemia Protocol Stop: 02/26/21 22:40 Hydrocortisone (Hydrocortisone Hc 2.5% Crm 30gm Tube) 1 appln EXT BID GABY Stop: 03/09/21 20:59 Last Admin: 02/16/21 20:09 Dose: Not Given Documented by: Hydrocortisone (Hydrocortisone Acetate 25 Mg Supp) 25 mg OR BID PRN PRN Reason: Hemorrhoids Stop: 03/13/21 11:32 Promethazine HCl 12.5 mg/ (Sodium Chloride) 50.5 mls @ 202 mls/hr IV Q6H PRN PRN Reason: Nausea And Vomiting Stop: 02/27/21 00:51 Last Infusion: 02/15/21 05:45 Dose: Infused Documented by: Piperacillin Sod/Tazobactam (Sod 4.5 gm/ Dextrose) 120 mls @ 30 mls/hr IV Q12H [facility]; Protocol Stop: 02/17/21 23:59 Last Admin: 02/17/21 05:04 Dose: 30 mls/hr Documented by: Pantoprazole Sodium 40 mg/ (Syringe) 10 mls @ 5 mls/min IV BID [facility] Stop: 03/13/21 20:59 Last Admin: 02/16/21 20:10 Dose: 5 mls/min Documented by: Sodium Chloride (Nss 1000ml) 1,000 mls @ 15 mls/hr IV .Q24H [facility] Stop: 03/15/21 08:14 Last Admin: 02/16/21 07:54 Dose: Not Given Documented by: Insulin Aspart (Insulin Aspart 100 Units/Ml 3 Ml Pen) 0 units SC ACHS [facility] Stop: 03/16/21 20:59 Last Admin: 02/16/21 20:10 Dose: Not Given Documented by: Lactobacillus Acidoph/Casei/Rhamnos (Advanced Probiotic 1250 Mg Capsule) 2 cap PO DAILY [facility] Stop: 03/01/21 14:59 Last Admin: 02/16/21 07:55 Dose: 2 cap Documented by: Miconazole Nitrate (Miconazole Nitrate Powder 43 Gm) 1 appln EXT PRN PRN PRN Reason: Affected Skin Folds Stop: 03/03/21 05:53 Midodrine (Midodrine Hcl 10 Mg Tab) 10 mg PO MoWeFr@0800 [facility] Stop: 03/11/21 05:44 Last Admin: 02/16/21 07:54 Dose: 10 mg Documented by: Miscellaneous (Carbohydrates For Hypoglycemia ) 15 - 30 gm PO UD PRN PRN Reason: Hypoglycemia Protocol Stop: 02/26/21 22:40 Miscellaneous Information (Piperacill/Tazobac Consult Active) 1 ea N/A UD PRN PRN Reason: Consult Stop: 03/06/21 19:35 Oxycodone HCl (Oxycodone Hcl Ir 5 Mg Tab (Immediate Release)) 5 - 10 mg PO QID PRN PRN Reason: Pain Stop: 02/24/21 00:20 Last Admin: 02/17/21 00:02 Dose: 10 mg Documented by: Vitamin D (Cholecalciferol 1,000 Units 25 Mcg Tab) 5,000 units PO DAILY [facility] Stop: 02/27/21 08:59 Last Admin: 02/16/21 07:54 Dose: 5,000 units Documented by: (1) GI bleed GI bleed type/associated pathology: unspecified gastrointestinal hemorrhage type Qualified Code(s): K92.2 - Gastrointestinal hemorrhage, unspecified
[2021-02-17] MEDS: INSULIN ASPART 100 UNITS/ML 3 ML PEN SC SCH ×4 (07:44→21:09)
[2021-02-17] MEDS: SODIUM CHLORIDE 0.9% 1000ML 1,000 ML IV SCH (07:45)
[2021-02-17] MEDS: CHOLECALCIFEROL 1,000 UNITS 25 MCG TAB PO SCH (07:54)
[2021-02-17] MEDS: PANTOprazole 40 MG in SYRINGE 0 ML IV SCH ×2 (07:54→21:11)
[2021-02-17] MEDS: ADVANCED PROBIOTIC 1250 MG CAPSULE PO SCH (07:55)
[2021-02-17] MEDS: ATORVASTATIN 20 MG TAB PO SCH (07:55)
[2021-02-17] MEDS: HYDROCORTISONE HC 2.5% CRM 30GM TUBE EXT SCH ×2 (07:55→21:09)
[2021-02-17 08:19] LABS: Hematocrit (blood only) 26.7 % (37-47); Hemoglobin 8.7 g/dL (12.0-16.0); Mean Corpuscular Hemoglobin 29.3 pg (25-34); Mean Corpuscular Hgb Conc 32.6 g/dL (32-36); Mean Corpuscular Volume 89.9 fL (80-100); Mean Platelet Volume 10.7 fL (7.4-10.4); Platelet Count 202 K/uL (130-400); RDW Coefficient of Variation 18.8 % (11.5-14.5); RDW Standard Deviation 60.1 fL (36.4-46.3); Red Blood Count 2.97 M/uL (4.2-5.4); White Blood Count 14.89 K/uL (4.8-10.8)
[2021-02-17 08:29] LABS: Calcium 8.9 mg/dl (8.5-10.1); Creatinine Clr Calc Pharmacy 20.4 ml/min; Est GFR (African American) 14.6 ml/min; Est GFR (Non-African American) 12.6 ml/min
[2021-02-17] MEDS ORDERED: ALBUMIN 25% 100 mL 25 GM/100 ML VIAL IV SCH (09:00)
--- NOTE | 2021-02-17 09:40 | Nephrology Progress Note ---
Date of Service February 17, 2021 Assessment & Plan (1) ESRD (end stage renal disease) on dialysis: Plan: * Dialyzed for 2 hours 02/16. 400 cc UF obtained. No heparin provided due to recent GIB * Chronic hypotension and intradialytic hypotension - on midodrine 10 mg MWF prior to HD * No acute indication for HD today. Will recheck PRP, volume status in am (2) Acute blood loss anemia: Plan: * Hgb stable overnight * Patient denies GIB overnight * 02/15/21 EGD negative, colonoscopy revealed rectal angiodysplasia s/p cautery (3) S/P above knee amputation: Plan: * L AKA. Wound vac in place Admission and Anticipated Discharge Date Admission Date: January 27, 2021 Subjective Tearful this morning. c/o discomfort related to changing wound vac yesterday. Denies GI blood loss overnight. No complications w/ HD yesterday. Review of Systems Review of Systems: detailed review of system was otherwise unremarkable. Constitutional: + weakness; no fever Eyes: no problem reported Ear, Nose, Mouth, Throat: no problem reported Respiratory: no cough and no dyspnea Cardiovascular: no chest pain, no palpitations and no edema Musculoskeletal: no back pain Integumentary: no rash Neurologic: no confusion Physical Exam Constitutional: + overweight; not in distress Eyes: PERRL, conjunctivae normal, anicteric sclerae ENMT: external ear and nose normal, oropharynx normal Neck: trachea midline, no thyromegaly R IJ THC w/ clean dry dressing Respiratory: normal respiratory effort, lungs clear to auscultation Cardiovascular: Rate/Rhythm: regular rate and regular rhythm Extremities: + AV fistula (thrombosed) Gastrointestinal (Abdomen): normal bowel sounds, soft, nontender, no hepatosplenomegaly Skin: no rashes, warm and dry Neurologic: awake; not confused Results & Data ([facility]) Vital Signs (Past 12 Hours) Vital Signs Temp Pulse Pulse Pulse Resp BP Pulse Ox 02/17/21 08:46 99/65 L 02/17/21 07:44 82/54 L 02/17/21 06:59 36.4 C L 98 H 19 75/45 L 95 02/17/21 04:11 37.0 C 99 H 16 98/58 L 95 02/17/21 03:05 36.8 C 99 H 18 100/64 96 02/17/21 01:12 102 H 02/16/21 23:42 37.3 C 101 H 18 93/60 L 96 Laboratory Results Laboratory Tests 02/15/21 02/17/21 02/17/21 19:43 07:41 07:41 WBC 14.89 H Hgb 9.4 L 8.7 L Hct 29.7 L 26.7 L Plt Count 202 Sodium 139 Potassium 4.0 D Chloride 108 H Carbon Dioxide 21 BUN 7 Creatinine 3.77 H D Glucose 105 H PG Care Time/CCT Total # of Minutes Spent Total Time Spent with Patient: Total time spent is greater than 50% in coordination of care (as documented) at patient's floor/unit and/or counseling patient: Coding Level of Care Code 00835 Subseq Hosp Care Lvl 3 Diagnoses ESRD (end stage renal disease) on dialysis N18.6; Z99.2 Acute blood loss anemia D62 S/P above knee amputation Z89.619
[2021-02-17] MEDS ORDERED: oxyCODONE HCL IR 5 MG TAB (IMMEDIATE RELEASE) PO STA (13:59)
[2021-02-18] MEDS: oxyCODONE HCL IR 5 MG TAB (IMMEDIATE RELEASE) PO PRN ×4 (02:55→19:47)
[2021-02-18] MEDS: PIPERACILLIN/TAZOBACTAM 4.5 GM in DEXTROSE 5% 100 ML IV SCH ×2 (02:56→16:34)
[2021-02-18 07:25] LABS: Hematocrit (blood only) 25.7 % (37-47); Hemoglobin 8.2 g/dL (12.0-16.0)
[2021-02-18] MEDS: PANTOprazole 40 MG in SYRINGE 0 ML IV SCH ×2 (07:49→19:49)
[2021-02-18] MEDS: ATORVASTATIN 20 MG TAB PO SCH (07:49)
[2021-02-18] MEDS: MIDODRINE HCL 10 MG TAB PO SCH (07:49)
[2021-02-18] MEDS: CHOLECALCIFEROL 1,000 UNITS 25 MCG TAB PO SCH (07:49)
[2021-02-18] MEDS: ADVANCED PROBIOTIC 1250 MG CAPSULE PO SCH (07:49)
[2021-02-18] MEDS: HYDROCORTISONE HC 2.5% CRM 30GM TUBE EXT SCH ×2 (07:50→19:49)
[2021-02-18 08:18] LABS: BUN Creatinine Ratio 1.9 (10-20); Calcium 9.5 mg/dl (8.5-10.1); Creatinine Clr Calc Pharmacy 16.6 ml/min; Est GFR (African American) 11.2 ml/min; Est GFR (Non-African American) 9.7 ml/min
[2021-02-18] MEDS: SODIUM CHLORIDE 0.9% 1000ML 1,000 ML IV SCH (08:38)
[2021-02-18] MEDS: INSULIN ASPART 100 UNITS/ML 3 ML PEN SC SCH ×4 (09:12→20:19)
--- NOTE | 2021-02-18 09:48 | Nephrology Progress Note ---
Date of Service February 18, 2021 Assessment & Plan (1) ESRD (end stage renal disease) on dialysis: Plan: * Last HD 02/16. Declines HD today due to back/AKA site discomfort. Denies dyspnea or uremic symptoms. Electrolyte balance is acceptable * Chronic hypotension and intradialytic hypotension - on midodrine 10 mg MWF prior to HD * Will recheck PRP, volume status in am (2) Acute blood loss anemia: Plan: * Hgb continues to slowly trend down * Patient denies GIB overnight * 02/15/21 EGD negative, colonoscopy revealed rectal angiodysplasia s/p cautery (3) S/P above knee amputation: Plan: * L AKA. Wound vac in place * Significant discomfort. Consultation w/ Palliative Care has been requested Admission and Anticipated Discharge Date Admission Date: January 27, 2021 Subjective Tearful this morning. c/o low back and L AKA site discomfort Review of Systems Constitutional: + weakness; no fever Eyes: no problem reported Ear, Nose, Mouth, Throat: no problem reported Respiratory: no cough and no dyspnea Cardiovascular: no chest pain, no palpitations and no edema Gastrointestinal: + blood in stools (+ rectal pain) Musculoskeletal: no back pain Integumentary: no rash Neurologic: no confusion Physical Exam Constitutional: + overweight; not in distress Eyes: PERRL, conjunctivae normal, anicteric sclerae ENMT: external ear and nose normal, oropharynx normal Neck: trachea midline, no thyromegaly Respiratory: normal respiratory effort, lungs clear to auscultation Cardiovascular: Rate/Rhythm: regular rate and regular rhythm Extremities: + AV fistula (thrombosed) Gastrointestinal (Abdomen): normal bowel sounds, soft, nontender, no hepatosplenomegaly Skin: no rashes, warm and dry Neurologic: awake; not confused Results & Data ([facility]) Vital Signs (Past 12 Hours) Vital Signs Temp Pulse Pulse Resp BP Pulse Ox 02/18/21 07:19 92 H 02/18/21 06:32 37.1 C 92 H 19 85/52 L 95 02/18/21 03:14 37.1 C 93 H 16 83/51 L 94 02/17/21 23:34 97 H 02/17/21 22:51 36.8 C 97 H 19 104/70 96 Laboratory Results Laboratory Tests 02/18/21 02/18/21 07:01 07:01 Hgb 8.2 L Hct 25.7 L Sodium 139 Potassium TNP Chloride 106 Carbon Dioxide 23 BUN 9 Creatinine 4.67 H* D Glucose 93 Calcium 9.5 02/18/21 K 3.5 PG Care Time/CCT Total # of Minutes Spent Total Time Spent with Patient: Total time spent is greater than 50% in coordination of care (as documented) at patient's floor/unit and/or counseling patient: Coding Level of Care Code 39106 Subseq Hosp Care Lvl 3 Diagnoses ESRD (end stage renal disease) on dialysis N18.6; Z99.2 Acute blood loss anemia D62 S/P above knee amputation Z89.619
[2021-02-18] MEDS: ACETAMINOPHEN 325 MG TAB PO PRN ×2 (10:11→17:33)
--- NOTE | 2021-02-18 18:37 | Hospitalist Progress Note ---
Date of Service February 18, 2021 Assessment & Plan (1) GI bleed: Plan: Likely multifactorial Gastric Ulcer, polyps, diverticulosis and internal hemorrhoids, AVMs Suspect ischemic colitis--less likely based on CT S/P EGD: gastric ulcer --CT ABD:No CT evidence for ischemic bowel. However, there is a masslike filling defect within the rectum suspicious for a neoplastic process. Direct visualization is recommended. -S/P Colonoscopy: Two 5 to 7 mm polyps in the cecum, removed with hot snare. Resected and retrieved. Diverticulosis in the sigmoid colon. Nonbleeding internal hemorrhoids. No findings on the exam to correlate with abnormal CT in the rectum. It was most likely stool versus shadowing. -Pathology Stomach, biopsy:Mild to moderate acute and chronic gastritis. Negative for intes tinal metaplasia, dysplasia and carcinoma. H. pylori immunoperoxidase stain negative Colon, cecum, polypectomies:1. Fragments of tubular adenoma. 2. No invasive carcinoma seen. --ABD CTA:reviewed --Repeat Colonoscopy: Mucosal ulceration--Clip placed, multiple nonbleeding colonic angioectasias --Protonix drip>>Transitioned IV Protonix Appreciate GI input S/P PRBCs And to continue Protonix 40 mg twice daily for 8 weeks and then reduce to once daily Needs follow-up with GI upon discharge Monitor CBC 8.2 today (2) Postoperative wound infection: Plan: -Left AKA stump cellulitis -Stage 3 Pressure ulcer of right heel, POA -Blood Cx: Negative -Empirically received Unasyn and Doxy for 7 days -Transitioned Unasyn to Zosyn -Appreciate orthopedics, vascular surgery input -S/P Debridement of skin and subcutaneous Left Above Knee Amputation Stump (22x8cm), Application of Wound Vac with wound measuring 22x8 cm.(Left) - Giuseppe Michel MD on 02/13 -Continue wound care/Vac -Appreciate ID Input -Pain control -As per ID: Plan to complete antibiotics 10 to 14 days, from February 13, 2021. May need prolonged antibiotic course for 4-6 weeks if concern for bone involvement (Can switch Zosyn to cefepime: 2 g IV after each dialysis as outpatient, and metronidazole 500 mg p.o. every 8 hours for convenient dosing at dialysis center. okay to ignore C albicans found on the wound culture on February 13) . (3) ESRD (end stage renal disease) on dialysis: Plan: -hemodialysis as per Nephrology Received Epogen with HD Appreciate Nephrology Input Hypokalemia Replace electrolytes as needed (4) Diabetes mellitus, type 2: Plan: - Accuchecks - Insulin sliding scale (5) Hypertension: Plan: Monitor BP Continue current medications (6) Hyperlipidemia: Plan: on Statin (7) Ulcer of right heel: Plan: - Wound care consult, as above (8) Peripheral vascular disease: (9) Obstructive sleep apnea: Plan: Non-tolerant of CPAP CODE STATUS: Full code DVT Px: SCDs Re: GI bleeding Admission and Anticipated Discharge Date Admission Date: January 27, 2021 Subjective Patient is seen and examined at bedside States having significant pain at surgical site Denies chest pain, dyspnea, dizziness No bleeding issues today Review of Systems Review of Systems: All systems reviewed & are unremarkable except as noted in Subjective Physical Exam Physical Exam: Physical Exam: Vitals signs as noted above General Appearance:Morbidly Obese, chronic ill appearing Head: normocephalic, Atraumatic Eyes: normal inspection, EOMI Neck: supple, Trachea midline Respiratory/Chest: Normal breath sounds, CTA, No accessory muscle use Cardiovascular: S1, S2, No murmur Abdomen/GI:Soft, Non tender, Bowel sounds present Extremities/Musculoskeletal:normal inspection, 1+ pedal edema, Left AKA, +Wound Vac Neurologic/Psych:AAOX3, grossly no focal neurological deficits Skin: normal color, warm, right heel wound Results & Data Results & Data ([facility]) Vital Signs (Past 12 Hours) Vital Signs Temp Pulse Pulse Resp BP Pulse Ox 02/18/21 16:11 36.7 C 90 18 113/67 91 02/18/21 14:57 92 H 02/18/21 12:22 36.8 C 95 H 18 88/58 L 95 02/18/21 07:19 92 H 02/18/21 06:32 37.1 C 92 H 19 85/52 L 95 Laboratory Results Short CBC 02/18/21 Range/Units 07:01 Hgb 8.2 L (12.0-16.0) g/dL Hct 25.7 L (37-47) % BMP 02/18/21 02/18/21 07:01 09:10 Sodium 139 Potassium 3.5 Chloride 106 Carbon Dioxide 23 BUN 9 Creatinine 4.67 H* D Glucose 93 Calcium 9.5 (1) GI bleed GI bleed type/associated pathology: unspecified gastrointestinal hemorrhage type Qualified Code(s): K92.2 - Gastrointestinal hemorrhage, unspecified
[2021-02-19] MEDS: oxyCODONE HCL IR 5 MG TAB (IMMEDIATE RELEASE) PO PRN ×4 (03:07→20:43)
[2021-02-19] MEDS: PIPERACILLIN/TAZOBACTAM 4.5 GM in DEXTROSE 5% 100 ML IV SCH ×2 (03:10→15:55)
[2021-02-19 07:11] LABS: Hematocrit (blood only) 24.9 % (37-47); Hemoglobin 7.9 g/dL (12.0-16.0)
[2021-02-19 08:00] LABS: BUN Creatinine Ratio 2.1 (10-20); Calcium 9.5 mg/dl (8.5-10.1); Creatinine Clr Calc Pharmacy 13.9 ml/min; Est GFR (African American) 9.1 ml/min; Est GFR (Non-African American) 7.8 ml/min; Potassium 3.8 mmol/L (3.5-5.1)
--- NOTE | 2021-02-19 08:31 | Pain Management Consultation ---
Date of Consultation February 19, 2021 Assessment & Plan (1) S/P above knee amputation: 1. Continue Oxycodone 10mg x 4 hours PRN pain 2. I did order IV Dilaudid 1mg to use prior to debridement. 3. Patient could benefit from an anxiolytic for a short term. 4. I have urged the patient to work with PT/OT so that she can work on regaining some of her strength back. She is in agreement. 5. Consider the initiation of Cymbalta to help both pain and mood. History of Present Illness Attending Physician: Abdoul Rios MD History of Present Illness Mrs. López is a 55 year old female with a significant history of diabetes mellitus, peripheral vascular disease, end-stage renal disease on dialysis, and fairly recent left [id number] amputation. The amputation became infected requiring IV antibiotics, wound vac, and wound debridement. The debridement was very painful and she is now very anxious about having it done again. She is taking Oxycodone 10mg x 4 hours which is providing some pain relief. She is experiencing generalized weakness. and pain in her hips and low back. Patient was reporting improvement in her activity at [facility] and feels like she has lost all of that progress. Patient has not been participating in PT during admission. No side effects to the Oxycodone. Allergies Allergy/AdvReac Type Severity Reaction Status Date / Time No Known Allergies Allergy Verified 01/24/21 20:53 Home Medications Medication Instructions Recorded Confirmed Type atorvastatin 20 mg tablet (Lipitor) 20 mg PO DAILY 06/05/18 01/27/21 History clopidogrel 75 mg tablet (Plavix) 75 mg PO DAILY 06/05/18 01/27/21 History docusate sodium 100 mg capsule 100 mg PO BID 06/05/18 01/27/21 History insulin glargine 100 unit/mL 10 units SUBCUT HS 06/05/18 01/27/21 History subcutaneous solution (Lantus U-100 Insulin) Saccharomyces boulardii 250 mg 250 mg PO BIDM 01/24/21 01/27/21 History capsule acetaminophen 325 mg tablet 650 mg PO Q4 PRN 01/24/21 01/27/21 History aspirin 81 mg tablet,delayed 81 mg PO DAILY 01/24/21 01/27/21 History release (Aspirin Low Dose) bisacodyl 10 mg rectal suppository 10 mg [place] DAILY PRN 01/24/21 01/27/21 History cholecalciferol (vitamin D3) 125 125 mcg PO DAILY 01/24/21 01/27/21 History mcg (5,000 unit) capsule collagenase clostridium histo. 250 1 applic TOPICAL DAILY 01/24/21 01/27/21 History unit/gram topical ointment (Santyl) darbepoetin sheri in polysorbat 100 100 mcg SUBCUT UD 01/24/21 01/27/21 History mcg/0.5 mL in polysorbate injection syringe dextrose 40 % oral gel 15 g PO ONCE PRN 01/24/21 01/27/21 History gentamicin 0.1 % topical ointment 1 applic TOPICAL DAILY 01/24/21 01/27/21 History heparin (porcine) 5,000 unit/mL 5,000 unit SUBCUT Q12H 01/24/21 01/27/21 History injection solution iron sucrose 100 mg iron/5 mL 100 mg IV UD PRN 01/24/21 01/27/21 History intravenous solution (Venofer) magnesium hydroxide 400 mg/5 mL 30 ml PO DAILY PRN 01/24/21 01/27/21 History oral suspension (Milk of Magnesia) meclizine 12.5 mg tablet 25 mg PO TID PRN 01/24/21 01/27/21 History midodrine 5 mg tablet 5 mg PO TID 01/24/21 01/27/21 History ondansetron 4 mg disintegrating 4 mg PO Q6H PRN 01/24/21 01/27/21 History tablet pantoprazole 40 mg tablet,delayed 40 mg PO HS 01/24/21 01/27/21 History release polyethylene glycol 3350 17 gram 17 g PO QDL PRN 01/24/21 01/27/21 History oral powder packet (Miralax) sennosides 8.6 mg-docusate sodium 1 tab-cap PO QDL PRN 01/24/21 01/27/21 History 50 mg tablet (Senokot-S) tramadol 50 mg tablet 50 mg PO Q6H PRN 01/24/21 01/27/21 History doxycycline hyclate 100 mg capsule 100 mg PO BID 14 Days #28 cap 01/25/21 01/27/21 Rx cocoa butter-shark liver oil 1 supp IL BID 01/27/21 01/27/21 History rectal suppository hydrocortisone 2.5 % topical cream 1 applic TOPICAL BID 01/27/21 01/27/21 History insulin regular human 100 unit/mL 1 sliding scale dose SUBCUT 01/27/21 01/27/21 History injection solution (Humulin R USEASDIRECTD Regular U-100 Insulin) Patient History Medical History Anemia AV fistula LEFT ARM Congestive heart failure Diabetes mellitus, type 2 Difficult intravenous access Hemodialysis patient MONDAYS AND FRIDAYS AT [facility] [place] Hyperlipidemia Hypertension Morbid obesity Obstructive sleep apnea Peripheral vascular disease Right heart failure Transient ischemic attack (TIA) X 14 (LAST EVENT 2015) Surgical History History of appendectomy History of cardiac cath X 2 (NO STENTS) History of section X1 History of cholecystectomy History of colonoscopy History of dilatation and curettage X 3 History of hysterectomy History of surgery HX OF LEFT UPPER ARM FISTULOGRAM (CLOT IN AV FISTULA) X 9 TIMES History of tooth extraction Family History Other No significant family history Social History Smoking Status: Former smoker Tobacco Type: Cigarettes Second Hand Exposure: No; Hx Alcohol Use: No Hx Substance Use: No Preferred Language: Guinean Communication Ability: Effective 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 She is tearful during our discussion. HEAD/FACE: Normocephalic and atraumatic. EYES: No drainage or conjunctival injection. ENT: Nose without bleeding or discharge. Oral mucosa moist. NECK: Full ROM without apparent pain. No swelling or masses noted. RESPIRATORY: Patient with unlabored breathing. No signs of respiratory distress. CHEST/AXILLA: Chest movement symmetrical. No deformities noted. ABDOMEN/GI: No distension SKIN: [place], warm and dry. No rash noted. MS/EXTREMITY: Left AKA with wound vac in place. NEURO: Alert and appears oriented. Speech is fluent. Cranial Nerves are grossly intact.
[2021-02-19] MEDS: INSULIN ASPART 100 UNITS/ML 3 ML PEN SC SCH ×4 (09:01→20:42)
[2021-02-19] MEDS: ADVANCED PROBIOTIC 1250 MG CAPSULE PO SCH (09:02)
[2021-02-19] MEDS: ATORVASTATIN 20 MG TAB PO SCH (09:02)
[2021-02-19] MEDS: PANTOprazole 40 MG in SYRINGE 0 ML IV SCH ×2 (09:02→20:43)
[2021-02-19] MEDS: CHOLECALCIFEROL 1,000 UNITS 25 MCG TAB PO SCH (09:02)
[2021-02-19] MEDS: HYDROCORTISONE HC 2.5% CRM 30GM TUBE EXT SCH ×2 (09:02→20:43)
--- NOTE | 2021-02-19 09:43 | Nephrology Progress Note ---
Date of Service February 19, 2021 Assessment & Plan (1) ESRD (end stage renal disease) on dialysis: Plan: * Volume status and electrolyte balance are acceptable at this time. Will schedule heparin free HD for am * Chronic hypotension and intradialytic hypotension - on midodrine 10 mg MWF prior to HD (2) Acute blood loss anemia: Plan: * Hgb continues to slowly trend down * Patient denies GIB overnight * 02/15/21 EGD negative, colonoscopy revealed rectal angiodysplasia s/p cautery (3) S/P above knee amputation: Plan: * L AKA. Wound vac in place * Significant discomfort * Consider consultation w/ Palliative Care Admission and Anticipated Discharge Date Admission Date: January 27, 2021 Subjective Persistent low back and L AKA site discomfort. Denies overt GI blood loss Review of Systems Constitutional: + weakness; no fever Eyes: no problem reported Ear, Nose, Mouth, Throat: no problem reported Respiratory: no cough and no dyspnea Cardiovascular: no chest pain, no palpitations and no edema Genitourinary: + rectal pain Musculoskeletal: + back pain Neurologic: no confusion Physical Exam Constitutional: + overweight; not in distress Eyes: PERRL, conjunctivae normal, anicteric sclerae ENMT: external ear and nose normal, oropharynx normal Neck: trachea midline, no thyromegaly Respiratory: normal respiratory effort, lungs clear to auscultation Cardiovascular: Rate/Rhythm: regular rate and regular rhythm Extremities: + AV fistula (thrombosed) Gastrointestinal (Abdomen): normal bowel sounds, soft, nontender, no hepatosplenomegaly Skin: no rashes, warm and dry Neurologic: awake; not confused Results & Data ([facility]) Vital Signs (Past 12 Hours) Vital Signs Temp Pulse Pulse Resp BP Pulse Ox 02/19/21 07:45 95 H 02/19/21 07:18 36.8 C 88 20 106/68 95 02/19/21 03:48 36.4 C L 92 H 19 91/51 L 94 02/18/21 23:04 94 H 02/18/21 22:53 36.8 C 96 H 17 103/67 90 Laboratory Results Laboratory Tests 02/19/21 02/19/21 07:03 07:03 Hgb 7.9 L Hct 24.9 L Sodium 139 Potassium 3.8 Chloride 108 H Carbon Dioxide 21 BUN 12 Creatinine 5.58 H* D PG Care Time/CCT Total # of Minutes Spent Total Time Spent with Patient: Total time spent is greater than 50% in coordination of care (as documented) at patient's floor/unit and/or counseling patient: Coding Level of Care Code 31241 Subseq Hosp Care Lvl 3 Diagnoses ESRD (end stage renal disease) on dialysis N18.6; Z99.2 Acute blood loss anemia D62 S/P above knee amputation Z89.619
[2021-02-19] MEDS: HYDROmorphone INJ 1 MG/ML SYRINGE IV PRN (10:21)
--- NOTE | 2021-02-19 18:58 | Hospitalist Progress Note ---
Date of Service February 19, 2021 Assessment & Plan (1) GI bleed: Plan: Likely multifactorial Gastric Ulcer, polyps, diverticulosis and internal hemorrhoids, AVMs Suspect ischemic colitis--less likely based on CT S/P EGD: gastric ulcer --CT ABD:No CT evidence for ischemic bowel. However, there is a masslike filling defect within the rectum suspicious for a neoplastic process. Direct visualization is recommended. -S/P Colonoscopy: Two 5 to 7 mm polyps in the cecum, removed with hot snare. Resected and retrieved. Diverticulosis in the sigmoid colon. Nonbleeding internal hemorrhoids. No findings on the exam to correlate with abnormal CT in the rectum. It was most likely stool versus shadowing. -Pathology Stomach, biopsy:Mild to moderate acute and chronic gastritis. Negative for intes tinal metaplasia, dysplasia and carcinoma. H. pylori immunoperoxidase stain negative Colon, cecum, polypectomies:1. Fragments of tubular adenoma. 2. No invasive carcinoma seen. --ABD CTA:reviewed --Repeat Colonoscopy: Mucosal ulceration--Clip placed, multiple nonbleeding colonic angioectasias --Protonix drip>>Transitioned IV Protonix Appreciate GI input S/P PRBCs And to continue Protonix 40 mg twice daily for 8 weeks and then reduce to once daily Needs follow-up with GI upon discharge Monitor CBC 7.9 today No active bleeding issues currently (2) Postoperative wound infection: Plan: -Left AKA stump cellulitis -Stage 3 Pressure ulcer of right heel, POA -Blood Cx: Negative -Empirically received Unasyn and Doxy for 7 days -Transitioned Unasyn to Zosyn -Appreciate orthopedics, vascular surgery input -S/P Debridement of skin and subcutaneous Left Above Knee Amputation Stump (22x8cm), Application of Wound Vac with wound measuring 22x8 cm.(Left) - Giuseppe Michel MD on 02/13 -Continue wound care/Vac -Appreciate ID Input -Pain control -As per ID: Plan to complete antibiotics 10 to 14 days, from February 13, 2021. May need prolonged antibiotic course for 4-6 weeks if concern for bone involvement (Can switch Zosyn to cefepime: 2 g IV after each dialysis as outp atient, and metronidazole 500 mg p.o. every 8 hours for convenient dosing at dialysis center. okay to ignore C albicans found on the wound culture on February 13) - Bone seemed to be infected as per Vascular surgery-Discussed on 02/19/21 -Patient needs prolonged course of antibiotics: 4-6 weeks -Continue current management (3) ESRD (end stage renal disease) on dialysis: Plan: -hemodialysis as per Nephrology Received Epogen with HD Appreciate Nephrology Input Hypokalemia Replace electrolytes as needed (4) Diabetes mellitus, type 2: Plan: - Accuchecks - Insulin sliding scale (5) Hypertension: Plan: Monitor BP Continue current medications (6) Hyperlipidemia: Plan: on Statin (7) Ulcer of right heel: Plan: - Wound care consult, as above (8) Peripheral vascular disease: (9) Obstructive sleep apnea: Plan: Non-tolerant of CPAP CODE STATUS: Full code DVT Px: SCDs Re: GI bleeding Admission and Anticipated Discharge Date Admission Date: January 27, 2021 Subjective Patient is seen and examined at bedside Continues to complain of pain at surgical site Discussed with Vascular surgery today Denies chest pain, dyspnea, dizziness No bleeding issues today Hb 7.9 today Review of Systems Review of Systems: All systems reviewed & are unremarkable except as noted in Subjective Physical Exam Physical Exam: Physical Exam: Vitals signs as noted above General Appearance:Morbidly Obese, chronic ill appearing Head: normocephalic, Atraumatic Eyes: normal inspection, EOMI Neck: supple, Trachea midline Respiratory/Chest: Normal breath sounds, CTA, No accessory muscle use Cardiovascular: S1, S2, No murmur Abdomen/GI:Soft, Non tender, Bowel sounds present Extremities/Musculoskeletal:normal inspection, 1+ pedal edema, Left AKA, +Wound Vac Neurologic/Psych:AAOX3, grossly no focal neurological deficits Skin: normal color, warm, right heel wound Results & Data Results & Data ([facility]) Vital Signs (Past 12 Hours) Vital Signs Temp Pulse Pulse Resp BP Pulse Ox 02/19/21 15:56 36.9 C 88 12 92/54 L 96 02/19/21 14:57 86 02/19/21 11:57 36.7 C 89 16 98/61 L 90 02/19/21 10:20 91/53 L 02/19/21 07:45 95 H 02/19/21 07:18 36.8 C 88 20 106/68 95 Laboratory Results Short CBC 02/19/21 Range/Units 07:03 Hgb 7.9 L (12.0-16.0) g/dL Hct 24.9 L (37-47) % BMP 02/19/21 07:03 Sodium 139 Potassium 3.8 Chloride 108 H Carbon Dioxide 21 BUN 12 Creatinine 5.58 H* D Glucose 92 Calcium 9.5 (1) GI bleed GI bleed type/associated pathology: unspecified gastrointestinal hemorrhage type Qualified Code(s): K92.2 - Gastrointestinal hemorrhage, unspecified
[2021-02-20] MEDS: ACETAMINOPHEN 325 MG TAB PO PRN (00:53)
[2021-02-20] MEDS: PIPERACILLIN/TAZOBACTAM 4.5 GM in DEXTROSE 5% 100 ML IV SCH ×2 (04:12→16:28)
[2021-02-20] MEDS: oxyCODONE HCL IR 5 MG TAB (IMMEDIATE RELEASE) PO PRN (05:26)
[2021-02-20 06:37] LABS: Hematocrit (blood only) 27.2 % (37-47); Hemoglobin 8.6 g/dL (12.0-16.0); Mean Corpuscular Hemoglobin 29.4 pg (25-34); Mean Corpuscular Hgb Conc 31.6 g/dL (32-36); Mean Corpuscular Volume 92.8 fL (80-100); Mean Platelet Volume 10.2 fL (7.4-10.4); Platelet Count 209 K/uL (130-400); RDW Coefficient of Variation 20.2 % (11.5-14.5); Red Blood Count 2.93 M/uL (4.2-5.4); White Blood Count 12.87 K/uL (4.8-10.8)
[2021-02-20] MEDS ORDERED: EPOETIN ALFA 10,000 UNITS/ML VIAL IV SCH (07:00)
[2021-02-20] MEDS ORDERED: SODIUM CHLORIDE 0.9% 1000ML 1,000 ML IV PRN (07:00)
[2021-02-20] MEDS: ATORVASTATIN 20 MG TAB PO SCH (08:35)
[2021-02-20] MEDS: INSULIN ASPART 100 UNITS/ML 3 ML PEN SC SCH ×4 (08:35→21:00)
[2021-02-20] MEDS: ADVANCED PROBIOTIC 1250 MG CAPSULE PO SCH (08:36)
[2021-02-20] MEDS: HYDROCORTISONE HC 2.5% CRM 30GM TUBE EXT SCH ×2 (08:36→20:24)
[2021-02-20] MEDS: CHOLECALCIFEROL 1,000 UNITS 25 MCG TAB PO SCH (08:36)
[2021-02-20] MEDS: MIDODRINE HCL 10 MG TAB PO SCH (08:38)
--- NOTE | 2021-02-20 09:48 | Nephrology Progress Note ---
Date of Service February 20, 2021 Assessment & Plan (1) ESRD (end stage renal disease) on dialysis: Plan: * Heparin free HD this morning. Orders entered into EMR and HD RN notified * Chronic hypotension and intradialytic hypotension - on midodrine 10 mg MWF prior to HD (2) Acute blood loss anemia: Plan: * Hgb stable overnight * Patient denies GIB yesterday * 02/15/21 EGD negative, colonoscopy revealed rectal angiodysplasia s/p cautery (3) S/P above knee amputation: Plan: * L AKA. Wound vac in place Admission and Anticipated Discharge Date Admission Date: January 27, 2021 Subjective Tearful and depressed this morning. Reports episode of delirium last evening. Review of Systems Constitutional: + weakness; no fever Eyes: no problem reported Ear, Nose, Mouth, Throat: no problem reported Respiratory: no cough and no dyspnea Cardiovascular: no chest pain, no palpitations and no edema Gastrointestinal: + blood in stools (+ rectal pain) Genitourinary: + rectal pain Musculoskeletal: + back pain Integumentary: no rash Physical Exam Constitutional: + overweight; not in distress Eyes: PERRL, conjunctivae normal, anicteric sclerae ENMT: external ear and nose normal, oropharynx normal Neck: trachea midline, no thyromegaly Respiratory: normal respiratory effort, lungs clear to auscultation Cardiovascular: Rate/Rhythm: regular rate and regular rhythm Extremities: + AV fistula (thrombosed) Gastrointestinal (Abdomen): normal bowel sounds, soft, nontender, no hepatosplenomegaly Skin: no rashes, warm and dry Neurologic: awake; not confused Results & Data ([facility]) Vital Signs (Past 12 Hours) Vital Signs Temp Pulse Pulse Resp BP Pulse Ox 02/20/21 08:55 86 02/20/21 07:10 36.7 C 94 H 17 89/51 L 97 02/20/21 04:19 36.5 C 92 H 22 88/61 L 93 02/19/21 23:23 36.8 C 88 18 96/60 L 95 02/19/21 23:07 89 Laboratory Results Laboratory Tests 02/20/21 05:58 WBC 12.87 H Hgb 8.6 L Hct 27.2 L Plt Count 209 PG Care Time/CCT Total # of Minutes Spent Total Time Spent with Patient: Total time spent is greater than 50% in coordination of care (as documented) at patient's floor/unit and/or counseling patient: Coding Level of Care Code 40057 Subseq Hosp Care Lvl 3 Diagnoses ESRD (end stage renal disease) on dialysis N18.6; Z99.2 Acute blood loss anemia D62 S/P above knee amputation Z89.619
[2021-02-20] MEDS: PANTOprazole 40 MG in SYRINGE 0 ML IV SCH ×2 (10:00→20:24)
--- NOTE | 2021-02-20 11:34 | Surgery Progress Note ---
Date of Service February 20, 2021 Assessment & Plan (1) S/P above knee amputation: Plan: Pt wound appears to be doing well with wound vac. Recommend continuation. Also recommend increase protein intake to facilitate healing. Admission and Anticipated Discharge Date Admission Date: January 27, 2021 Subjective 55 yo f with multiple medical problems, s/p LLE AKA debridement and wound vac placement. Pt admits pain, but is mildly confused today. States not eating well, no appetite. Denies other complaints. Review of Systems Review of Systems: All systems reviewed & are unremarkable except as noted in HPI & below Physical Exam Constitutional: WD/WN, vitals as above + morbidly obese and + in distress (tearful) Skin: + incision (LLE AKA wound with good granulation, no signficiant bleeding. ) Psychiatric: Orientation: alert, oriented to person and oriented to place Affect: + anxious affect, + tearful affect and + irritable affect Results & Data ([facility]) Vital Signs (Past 12 Hours) Vital Signs Temp Pulse Pulse Resp BP BP Pulse Ox 02/20/21 11:20 82 82/48 L 02/20/21 11:08 36.5 C 66 16 105/73 96 02/20/21 11:00 84 76/50 L 02/20/21 10:42 82 92/41 L 02/20/21 10:30 36.8 C 85 02/20/21 08:55 86 02/20/21 07:10 36.7 C 94 H 17 89/51 L 97 02/20/21 04:19 36.5 C 92 H 22 88/61 L 93
--- NOTE | 2021-02-20 11:38 | Psychiatric Consultation ---
Date of Consultation February 20, 2021 Impression / Recommendations Impression 55 yo woman with history of ESRD on dialysis, DM type II, HTN, RAHEEM and recent above the knee amputation who was admitted medically for GI bleed 24 days ago. Psychiatry was consulted for worsening mood. Diagnostically consistent with unspecified depression and anxiety-most likely 2/2 ESRD and ongoing medical challenges versus MDD with anxious distress. Given negative impact mood can have on recovery and motivation recommend treatment though understandably there are risks given her ESRD and recent GI bleed. Recommend hydroxyzine prn for anxiety and consideration to start escitalopram for depression and anxiety if she felt to be at a stable point in terms of recent GI bleed given that SSRIs impact platelet function and increase risk of GI bleeds. Acute risk of self-harm is felt to be low/moderate given presence of passive SI, depression with hopelessness, significant medical conditions with pain and gun in the home (though she denies access to ammunition and states she doesn't know how to operate the gun) but with no history of prior attempts, no active SI, significant deterrents and reasons for living, feels safe and no other psychiatric history. Treatment of her mood disorder and optimizing treatment and recovery from her medical conditions are the most significant modifiable factors to treat to reduce her acute and long-term risk. She is not felt to require inpatient psychiatric treatment though if symptoms of depression or SI worsen even once she is medically stabilized this should be reassessed. Ideally, if passive SI persists at time of discharge, she will agree to remove gun from the home, counseled on risks and recommendation. (1) Depression, unspecified: (2) Anxiety disorder, unspecified: -Consider hydroxyzine 25 mg BID prn for anxiety -Consider escitalopram 5mg qd depending on current bleeding risk. Risk Factors Assessment Male: No : Yes Do You Have Access To A Gun?: Yes (has gun at home from her late father but no ammunition and she can't use it) Health Problems: Yes Mental Health Diagnoses: No Substance Use Disorders: No Previous Attempt: No Previous Psychiatric Hospitalization: No Hopelessness: Yes Smoker: No Protective Factors Assessment Stable Relationships: Yes Supportive Family: Yes Psych History Identifying Data 55 yo woman with history of ESRD on dialysis, DM type II, HTN, RAHEEM and recent above the knee amputation who was admitted medically for GI bleed 24 days ago. Psychiatry was consulted for worsening mood. Chief Complaint "They think I'm crazy". History of Present Illness Met with Barb in the dialysis suite. She was initially reluctant to speak with me noting that her team believes her to be crazy. Emphasized that her medical team wants to ensure she is being well supported given all that she's been through recently and that was the rationale for the psychiatry consult. She then became more willing to speak with me. She endorses symptoms of depression and anxiety including low mood, hopelessness, increased forgetfulness, low energy, low appetite and decreased motivation as well as feeling overwhelmed and worrying. She reports periods of passive SI but notes "but I don't mean it" and goes on to elaborate that she would never attempt suicide as she as reasons to live including her family and wanting to get better. She denies any history of prior psychiatric treatment nor any prior attempts. She attributes her mood symptoms to her increased pain since being hospitalized. She is not interested in outpatient therapy at this point but is willing to consider medication "but not zoloft". Past Psychiatric History Previous Psych History: none endorsed Outpatient Services: none Previous Psych Admissions: n/a Do You Have Access To A Gun?: Yes (has gun at home from her late father but no ammunition and she can't use it) History of Previous Suicide Attempt: No Past Medication Trials: denies Allergies Allergy/AdvReac Type Severity Reaction Status Date / Time No Known Allergies Allergy Verified 01/24/21 20:53 Home Medications Medication Instructions Recorded Confirmed Type atorvastatin 20 mg tablet (Lipitor) 20 mg PO DAILY 06/05/18 01/27/21 History clopidogrel 75 mg tablet (Plavix) 75 mg PO DAILY 06/05/18 01/27/21 History docusate sodium 100 mg capsule 100 mg PO BID 06/05/18 01/27/21 History insulin glargine 100 unit/mL 10 units SUBCUT HS 06/05/18 01/27/21 History subcutaneous solution (Lantus U-100 Insulin) Saccharomyces boulardii 250 mg 250 mg PO BIDM 01/24/21 01/27/21 History capsule acetaminophen 325 mg tablet 650 mg PO Q4 PRN 01/24/21 01/27/21 History aspirin 81 mg tablet,delayed 81 mg PO DAILY 01/24/21 01/27/21 History release (Aspirin Low Dose) bisacodyl 10 mg rectal suppository 10 mg AK DAILY PRN 01/24/21 01/27/21 History cholecalciferol (vitamin D3) 125 125 mcg PO DAILY 01/24/21 01/27/21 History mcg (5,000 unit) capsule collagenase clostridium histo. 250 1 applic TOPICAL DAILY 01/24/21 01/27/21 History unit/gram topical ointment (Santyl) darbepoetin sheri in polysorbat 100 100 mcg SUBCUT UD 01/24/21 01/27/21 History mcg/0.5 mL in polysorbate injection syringe dextrose 40 % oral gel 15 g PO ONCE PRN 01/24/21 01/27/21 History gentamicin 0.1 % topical ointment 1 applic TOPICAL DAILY 01/24/21 01/27/21 History heparin (porcine) 5,000 unit/mL 5,000 unit SUBCUT Q12H 01/24/21 01/27/21 History injection solution iron sucrose 100 mg iron/5 mL 100 mg IV UD PRN 01/24/21 01/27/21 History intravenous solution (Venofer) magnesium hydroxide 400 mg/5 mL 30 ml PO DAILY PRN 01/24/21 01/27/21 History oral suspension (Milk of Magnesia) meclizine 12.5 mg tablet 25 mg PO TID PRN 01/24/21 01/27/21 History midodrine 5 mg tablet 5 mg PO TID 01/24/21 01/27/21 History ondansetron 4 mg disintegrating 4 mg PO Q6H PRN 01/24/21 01/27/21 History tablet pantoprazole 40 mg tablet,delayed 40 mg PO HS 01/24/21 01/27/21 History release polyethylene glycol 3350 17 gram 17 g PO QDL PRN 01/24/21 01/27/21 History oral powder packet (Miralax) sennosides 8.6 mg-docusate sodium 1 tab-cap PO QDL PRN 01/24/21 01/27/21 History 50 mg tablet (Senokot-S) tramadol 50 mg tablet 50 mg PO Q6H PRN 01/24/21 01/27/21 History doxycycline hyclate 100 mg capsule 100 mg PO BID 14 Days #28 cap 01/25/21 01/27/21 Rx cocoa butter-shark liver oil 1 supp AK BID 01/27/21 01/27/21 History rectal suppository hydrocortisone 2.5 % topical cream 1 applic TOPICAL BID 01/27/21 01/27/21 History insulin regular human 100 unit/mL 1 sliding scale dose SUBCUT 01/27/21 01/27/21 History injection solution (Humulin R USEASDIRECTD Regular U-100 Insulin) Family History none endorsed Substance Abuse History denies Personal History Beliefs That Will Affect Care: None Patient History Medical History Anemia AV fistula LEFT ARM Congestive heart failure Diabetes mellitus, type 2 Difficult intravenous access Hemodialysis patient MONDAYS AND FRIDA[facility] AT [facility] [place] Hyperlipidemia Hypertension Morbid obesity Obstructive sleep apnea Peripheral vascular disease Right heart failure Transient ischemic attack (TIA) X 14 (LAST EVENT 2015) Surgical History History of appendectomy History of cardiac cath X 2 (NO STENTS) History of section X1 History of cholecystectomy History of colonoscopy History of dilatation and curettage X 3 History of hysterectomy History of surgery HX OF LEFT UPPER ARM FISTULOGRAM (CLOT IN AV FISTULA) X 9 TIMES History of tooth extraction Family History Other No significant family history Social History Smoking Status: Former smoker Tobacco Type: Cigarettes Second Hand Exposure: No; Hx Alcohol Use: No Hx Substance Use: No Preferred Language: Spanish Communication Ability: Effective Parts Identification Technician Required: No Beliefs That Will Affect Care: None Current Living Situation: Family How many Children do You have: 1 Other Information That Helps Us Care for You: No Feels Safe at Home: Yes Assistive Devices: None Physical Exam Psychiatric: Orientation: alert and oriented x 3 Apperance: appropriately dressed and appropriately groomed Eye Contact: + fair eye contact Motor Behavior: steady gait and station and no abnormal motor movements Speech: normal rate/rhythm/volume of speech Affect: + depressed affect and + tearful affect Mood: + depressed mood and + anxious mood Thought Process: goal directed thought process Thought Content: reality based without delusions Suicidal Thoughts: denies suicidal plan and denies suicidal intent; + reports suicidal thoughts (intermittent passive SI) Homicidal Thoughts: denies homicidal thoughts Hallucinations: no auditory hallucinations and no visual hallucinations Cognition: recent memory grossly intact, remote memory grossly intact, attention grossly intact and language grossly intact Estimated Intelligence: consistent with education level Insight: + fair insight Judgement: + fair judgement Vital Signs (Past 24 Hours): Last Vital Signs Temp 36.5 C 02/20/21 11:08 Pulse 66 02/20/21 11:08 Resp 16 02/20/21 11:08 BP 105/73 02/20/21 11:08 Pulse Ox 96 02/20/21 11:08 Review of Systems All systems reviewed & are unremarkable except as noted in HPI & below (endorses pain) Results & Data (PSY) Laboratory Results Na+ normal, decreased CBC/Hgb/Hct Diagnostic Findings normal QTc on EKG from 01/27/21 Medications Administered Acetaminophen (Acetaminophen 325 Mg Tab) 650 mg PO Q6H PRN PRN Reason: Fever/pain Stop: 02/27/21 04:58 Last Admin: 02/20/21 00:53 Dose: 650 mg Documented by: [id number] Admin: 02/18/21 17:33 Dose: 650 mg Documented by: [id number] Admin: 02/18/21 10:11 Dose: 650 mg Documented by: [id number] Admin: 02/17/21 06:18 Dose: 650 mg Documented by: [id number] Admin: 02/14/21 15:12 Dose: 650 mg Documented by: [id number] Admin: 02/14/21 01:29 Dose: 650 mg Documented by: [id number] Admin: 02/13/21 16:34 Dose: 650 mg Documented by: [id number] Admin: 02/05/21 21:15 Dose: 650 mg Documented by: [id number] Admin: 02/03/21 19:31 Dose: 650 mg Documented by: [id number] Admin: 02/02/21 22:56 Dose: 650 mg Documented by: [id number] Atorvastatin Calcium (Atorvastatin 20 Mg Tab) 20 mg PO DAILY GABY Stop: 02/27/21 08:59 Last Admin: 02/20/21 08:35 Dose: Not Given Documented by: [id number] Admin: 02/19/21 09:02 Dose: 20 mg Documented by: [id number] Admin: 02/18/21 07:49 Dose: 20 mg Documented by: [id number] Admin: 02/17/21 07:55 Dose: 20 mg Documented by: [id number] Admin: 02/16/21 07:54 Dose: 20 mg Documented by: [id number] Admin: 02/15/21 08:09 Dose: 20 mg Documented by: [id number] Admin: 02/14/21 08:41 Dose: 20 mg Documented by: [id number] Admin: 02/13/21 12:05 Dose: 20 mg Documented by: [id number] Admin: 02/12/21 08:00 Dose: 20 mg Documented by: [id number] Admin: 02/11/21 08:58 Dose: 20 mg Documented by: [id number] Admin: 02/10/21 08:38 Dose: 20 mg Documented by: [id number] Admin: 02/09/21 12:14 Dose: Not Given Documented by: [id number] Admin: 02/08/21 08:46 Dose: 20 mg Documented by: [id number] Admin: 02/07/21 09:48 Dose: 20 mg Documented by: [id number] Admin: 02/06/21 09:27 Dose: Not Given Documented by: [id number] Admin: 02/05/21 08:09 Dose: 20 mg Documented by: [id number] Admin: 02/04/21 12:29 Dose: Not Given Documented by: [id number] Admin: 02/03/21 08:26 Dose: 20 mg Documented by: [id number] Admin: 02/02/21 08:50 Dose: 20 mg Documented by: [id number] Admin: 02/01/21 08:26 Dose: 20 mg Documented by: [id number] Admin: 01/31/21 07:43 Dose: 20 mg Documented by: [id number] Admin: 01/30/21 08:15 Dose: 20 mg Documented by: [id number] Admin: 01/29/21 08:23 Dose: 20 mg Documented by: [id number] Admin: 01/28/21 08:40 Dose: 20 mg Documented by: [id number] Dextrose (Dextrose 50% 50 Ml Syringe) 25 - 50 ml IV UD PRN; Protocol PRN Reason: Hypoglycemia Protocol Stop: 02/26/21 22:40 Last Admin: 01/28/21 10:53 Dose: 25 ml Documented by: [id number] Diphenhydramine HCl (Diphenhydramine Capsule 25 Mg Cap) 25 mg PO TID PRN PRN Reason: Itching Stop: 03/03/21 00:53 Last Admin: 02/14/21 15:12 Dose: 25 mg Documented by: [id number] Admin: 02/12/21 00:48 Dose: 25 mg Documented by: [id number] Admin: 02/08/21 21:04 Dose: 25 mg Documented by: [id number] Admin: 02/03/21 19:31 Dose: 25 mg Documented by: [id number] Admin: 02/02/21 22:56 Dose: 25 mg Documented by: [id number] Admin: 02/01/21 18:09 Dose: 25 mg Documented by: [id number] Admin: 02/01/21 11:58 Dose: 25 mg Documented by: [id number] Admin: 02/01/21 03:17 Dose: 25 mg Documented by: [id number] Epoetin Sheri (Epoetin Sheri 10,000 Units/Ml Vial) 10,000 units IV TODAY@0700 [facility] Stop: 02/20/21 16:00 Last Admin: 02/20/21 11:11 Dose: Not Given Documented by: [id number] Hydrocortisone (Hydrocortisone Hc 2.5% Crm 30gm Tube) 1 appln EXT BID GABY Stop: 03/09/21 20:59 Last Admin: 02/20/21 08:36 Dose: Not Given Documented by: [id number] Admin: 02/19/21 20:43 Dose: Not Given Documented by: [id number] Admin: 02/19/21 09:02 Dose: 1 appln Documented by: [id number] Admin: 02/18/21 19:49 Dose: Not Given Documented by: [id number] Admin: 02/18/21 07:50 Dose: 1 appln Documented by: [id number] Admin: 02/17/21 21:09 Dose: Not Given Documented by: [id number] Admin: 02/17/21 07:55 Dose: Not Given Documented by: [id number] Admin: 02/16/21 20:09 Dose: Not Given Documented by: [id number] Admin: 02/16/21 07:55 Dose: 1 appln Documented by: [id number] Admin: 02/15/21 20:14 Dose: Not Given Documented by: [id number] Admin: 02/15/21 08:09 Dose: 1 appln Documented by: [id number] Admin: 02/14/21 20:15 Dose: 1 appln Documented by: [id number] Admin: 02/14/21 08:40 Dose: 1 appln Documented by: [id number] Admin: 02/13/21 20:38 Dose: 1 appln Documented by: [id number] Admin: 02/13/21 10:30 Dose: 1 appln Documented by: [id number] Admin: 02/12/21 21:30 Dose: 1 appln Documented by: [id number] Admin: 02/12/21 09:00 Dose: 1 appln Documented by: [id number] Admin: 02/11/21 20:58 Dose: 1 appln Documented by: [id number] Admin: 02/11/21 08:59 Dose: 1 appln Documented by: [id number] Admin: 02/10/21 19:34 Dose: Not Given Documented by: [id number] Admin: 02/10/21 08:40 Dose: 1 appln Documented by: [id number] Admin: 02/09/21 20:01 Dose: 1 appln Documented by: [id number] Admin: 02/09/21 12:15 Dose: Not Given Documented by: [id number] Admin: 02/08/21 20:49 Dose: 1 appln Documented by: [id number] Admin: 02/08/21 08:47 Dose: 1 appln Documented by: [id number] Admin: 02/07/21 22:15 Dose: 1 appln Documented by: [id number] Hydromorphone HCl (Hydromorphone Inj 1 Mg/Ml Syringe) 1 mg IV PRE-TREAT PRN PRN Reason: pain Stop: 03/05/21 08:35 Last Admin: 02/19/21 10:21 Dose: 1 mg Documented by: [id number] Promethazine HCl 12.5 mg/ (Sodium Chloride) 50.5 mls @ 202 mls/hr IV Q6H PRN PRN Reason: Nausea And Vomiting Stop: 02/27/21 00:51 Last Infusion: 02/15/21 05:45 Dose: 0 mls/hr Documented by: [id number] Admin: 02/15/21 05:32 Dose: 202 mls/hr Documented by: [id number] Infusion: 02/11/21 17:12 Dose: 0 mls/hr Documented by: [id number] Admin: 02/11/21 16:08 Dose: 202 mls/hr Documented by: [id number] Infusion: 02/04/21 01:25 Dose: 0 mls/hr Documented by: [id number] Admin: 02/04/21 01:08 Dose: 202 mls/hr Documented by: [id number] Infusion: 01/28/21 02:00 Dose: 0 mls/hr Documented by: [id number] Admin: 01/28/21 01:39 Dose: 202 mls/hr Documented by: [id number] Piperacillin Sod/Tazobactam (Sod 4.5 gm/ Dextrose) 120 mls @ 30 mls/hr IV Q12H [facility]; Protocol Stop: 02/27/21 15:59 Last Infusion: 02/20/21 08:36 Dose: 0 mls/hr Documented by: [id number] Admin: 02/20/21 04:12 Dose: 30 mls/hr Documented by: [id number] Infusion: 02/19/21 19:55 Dose: 0 mls/hr Documented by: [id number] Admin: 02/19/21 15:55 Dose: 30 mls/hr Documented by: [id number] Infusion: 02/19/21 08:06 Dose: 0 mls/hr Documented by: [id number] Admin: 02/19/21 03:10 Dose: 30 mls/hr Documented by: [id number] Infusion: 02/18/21 20:53 Dose: 0 mls/hr Documented by: [id number] Admin: 02/18/21 16:34 Dose: 30 mls/hr Documented by: [id number] Infusion: 02/18/21 06:43 Dose: 0 mls/hr Documented by: [id number] Infusion: 02/18/21 06:43 Dose: 0 mls/hr Documented by: [id number] Admin: 02/18/21 02:56 Dose: 30 mls/hr Documented by: [id number] Infusion: 02/17/21 23:31 Dose: 0 mls/hr Documented by: [id number] Admin: 02/17/21 17:10 Dose: 30 mls/hr Documented by: [id number] Infusion: 02/17/21 09:04 Dose: 0 mls/hr Documented by: [id number] Admin: 02/17/21 05:04 Dose: 30 mls/hr Documented by: [id number] Infusion: 02/16/21 20:51 Dose: 0 mls/hr Documented by: [id number] Admin: 02/16/21 16:51 Dose: 30 mls/hr Documented by: [id number] Infusion: 02/16/21 09:06 Dose: 0 mls/hr Documented by: [id number] Admin: 02/16/21 04:09 Dose: 30 mls/hr Documented by: [id number] Admin: 02/15/21 18:29 Dose: Not Given Documented by: [id number] Infusion: 02/15/21 07:02 Dose: 0 mls/hr Documented by: [id number] Admin: 02/15/21 03:17 Dose: 30 mls/hr Documented by: [id number] Infusion: 02/14/21 21:21 Dose: 0 mls/hr Documented by: [id number] Admin: 02/14/21 17:21 Dose: 30 mls/hr Documented by: [id number] Infusion: 02/14/21 07:40 Dose: 0 mls/hr Documented by: [id number] Admin: 02/14/21 03:04 Dose: 30 mls/hr Documented by: [id number] Infusion: 02/13/21 20:43 Dose: 0 mls/hr Documented by: [id number] Admin: 02/13/21 16:42 Dose: 30 mls/hr Documented by: [id number] Infusion: 02/13/21 14:34 Dose: 0 mls/hr Documented by: [id number] Admin: 02/13/21 04:53 Dose: 30 mls/hr Documented by: [id number] Infusion: 02/12/21 21:09 Dose: 0 mls/hr Documented by: [id number] Admin: 02/12/21 16:44 Dose: 30 mls/hr Documented by: [id number] Infusion: 02/12/21 10:58 Dose: 0 mls/hr Documented by: [id number] Admin: 02/12/21 04:58 Dose: 30 mls/hr Documented by: [id number] Infusion: 02/11/21 22:15 Dose: 0 mls/hr Documented by: [id number] Admin: 02/11/21 18:11 Dose: 30 mls/hr Documented by: [id number] Infusion: 02/11/21 09:10 Dose: 0 mls/hr Documented by: [id number] Admin: 02/11/21 04:44 Dose: 30 mls/hr Documented by: [id number] Infusion: 02/10/21 20:17 Dose: 0 mls/hr Documented by: [id number] Admin: 02/10/21 16:14 Dose: 30 mls/hr Documented by: [id number] Infusion: 02/10/21 09:36 Dose: 0 mls/hr Documented by: [id number] Admin: 02/10/21 05:24 Dose: 30 mls/hr Documented by: [id number] Infusion: 02/09/21 21:10 Dose: 0 mls/hr Documented by: [id number] Admin: 02/09/21 16:02 Dose: 30 mls/hr Documented by: [id number] Infusion: 02/09/21 12:39 Dose: 0 mls/hr Documented by: [id number] Admin: 02/09/21 04:37 Dose: 30 mls/hr Documented by: [id number] Infusion: 02/08/21 20:49 Dose: 0 mls/hr Documented by: [id number] Admin: 02/08/21 16:31 Dose: 30 mls/hr Documented by: [id number] Infusion: 02/08/21 09:31 Dose: 0 mls/hr Documented by: [id number] Admin: 02/08/21 03:20 Dose: 30 mls/hr Documented by: [id number] Infusion: 02/07/21 22:12 Dose: 0 mls/hr Documented by: [id number] Admin: 02/07/21 17:01 Dose: 30 mls/hr Documented by: [id number] Infusion: 02/07/21 08:50 Dose: 0 mls/hr Documented by: [id number] Admin: 02/07/21 04:50 Dose: 30 mls/hr Documented by: [id number] Infusion: 02/06/21 22:38 Dose: 0 mls/hr Documented by: [id number] Admin: 02/06/21 18:32 Dose: 30 mls/hr Documented by: [id number] Admin: 02/06/21 11:51 Dose: Not Given Documented by: [id number] Infusion: 02/05/21 21:15 Dose: 0 mls/hr Documented by: [id number] Admin: 02/05/21 17:16 Dose: 30 mls/hr Documented by: [id number] Pantoprazole Sodium 40 mg/ (Syringe) 10 mls @ 5 mls/min IV BID GABY Stop: 03/13/21 20:59 Last Admin: 02/20/21 10:00 Dose: 5 mls/min Documented by: [id number] Admin: 02/19/21 20:43 Dose: 5 mls/min Documented by: [id number] Admin: 02/19/21 09:02 Dose: 5 mls/min Documented by: [id number] Admin: 02/18/21 19:49 Dose: 5 mls/min Documented by: [id number] Admin: 02/18/21 07:49 Dose: 5 mls/min Documented by: [id number] Admin: 02/17/21 21:11 Dose: 5 mls/min Documented by: [id number] Admin: 02/17/21 07:54 Dose: 5 mls/min Documented by: [id number] Admin: 02/16/21 20:10 Dose: 5 mls/min Documented by: [id number] Admin: 02/16/21 07:56 Dose: 5 mls/min Documented by: [id number] Admin: 02/15/21 20:15 Dose: 5 mls/min Documented by: [id number] Admin: 02/15/21 08:09 Dose: 5 mls/min Documented by: [id number] Admin: 02/14/21 20:13 Dose: 5 mls/min Documented by: [id number] Admin: 02/14/21 08:41 Dose: 5 mls/min Documented by: [id number] Admin: 02/13/21 20:38 Dose: 5 mls/min Documented by: [id number] Admin: 02/13/21 12:07 Dose: 5 mls/min Documented by: [id number] Admin: 02/12/21 20:32 Dose: 5 mls/min Documented by: [id number] Admin: 02/12/21 08:00 Dose: 5 mls/min Documented by: [id number] Admin: 02/11/21 20:59 Dose: 5 mls/min Documented by: [id number] Insulin Aspart (Insulin Aspart 100 Units/Ml 3 Ml Pen) 0 units SC ACHS [facility] Stop: 03/16/21 20:59 Last Admin: 02/20/21 08:35 Dose: Not Given Documented by: [id number] Admin: 02/19/21 20:42 Dose: Not Given Documented by: [id number] Admin: 02/19/21 16:35 Dose: Not Given Documented by: [id number] Admin: 02/19/21 12:18 Dose: 3 units Documented by: [id number] Cosigned by: [id number] Admin: 02/19/21 09:01 Dose: Not Given Documented by: [id number] Admin: 02/18/21 20:19 Dose: Not Given Documented by: [id number] Admin: 02/18/21 16:52 Dose: Not Given Documented by: [id number] Admin: 02/18/21 12:22 Dose: 1 units Documented by: [id number] Cosigned by: [id number] Admin: 02/18/21 09:12 Dose: Not Given Documented by: [id number] Admin: 02/17/21 21:09 Dose: Not Given Documented by: [id number] Admin: 02/17/21 16:42 Dose: Not Given Documented by: [id number] Admin: 02/17/21 12:57 Dose: Not Given Documented by: [id number] Admin: 02/17/21 07:44 Dose: Not Given Documented by: [id number] Admin: 02/16/21 20:10 Dose: Not Given Documented by: [id number] Admin: 02/16/21 16:49 Dose: Not Given Documented by: [id number] Admin: 02/16/21 12:52 Dose: Not Given Documented by: [id number] Admin: 02/16/21 07:53 Dose: 20 units Documented by: [id number] Cosigned by: [id number] Admin: 02/15/21 20:14 Dose: Not Given Documented by: [id number] Admin: 02/15/21 17:23 Dose: Not Given Documented by: [id number] Admin: 02/15/21 12:08 Dose: 4 units Documented by: [id number] Cosigned by: [id number] Admin: 02/15/21 08:10 Dose: Not Given Documented by: [id number] Cosigned by: [id number] Admin: 02/14/21 20:06 Dose: Not Given Documented by: [id number] Lactobacillus Acidoph/Casei/Rhamnos (Advanced Probiotic 1250 Mg Capsule) 2 cap PO DAILY GABY Stop: 03/01/21 14:59 Last Admin: 02/20/21 08:36 Dose: Not Given Documented by: [id number] Admin: 02/19/21 09:02 Dose: 2 cap Documented by: [id number] Admin: 02/18/21 07:49 Dose: 2 cap Documented by: [id number] Admin: 02/17/21 07:55 Dose: 2 cap Documented by: [id number] Admin: 02/16/21 07:55 Dose: 2 cap Documented by: [id number] Admin: 02/15/21 08:09 Dose: 2 cap Documented by: [id number] Admin: 02/14/21 08:41 Dose: 2 cap Documented by: [id number] Admin: 02/13/21 12:07 Dose: 2 cap Documented by: [id number] Admin: 02/12/21 08:01 Dose: 2 cap Documented by: [id number] Admin: 02/11/21 08:59 Dose: 2 cap Documented by: [id number] Admin: 02/10/21 08:39 Dose: 2 cap Documented by: [id number] Admin: 02/09/21 12:15 Dose: Not Given Documented by: [id number] Admin: 02/08/21 08:46 Dose: 2 cap Documented by: [id number] Admin: 02/07/21 09:48 Dose: 2 cap Documented by: [id number] Admin: 02/06/21 09:27 Dose: Not Given Documented by: [id number] Admin: 02/05/21 08:09 Dose: 2 cap Documented by: [id number] Admin: 02/04/21 12:29 Dose: Not Given Documented by: [id number] Admin: 02/03/21 08:26 Dose: 2 cap Documented by: [id number] Admin: 02/02/21 08:50 Dose: 2 cap Documented by: [id number] Admin: 02/01/21 08:26 Dose: 2 cap Documented by: [id number] Admin: 01/31/21 07:44 Dose: 2 cap Documented by: [id number] Admin: 01/30/21 16:02 Dose: 2 cap Documented by: [id number] Midodrine (Midodrine Hcl 10 Mg Tab) 10 mg PO [id number] [facility] Stop: 03/11/21 05:44 Last Admin: 02/20/21 08:38 Dose: 10 mg Documented by: [id number] Admin: 02/18/21 07:49 Dose: 10 mg Documented by: [id number] Admin: 02/16/21 07:54 Dose: 10 mg Documented by: [id number] Admin: 02/13/21 12:05 Dose: 10 mg Documented by: [id number] Admin: 02/11/21 08:58 Dose: 10 mg Documented by: [id number] Admin: 02/09/21 12:14 Dose: Not Given Documented by: [id number] Admin: 02/09/21 06:33 Dose: 10 mg Documented by: [id number] Oxycodone HCl (Oxycodone Hcl Ir 5 Mg Tab (Immediate Release)) 5 - 10 mg PO Q4H PRN PRN Reason: Pain Stop: 02/24/21 00:20 Last Admin: 02/20/21 05:26 Dose: 10 mg Documented by: [id number] Admin: 02/19/21 20:43 Dose: 10 mg Documented by: [id number] Admin: 02/19/21 14:53 Dose: 10 mg Documented by: [id number] Admin: 02/19/21 09:05 Dose: 10 mg Documented by: [id number] Admin: 02/19/21 03:07 Dose: 10 mg Documented by: [id number] Admin: 02/18/21 19:47 Dose: 10 mg Documented by: [id number] Admin: 02/18/21 14:44 Dose: 10 mg Documented by: [id number] Admin: 02/18/21 07:46 Dose: 10 mg Documented by: [id number] Admin: 02/18/21 02:55 Dose: 10 mg Documented by: [id number] Vitamin D (Cholecalciferol 1,000 Units 25 Mcg Tab) 5,000 units PO DAILY GABY Stop: 02/27/21 08:59 Last Admin: 02/20/21 08:36 Dose: Not Given Documented by: [id number] Admin: 02/19/21 09:02 Dose: 5,000 units Documented by: [id number] Admin: 02/18/21 07:49 Dose: 5,000 units Documented by: [id number] Admin: 02/17/21 07:54 Dose: 5,000 units Documented by: [id number] Admin: 02/16/21 07:54 Dose: 5,000 units Documented by: [id number] Admin: 02/15/21 08:09 Dose: 5,000 units Documented by: [id number] Admin: 02/14/21 08:41 Dose: 5,000 units Documented by: [id number] Admin: 02/13/21 12:06 Dose: 5,000 units Documented by: [id number] Admin: 02/12/21 08:00 Dose: 5,000 units Documented by: [id number] Admin: 02/11/21 08:58 Dose: 5,000 units Documented by: [id number] Admin: 02/10/21 08:39 Dose: 5,000 units Documented by: [id number] Admin: 02/09/21 12:14 Dose: Not Given Documented by: [id number] Admin: 02/08/21 08:45 Dose: 5,000 units Documented by: [id number] Admin: 02/07/21 09:47 Dose: 5,000 units Documented by: [id number] Admin: 02/06/21 09:27 Dose: Not Given Documented by: [id number] Admin: 02/05/21 08:10 Dose: 5,000 units Documented by: [id number] Admin: 02/04/21 12:29 Dose: Not Given Documented by: [id number] Admin: 02/03/21 08:26 Dose: 5,000 units Documented by: [id number] Admin: 02/02/21 08:50 Dose: 5,000 units Documented by: [id number] Admin: 02/01/21 08:26 Dose: 5,000 units Documented by: [id number] Admin: 01/31/21 07:43 Dose: 5,000 units Documented by: [id number] Admin: 01/30/21 08:15 Dose: 5,000 units Documented by: [id number] Admin: 01/29/21 08:23 Dose: 5,000 units Documented by: [id number] Admin: 01/28/21 08:41 Dose: 5,000 units Documented by: [id number] Coding Level of Care Code 57254 Inpt Consult Level 3 Diagnoses Depression, unspecified F32.A Anxiety disorder, unspecified F41.9
--- NOTE | 2021-02-20 17:48 | Hospitalist Progress Note ---
Date of Service February 20, 2021 Assessment & Plan (1) GI bleed: Plan: Likely multifactorial Gastric Ulcer, polyps, diverticulosis and internal hemorrhoids, AVMs Suspect ischemic colitis--less likely based on CT S/P EGD: gastric ulcer --CT ABD:No CT evidence for ischemic bowel. However, there is a masslike filling defect within the rectum suspicious for a neoplastic process. Direct visualization is recommended. -S/P Colonoscopy: Two 5 to 7 mm polyps in the cecum, removed with hot snare. Resected and retrieved. Diverticulosis in the sigmoid colon. Nonbleeding internal hemorrhoids. No findings on the exam to correlate with abnormal CT in the rectum. It was most likely stool versus shadowing. -Pathology Stomach, biopsy:Mild to moderate acute and chronic gastritis. Negative for intes tinal metaplasia, dysplasia and carcinoma. H. pylori immunoperoxidase stain negative Colon, cecum, polypectomies:1. Fragments of tubular adenoma. 2. No invasive carcinoma seen. 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 May need prolonged antibiotic course for 4-6 weeks if concern for bone involvement (Can switch Zosyn to cefepime: 2 g IV after each dialysis as outpatient, and metronidazole 500 mg p.o. every 8 hours for convenient dosing at dialysis center. okay to ignore C albicans found on the wound culture on February 13) - Bone seemed to be infected as per Vascular surgery-Discussed on 02/19/21 -Patient needs prolonged course of antibiotics: 4-6 weeks -Wound Vac changed today Delirium Minimize Narcotic use as able Reorient frequently (3) ESRD (end stage renal disease) on dialysis: Plan: -hemodialysis as per Nephrology Received Epogen with HD Appreciate Nephrology Input Hypokalemia Replace electrolytes as needed (4) Diabetes mellitus, type 2: Plan: - Accuchecks - Insulin sliding scale (5) Hypertension: Plan: Monitor BP Continue current medications (6) Hyperlipidemia: Plan: on Statin (7) Ulcer of right heel: Plan: - Wound care consult, as above (8) Peripheral vascular disease: (9) Obstructive sleep apnea: Plan: Non-tolerant of CPAP CODE STATUS: Full code DVT Px: SCDs Re: GI bleeding Admission and Anticipated Discharge Date Admission Date: January 27, 2021 Subjective Patient is seen and examined at bedside Had HD earlier today Confused this morning Discussed with patient's daughter over the phone Pain at surgical site is controlled Denies chest pain, dyspnea, dizziness No recurrence of bleeding Wound Vac changed today Review of Systems Review of Systems: All systems reviewed & are unremarkable except as noted in Subjective Physical Exam Physical Exam: Physical Exam: Vitals signs as noted above General Appearance:Morbidly Obese, chronic ill appearing Head: normocephalic, Atraumatic Eyes: normal inspection, EOMI Neck: supple, Trachea midline Respiratory/Chest: Normal breath sounds, CTA, No accessory muscle use Cardiovascular: S1, S2, No murmur Abdomen/GI:Soft, Non tender, Bowel sounds present Extremities/Musculoskeletal:normal inspection, 1+ pedal edema, Left AKA, +Wound Vac Neurologic/Psych:AAOX3, grossly no focal neurological deficits Skin: normal color, warm, right heel wound Results & Data Results & Data ([facility]) Vital Signs (Past 12 Hours) Vital Signs Temp Pulse Pulse Resp BP BP Pulse Ox 02/20/21 15:31 36.8 C 86 16 88/49 L 96 02/20/21 12:35 68 80/58 L 02/20/21 12:30 36.4 C L 62 98/40 L 02/20/21 12:20 66 103/62 02/20/21 12:00 71 78/40 L 02/20/21 11:40 85 94/65 L 02/20/21 11:20 82 93/40 L 12/17/21 11:08 36.5 C 66 16 105/73 96 02/20/21 11:00 84 76/50 L 02/20/21 10:42 82 92/41 L 02/20/21 10:30 36.8 C 85 02/20/21 08:55 86 02/20/21 07:10 36.7 C 94 H 17 89/51 L 97 Laboratory Results Short CBC 02/20/21 Range/Units 05:58 WBC 12.87 H (4.8-10.8) K/uL Hgb 8.6 L (12.0-16.0) g/dL Hct 27.2 L (37-47) % Plt Count 209 (130-400) K/uL (1) GI bleed GI bleed type/associated pathology: unspecified gastrointestinal hemorrhage type Qualified Code(s): K92.2 - Gastrointestinal hemorrhage, unspecified
[2021-02-21] MEDS: PIPERACILLIN/TAZOBACTAM 4.5 GM in DEXTROSE 5% 100 ML IV SCH ×2 (04:37→16:47)
[2021-02-21 05:57] LABS: Hematocrit (blood only) 27.7 % (37-47); Hemoglobin 8.8 g/dL (12.0-16.0)
[2021-02-21 06:42] LABS: BUN Creatinine Ratio 2.2 (10-20); Calcium 9.5 mg/dl (8.5-10.1); Creatinine Clr Calc Pharmacy 15.6 ml/min; Est GFR (African American) 10.4 ml/min; Est GFR (Non-African American) 8.9 ml/min; Potassium 3.4 mmol/L (3.5-5.1)
[2021-02-21] MEDS: INSULIN ASPART 100 UNITS/ML 3 ML PEN SC SCH ×4 (07:37→21:00)
[2021-02-21] MEDS: PANTOprazole 40 MG in SYRINGE 0 ML IV SCH ×2 (08:04→20:58)
[2021-02-21] MEDS: ADVANCED PROBIOTIC 1250 MG CAPSULE PO SCH (08:04)
[2021-02-21] MEDS: CHOLECALCIFEROL 1,000 UNITS 25 MCG TAB PO SCH (08:04)
[2021-02-21] MEDS: HYDROCORTISONE HC 2.5% CRM 30GM TUBE EXT SCH ×2 (08:04→21:01)
[2021-02-21] MEDS: ATORVASTATIN 20 MG TAB PO SCH (08:04)
--- NOTE | 2021-02-21 10:32 | Nephrology Progress Note ---
Date of Service February 21, 2021 Assessment & Plan (1) ESRD (end stage renal disease) on dialysis: (2) GI bleed: (3) Diabetes mellitus, type 2: (4) Hypertension: (5) S/P above knee amputation: Plan: ESRD on hemodialysis admitted with GI bleeding, hemoglobin less than 6.9, received 2 unit of blood transfusion. EGD showed gastritis and currently on Protonix 40 b.i.d.. Blood pressure, volume status electrolyte acceptable. Dialyzes via right IJ tunneled dialysis catheter. Has non healing ulcer on left AKA stump and rt heel. Had multiple debridement. -- will plan for hemodialysis Tuesday, monitor volume status and electrolyte over the weekend -- dose meds for gfr <10 -- epogen with HD will follow Admission and Anticipated Discharge Date Admission Date: January 27, 2021 Gayle Day was seen examined in her room this morning. She has been having pain at left AKA stump. BP fair, electrolyte acceptable. Had HD yesterday but she signed off after 2.5 h as she felt sick. Review of Systems Review of Systems: detailed review of system was otherwise unremarkable. Physical Exam Constitutional: WD/WN, vitals as above + ill appearing; no acute distress Respiratory: normal respiratory effort; no respiratory distress Auscultation: lungs clear to auscultation bilaterally Cardiovascular: Rate/Rhythm: regular rate and regular rhythm Heart Sounds: normal S1 and normal S2 Extremities: no edema Musculoskeletal: left AKA Skin: normal turgor; no rashes Neurologic: no focal motor deficits and not confused Psychiatric: Orientation: alert and oriented x 3 Affect: + anxious affect and + tearful affect Results & Data ([facility]) Vital Signs (Past 12 Hours) Vital Signs Temp Pulse Pulse Resp BP Pulse Ox 02/21/21 09:36 81 02/21/21 07:49 36.5 C 82 21 84/48 L 97 02/21/21 04:51 36.5 C 86 16 104/60 97 02/21/21 00:04 36.6 C 82 18 75/41 L 98 02/20/21 23:38 83 PG Care Time/CCT Total # of Minutes Spent Total Time Spent with Patient: Total time spent is greater than 50% in coordination of care (as documented) at patient's floor/unit and/or counseling patient: Coding Level of Care Code 33746 Subseq Hosp Care Lvl 2 Diagnoses ESRD (end stage renal disease) on dialysis N18.6; Z99.2 GI bleed K92.2 GI bleed type/associated pathology: unspecified gastrointestinal hemorrhage type Diabetes mellitus, type 2 E11.9 Hypertension I10 S/P above knee amputation Z89.619 (1) GI bleed GI bleed type/associated pathology: unspecified gastrointestinal hemorrhage type Qualified Code(s): K92.2 - Gastrointestinal hemorrhage, unspecified
--- NOTE | 2021-02-21 12:56 | Communication Note ---
Date of Service: February 21, 2021 consult reviewed, interim progress reviewed with liaison as change in clinical responsibility for consult service through 02/26/21. Dr. Sanchez deferred start of SSRI (Lexapro 5 mg) to hospitalist service given antiplatelet effects and hx of GI bleed. Liaison to follow.
[2021-02-21] MEDS: NEPHROCAPS PO SCH (16:48)
--- NOTE | 2021-02-21 17:25 | Hospitalist Progress Note ---
Date of Service February 21, 2021 Assessment & Plan (1) GI bleed: Plan: Likely multifactorial Gastric Ulcer, polyps, diverticulosis and internal hemorrhoids, AVMs Suspect ischemic colitis--less likely based on CT S/P EGD: gastric ulcer --CT ABD:No CT evidence for ischemic bowel. However, there is a masslike filling defect within the rectum suspicious for a neoplastic process. Direct visualization is recommended. -S/P Colonoscopy: Two 5 to 7 mm polyps in the cecum, removed with hot snare. Resected and retrieved. Diverticulosis in the sigmoid colon. Nonbleeding internal hemorrhoids. No findings on the exam to correlate with abnormal CT in the rectum. It was most likely stool versus shadowing. -Pathology Stomach, biopsy:Mild to moderate acute and chronic gastritis. Negative for intes tinal metaplasia, dysplasia and carcinoma. H. pylori immunoperoxidase stain negative Colon, cecum, polypectomies:1. Fragments of tubular adenoma. 2. No invasive carcinoma seen. --ABD CTA:reviewed --Repeat Colonoscopy: Mucosal ulceration--Clip placed, multiple nonbleeding colonic angioectasias --Protonix drip>>Transitioned IV Protonix Appreciate GI input S/P PRBCs And to continue Protonix 40 mg twice daily for 8 weeks and then reduce to once daily Needs follow-up with GI upon discharge Hb 8.8 today (2) Postoperative wound infection: Plan: -Left AKA stump cellulitis -Stage 3 Pressure ulcer of right heel, POA -Blood Cx: Negative -Empirically received Unasyn and Doxy for 7 days -Transitioned Unasyn to Zosyn -Appreciate orthopedics, vascular surgery input -S/P Debridement of skin and subcutaneous Left Above Knee Amputation Stump (22x8cm), Application of Wound Vac with wound measuring 22x8 cm.(Left) - Giuseppe Michel MD on 02/13 -Continue wound care/Vac -Appreciate ID Input -Pain control -As per ID: Plan to complete antibiotics 10 to 14 days, from February 13, 2021. May need prolonged antibiotic course for 4-6 weeks if concern for bone involvement (Can switch Zosyn to cefepime: 2 g IV after each dialysis as outpatient, and metronidazole 500 mg p.o. every 8 hours for convenient dosing at dialysis center. okay to ignore C albicans found on the wound culture on February 13) - Bone seemed to be infected as per Vascular surgery-Discussed on 02/19/21 -Patient needs prolonged course of antibiotics: 4-6 weeks -Wound Vac changed on 02/21/21 Delirium Minimize Narcotic use as able Reorient frequently (3) ESRD (end stage renal disease) on dialysis: Plan: -hemodialysis as per Nephrology Received Epogen with HD Appreciate Nephrology Input Plan for HD on Tuesday Hypokalemia Replace electrolytes as needed Poor oral intake Appreciate Alarm Service Technician Input (4) Diabetes mellitus, type 2: Plan: - Accuchecks - Insulin sliding scale (5) Hypertension: Plan: Monitor BP Continue current medications (6) Hyperlipidemia: Plan: on Statin (7) Ulcer of right heel: Plan: - Wound care consult, as above (8) Peripheral vascular disease: (9) Obstructive sleep apnea: Plan: Non-tolerant of CPAP CODE STATUS: Full code DVT Px: SCDs Re: GI bleeding Admission and Anticipated Discharge Date Admission Date: January 27, 2021 Subjective Patient is seen and examined at bedside Poor appetite Still has left AKA pain at surgical site On and off confused per RN Denies chest pain, dyspnea, dizziness Review of Systems Review of Systems: All systems reviewed & are unremarkable except as noted in Subjective Physical Exam Physical Exam: Physical Exam: Vitals signs as noted above General Appearance:Morbidly Obese, chronic ill appearing Head: normocephalic, Atraumatic Eyes: normal inspection, EOMI Neck: supple, Trachea midline Respiratory/Chest: Normal breath sounds, CTA, No accessory muscle use Cardiovascular: S1, S2, No murmur Abdomen/GI:Soft, Non tender, Bowel sounds present Extremities/Musculoskeletal:normal inspection, 1+ pedal edema, Left AKA, +Wound Vac Neurologic/Psych:AAOX3, grossly no focal neurological deficits Skin: normal color, warm, right heel wound Results & Data Results & Data ([facility]) Vital Signs (Past 12 Hours) Vital Signs Temp Pulse Pulse Pulse Resp BP Pulse Ox 02/21/21 15:29 36.6 C 87 20 83/42 L 98 02/21/21 11:57 85 85/64 L 02/21/21 11:55 36.7 C 80 19 75/38 L 96 02/21/21 09:36 81 02/21/21 07:49 36.5 C 82 21 84/48 L 97 Laboratory Results Short CBC 02/21/21 Range/Units 05:49 Hgb 8.8 L (12.0-16.0) g/dL Hct 27.7 L (37-47) % BMP 02/21/21 05:49 Sodium 138 Potassium 3.4 L Chloride 104 Carbon Dioxide 23 BUN 11 Creatinine 4.99 H* D Glucose 98 Calcium 9.5 (1) GI bleed GI bleed type/associated pathology: unspecified gastrointestinal hemorrhage type Qualified Code(s): K92.2 - Gastrointestinal hemorrhage, unspecified
[2021-02-21] MEDS ORDERED: ALBUMIN 25% 100 mL 25 GM/100 ML VIAL IV ONE (23:42)
[2021-02-21] MEDS ORDERED: MIDODRINE HCL 10 MG TAB PO STA (23:42)
[2021-02-22 00:21] LABS: Basophils # (auto) 0.04 K/uL (0-0.2); Basophils % (auto) 0.3 %; Eosinophils # (auto) 0.64 K/uL (0-0.5); Eosinophils % (auto) 4.8 %; Hemoglobin 8.5 g/dL (12.0-16.0); Immature Granulocytes # (auto) 0.13 K/uL (0.00-0.02); Lymphocytes # (auto) 2.57 K/uL (1.2-3.4); Lymphocytes % (auto) 19.2 %; Mean Corpuscular Hemoglobin 29.6 pg (25-34); Mean Corpuscular Hgb Conc 31.5 g/dL (32-36); Mean Corpuscular Volume 94.1 fL (80-100); Mean Platelet Volume 10.5 fL (7.4-10.4); Monocytes # (auto) 0.99 K/uL (0.11-0.59); Monocytes % (auto) 7.4 %; Neutrophils # (auto) 9.01 K/uL (1.4-6.5); Neutrophils % (auto) 67.3 %; Platelet Count 241 K/uL (130-400); RDW Coefficient of Variation 21.3 % (11.5-14.5); RDW Standard Deviation 69.5 fL (36.4-46.3); Red Blood Count 2.87 M/uL (4.2-5.4); White Blood Count 13.38 K/uL (4.8-10.8)
[2021-02-22 00:48] LABS: Anisocytosis Present; Polychromasia 1+
[2021-02-22 00:58] LABS: BUN Creatinine Ratio 2.4 (10-20); Calcium 9.3 mg/dl (8.5-10.1); Creatinine Clr Calc Pharmacy 13.9 ml/min; Est GFR (Non-African American) 7.8 ml/min; Magnesium 1.7 mg/dl (1.8-2.4); Potassium 3.8 mmol/L (3.5-5.1)
[2021-02-22] MEDS: PIPERACILLIN/TAZOBACTAM 4.5 GM in DEXTROSE 5% 100 ML IV SCH ×2 (03:34→16:37)
[2021-02-22] MEDS: INSULIN ASPART 100 UNITS/ML 3 ML PEN SC SCH ×4 (09:12→20:21)
[2021-02-22] MEDS: PANTOprazole 40 MG in SYRINGE 0 ML IV SCH ×2 (09:13→20:18)
[2021-02-22] MEDS: HYDROCORTISONE HC 2.5% CRM 30GM TUBE EXT SCH ×2 (09:13→20:18)
[2021-02-22] MEDS: NEPHROCAPS PO SCH ×2 (09:13→11:08)
[2021-02-22] MEDS: ADVANCED PROBIOTIC 1250 MG CAPSULE PO SCH (09:13)
[2021-02-22] MEDS: ATORVASTATIN 20 MG TAB PO SCH ×2 (09:13→11:07)
[2021-02-22] MEDS: CHOLECALCIFEROL 1,000 UNITS 25 MCG TAB PO SCH (09:13)
[2021-02-22] MEDS: MAGNESIUM CHLORIDE 64MG DELAYED REL TAB PO SCH ×3 (10:29→20:18)
--- NOTE | 2021-02-22 11:56 | Nephrology Progress Note ---
Date of Service February 22, 2021 Assessment & Plan (1) ESRD (end stage renal disease) on dialysis: (2) GI bleed: (3) Diabetes mellitus, type 2: (4) Hypertension: (5) S/P above knee amputation: Plan: ESRD on hemodialysis admitted with GI bleeding, hemoglobin less than 6.9, received 2 unit of blood transfusion. EGD showed gastritis and currently on Protonix 40 b.i.d.. Blood pressure, volume status electrolyte acceptable. Dialyzes via right IJ tunneled dialysis catheter. Has non healing ulcer on left AKA stump and rt heel. Had multiple debridement. Overall stble, BP, electrolyte and volume status. Seems to have some confusion -- will plan for hemodialysis Tuesday, monitor volume status and electrolyte over the weekend -- dose meds for gfr <10 -- epogen with HD will follow Admission and Anticipated Discharge Date Admission Date: January 27, 2021 Gayle Day was seen examined in her room this morning. She has been emotional and tearful and talks about her family. BP low. electrolyte acceptable. Review of Systems Review of Systems: detailed review of system was otherwise unremarkable. Physical Exam Constitutional: WD/WN, vitals as above + ill appearing and + morbidly obese; no acute distress Eyes: + anicteric sclerae ENMT: Ears: no hearing impairment and no external ear abnormality Nose: nasal mucous membranes not dry Neck: normal visual inspection Respiratory: normal respiratory effort; no respiratory distress Auscultation: lungs clear to auscultation bilaterally Cardiovascular: Rate/Rhythm: regular rate and regular rhythm Heart Sounds: normal S1 and normal S2 Extremities: no edema Skin: normal turgor; no rashes Neurologic: no focal motor deficits and not confused Psychiatric: Orientation: alert and oriented x 3 Affect: + anxious affect and + tearful affect Results & Data ([facility]) Vital Signs (Past 12 Hours) Vital Signs Temp Pulse Resp BP Pulse Ox 02/22/21 11:17 36.5 C 79 19 97/61 L 97 02/22/21 07:19 36.4 C L 86 18 99/45 L 96 02/22/21 03:49 36.4 C L 88 18 106/55 L 96 02/22/21 00:44 86/44 L 02/22/21 00:04 36.5 C 86 16 64/33 L 98 PG Care Time/CCT Total # of Minutes Spent Total Time Spent with Patient: Total time spent is greater than 50% in coordination of care (as documented) at patient's floor/unit and/or counseling patient: Coding Level of Care Code 34107 Subseq Hosp Care Lvl 2 Diagnoses ESRD (end stage renal disease) on dialysis N18.6; Z99.2 GI bleed K92.2 GI bleed type/associated pathology: unspecified gastrointestinal hemorrhage type Diabetes mellitus, type 2 E11.9 Hypertension I10 S/P above knee amputation Z89.619 (1) GI bleed GI bleed type/associated pathology: unspecified gastrointestinal hemorrhage type Qualified Code(s): K92.2 - Gastrointestinal hemorrhage, unspecified
--- NOTE | 2021-02-22 17:25 | Hospitalist Progress Note ---
Date of Service February 22, 2021 Assessment & Plan (1) GI bleed: Plan: Likely multifactorial Gastric Ulcer, polyps, diverticulosis and internal hemorrhoids, AVMs Suspect ischemic colitis--less likely based on CT S/P EGD: gastric ulcer --CT ABD:No CT evidence for ischemic bowel. However, there is a masslike filling defect within the rectum suspicious for a neoplastic process. Direct visualization is recommended. -S/P Colonoscopy: Two 5 to 7 mm polyps in the cecum, removed with hot snare. Resected and retrieved. Diverticulosis in the sigmoid colon. Nonbleeding internal hemorrhoids. No findings on the exam to correlate with abnormal CT in the rectum. It was most likely stool versus shadowing. -Pathology Stomach, biopsy:Mild to moderate acute and chronic gastritis. Negative for intes tinal metaplasia, dysplasia and carcinoma. H. pylori immunoperoxidase stain negative Colon, cecum, polypectomies:1. Fragments of tubular adenoma. 2. No invasive carcinoma seen. --ABD CTA:reviewed --Repeat Colonoscopy: Mucosal ulceration--Clip placed, multiple nonbleeding colonic angioectasias --Protonix drip>>Transitioned IV Protonix Appreciate GI input S/P PRBCs Continue Protonix 40 mg twice daily for 8 weeks and then reduce to once daily Needs follow-up with GI upon discharge Hb stable Currently no recurrence of bleeding (2) Postoperative wound infection: Plan: -Left AKA stump cellulitis -Stage 3 Pressure ulcer of right heel, POA -Blood Cx: Negative -Empirically received Unasyn and Doxy for 7 days -Transitioned Unasyn to Zosyn -Appreciate orthopedics, vascular surgery input -S/P Debridement of skin and subcutaneous Left Above Knee Amputation Stump (22x8cm), Application of Wound Vac with wound measuring 22x8 cm.(Left) - Giuseppe Michel MD on 02/13 -Continue wound care/Vac -Appreciate ID Input -Pain control -As per ID: Plan to complete antibiotics 10 to 14 days, from February 13, 2021. May need prolonged antibiotic course for 4-6 weeks if concern for bone involvement (Can switch Zosyn to cefepime: 2 g IV after each dialysis as outpatient, and metronidazole 500 mg p.o. every 8 hours for convenient dosing at dialysis center. okay to ignore C albicans found on the wound culture on February 13) - Bone seemed to be infected as per Vascular surgery-Discussed on 02/19/21 -Patient needs prolonged course of antibiotics: 4-6 weeks -Wound Vac changed on 02/21/21 Delirium Minimize Narcotic use as able Reorient frequently (3) ESRD (end stage renal disease) on dialysis: Plan: -hemodialysis as per Nephrology Received Epogen with HD Appreciate Nephrology Input Plan for HD Tomorrow Hypokalemia Replace electrolytes as needed Poor oral intake Appreciate Director Of Primary Input (4) Diabetes mellitus, type 2: Plan: - Accuchecks - Insulin sliding scale (5) Hypertension: Plan: Monitor BP Continue current medications (6) Hyperlipidemia: Plan: on Statin (7) Ulcer of right heel: Plan: - Wound care consult, as above (8) Peripheral vascular disease: (9) Obstructive sleep apnea: Plan: Non-tolerant of CPAP CODE STATUS: Full code DVT Px: SCDs Re: Recurrent GI bleeding Admission and Anticipated Discharge Date Admission Date: January 27, 2021 Subjective Patient is seen and examined at bedside Refused AM meds this morning but later took them Appetite better today Persistent left AKA pain at surgical site No confusion today during my encounter Denies chest pain, dyspnea, dizziness, nausea, abd pain Review of Systems Review of Systems: All systems reviewed & are unremarkable except as noted in Subjective Physical Exam Physical Exam: Physical Exam: Vitals signs as noted above General Appearance:Morbidly Obese, chronic ill appearing Head: normocephalic, Atraumatic Eyes: normal inspection, EOMI Neck: supple, Trachea midline Respiratory/Chest: Normal breath sounds, CTA, No accessory muscle use Cardiovascular: S1, S2, No murmur Abdomen/GI:Soft, Non tender, Bowel sounds present Extremities/Musculoskeletal:normal inspection, 1+ pedal edema, Left AKA, +Wound Vac Neurologic/Psych:AAOX3, grossly no focal neurological deficits Skin: normal color, warm, right heel wound Results & Data Results & Data ([facility]) Vital Signs (Past 12 Hours) Vital Signs Temp Pulse Pulse Resp BP Pulse Ox 02/22/21 15:53 36.4 C L 87 19 96/59 L 97 02/22/21 11:17 36.5 C 79 19 97/61 L 97 02/22/21 10:55 82 02/22/21 07:19 36.4 C L 86 18 99/45 L 96 Laboratory Results Short CBC 12/19/21 Range/Units 00:07 WBC 13.38 H (4.8-10.8) K/uL Hgb 8.5 L (12.0-16.0) g/dL Hct 27.0 L (37-47) % Plt Count 241 (130-400) K/uL [facility] 02/22/21 00:07 Sodium 137 Potassium 3.8 Chloride 103 Carbon Dioxide 23 BUN 14 Creatinine 5.61 H* D Glucose 107 H Calcium 9.3 (1) GI bleed GI bleed type/associated pathology: unspecified gastrointestinal hemorrhage type Qualified Code(s): K92.2 - Gastrointestinal hemorrhage, unspecified
[2021-02-23] MEDS: PIPERACILLIN/TAZOBACTAM 4.5 GM in DEXTROSE 5% 100 ML IV SCH ×2 (04:13→17:43)
[2021-02-23] MEDS: ACETAMINOPHEN 325 MG TAB PO PRN ×2 (05:24→12:10)
[2021-02-23] MEDS: INSULIN ASPART 100 UNITS/ML 3 ML PEN SC SCH ×4 (07:52→20:51)
[2021-02-23] MEDS: MIDODRINE HCL 10 MG TAB PO SCH (07:53)
[2021-02-23 08:49] LABS: Hematocrit (blood only) 26.5 % (37-47); Hemoglobin 8.3 g/dL (12.0-16.0)
[2021-02-23] MEDS: HYDROmorphone INJ 1 MG/ML SYRINGE IV PRN (08:55)
[2021-02-23] MEDS ORDERED: EPOETIN ALFA 10,000 UNITS/ML VIAL IV SCH (09:00)
[2021-02-23 09:42] LABS: BUN Creatinine Ratio 2.4 (10-20); Calcium 9.8 mg/dl (8.5-10.1); Creatinine Clr Calc Pharmacy 11.8 ml/min; Est GFR (African American) 7.5 ml/min; Est GFR (Non-African American) 6.5 ml/min; Potassium 3.3 mmol/L (3.5-5.1)
--- NOTE | 2021-02-23 10:04 | Nephrology Progress Note ---
Date of Service February 23, 2021 Assessment & Plan (1) ESRD (end stage renal disease) on dialysis: (2) GI bleed: (3) Diabetes mellitus, type 2: (4) Hypertension: (5) S/P above knee amputation: Plan: ESRD on hemodialysis admitted with GI bleeding, hemoglobin less than 6.9, received 2 unit of blood transfusion. EGD showed gastritis and currently on Protonix 40 b.i.d.. Blood pressure, volume status electrolyte acceptable. Dialyzes via right IJ tunneled dialysis catheter. Has non healing ulcer on left AKA stump and rt heel. Had multiple debridement. Overall stable, BP, electrolyte and volume status. Seems to have some confusion -- will plan for hemodialysis this afternoon -- dose meds for gfr <10 -- Epogen with HD today will follow Admission and Anticipated Discharge Date Admission Date: January 27, 2021 Gayle Day was seen examined in her room this morning. She has been emotional and tearful and talks about her family. BP low. electrolyte acceptable. continues to be bothered by pain. Review of Systems Review of Systems: detailed review of system was otherwise unremarkable. Physical Exam Constitutional: WD/WN, vitals as above + ill appearing and + morbidly obese; no acute distress Eyes: + anicteric sclerae Respiratory: normal respiratory effort; no respiratory distress Auscultation: lungs clear to auscultation bilaterally Cardiovascular: Rate/Rhythm: regular rate and regular rhythm Heart Sounds: normal S1 and normal S2 Extremities: no edema Skin: normal turgor; no rashes Neurologic: no focal motor deficits and not confused Psychiatric: Orientation: alert and oriented x 3 Affect: + anxious affect and + tearful affect Results & Data ([facility]) Vital Signs (Past 12 Hours) Vital Signs Temp Pulse Pulse Resp BP Pulse Ox 02/23/21 07:50 83 02/23/21 07:26 36.5 C 84 18 121/68 100 02/23/21 02:55 36.5 C 85 18 103/67 98 02/22/21 22:51 85 02/22/21 22:27 36.7 C 86 17 98/64 L 97 PG Care Time/CCT Total # of Minutes Spent Total Time Spent with Patient: Total time spent is greater than 50% in coordination of care (as documented) at patient's floor/unit and/or counseling patient: Coding Level of Care Code 29870 Subseq Hosp Care Lvl 2 Diagnoses ESRD (end stage renal disease) on dialysis N18.6; Z99.2 GI bleed K92.2 GI bleed type/associated pathology: unspecified gastrointestinal hemorrhage type Diabetes mellitus, type 2 E11.9 Hypertension I10 S/P above knee amputation Z89.619 (1) GI bleed GI bleed type/associated pathology: unspecified gastrointestinal hemorrhage type Qualified Code(s): K92.2 - Gastrointestinal hemorrhage, unspecified
--- NOTE | 2021-02-23 10:25 | Surgery Progress Note ---
Date of Service February 23, 2021 Assessment & Plan (1) S/P above knee amputation: Plan: Pt wound appears to be doing well with wound vac. Recommend continue wound vac with changes M/W/F. Admission and Anticipated Discharge Date Admission Date: January 27, 2021 Subjective 55 yo f s/p LLE AKA stump debridement, seen in f/u today. Pt admits pain, but states is same as it has been since surgery. She is unreliable historian. Review of Systems Review of Systems: All systems reviewed & are unremarkable except as noted in HPI & below Physical Exam Constitutional: WD/WN, vitals as above + morbidly obese and + in distress (tearful) Skin: + incision (LLE AKA wound with good granulation, no signficiant bleeding. ) Results & Data ([facility]) Vital Signs (Past 12 Hours) Vital Signs Temp Pulse Pulse Resp BP Pulse Ox 02/23/21 07:50 83 02/23/21 07:26 36.5 C 84 18 121/68 100 02/23/21 02:55 36.5 C 85 18 103/67 98 02/22/21 22:51 85 02/22/21 22:27 36.7 C 86 17 98/64 L 97
[2021-02-23] MEDS: PANTOprazole 40 MG in SYRINGE 0 ML IV SCH ×2 (14:01→21:11)
[2021-02-23] MEDS: HYDROCORTISONE HC 2.5% CRM 30GM TUBE EXT SCH ×2 (14:01→21:17)
[2021-02-23] MEDS: MAGNESIUM CHLORIDE 64MG DELAYED REL TAB PO SCH ×2 (14:01→21:12)
[2021-02-23] MEDS: oxyCODONE HCL IR 5 MG TAB (IMMEDIATE RELEASE) PO PRN ×2 (16:39→22:16)
[2021-02-23] MEDS: ATORVASTATIN 20 MG TAB PO SCH (17:39)
[2021-02-23] MEDS: CHOLECALCIFEROL 1,000 UNITS 25 MCG TAB PO SCH (17:39)
[2021-02-23] MEDS: ADVANCED PROBIOTIC 1250 MG CAPSULE PO SCH (17:40)
[2021-02-23] MEDS: NEPHROCAPS PO SCH (17:40)
--- NOTE | 2021-02-23 18:13 | Hospitalist Progress Note ---
Date of Service February 23, 2021 Assessment & Plan (1) GI bleed: Plan: Likely multifactorial Gastric Ulcer, polyps, diverticulosis and internal hemorrhoids, AVMs Suspect ischemic colitis--less likely based on CT S/P EGD: gastric ulcer --CT ABD:No CT evidence for ischemic bowel. However, there is a masslike filling defect within the rectum suspicious for a neoplastic process. Direct visualization is recommended. -S/P Colonoscopy: Two 5 to 7 mm polyps in the cecum, removed with hot snare. Resected and retrieved. Diverticulosis in the sigmoid colon. Nonbleeding internal hemorrhoids. No findings on the exam to correlate with abnormal CT in the rectum. It was most likely stool versus shadowing. -Pathology Stomach, biopsy:Mild to moderate acute and chronic gastritis. Negative for intes tinal metaplasia, dysplasia and carcinoma. H. pylori immunoperoxidase stain negative Colon, cecum, polypectomies:1. Fragments of tubular adenoma. 2. No invasive carcinoma seen. --ABD CTA:reviewed --Repeat Colonoscopy: Mucosal ulceration--Clip placed, multiple nonbleeding colonic angioectasias --Protonix drip>>Transitioned IV Protonix Appreciate GI input S/P PRBCs Continue Protonix 40 mg twice daily for 8 weeks and then reduce to once daily Needs follow-up with GI upon discharge Hb stable Currently no recurrence of bleeding Plan for Epogen with hemodialysis today (2) Postoperative wound infection: Plan: -Left AKA stump cellulitis -Stage 3 Pressure ulcer of right heel, POA -Blood Cx: Negative -Empirically received Unasyn and Doxy for 7 days -Transitioned Unasyn to Zosyn -Appreciate orthopedics, vascular surgery input -S/P Debridement of skin and subcutaneous Left Above Knee Amputation Stump (22x8cm), Application of Wound Vac with wound measuring 22x8 cm.(Left) - Giuseppe Michel MD on 02/13 -Continue wound care/Vac -Appreciate ID Input -Pain control -As per ID: Plan to complete antibiotics 10 to 14 days, from February 13, 2021. May need prolonged antibiotic course for 4-6 weeks if concern for bone involvement (Can switch Zosyn to cefepime: 2 g IV after each dialysis as outpatient, and metronidazole 500 mg p.o. every 8 hours for convenient dosing at dialysis center. okay to ignore C albicans found on the wound culture on February 13) - Bone seemed to be infected as per Vascular surgery-Discussed on 02/19/21 -Patient needs prolonged course of antibiotics: 4-6 weeks -Wound Vac changed today Delirium Minimize Narcotic use as able Reorient frequently (3) ESRD (end stage renal disease) on dialysis: Plan: -hemodialysis as per Nephrology Received Epogen with HD Appreciate Nephrology Input Plan for HD today Hypokalemia Replace electrolytes as needed Poor oral intake Appreciate Crystal Grinder Input (4) Diabetes mellitus, type 2: Plan: - Accuchecks - Insulin sliding scale (5) Hypertension: Plan: Monitor BP Continue current medications (6) Hyperlipidemia: Plan: on Statin (7) Ulcer of right heel: Plan: - Wound care consult, as above (8) Peripheral vascular disease: (9) Obstructive sleep apnea: Plan: Non-tolerant of CPAP CODE STATUS: Full code DVT Px: SCDs Re: Recurrent GI bleeding Admission and Anticipated Discharge Date Admission Date: January 27, 2021 Subjective Patient is seen and examined at bedside Hemodialysis today Had wound VAC changed today Denies chest pain, dyspnea, dizziness, nausea, abd pain Review of Systems Review of Systems: All systems reviewed & are unremarkable except as noted in Subjective Physical Exam Physical Exam: Physical Exam: Vitals signs as noted above General Appearance:Morbidly Obese, chronic ill appearing Head: normocephalic, Atraumatic Eyes: normal inspection, EOMI Neck: supple, Trachea midline Respiratory/Chest: Normal breath sounds, CTA, No accessory muscle use Cardiovascular: S1, S2, No murmur Abdomen/GI:Soft, Non tender, Bowel sounds present Extremities/Musculoskeletal:normal inspection, 1+ pedal edema, Left AKA, +Wound Vac Neurologic/Psych:AAOX3, grossly no focal neurological deficits Skin: normal color, warm, right heel wound Results & Data Results & Data ([facility]) Vital Signs (Past 12 Hours) Vital Signs Temp Pulse Pulse Pulse Resp BP BP 02/23/21 17:46 36.4 C L 85 18 87/48 L 02/23/21 17:19 36.6 C 68 80/48 L 02/23/21 17:08 58 L 78/50 L 02/23/21 17:01 52 L 69/35 L 02/23/21 16:30 48 L 82/41 L 02/23/21 16:00 53 L 92/50 L 02/23/21 15:30 62 131/109 H 12/20/21 15:11 78 86/38 L 02/23/21 15:09 36.5 C 81 02/23/21 15:00 81 02/23/21 11:34 36.4 C L 84 19 85/35 L 02/23/21 07:50 83 02/23/21 07:26 36.5 C 84 18 121/68 Pulse Ox 02/23/21 17:46 99 02/23/21 17:19 02/23/21 17:08 02/23/21 17:01 02/23/21 16:30 02/23/21 16:00 02/23/21 15:30 02/23/21 15:11 02/23/21 15:09 02/23/21 15:00 02/23/21 11:34 100 02/23/21 07:50 02/23/21 07:26 100 Laboratory Results Short CBC 02/23/21 Range/Units 08:32 Hgb 8.3 L (12.0-16.0) g/dL Hct 26.5 L (37-47) % BMP 02/23/21 08:32 Sodium 138 Potassium 3.3 L Chloride 103 Carbon Dioxide 21 BUN 16 Creatinine 6.54 H* D Glucose 101 H Calcium 9.8 (1) GI bleed GI bleed type/associated pathology: unspecified gastrointestinal hemorrhage type Qualified Code(s): K92.2 - Gastrointestinal hemorrhage, unspecified
[2021-02-23] MEDS ORDERED: MIDODRINE HCL 10 MG TAB PO STA (20:40)
[2021-02-23] MEDS ORDERED: ALBUMIN 25% 100 mL 25 GM/100 ML VIAL IV ONE (20:40)
--- NOTE | 2021-02-23 20:40 | Communication Note ---
Date of Service: February 23, 2021 Made aware by RN of SBP 60s. Usual patient SBP 80s on review of vitals. Patient with diarrhea without abdominal pain complaints as per RN. AP Hypotension (Home Midodrine Rx of 5 mg 3 times daily changed to 3 times weekly prior to dialysis dosing by Nephrology last 01/27 due to elevated BP on review of records ) Diarrhea rule out C. difficile IV albumin 1 dose, extra midodrine Change current 3 times weekly dosing of predialysis Midodrine to 10 mg daily with hold parameters for SBP greater than 140 Stool C. difficile Will relay to AM provider.
[2021-02-23 21:12] LABS: Hemoglobin 9.2 g/dL (12.0-16.0)
[2021-02-24] MEDS: PIPERACILLIN/TAZOBACTAM 4.5 GM in DEXTROSE 5% 100 ML IV SCH ×2 (04:19→15:44)
[2021-02-24] MEDS ORDERED: MIDODRINE HCL 10 MG TAB PO SCH (08:00)
[2021-02-24 08:23] LABS: Hematocrit (blood only) 29.9 % (37-47); Hemoglobin 9.4 g/dL (12.0-16.0)
[2021-02-24] MEDS ORDERED: CHOLECALCIFEROL 5,000 UNITS 125 MCG TAB PO SCH (09:00)
[2021-02-24] MEDS: INSULIN ASPART 100 UNITS/ML 3 ML PEN SC SCH ×4 (09:03→21:11)
[2021-02-24] MEDS: PANTOprazole 40 MG in SYRINGE 0 ML IV SCH ×2 (09:04→21:12)
[2021-02-24] MEDS: MAGNESIUM CHLORIDE 64MG DELAYED REL TAB PO SCH ×2 (09:04→21:11)
[2021-02-24] MEDS: HYDROCORTISONE HC 2.5% CRM 30GM TUBE EXT SCH ×2 (09:04→21:11)
[2021-02-24] MEDS: CHOLECALCIFEROL 1,000 UNITS 25 MCG TAB PO SCH (09:12)
--- NOTE | 2021-02-24 09:28 | Nephrology Progress Note ---
Date of Service February 24, 2021 Assessment & Plan (1) ESRD (end stage renal disease) on dialysis: (2) GI bleed: (3) Diabetes mellitus, type 2: (4) Hypertension: (5) S/P above knee amputation: Plan: ESRD on hemodialysis admitted with GI bleeding, hemoglobin less than 6.9, received 2 unit of blood transfusion. EGD showed gastritis and currently on Protonix 40 b.i.d.. Blood pressure, volume status electrolyte acceptable. Dialyzes via right IJ tunneled dialysis catheter. Has non healing ulcer on left AKA stump and rt heel. Had multiple debridement. Overall stable, BP low, asymptomatic, electrolyte and volume status. Had only 550 ml UF yesterday. Po intake remains poor. -- will continue on Tuesday and Tuesday hemodialysis schedule. -- dose meds for gfr <10 -- had Epogen with HD yesterday --waiting on DC to rehab will follow Admission and Anticipated Discharge Date Admission Date: January 27, 2021 Gayle Day was seen examined in her room this morning. She has been emotional and tearful but denies any pain, SOB. BP low, asymptomatic. electrolyte acceptable. Review of Systems Review of Systems: detailed review of system was otherwise unremarkable. Physical Exam Constitutional: WD/WN, vitals as above + ill appearing and + morbidly obese; no acute distress Eyes: + anicteric sclerae Respiratory: normal respiratory effort; no respiratory distress Auscultation: lungs clear to auscultation bilaterally Cardiovascular: Rate/Rhythm: regular rate and regular rhythm Heart Sounds: normal S1 and normal S2 Extremities: no edema Chest (Breasts): Additional Comments: rt IJ TDC Musculoskeletal: left AKA, wound vac in place Skin: rt arm hematoma Neurologic: no focal motor deficits and not confused Psychiatric: Orientation: alert and oriented x 3 Affect: + anxious affect and + tearful affect Results & Data ([facility]) Vital Signs (Past 12 Hours) Vital Signs Temp Pulse Pulse Resp BP Pulse Ox 02/24/21 09:13 82 18 76/41 L 02/24/21 07:24 81 02/24/21 03:59 36.7 C 85 18 80/58 L 95 02/24/21 00:47 36.6 C 85 18 70/42 L 96 02/24/21 00:00 92 H PG Care Time/CCT Total # of Minutes Spent Total Time Spent with Patient: Total time spent is greater than 50% in coordination of care (as documented) at patient's floor/unit and/or counseling patient: Coding Level of Care Code 67266 Subseq Hosp Care Lvl 2 Diagnoses ESRD (end stage renal disease) on dialysis N18.6; Z99.2 GI bleed K92.2 GI bleed type/associated pathology: unspecified gastrointestinal hemorrhage type Diabetes mellitus, type 2 E11.9 Hypertension I10 S/P above knee amputation Z89.619 (1) GI bleed GI bleed type/associated pathology: unspecified gastrointestinal hemorrhage type Qualified Code(s): K92.2 - Gastrointestinal hemorrhage, unspecified
[2021-02-24] MEDS: ATORVASTATIN 20 MG TAB PO SCH (09:33)
[2021-02-24] MEDS: ADVANCED PROBIOTIC 1250 MG CAPSULE PO SCH (09:33)
[2021-02-24] MEDS: NEPHROCAPS PO SCH (09:33)
--- NOTE | 2021-02-24 09:51 | Palliative Care Consultation ---
Date of Consultation February 24, 2021 Assessment & Plan (1) Palliative care encounter: Mrs. Barb López is a 55 year old female who presented to the [facility] from [facility] with generalized weakness and sepsis. She has a significant PMH that includes: diabetes mellitus, peripheral vascular disease, end-stage renal disease on dialysis, and a left [id number] amputation. 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 She has had intermittent confusion, likely related to continued infection. Palliative Medicine was consulted to discuss overall goals of care. Dr. Bienvenido Torre visited with the patient today at her bedside. She was awake, and alter to person, but unable to participate in any meaningful conversation and is unable to make decisions regarding her overall care. She has more con sistent confusion today and is more hypotensive. Current plan is for hemodialysis tomorrow; however, her overall condition is quite guarded. After numerous efforts to reach the patients daughter, we were finally able to connect and talk with Dariela on the phone. We talked at length about her complex care including being dialysis dependent, having the possibility of continued bleeding, lengthy treatment for osteomyelitis with penitentiary IV abx, wound vac treatment, overall generalized weakness and with poor overall meaningful recovery. While the patient stated a few weeks ago that she would want continued aggressive treatment, unfortunately, she has declined and is no longer able to have the capacity to make complex decisions regarding her care. All decision making now to proceed through the patients daughter, Dariela, who wishes to have her mother be a DNR/DNI. Additionally, she would like to avoid any further treatment, including stopping hemodialysis. She would like to transition her mother to full comfort directed care. I discussed that without dialysis, with how poor her creatinine is, she likely will within 7-10 days. Continue with wound vac but discontinue all other medications, including IV abx. Should the patient live more than a few days without decline, can revisit disposition. All of the above discussed with Dr. Rios and nursing. Visitation discussed with Dariela. Of course, two visitors will be allowed at a time; however, we will need to have specific clearances for the patients grandson who is 12 years old. Palliative will follow. (2) ESRD (end stage renal disease) on dialysis: (3) S/P above knee amputation: (4) Weakness: (5) Altered mental status: History of Present Illness Reason for Consultation: goals of care Requesting Physician: Dr. Peoples Attending Physician: Abdoul Rios MD History of Present Illness Mrs. Barb López is a 55 year old female who presented to the [facility] from [facility] with generalized weakness and sepsis. She has a significant PMH that includes: diabetes mellitus, peripheral vascular disease, end-stage renal disease on dialysis, and a left [id number] amputation. 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 She has had intermittent confusion, likely related to continued infection. Palliative Medicine was consulted to discuss overall goals of care. Please see A/P for further information. Thanks for involving Palliative Medicine with this patient. Allergies Allergy/AdvReac Type Severity Reaction Status Date / Time No Known Allergies Allergy Verified 01/24/21 20:53 Home Medications Medication Instructions Recorded Confirmed Type atorvastatin 20 mg tablet (Lipitor) 20 mg PO DAILY 06/05/18 01/27/21 History clopidogrel 75 mg tablet (Plavix) 75 mg PO DAILY 06/05/18 01/27/21 History docusate sodium 100 mg capsule 100 mg PO BID 06/05/18 01/27/21 History insulin glargine 100 unit/mL 10 units SUBCUT HS 06/05/18 01/27/21 History subcutaneous solution (Lantus U-100 Insulin) Saccharomyces boulardii 250 mg 250 mg PO BIDM 01/24/21 01/27/21 History capsule acetaminophen 325 mg tablet 650 mg PO Q4 PRN 01/24/21 01/27/21 History aspirin 81 mg tablet,delayed 81 mg PO DAILY 01/24/21 01/27/21 History release (Aspirin Low Dose) bisacodyl 10 mg rectal suppository 10 mg VT DAILY PRN 01/24/21 01/27/21 History cholecalciferol (vitamin D3) 125 125 mcg PO DAILY 01/24/21 01/27/21 History mcg (5,000 unit) capsule collagenase clostridium histo. 250 1 applic TOPICAL DAILY 01/24/21 01/27/21 History unit/gram topical ointment (Santyl) darbepoetin sheri in polysorbat 100 100 mcg SUBCUT UD 01/24/21 01/27/21 History mcg/0.5 mL in polysorbate injection syringe dextrose 40 % oral gel 15 g PO ONCE PRN 01/24/21 01/27/21 History gentamicin 0.1 % topical ointment 1 applic TOPICAL DAILY 01/24/21 01/27/21 History heparin (porcine) 5,000 unit/mL 5,000 unit SUBCUT Q12H 01/24/21 01/27/21 History injection solution iron sucrose 100 mg iron/5 mL 100 mg IV UD PRN 01/24/21 01/27/21 History intravenous solution (Venofer) magnesium hydroxide 400 mg/5 mL 30 ml PO DAILY PRN 01/24/21 01/27/21 History oral suspension (Milk of Magnesia) meclizine 12.5 mg tablet 25 mg PO TID PRN 01/24/21 01/27/21 History midodrine 5 mg tablet 5 mg PO TID 01/24/21 01/27/21 History ondansetron 4 mg disintegrating 4 mg PO Q6H PRN 01/24/21 01/27/21 History tablet pantoprazole 40 mg tablet,delayed 40 mg PO HS 01/24/21 01/27/21 History release polyethylene glycol 3350 17 gram 17 g PO QDL PRN 01/24/21 01/27/21 History oral powder packet (Miralax) sennosides 8.6 mg-docusate sodium 1 tab-cap PO QDL PRN 01/24/21 01/27/21 History 50 mg tablet (Senokot-S) tramadol 50 mg tablet 50 mg PO Q6H PRN 01/24/21 01/27/21 History doxycycline hyclate 100 mg capsule 100 mg PO BID 14 Days #28 cap 01/25/21 01/27/21 Rx cocoa butter-shark liver oil 1 supp VT BID 01/27/21 01/27/21 History rectal suppository hydrocortisone 2.5 % topical cream 1 applic TOPICAL BID 01/27/21 01/27/21 History insulin regular human 100 unit/mL 1 sliding scale dose SUBCUT 01/27/21 01/27/21 History injection solution (Humulin R USEASDIRECTD Regular U-100 Insulin) Patient History Medical History (Updated 02/24/21 @ 20:12 by MENG Vazquez) Altered mental status Anemia AV fistula LEFT ARM Congestive heart failure Diabetes mellitus, type 2 Difficult intravenous access Hemodialysis patient MONDAYS AND FRIDAYS AT [facility] [place] Hyperlipidemia Hypertension Morbid obesity Obstructive sleep apnea Palliative care encounter Peripheral vascular disease Right heart failure Transient ischemic attack (TIA) X 14 (LAST EVENT 2015) Weakness Surgical History History of appendectomy History of cardiac cath X 2 (NO STENTS) History of section X1 History of cholecystectomy History of colonoscopy History of dilatation and curettage X 3 History of hysterectomy History of surgery HX OF LEFT UPPER ARM FISTULOGRAM (CLOT IN AV FISTULA) X 9 TIMES History of tooth extraction Family History Other No significant family history Social History Smoking Status: Former smoker Tobacco Type: Cigarettes Second Hand Exposure: No; Hx Alcohol Use: No Hx Substance Use: No Preferred Language: Ghanaian Communication Ability: Effective Coremaker Pipe Required: No Beliefs That Will Affect Care: None Current Living Situation: Family How many Children do You have: 1 Other Information That Helps Us Care for You: No Feels Safe at Home: Yes Assistive Devices: None Review of Systems Review of Systems: Unobtainable due to cognitive status Physical Exam Constitutional: + frail appearing Psychiatric: Orientation: alert and oriented to person Insight: + poor insight Judgement: + limited judgement Results & Data ([facility]) Vital Signs (Past 12 Hours) Vital Signs Temp Pulse Pulse Resp BP Pulse Ox 02/24/21 09:28 36.7 C 98 02/24/21 09:13 82 18 76/41 L 02/24/21 07:24 81 02/24/21 03:59 36.7 C 85 18 80/58 L 95 02/24/21 00:47 36.6 C 85 18 70/42 L 96 02/24/21 00:00 92 H PG Care Time/CCT Total # of Minutes Spent Total Time Spent with Patient: Total time spent is greater than 50% in coordination of care (as documented) at patient's floor/unit and/or counseling patient: 100 minutes Coding Level of Care Code 35763 Initial Inpt Care Lvl 3 Diagnoses Palliative care encounter Z51.5 ESRD (end stage renal disease) on dialysis N18.6; Z99.2 S/P above knee amputation Z89.619 Weakness R53.1 Altered mental status R41.82 Time Spent (min) 100
[2021-02-24] MEDS ORDERED: oxyCODONE/ACETAMINOPHEN 5mg/325mg TAB PO PRN (12:04)
[2021-02-24] MEDS ORDERED: HYDROmorphone INJ 0.5 MG/0.5 ML SYR IV ONE (12:05)
--- NOTE | 2021-02-24 12:15 | Communication Note ---
Date of Service: February 24, 2021 patient continues to feel quite ill with hypotension and incontinence of D. Nursing noted some tearfulness and anxiety last pm. today liaison reports she is only alert to person, believes she's in an ambulance and states she's crying due to pain Avoid Ativan given hypotension, her emotional lability seems to be coming from delirium on top of her baseline anxious/low mood. She was previously ambivalent about an SSRI and given hx of GI bleed/ongoing GI issues a trial was deferred. Buspar 5 mg BID (am and afternoon) could have some benefit prn and less antiplatelet effects than SSRI. She is not able to consent at this time but will reassess.
--- NOTE | 2021-02-24 18:22 | Hospitalist Progress Note ---
Date of Service February 24, 2021 Assessment & Plan (1) GI bleed: Plan: Likely multifactorial Gastric Ulcer, polyps, diverticulosis and internal hemorrhoids, AVMs Suspect ischemic colitis--less likely based on CT S/P EGD: gastric ulcer --CT ABD:No CT evidence for ischemic bowel. However, there is a masslike filling defect within the rectum suspicious for a neoplastic process. Direct visualization is recommended. -S/P Colonoscopy: Two 5 to 7 mm polyps in the cecum, removed with hot snare. Resected and retrieved. Diverticulosis in the sigmoid colon. Nonbleeding internal hemorrhoids. No findings on the exam to correlate with abnormal CT in the rectum. It was most likely stool versus shadowing. -Pathology Stomach, biopsy:Mild to moderate acute and chronic gastritis. Negative for intes tinal metaplasia, dysplasia and carcinoma. H. pylori immunoperoxidase stain negative Colon, cecum, polypectomies:1. Fragments of tubular adenoma. 2. No invasive carcinoma seen. --ABD CTA:reviewed --Repeat Colonoscopy: Mucosal ulceration--Clip placed, multiple nonbleeding colonic angioectasias --Protonix drip>>Transitioned IV Protonix Appreciate GI input S/P PRBCs Continue Protonix 40 mg twice daily for 8 weeks and then reduce to once daily Needs follow-up with GI upon discharge Currently no recurrence of bleeding Epogen with hemodialysis Monitor CBC (2) Postoperative wound infection: Plan: -Left AKA stump cellulitis -Stage 3 Pressure ulcer of right heel, POA -Blood Cx: Negative -Empirically received Unasyn and Doxy for 7 days -Transitioned Unasyn to Zosyn -Appreciate orthopedics, vascular surgery input -S/P Debridement of skin and subcutaneous Left Above Knee Amputation Stump (22x8cm), Application of Wound Vac with wound measuring 22x8 cm.(Left) - Giuseppe Michel MD on 02/13 -Continue wound care/Vac -Appreciate ID Input -Pain control -As per ID: Plan to complete antibiotics 10 to 14 days, from February 13, 2021. May need prolonged antibiotic course for 4-6 weeks if concern for bone involvement (Can switch Zosyn to cefepime: 2 g IV after each dialysis as outpatient, and metronidazole 500 mg p.o. every 8 hours for convenient dosing at dialysis center. okay to ignore C albicans found on the wound culture on February 13) - Bone seemed to be infected as per Vascular surgery-Discussed on 02/19/21 -Patient needs prolonged course of antibiotics: 4-6 weeks -Wound Vac change as needed -Palliative Care consulted to address goals of care Delirium Minimize Narcotic use as able Reorient frequently (3) ESRD (end stage renal disease) on dialysis: Plan: -hemodialysis as per Nephrology Received Epogen with HD Appreciate Nephrology Input HD as per Nephrology Hypotension Currently on Midodrine Hypokalemia Replace electrolytes as needed Poor oral intake Appreciate Sales Support Specialist Input (4) Diabetes mellitus, type 2: Plan: - Accuchecks - Insulin sliding scale (5) Hypertension: Plan: BP low in 80s mostly (6) Hyperlipidemia: Plan: on Statin (7) Ulcer of right heel: Plan: - Wound care consult, as above (8) Peripheral vascular disease: (9) Obstructive sleep apnea: Plan: Non-tolerant of CPAP CODE STATUS: Full code Plan to readdress goals of care DVT Px: SCDs Re: Recurrent GI bleeding Admission and Anticipated Discharge Date Admission Date: January 27, 2021 Subjective Patient is seen and examined at bedside Delirious on and off Blood pressure labile overnight Complains of significant pain at surgical site Denies chest pain, dyspnea, dizziness, nausea, abd pain Tried to reach patient's daughter multiple times--no answer Discussed with palliative care today Review of Systems Review of Systems: All systems reviewed & are unremarkable except as noted in Subjective Physical Exam Physical Exam: Physical Exam: Vitals signs as noted above General Appearance:Morbidly Obese, chronic ill appearing Head: normocephalic, Atraumatic Eyes: normal inspection, EOMI Neck: supple, Trachea midline Respiratory/Chest: Normal breath sounds, CTA, No accessory muscle use Cardiovascular: S1, S2, No murmur Abdomen/GI:Soft, Non tender, Bowel sounds present Extremities/Musculoskeletal:normal inspection, 1+ pedal edema, Left AKA, +Wound Vac Neurologic/Psych:AAOX3, grossly no focal neurological deficits Skin: normal color, warm, right heel wound Results & Data Results & Data ([facility]) Vital Signs (Past 12 Hours) Vital Signs Temp Pulse Pulse Resp BP Pulse Ox 02/24/21 16:03 36.7 C 85 20 78/42 L 96 02/24/21 14:57 82 02/24/21 13:56 109/80 02/24/21 11:13 36.8 C 84 19 98 12/21/21 10:48 84/60 L 02/24/21 09:28 36.7 C 98 02/24/21 09:13 82 18 76/41 L 02/24/21 07:24 81 Laboratory Results Short CBC 02/23/21 02/24/21 Range/Units 21:02 08:08 Hgb 9.2 L 9.4 L (12.0-16.0) g/dL Hct 29.0 L 29.9 L (37-47) % (1) GI bleed GI bleed type/associated pathology: unspecified gastrointestinal hemorrhage type Qualified Code(s): K92.2 - Gastrointestinal hemorrhage, unspecified
--- NOTE | 2021-02-24 19:15 | Communication Note ---
Date of Service: February 24, 2021 Discussed with Palliative Care, Patient's code status is changed to DNI/DNR as per patient's family (Daughter Dariela) wishes as patient is unable to make decision for herself, and given poor prognosis.
[2021-02-24] MEDS ORDERED: MoRPHine SULFATE 4 MG/ML 1 ML CARP\\VIAL IV PRN (23:01)
[2021-02-24] MEDS ORDERED: LORazepam 1 MG/2 ML VIAL IV PRN (23:01)
[2021-02-24] MEDS ORDERED: GLYCOPYRROLATE 0.2 MG/ML VIAL IV PRN (23:01)
--- NOTE | 2021-02-25 04:39 | Death Pronouncement Note ---
Date of Service February 25, 2021 Pronouncement Note Admission Date Admission Date: January 27, 2021 Date and Time of Date of : 02/25/21 Time of : 04:48 Contributing Factors (1) Palliative care encounter: (2) ESRD (end stage renal disease) on dialysis: (3) S/P above knee amputation: (4) Weakness: (5) Altered mental status: Summary Additional details: Discharge summary and certificate to be completed by Dr. Rios. Additional Data Confirmation of : no pulse, no respirations, no heart sounds and pupils fixed and dilated Attending physician: Abdoul Rios MD Autopsy requested?: No
--- NOTE | 2021-02-25 11:18 | Discharge Summary ---
Date of Service February 25, 2021 Admission HPI Per Admitting Provider This is a 55 y/o female with a PMH of ESRD on HD (M/W/F at [facility]), DM2, RAHEEM (not compliant with CPAP), HTN, dyslipidemia, obesity, former tobacco use, and recent left heel ulcer presented to the ED today from [facility] with rectal bleeding and associated 3 g drop in Hgb in three days. Pt was admitted to [facility] 11/28-12/05/20 with a left heel ulcer and underwent a bone biopsy. Followed up with wound care outpatient but wound ultimately turned necrotic and gangrenous so pt was referred for amputation, which was done at [place] on 01/05/21. Transferred to [facility] at discharge for rehab. Seen in the ED on 01/24/21 for possible infection of the surgical wound - CT was negative for fluid collection and pt was discharged back to [facility] on doxycycline. Over the past three days, her hemoglobin dropped 3 g. Pt reports rectal bleeding with bowel movements for the past two weeks. She also reports a ruptured hemorrhoid when a nurse was giving her a suppository a couple of days ago and thinks that the rectal bleeding may have slowed since that happened. Blood is bright red and variable quantity. She does note nausea but this has been for seven weeks and is no worse than usual. Feeling more fatigued with malaise today. Denies increased SOB. Admission Exam Per Admitting Provider Physical Exam Constitutional: + obese; no acute distress Eyes: + anicteric sclerae Neck: trachea midline Respiratory: no respiratory distress and no labored breathing Auscultation: + diminished lung sounds; no rales, no rhonchi and no wheezes Cardiovascular: Rate/Rhythm: regular rate and regular rhythm Vessels: radial pulses present Extremities: + edema (trace to 1+ RLE edema) Gastrointestinal (Abdomen): Inspection/Auscultation: normal bowel sounds; abdomen not distended Percussion/Palpation: abdomen soft; abdomen nontender and no guarding Musculoskeletal: Head/Neck/Chest: normocephalic, head atraumatic and neck supple left mid-thigh amputation Skin: right heel with ulcer with black eschar, left amputation surgical site with sutures intact, crusted serosanguineous drainage, mild erythema but no significant warmth Neurologic: moves all extremities; no focal motor deficits Psychiatric: Principal Diagnosis Gastrointestinal bleeding Left above knee amputation stump cellulitis, likely Osteomyelitis Possible Sepsis Postoperative wound infection End-stage renal disease on dialysis Acute blood loss anemia Discharge Data Allergies Allergy/AdvReac Type Severity Reaction Status Date / Time No Known Allergies Allergy Verified 01/24/21 20:53 Consultations 01/27/21 14:55 ED Decision to Admit Stat 01/27/21 22:41 Consult Gastroenterology Routine 01/28/21 08:30 Consult Nephrology Routine 01/28/21 15:14 Consult Orthopedic Surgery Routine 02/01/21 16:17 Consult Vascular Surgery Routine 02/15/21 17:21 Consult Palliative Care Routine 02/16/21 07:46 Consult Infectious Diseases Routine 02/18/21 13:20 Consult Pain Management Routine 02/19/21 20:22 Consult Psychiatry Routine Procedures Performed Operation Date: 01/28/21 15:30 Actual Procedures p EGD Biopsy Cytology - Javi Castro MD Operation Date: 02/06/21 15:30 Actual Procedures p Colonoscopy Polypectomy - Alex Segura Case, DO Operation Date: 02/12/21 16:30 <No data on this case meets the specified criteria> Operation Date: 02/13/21 08:00 <No data on this case meets the specified criteria> Operation Date: 02/13/21 09:05 Actual Procedures p Debridement of skin and subcutaneous Left Above Knee Amputation Stump, Application of Wound Vac with wound measuring 22x8 cm.(Left) - Giuseppe Michel MD Operation Date: 02/15/21 15:00 Actual Procedures p Gastrointestinal Bleed with Push Enteroscopy, Colonoscopy(Not Applicable) - Alex Segura Case, DO s Esophagogastroduodenoscopy(Not Applicable) - Alex Segura Case, DO Ordered Studies 02/05/21 10:03 CT abd pelvis oral and IV con Routine 02/13/21 14:27 CT angio abdomen pelvis w con Urgent Hospital Course (1) GI bleed: (1) GI bleed: Plan: Likely multifactorial Gastric Ulcer, polyps, diverticulosis and internal hemorrhoids, AVMs Suspect ischemic colitis--less likely based on CT S/PEGD: gastric ulcer --CT ABD:No CT evidence for ischemic bowel. However, there is a masslike filling defect within the rectum suspicious for a neoplastic process. Direct visualization is recommended. -S/P Colonoscopy: Two 5 to 7 mm polyps in the cecum, removed with hot snare. Resected and retrieved. Diverticulosis in the sigmoid colon. Nonbleeding internal hemorrhoids. No findings on the exam to correlate with abnormal CT in the rectum. It was most likely stool versus shadowing. -Pathology Stomach, biopsy:Mild to moderate acute and chronic gastritis. Negative for intestinal metaplasia, dysplasia and carcinoma. H. pylori immunoperoxidase stain negative Colon, cecum, polypectomies:1. Fragments of tubular adenoma. 2. No invasive carcinoma seen. --ABD CTA:reviewed --Repeat Colonoscopy: Mucosal ulceration--Clip placed, multiple nonbleeding colonic angioectasias --Protonix drip>>Transitioned IV Protonix Appreciate GI input S/P PRBCs Continue Protonix 40 mg twice daily for 8 weeks and then reduce to once daily Needs follow-up with GI upon discharge Currently no recurrence of bleeding Epogen with hemodialysis Monitor CBC (2) Postoperative wound infection: Plan: -Left AKA stump cellulitis -Stage 3 Pressure ulcer of right heel, POA -Blood Cx: Negative -Empirically received Unasyn and Doxy for 7 days -Transitioned Unasyn to Zosyn -Appreciate orthopedics, vascular surgery input -S/P Debridement of skin and subcutaneous Left Above Knee Amputation Stump (22x8cm), Application of Wound Vac with wound measuring 22x8 cm.(Left) - Giuseppe Michel MD on 02/13 -Continue wound care/Vac -Appreciate ID Input -Pain control -As per ID: Plan to complete antibiotics 10 to 14 days, from February 13, 2021. May need prolonged antibiotic course for 4-6 weeks if concern for bone involvement (Can switch Zosyn to cefepime: 2 g IV after each dialysis as outpatient, and metronidazole 500 mg p.o. every 8 hours for convenient dosing at dialysis center. okay to ignore C albicans found on the wound culture on February 13) - Bone seemed to be infected as per Vascular surgery-Discussed on 02/19/21 -Patient needs prolonged course of antibiotics: 4-6 weeks -Wound Vac change as needed -Palliative Care consulted to address goals of care Delirium Minimize Narcotic use as able Reorient frequently (3) ESRD (end stage renal disease) on dialysis: Plan: -hemodialysis as per Nephrology Received Epogen with HD Appreciate Nephrology Input HD as per Nephrology Hypotension Currently on Midodrine Hypokalemia Replace electrolytes as needed Poor oral intake Appreciate Technician Chemical Cleaning Input (4) Diabetes mellitus, type 2: Plan: - Accuchecks - Insulin sliding scale (5) Hypertension: Plan: BP low in 80s mostly (6) Hyperlipidemia: Plan: on Statin (7) Ulcer of right heel: Plan: - Wound care consult, as above (8) Peripheral vascular disease: (9) Obstructive sleep apnea: Plan: Non-tolerant of CPAP CODE STATUS: Full code Plan to readdress goals of care DVT Px: SCDs Re: Recurrent GI bleeding Patient was transitioned to comfort measures on discussion with palliative care, patient's daughter. Given clinical deterioration despite aggressive management. Patient was unable to participate in meaningful conversation to address goals of care. Patient's daughter agreed to transition her to comfort care given overall poor prognosis and no meaningful recovery. Patient while on comfort measures on 02/25/2021 at 4:48 AM. Total Time Total Time Spent Total Time Spent (In Minutes): 45 minutes Discharge Plan Discharge Items Patient Disposition: Discharge Diagnosis: Gastrointestinal bleeding Left above knee amputation stump cellulitis, likely Osteomyelitis Possible Sepsis Postoperative wound infection End-stage renal disease on dialysis Acute blood loss anemia Other Date/Time: 02/25/21 08:59
== END 2021-02-25 08:59 | disposition expired | DRG 463 ==
LOC: ED 12:12 → EDINP 19:01 → SUATTDRO 19:01 → EDINP 21:37 → 2W 01-28 12:09 → 1E 02-04 05:59 → 2S 02-06 22:54 → 2N 02-15 02:34 → 2S 02-15 18:23 → 3E 02-24 22:58